=== PATIENT | female | born 1965 | race Caucasian/White ===

== ENCOUNTER 2024-09-22 06:31 | Inpatient (IN) | payer MEDICAID, SELFPAY ==
[2024-09-22] VITALS (9 sets, daily range): BP systolic 109–126; BP diastolic 69–82; PULSE 64–82; RESP 15–20; TEMP 36.6–38.2; O2SAT 92–99; BMI 33.3; BMI 40.6
--- NOTE | 2024-09-22 06:37 | PD.EDAMS ---
Altered Mental Status RME/HPI General Chief Complaint: Altered Mental Status Stated Complaint: AMS Time Seen by Provider: 09/22/24 06:35 Arrival date/time: 09/22/24 06:31 RME / HPI RME / HPI narrative: 59 year old female with history of AFib, HFpEF 65-70% 06/2024, CVA, s/p gastric bypass, hypertension, diabetes, presents to the ED [facility] from [facility] for evaluation of altered mental status today. Per medics, staff at the facility reported finding the patient altered this morning. Last known well is unknown. Evidently at baseline patient is awake, alert, oriented, and conversive. No further history obtainable from patient due to mental status. Related Data Home Medications ?Medication ?Instructions ?Recorded ?Confirmed escitalopram oxalate 20 mg tablet 10 mg PO QDAY DEPRESSION 05/21/24 08/11/24 gabapentin 300 mg capsule 300 mg PO BID NEUROPATHY 05/21/24 08/11/24 insulin glargine 100 unit/mL 25 unit subcut HS DM 05/21/24 08/11/24 subcutaneous solution insulin lispro 100 unit/mL 1 sliding scale dose subcut AC dm 05/21/24 08/11/24 subcutaneous solution (Humalog U-100 Insulin) amlodipine 10 mg tablet 10 mg PO QDAY htn 07/03/24 08/11/24 atorvastatin 40 mg tablet 40 mg PO HS HYPERLIPIDEMIA 07/03/24 08/11/24 baclofen 10 mg tablet 10 mg PO BID Muscle spasms 07/03/24 08/11/24 carvedilol 3.125 mg tablet 3.125 mg PO BID HTN 07/03/24 08/11/24 clonidine HCl 0.1 mg tablet 0.1 mg PO BID HTN 07/03/24 08/11/24 empagliflozin 25 mg tablet 25 mg PO QDAY DM 07/03/24 08/11/24 folic acid 1 mg tablet 1 mg PO QDAY SUPPLEMENT 07/03/24 08/11/24 multivitamin with minerals 1 tab PO QDAY SUPPLEMENTS 07/04/24 08/11/24 (Multiple Vitamin-Minerals tablet) pantoprazole 40 mg tablet,delayed 40 mg PO DAILY GERD 07/04/24 08/11/24 release sennosides 8.6 mg tablet (senna) 8.6 - 50 mg PO BID CONSTIPATION 07/04/24 08/11/24 amino acids-protein hydrolysate 15 1 ea PO BID 08/11/24 08/11/24 gram-100 kcal/30 mL oral liquid pkt (Pro-Stat Sugar Free) ascorbic acid (vitamin C) 500 mg 500 mg PO BID 08/11/24 08/11/24 tablet bisacodyl 10 mg rectal suppository 10 mg KS QDAY PRN Constipation 08/11/24 08/11/24 (Dulcolax (bisacodyl)) magnesium hydroxide 400 mg/5 mL 1,200 mg PO QDAY PRN Constipation 08/11/24 08/11/24 oral suspension (Milk of Magnesia) sodium phosphates 19 gram-7 118 ml KS QDAY PRN Constipation 08/11/24 08/11/24 gram/118 mL enema (Enema Disposable) Previous Rx's ?Medication ?Instructions ?Recorded linezolid 600 mg tablet 600 mg PO BID 7 days #0 tabs 08/14/24 tramadol 50 mg tablet 50 mg PO Q8H PRN Pain, Moderate 08/14/24 #20 tabs Allergies Allergy/AdvReac Type Severity Reaction Status Date / Time acetylcysteine Allergy Severe Difficulty Verified 05/24/24 17:57 Swallowing aspirin Allergy Severe Difficulty Verified 05/24/24 17:57 Swallowing cefpodoxime Allergy Severe Difficulty Verified 05/24/24 17:57 Breathing levofloxacin [From Levaquin] Allergy Severe Difficulty Verified 05/24/24 17:57 Breathing Penicillins Allergy Severe Difficulty Verified 05/24/24 17:57 Breathing Sulfa (Sulfonamide Allergy Severe Hives Verified 05/24/24 17:57 Antibiotics) sulfadiazine Allergy Severe Difficulty Verified 05/24/24 17:57 Breathing sulfamethoxazole Allergy Severe Difficulty Verified 05/24/24 17:57 [From Bactrim] Breathing capsaicin Allergy Intermediate Hives Verified 05/24/24 17:57 dulaglutide Allergy Intermediate Hives Verified 05/24/24 17:57 trimethoprim [From Bactrim] Allergy Verified 03/21/24 22:15 Review of Systems Review of Systems ROS Unobtainable: unobtainable due to mental status Past Medical History Past Medical History NEUROLOGIC: Positive Neurological Disorders and Cerebrovascular Accident CARDIAC: Positive Cardiac Disorders, Atrial Fibrillation, Congestive Heart Failure and Hypertension RESPIRATORY: Positive Asthma GASTROINTESTINAL: Positive Gastrointestinal Disorders, Gall Bladder Disease, Hiatal Hernia and Obesity MUSCULOSKELETAL: Positive Musculoskeletal Disorders, Arthritis, Carpal Tunnel Syndrome and Fibromyalgia ENDOCRINE: Positive Endocrine Disorders and Diabetes Mellitus Type 2 PSYCHO/SOCIAL: Positive Depression OTHER HISTORY: Positive Hospitalization, Chicken Pox and Measles Surgical History SURGICAL: Positive Abdominal Surgery (06/12/2024) and Section Social History SMOKING STATUS: Never smoker SUBSTANCE USE: does not use ED Exam Narrative Physical exam: GENERAL APPEARANCE: Appears altered, responds to voice with groaning, well-nourished, grimacing to painful stimuli, pale HEENT: Normocephalic, atraumatic; pupils 2-3mm and reactive to light; EOMI; mucous membranes pink, moist; oropharynx clear NECK: Supple LUNGS: CTABL; no wheezes, no rales, no rhonchi HEART: Regular rate, regular rhythm; normal S1, S2; no murmurs ABDOMEN: non distended; normal BS; soft, no tenderness, no guarding, no rebound; no masses, no organomegaly, no hernia BACK: no CVA tenderness EXTREMITIES: atraumatic; no edema NEUROLOGIC: Appears altered, responds to voice with groaning SKIN: warm, dry, pale; no rashes Course Course Course Narrative: 929: Urine still pending 1200: Urine still pending 1300: Urine resulted Quality Measures Current suspected stage: sepsis Possible source: genitourinary Blood cultures ordered: completed in ED Antibiotic ordered: Yes Pertinent labs: 09/22/24 09/22/24 07:00 07:42 Lactic Acid 1.0 mMol/L (0.4-2.0) Procalcitonin 2.26 H ng/ml (0.0-0.49) sepsis Orders Category Date Time 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 Care 09/22/24 06:39 Active EKG (ED ONLY) *Do not use* NOW Care 09/22/24 06:34 Completed Insert IV NOW Care 09/22/24 07:[address] head/brain wo con Stat Exams 09/22/24 06:40 Completed EKG (ED Only) Stat Exams 09/22/24 06:34 Ordered XR chest 1V portable Stat Exams 09/22/24 06:39 Completed B-Type Natriuretic Peptide Stat Lab 09/22/24 07:00 Completed Blood Culture (Lab) Stat Lab 09/22/24 07:00 Received CBC Stat Lab 09/22/24 07:00 Completed Comprehensive Metabolic Panel Stat Lab 09/22/24 07:00 Completed Lactate (Lactic Acid) Stat Lab 09/22/24 07:42 Completed Lipase Stat Lab 09/22/24 07:00 Completed Magnesium Stat Lab 09/22/24 07:00 Completed Partial Thromboplastin Time Stat Lab 09/22/24 07:00 Completed Procalcitonin Stat Lab 09/22/24 07:00 Completed Prothrombin Time with INR Stat Lab 09/22/24 07:00 Completed Troponin I Stat Lab 09/22/24 07:00 Completed Urinalysis Stat Lab 09/22/24 13:03 Completed Urine Culture Stat Lab 09/22/24 13:03 Received Acetaminophen Supp [Tylenol Supp] Med 09/22/24 10:50 Discontinued 650 mg KS X1 ONE Doxycycline Inj [Vibramycin Inj] 100 mg Med 09/22/24 08:01 Discontinued Sodium Chloride 0.9% 250 ml [Ns] 250 ml IV X1 Ondansetron Inj [Zofran Inj] Med 09/22/24 12:29 Discontinued 4 mg IV X1 ONE Sodium Chloride 0.9% 1000 ml [Ns] 1,000 ml Med 09/22/24 08:34 Discontinued IV 999 mls/hr fentaNYL INJ [Sublimaze Inj] Med 09/22/24 12:29 Discontinued 50 mcg IVP X1 ONE Vital Signs Vital signs: Vital Signs Pulse Rate 71 09/22/24 06:48 Pulse ox is 95% on 2L nasal cannula which is adequate. Altered Mental Status MDM Narrative MDM Narrative:: Nicole Owens am scribing for and in the presence of Dr. Valverde. Patient data External records reviewed:: [facility] previous records (I reviewed admission 08/11/2024 through 08/14/2024 for [place] due to dehydration, UTI, pneumonia), EMS form and Sn[facility] records (I reviewed txfer ppw from [facility]. I reviewed pmhx and medication list. ) Clinical information provided by:: EMS (Provided prehospital course ) Social determinants that could affect healthcare access:: housing (SNF resident ) Patient has the following chronic illnesses:: AFib, HFpEF 65-70% 06/2024, CVA, s/p gastric bypass, hypertension, diabetes How is presenting disease/condition affected by chronic disease/condition?: exacerbated by Evaluation data The following diagnostics were reviewed and interpreted by me:: lab results, radiology exam(s) and EKG tracing(s) (sinus rhythm, rate 72, occasional PAC, Q-wave in V1 through V5 and lead III, mild IVCD ) Lab and/or radiology exams considered but not ordered:: None Interpretation Summary: Ordering Physician: Zoraida Valverde MD Date of Service: 09/22/24 Procedure(s): XR chest 1V portable Accession Number(s): [id number] cc: Slava Mendes MD; Zoraida Valverde MD~ Examination: AP chest single view Technique: AP portable semiupright chest single view Exam date and time: September 22, 2024 0703 hrs. Comparison August 11, 2024 Indications: Onset chest pain today Findings: Significant opacity in the right lower lung zone Minor prominence left ventricle Mild vascular congestion Reduced inspiratory effort Impression: Pneumonia right middle lobe and right base, lateral chest view would be helpful for diagnostic assessment Dictated By: Slava Mendes MD Signed By: <Electronically signed by Slava Mendes MD in OV> 09/22/24 0711 Ordering Physician: Zoraida Valverde MD Date of Service: 09/22/24 Procedure(s): CT head/brain wo con Accession Number(s): [id number] cc: Slava Mendes MD; Zoraida Valverde MD~ Examination: CT brain head without contrast. 2-D sagittal coronal reconstructions Date and time of exam:September 22, 2024 0806 hrs. Comparison August 11, 2024 Indications: Altered mental status today CTDI: vol (mGy):59 DLP: (mGycm):1235 Technique: Multiple CT axial sections of the brain have been obtained, 5 mm slice thickness. Contrast has not been administered. 2-D sagittal, coronal reconstructions have been obtained Low dose protocols were performed. One or more of the following dose reduction techniques were used; automated exposure control, adjustment of the mA and/or KV according to patient size, use of iterative reconstruction technique. Findings: No significant ventricular enlargement. Intra-axial or extra-axial hemorrhage density is not seen. No mass effect or midline shift Basal cisterns are not remarkable. Fourth ventricle is midline. Cranial vault intact. Impression: Negative for acute hemorrhage, mass effect or midline shift If symptoms persist, consider brain MRI follow-up, stroke protocol Dictated By: Slava Mendes MD Signed By: <Electronically signed by Slava Mendes MD in OV> 09/22/24 0827 Medications / Prescriptions Medications or Prescriptions considered but not ordered:: None Medication administrations:: Medication Administration History Discontinued Medications Acetaminophen (Acetaminophen Supp 650 Mg Supp) 650 mg KS X1 ONE Stop: 09/22/24 10:51 Last Admin: 09/22/24 12:50 Dose: 650 mg Documented By: RUDY Fentanyl Citrate (Fentanyl Cit Inj 50 Mcg/Ml Amp 2ml) 50 mcg IVP X1 ONE Stop: 09/22/24 12:30 Last Admin: 09/22/24 12:41 Dose: 50 mcg Documented By: RUDY Doxycycline Hyclate 100 mg/ (Sodium Chloride) 250 mls @ 125 mls/hr IV X1 ONE Stop: 09/22/24 10:00 Last Infusion: 09/22/24 11:10 Dose: Infused Documented By: Admin: 09/22/24 09:05 Dose: 125 mls/hr Documented By: RUDY Sodium Chloride (Ns) 1,000 mls @ 999 mls/hr IV .Q1H1M ONE Stop: 09/22/24 09:34 Last Infusion: 09/22/24 10:15 Dose: Infused Documented By: Admin: 09/22/24 09:06 Dose: 999 mls/hr Documented By: RUDY Ondansetron HCl (Ondansetron Inj 2 Mg/Ml Inj 2 Ml) 4 mg IV X1 ONE Stop: 09/22/24 12:30 Last Admin: 09/22/24 12:41 Dose: 4 mg Documented By: RUDY See above Consultations Consultation(s) initiated? (list below): Yes Consultation #1 (Physician, Specialty, Details): I spoke with hospitalist Dr. Womack. Discussed patients PMHx, HPI, ED course, exam findings, labs, and radiology results. The hospitalist agree to accept the patient for admission. Time: 13:27 Diagnosis Differential diagnosis altered mental status: altered mental status, hypoglycemia, hyponatremia, subarachnoid hemorrhage, sepsis and other (UTI) Most likely diagnosis given after review of the tests above:: UTI Sepsis Pneumonia Altered mental status Admission Indicated Admission indicated?: indicated Admission Request Was there a request for admission?: Yes Admission Attestation Admission request attestation: Discussed case with [] from Hospitalist service regarding admission. Discussed patients ED course, exam findings, labs, and radiology results. The Hospitalist [agrees,declines] to accept the patient for admission. Disposition Plan Disposition Plan: Admit Critical Care Time Critical Care Time Critical Care Time: Yes Total Critical Care Time (min.): 35 Attestation: The high probability of sudden, clinically significant deterioration in the patient's condition required the highest level of my preparedness to intervene urgently. The services I provided to this patient were to treat and/or prevent clinically significant deterioration. Services included the following: chart data review, reviewing nursing notes and/or old charts, documentation time, solutions sales consultant collaboration regarding findings and treatment options, medication orders and management, direct patient care, vital sign assessments and ordering, interpreting and reviewing diagnostic studies and lab tests. Aggregate critical care time includes only time during which I was engaged in work directly related to the patient's care, as described above, whether at bedside or elsewhere in the Emergency Department. It did not include time spent performing other reported procedures or the services of residents, students, nurses or physician assistants. Discharge Plan Plan Patient Disposition: Admit Acute Care w/in Hospital Prescriptions/Referrals Prescriptions/Med Rec: No Action ascorbic acid (vitamin C) 500 mg Tablet 500 mg PO BID magnesium hydroxide [Milk of Magnesia] 400 mg/5 mL Suspension 1,200 mg PO QDAY PRN (Reason: Constipation) Rx Instructions: 1200 mg/ 15mL dose bisacodyl [Dulcolax (bisacodyl)] 10 mg Suppository 10 mg KS QDAY PRN (Reason: Constipation) Rx Instructions: insert 1 suppository rectally every 24 hours as needed for constipation if MOM is ineffective and no BM for 8 hours Enema Disposable 19-7 gram/118 mL Enema 118 ml KS QDAY PRN (Reason: Constipation) Rx Instructions: insert 1 application rectally as needed for constipation if MOM and Dulcolax Supp are ineffective and no bowel movement in 8 hours. if no results from MOM, Dulcolax supp and enema call Pro-Stat Sugar Free 15 gram- 100 kcal/30 mL Liquid In Packet 1 ea PO BID tramadol 50 mg Tablet 50 mg PO Q8H PRN (Reason: Pain, Moderate) Qty: 20 0RF Rx Instructions: MODERATED P[AIN (5-7) DO NOT EXCEED 300MG IN 24HOURS linezolid 600 mg Tablet 600 mg PO BID 7 Days Qty: 0 0RF Rx Instructions: 1 tablet by mouth every 12 hours for vancomycin resistant organism for 10 days (started 08/05/2024) gabapentin 300 mg Capsule 300 mg PO BID insulin lispro [Humalog U-100 Insulin] 100 unit/mL Solution 1 sliding scale dose SUBCUT AC Rx Instructions: 70-150= 0 UNITS 151-200 = 2 UNITS 201-250 = 4 units 251-300 = 6 units 301-350 = 8 units 351-400 = 10 units 401+ call 201-250 = 4 UNITS 251-300 = 6 UNITS 301-350 = 8 UNITS 351-400= 10 UNITS ABOVE 400 CALL escitalopram oxalate 20 mg Tablet 10 mg PO QDAY Rx Instructions: FOR 6 MONTHS M/B hopelessness r/t decline in health causing distress to resident. insulin glargine 100 unit/mL Solution 25 unit SUBCUT HS Rx Instructions: HOLD IF BS<80 atorvastatin 40 mg tablet 40 mg PO HS clonidine HCl 0.1 mg tablet 0.1 mg PO BID Rx Instructions: MONITOR BP AND PULSE, HOLD IF SBP<100 OR PULSE<60 carvedilol 3.125 mg tablet 3.125 mg PO BID Rx Instructions: MONITOR BP AND PULSE, HOLD IF SBP<100 OR PULSE<60 baclofen 10 mg tablet 10 mg PO BID amlodipine 10 mg tablet 10 mg PO QDAY Rx Instructions: MONITOR BP AND PULSE, HOLD IF SBP <100 OR PULSE <60 folic acid 1 mg tablet 1 mg PO QDAY empagliflozin 25 mg Tablet 25 mg PO QDAY sennosides [senna] 8.6 mg Tablet 8.6 - 50 mg PO BID pantoprazole 40 mg tablet,delayed release (DR/EC) 40 mg PO DAILY Multiple Vitamin-Minerals Tablet 1 tab PO QDAY Referrals: Tang Evans MD [Primary Care Provider] - In 1 week Problem List Clinical Impression: UTI (urinary tract infection), Pneumonia, Altered mental status, Sepsis Patient/Caregiver Discharge Instructions Print Language: Iranian Stand Alone Forms: Jania Award Info., Patient Portal Info Letter
--- NOTE | 2024-09-22 06:40 | XR_ITS ---
Examination: CT brain head without contrast. 2-D sagittal coronal reconstructions Date and time of exam:September 22, 2024 0806 hrs. Comparison August 11, 2024 Indications: Altered mental status today CTDI: vol (mGy):59 DLP: (mGycm):1235 Technique: Multiple CT axial sections of the brain have been obtained, 5 mm slice thickness. Contrast has not been administered. 2-D sagittal, coronal reconstructions have been obtained Low dose protocols were performed. One or more of the following dose reduction techniques were used; automated exposure control, adjustment of the mA and/or KV according to patient size, use of iterative reconstruction technique. Findings: No significant ventricular enlargement. Intra-axial or extra-axial hemorrhage density is not seen. No mass effect or midline shift Basal cisterns are not remarkable. Fourth ventricle is midline. Cranial vault intact. Impression: Negative for acute hemorrhage, mass effect or midline shift If symptoms persist, consider brain MRI follow-up, stroke protocol
--- NOTE | 2024-09-22 07:53 | PC.NURSE ---
Addendum entered by Lorena Le RN 09/22/24 17:21: RT DORSAL LOWER LEG HAS A DRSG OVER AN OPEN WOUND. DRSG TO SACRAL AREA INTACT Original Note: PATIENT IS LETHARGIC. SLOW TO RESPOND. SPEECH MUMBLED. RESP EVEN AND UNLABORED. ABD WOUND TO LLQ WITH NECROTIC TISSUE APPROX 4INX1.5IN. ANOTHER WOUND TO RLQ BED PINK, APPERS TO HAVE A TUNNELING SITE X2. APROX [id number]. COOPER CATH INPLACE. C/O PAIN WHEN MOVED.
[2024-09-22 08:16] LABS: B-Type Natriuretic Peptide < 20 pg/mL (0-100)
[2024-09-22 08:22] LABS: Alanine Aminotransferase 19 U/L (10-49); Albumin, Serum 3.3 gm/dL (3.4-4.8); Albumin/Globulin Ratio 1.1 (1.2-2.2); Alkaline Phosphatase 108 U/L (46-116); Anion Gap 8 (7-16); Aspartate Amino Transferase 18 U/L (0-34); BUN/Creatinine Ratio 38 Ratio (12-20); Bilirubin,Total 0.2 mg/dL (0.3-1.2); Blood Urea Nitrogen 61 mg/dL (9-23); Calcium 9.3 mg/dL (8.3-10.6); Calcium (Corrected) 9.9 mg/dL (8.5-10.1); Carbon Dioxide 24.2 mMol/L (20.0-31.0); Chloride 107 mMol/L (98-107); Creatinine (Component) 1.6 mg/dL (0.6-1.3); Estimated Creatinine Clearance 41.1 mL/min (>60); Globulin 2.9 gm/dL (2.3-3.5); Glucose 108 mg/dL (74-106); Lipase 17 U/L (12-53); Magnesium 2.5 mg/dL (1.6-2.6); Osmolality,Calculated 295 (275-295); Potassium 4.9 mMol/L (3.4-5.1); Procalcitonin 2.26 ng/ml (0.0-0.49); Sodium 139 mMol/L (136-145); Total Protein 6.2 gm/dL (5.7-8.2); Troponin I < 0.020 ng/mL (0.0-0.045); eGFR 36 See Note
[2024-09-22 08:38] LABS: INR 1.1 (0.9-1.3); Partial Thromboplastin Time 29.4 Seconds (22.0-36.0); Prothrombin Time 12.3 Seconds (9.0-12.2)
[2024-09-22 09:05] LABS: Basophils # (Auto) 0.1 Thou/mm3 (0.0-0.2); Basophils % (Auto) 1 % (0-2.5); Eosinophils # (Auto) 0.3 Thou/mm3 (0.0-0.5); Eosinophils % (Auto) 2 % (0-10); Hematocrit 29.7 % (36.0-46.0); Immature Granulocytes % (Auto) 1 % (0-0); Immature Granulocytes Auto 0.09 Thou/mm3 (0.00-0.00); Lymphocytes # (Auto) 2.4 Thou/mm3 (1.0-4.8); Lymphocytes % (Auto) 18 % (10-50); Mean Corpuscular HGB Conc 30.3 g/dl (31.0-37.0); Mean Corpuscular Hemoglobin 26.2 pg (25.0-35.0); Mean Corpuscular Volume 86 fL (80-100); Monocytes # (Auto) 1.5 Thou/mm3 (0.0-0.8); Monocytes % (Auto) 11 % (0-12); Neutrophils # (Auto) 9.2 Thou/mm3 (1.8-7.7); Neutrophils % (Auto) 68 % (37-80); Nucleated Red Blood Cell % 0 /100 WBC (0); Platelet Count 451 Thou/mm3 (140-440); RDW Standard Deviation 53.9 fL (36.4-46.3); Red Blood Count 3.44 Miln/mm3 (4.00-5.20); White Blood Count 13.6 Thou/mm3 (3.6-11.0)
[2024-09-22] MEDS: DOXYCYCLINE INJ 100 MG in SODIUM CHLORIDE 0.9% 250 ML 250 ML 125 MG IV (09:05)
[2024-09-22] MEDS: SODIUM CHLORIDE 0.9% 1000 ML 1,000 ML 999 ML IV ×2 (09:06→16:39)
[2024-09-22] MEDS: ONDANSETRON INJ 2 MG/ML INJ 2 ML 4 MG IV (12:41)
[2024-09-22] MEDS: fentaNYL CIT INJ 50 mCg/ML AMP 2ML IVP (12:41)
[2024-09-22] MEDS: ACETAMINOPHEN SUPP 650 MG SUPP PR (12:50)
[2024-09-22 13:09] LABS: Collection Type, Urine Clean Catch; Squamous Epithelial Cell,Urine 0 /hpf (0-5)
--- NOTE | 2024-09-22 13:09 | PC.NURSE ---
PATIENT AWAKE AND ALERT. INFORMED OF NEED TO INSERT A F/C. PATIENT IS VERY LARGE, LEGS ARE STIFF AND PATIENT DOES NOT MOVE THEM WELL. PATIENT POSITIONED FOR F/C PLACEMENT. PATIENT C/O PAIN WITH THE SLIGHTEST POSITION CHANGE. BECAME RESISTANT TO CATH PLACEMENT D/T PAIN. RT ARM REMOVED OUT OF THE WAY TO PROCEED WITH CATH PLACEMENT.
[2024-09-22 13:21] LABS: Bacteria,Urine Rare; Bilirubin,Urine Negative (Negative); Blood,Urine Trace (Negative); Clarity,Urine Turbid (Clear/Hazy); Color,Urine Yellow (Lt Yel-Yel); Glucose, Urine 3+ (Negative); Hyaline Casts,Urine < 1 /hpf (0-1); Ketones,Urine Negative (Negative); Leukocyte Esterase,Urine Positive (Negative); Nitrite,Urine Negative (Negative); Protein,Urine 1+ (Neg - Trace); RBC,Urine 5 /hpf (0-3); Specific Gravity,Urine 1.016 (1.001-1.035); Urobilinogen,Urine Negative mg/dL (0.0-1.0); WBC,Urine 749 /hpf (0-5)
--- NOTE | 2024-09-22 14:43 | PD.RESHP ---
Documentation for date of: 09/22/24 HPI History of Present Illness Chief complaint: Altered mental status History of present illness: Patient is altered hx was taken from chart review: 59 y/o F with PMHx of A-fib, HFpEF 65 to 70%, history of CVA, hypertension, diabetes presented to the ED from SNF due to altered mental status. Per nurse in the SNF patient was feeling flushed and weak and being incoherent but no other history. Patient has chronic yap catheter gets changed every other day. Patient also reports some back pain. Per nurse in the facility patient did not fall, lose conciousness, cough or have shortness of breath prior to bringing the patient to the ED. ED course: Vitals on arrival significant for low grade fever 100.7, BP 109/69, HR 71, saturating 95% on 2L NC, Labs show Leukocytosis WBCs 13.6, Hg 9, Plts 451, Chem panel significant for BUN 61, Creatinine 1.6, a1C 7.2, UA was positive for UTI showing positive leukocyte esterase, many WBCs. CXR shows right sided pneumonia. In the ED patient received 1L NS, doxycycline, acetaminophen, fentanyl PMHx:A-fib HFpEF 65 to 70%, history of CVA, hypertension, diabetes Review of Systems Review of Systems ROS Unobtainable: unobtainable due to mental status Exam Vital Signs Temp Pulse Resp BP Pulse Ox O2 Del Method O2 Flow Rate 98.2 F 64 17 124/73 97 Nasal Cannula 1 09/22/24 14:01 09/22/24 14:01 09/22/24 14:01 09/22/24 14:01 09/22/24 14:01 09/22/24 14:01 09/22/24 14:01 Narrative Exam Physical Exam GENERAL: NAD, AAOx1 person only, obese, pale HEENT: dry mucosa. Eyes open, symmetrical, & clear CARDIO: Heart RRR, no obvious murmurs PULM: No noted coughing/dyspnea CTA B/L, no R/W/R GI: Abdomen soft, nondistended, no pain on palpation, wound on right side of abdomen covered with gauze has stoma, BSx4 URO: Yap catheter SKIN/MSK/EXT: Leg ulcers, Pedal pulses present B/L NEURO: AAOx1, person only Results: Labs 09/23/24 05:25 09/23/24 05:25 Labs: Short CBC 09/22/24 Range/Units 07:00 WBC 13.6 H (3.6-11.0) Thou/mm3 Hgb 9.0 L (12.0-16.0) g/dL Hct 29.7 L (36.0-46.0) % Plt Count 451 H D (140-440) Thou/mm3 BMP 09/22/24 07:00 Sodium 139 Potassium 4.9 Chloride 107 Carbon Dioxide 24.2 BUN 61 H Creatinine 1.6 H Glucose 108 H Calcium 9.3 Cardiac Enzymes 09/22/24 Range/Units 07:00 Troponin I < 0.020 (0.0-0.045) ng/mL Liver Function 09/22/24 Range/Units 07:00 Total Bilirubin 0.2 L (0.3-1.2) mg/dL AST 18 (0-34) U/L ALT 19 (10-49) U/L Alkaline Phosphatase 108 (46-116) U/L Albumin 3.3 L (3.4-4.8) gm/dL Urine 09/22/24 Range/Units 13:03 Urine Color Yellow (Lt Yel-Yel) Urine Clarity Turbid A (Clear/Hazy) Urine pH 6.0 (5.0-7.0) Ur Specific [place] 1.016 (1.001-1.035) Urine Protein 1+ A (Neg - Trace) Urine Glucose (UA) 3+ A (Negative) Quality Measures Quality Measures sepsis Current suspected stage: sepsis Possible source: genitourinary Blood cultures ordered: completed in ED Antibiotic ordered: Yes Medications Home Medications and Allergies Home Medications ?Medication ?Instructions ?Recorded ?Confirmed ?Type escitalopram oxalate 20 mg tablet 10 mg PO QDAY DEPRESSION 05/21/24 09/23/24 History gabapentin 300 mg capsule 300 mg PO BID NEUROPATHY 05/21/24 09/23/24 History insulin glargine 100 unit/mL 25 unit subcut HS DM 05/21/24 09/23/24 History subcutaneous solution insulin lispro 100 unit/mL 1 sliding scale dose subcut AC dm 05/21/24 09/23/24 History subcutaneous solution (Humalog U-100 Insulin) amlodipine 10 mg tablet 10 mg PO QDAY htn 07/03/24 09/23/24 History atorvastatin 40 mg tablet 40 mg PO HS HYPERLIPIDEMIA 07/03/24 09/23/24 History baclofen 10 mg tablet 5 mg PO BID Muscle spasms 07/03/24 09/23/24 History carvedilol 3.125 mg tablet 3.125 mg PO BID HTN 07/03/24 09/23/24 History clonidine HCl 0.1 mg tablet 0.1 mg PO BID HTN 07/03/24 08/11/24 History empagliflozin 25 mg tablet 25 mg PO QDAY DM 07/03/24 09/23/24 History folic acid 1 mg tablet 1 mg PO QDAY SUPPLEMENT 07/03/24 09/23/24 History multivitamin with minerals 1 tab PO QDAY SUPPLEMENTS 07/04/24 09/23/24 History (Multiple Vitamin-Minerals tablet) pantoprazole 40 mg tablet,delayed 40 mg PO DAILY GERD 07/04/24 09/23/24 History release sennosides 8.6 mg tablet (senna) 8.6 - 50 mg PO BID CONSTIPATION 07/04/24 09/23/24 History amino acids-protein hydrolysate 15 1 ea PO BID 08/11/24 09/23/24 History gram-100 kcal/30 mL oral liquid pkt (Pro-Stat Sugar Free) ascorbic acid (vitamin C) 500 mg 500 mg PO BID 08/11/24 09/23/24 History tablet bisacodyl 10 mg rectal suppository 10 mg CO QDAY PRN Constipation 08/11/24 08/11/24 History (Dulcolax (bisacodyl)) magnesium hydroxide 400 mg/5 mL 1,200 mg PO QDAY PRN Constipation 08/11/24 08/11/24 History oral suspension (Milk of Magnesia) sodium phosphates 19 gram-7 118 ml CO QDAY PRN Constipation 08/11/24 08/11/24 History gram/118 mL enema (Enema Disposable) Allergies Allergy/AdvReac Type Severity Reaction Status Date / Time acetylcysteine Allergy Severe Difficulty Verified 05/24/24 17:57 Swallowing aspirin Allergy Severe Difficulty Verified 05/24/24 17:57 Swallowing cefpodoxime Allergy Severe Difficulty Verified 05/24/24 17:57 Breathing levofloxacin [From Levaquin] Allergy Severe Difficulty Verified 05/24/24 17:57 Breathing Penicillins Allergy Severe Difficulty Verified 05/24/24 17:57 Breathing Sulfa (Sulfonamide Allergy Severe Hives Verified 05/24/24 17:57 Antibiotics) sulfadiazine Allergy Severe Difficulty Verified 05/24/24 17:57 Breathing sulfamethoxazole Allergy Severe Difficulty Verified 05/24/24 17:57 [From Bactrim] Breathing capsaicin Allergy Intermediate Hives Verified 05/24/24 17:57 dulaglutide Allergy Intermediate Hives Verified 05/24/24 17:57 trimethoprim [From Bactrim] Allergy Verified 03/21/24 22:15 Visit Medications Acetaminophen (Acetaminophen 325 Mg Tablet) 650 mg PO Q6H PRN PRN Reason: Fever >100.5 Stop: 10/22/24 14:30 Acetaminophen (Acetaminophen 325 Mg Tablet) 650 mg PO Q6H PRN PRN Reason: PAIN SCALE 1-3 (mild Stop: 10/22/24 14:30 Docusate Sodium (Docusate Sod 100 Mg Capsule) 100 mg PO QDAY FREDA; Protocol Stop: 10/22/24 14:44 Heparin Sodium (Porcine) (Heparin Sod Inj 5000 Unit/Ml Vial) 5,000 unit SC Q8HR FREDA Stop: 10/06/24 14:44 Ceftriaxone Sodium/Dextrose (Rocephin/D5w 1gm Iv Premix) 50 mls @ 100 mls/hr IV QDAY FREDA Stop: 09/29/24 14:36 Doxycycline Hyclate 100 mg/ (Sodium Chloride) 100 mls @ 100 mls/hr IV BID [facility] Stop: 09/29/24 14:44 Metronidazole (Flagyl 500 Mg Iv) 500 mg in 100 mls @ 200 mls/hr IV Q8HR FREDA Stop: 09/29/24 14:38 Ondansetron HCl (Ondansetron Inj 2 Mg/Ml Inj 2 Ml) 4 mg IV Q6H PRN; Protocol PRN Reason: NAUSEA OR VOMITING Stop: 10/22/24 14:30 Discontinued Medications Acetaminophen (Acetaminophen Supp 650 Mg Supp) 650 mg CO X1 ONE Stop: 09/22/24 10:51 Last Admin: 09/22/24 12:50 Dose: 650 mg Fentanyl Citrate (Fentanyl Cit Inj 50 Mcg/Ml Amp 2ml) 50 mcg IVP X1 ONE Stop: 09/22/24 12:30 Last Admin: 09/22/24 12:41 Dose: 50 mcg Doxycycline Hyclate 100 mg/ (Sodium Chloride) 250 mls @ 125 mls/hr IV X1 ONE Stop: 09/22/24 10:00 Last Infusion: 09/22/24 11:10 Dose: Infused Sodium Chloride (Ns) 1,000 mls @ 999 mls/hr IV .Q1H1M ONE Stop: 09/22/24 09:34 Last Infusion: 09/22/24 10:15 Dose: Infused Ondansetron HCl (Ondansetron Inj 2 Mg/Ml Inj 2 Ml) 4 mg IV X1 ONE Stop: 09/22/24 12:30 Last Admin: 09/22/24 12:41 Dose: 4 mg Assessment & Plan Plan 59 y/o F with PMHx of A-fib, HFpEF 65 to 70%, history of CVA, hypertension, diabetes presented to the ED from SNF due to altered mental status. Admitted for management of Sepsis secondary to UTI and right sided pneumonia #Sepsis secondary to #UTI #?Aspiration Pneumonia On admission patient has SIRS 2/4 fever, WBCs, end organ damage [place] and altered mental status UA shows UTI with positive esterase, WBCs CXR shows right sided pneumonia possibly aspiration procalcitonin elevated In the ED patient received 1L NS bolus + 1L NS bolus Patient has extensive medication allergies and resitances to many Abx - 1L NSx1 bag - Started on Aztreonam - started on doxycycline - started on flagyl - f/u blood cultures - f/u Urine Cx #Acute metabolic encephalopathy patient on arrival is AAOx1 not able to answer any question apart from her name likely secondary to UTI vs dehydration vs Uremia Head CT showed Negative for acute hemorrhage, mass effect or midline shift - treat underlying sepsis - aspiration precautions - speech evaluation pending #[place] baseline creatinine 0.9-1.1 Current Cr 1.6 was given 1L NS in ED+ 1L NS bolus - NS 100ml x1 bag - avoid nephrotoxins - renally dose medications #Diabetes - SSI - hypoglycemia protocol in place #Hypertension #Hx of Afib currently in sinus rhythm BP soft at this time will resume anti-hypertensives as BP permits #Chronic abdominal wall wound Patient has had a chronic wound on her abdomen. -wound care #HFpEF [65-70% April 2024] #Mild aortic valve stenosis Echo 05/21/2024 - estimated 65-70%. Normal RV size / function. Mean gradient on aortic valve - 13 mm Hg -strict intake and output #Hx of HLD -resumed atorvastatin 40mg HS Case discussed with my senior Dr. Chan PGY-[address] Vu Garsia MD PGY-1 Disposition: Medtele Fluids: NS Feeding: pending speech eval Thrombo prophylaxis: Heparin Gastric Ulcer prophylaxis: Pantoprazole CODE STATUS: Full code Attending Provider Attestation/Addendum I have examined the patient, reviewed labs and imaging findings, discussed the case with the resident(s), and reviewed entered orders. I agree with the plan of care as outlined in this note, with these additional summaries/recommendations: Patient is a 59-year-old female who is well-known to the hospital service with a medical history of A-fib, HFpEF, CVA, hypertension and diabetes who presented from nursing facility with chief complaint of altered mental status. Most likely altered mental status is secondary to infectious etiology from urinary tract infection versus pneumonia. Urinalysis showed leukocyte esterase positive, WBC 749 and rare bacteria. Chest x-ray showed pneumonia right middle lobe and right base. We will continue to treat underlying infection and monitor for improvement in mentation. Yap catheter exchange. Blood and urine cultures taken and follow-up results. Patient also noted to have acute kidney injury on admission with creatinine 1.6 and BUN 61. Most likely secondary to prerenal azotemia in the setting of altered mental status and poor oral intake. We will give gentle IV fluids and repeat renal panel in AM. Avoid nephrotoxic agents and renally dose medications. Repeat hematology and chemistry panel in AM. Dr. Womack
[2024-09-22 15:04] LABS: Glucose Estimated Average 160 mg/dL (80-131); Hemoglobin A1C 7.2 % Hgb (4.8-6.0)
--- NOTE | 2024-09-22 15:47 | PC.CC ---
Addendum entered by Shar Beard II 09/22/24 15:50: From review of pts historical encounters, pt is a resident of [facility]. Pts mother Radha Holliday [phone] is surrogate DM. Pt is bed bound and is max assist in completing her ADLs. Original Note: ASW attempted to meet with pt at bedside to complete initial assessment. Pt noted to be talking to herself, is oriented to name. Pt unable to participate in completing initial assessment at this time.
--- NOTE | 2024-09-22 15:52 | XR_ITS ---
Examination: CT abdomen and pelvis without contrast. Coronal 3-D reconstructions. Sagittal 2-D reconstructions. Date and time of exam:September 22, 2024 1604 hrs. Comparison August 10, 2024 Indications: Onset generalized abdominal pain today CTDI: vol (mGy): 24.2 DLP: (mGycm): 1757 Technique: Axial images of the abdomen have been obtained, 3 mm slice thickness Intravenous contrast material has not been administered. Low dose protocols were performed. One or more of the following dose reduction techniques were used; automated exposure control, adjustment of the mA and/or KV according to patient size, use of iterative reconstruction technique. Findings: Pneumonia right base minimal bilateral pleural fluid Mild enlargement cardiac contour No focal liver lesions Absent gallbladder Spleen is not enlarged No pancreatic mass Study is without intravenous contrast which would severely limit assessment for pyelonephritis Right renal arterial calcification Moderate bilateral renal parenchymal scar formation No hydronephrosis or ureteral calculi Absent appendix No bowel obstruction Right lateral pelvic wall hernia defect, 8 cm, containing small bowel but no incarcerated bowel Large amounts of stool in the rectum with mild thickening the rectal wall Urinary bladder contracted around a Clark catheter Moderate thoracolumbar levoscoliosis Moderate to advanced bilateral hip osteoarthritis Impression: Right base pneumonia Moderate bilateral renal parenchymal scar formation No hydronephrosis or ureteral calculi Right lateral pelvic wall hernia defect 8 cm containing small bowel but no incarcerated bowel Large amounts of stool in the rectum with mild thickening of the rectal wall, differential would include proctitis
[2024-09-22] MEDS: AZTREONAM IV ×2 (16:29→23:13)
[2024-09-22] MEDS: SODIUM CHLORIDE 0.9% IV ×2 (16:29→23:13)
[2024-09-22] MEDS: PANTOPRAZOLE 40 MG TABLET PO (16:30)
[2024-09-22] MEDS: DOXYCYCLINE INJ 100 MG in SODIUM CHLORIDE 0.9% (P) 100 ML IV ×2 (16:41→23:12)
[2024-09-22] MEDS: DOCUSATE SOD 100 MG CAPSULE PO (16:47)
[2024-09-22] MEDS: HEPARIN SOD INJ 5000 UNIT/ML VIAL SC ×2 (16:48→23:13)
[2024-09-22] MEDS: metroNIDAZOLE/NS 500 MG IVPB 500 MG/100 ML BAG 200 MG IV ×2 (17:07→23:44)
[2024-09-22] MEDS: SODIUM CHLORIDE 0.9% 1000 ML 1,000 ML 100 ML IV (18:01)
[2024-09-22] MEDS: HYDROcodone/APAP 5/325 TABLET 1 TAB PO ×2 (18:02→23:44)
[2024-09-22] MEDS: INSULIN LISPRO (AdmeLOG) 1 UNIT/0.01 ML UNIT SC ×2 (18:19→21:44)
--- NOTE | 2024-09-22 22:24 | PC.NURSE ---
Report given to floor RN. Pt taken to [id number] on monitor.
[2024-09-22] MEDS: ATORVASTATIN CALCIUM 20 MG TABLET 40 MG PO (23:12)
[2024-09-23] VITALS (12 sets, daily range): BP systolic 115–164; BP diastolic 60–92; PULSE 74–87; RESP 18–20; TEMP 36.6–37.7; O2SAT 93–99
[2024-09-23] MEDS: SODIUM CHLORIDE 0.9% IV ×3 (05:27→21:27)
[2024-09-23] MEDS: HEPARIN SOD INJ 5000 UNIT/ML VIAL SC ×3 (05:27→21:27)
[2024-09-23] MEDS: AZTREONAM IV ×3 (05:27→21:27)
[2024-09-23] MEDS: metroNIDAZOLE/NS 500 MG IVPB 500 MG/100 ML BAG 200 MG IV ×3 (05:27→21:28)
[2024-09-23 05:39] LABS: Basophils # (Auto) 0.1 Thou/mm3 (0.0-0.2); Basophils % (Auto) 1 % (0-2.5); Eosinophils # (Auto) 0.3 Thou/mm3 (0.0-0.5); Eosinophils % (Auto) 2 % (0-10); Hematocrit 30.1 % (36.0-46.0); Immature Granulocytes % (Auto) 1 % (0-0); Immature Granulocytes Auto 0.11 Thou/mm3 (0.00-0.00); Lymphocytes # (Auto) 1.8 Thou/mm3 (1.0-4.8); Lymphocytes % (Auto) 13 % (10-50); Mean Corpuscular HGB Conc 29.9 g/dl (31.0-37.0); Mean Corpuscular Hemoglobin 25.9 pg (25.0-35.0); Mean Corpuscular Volume 87 fL (80-100); Monocytes # (Auto) 1.1 Thou/mm3 (0.0-0.8); Monocytes % (Auto) 8 % (0-12); Neutrophils # (Auto) 11.1 Thou/mm3 (1.8-7.7); Neutrophils % (Auto) 77 % (37-80); Nucleated Red Blood Cell % 0 /100 WBC (0); Platelet Count 504 Thou/mm3 (140-440); RDW Standard Deviation 54.7 fL (36.4-46.3); Red Blood Count 3.47 Miln/mm3 (4.00-5.20); White Blood Count 14.5 Thou/mm3 (3.6-11.0)
[2024-09-23] MEDS: HYDROcodone/APAP 5/325 TABLET 1 TAB PO ×3 (05:52→23:03)
[2024-09-23 06:54] LABS: Alanine Aminotransferase 20 U/L (10-49); Albumin, Serum 3.8 gm/dL (3.4-4.8); Alkaline Phosphatase 140 U/L (46-116); Anion Gap 13 (7-16); Aspartate Amino Transferase 15 U/L (0-34); BUN/Creatinine Ratio 34 Ratio (12-20); Bilirubin,Total 0.4 mg/dL (0.3-1.2); Blood Urea Nitrogen 48 mg/dL (9-23); Calcium 9.7 mg/dL (8.3-10.6); Calcium (Corrected) 9.9 mg/dL (8.5-10.1); Carbon Dioxide 18.6 mMol/L (20.0-31.0); Cardiac Risk Estimate 3.4 RATIO (3.7-5.6); Chloride 109 mMol/L (98-107); Cholesterol 89 mg/dL (132-200); Creatinine (Component) 1.4 mg/dL (0.6-1.3); Estimated Creatinine Clearance 52.3 mL/min (>60); Globulin 3.7 gm/dL (2.3-3.5); Glucose 125 mg/dL (74-106); HDL Cholesterol 26 mg/dL (40-60); LDL Cholesterol,Calculated 52 mg/dL (0-130); Magnesium 2.3 mg/dL (1.6-2.6); Osmolality,Calculated 294 (275-295); Phosphorous 2.9 mg/dL (2.4-5.1); Potassium 4.1 mMol/L (3.4-5.1); Sodium 141 mMol/L (136-145); Thyroid Stimulating Hormone 3.52 uIU/mL (0.55-4.78); Total Protein 7.5 gm/dL (5.7-8.2); Triglycerides 57 mg/dL (30-150); eGFR 43 See Note
[2024-09-23] MEDS: INSULIN LISPRO (AdmeLOG) 1 UNIT/0.01 ML UNIT SC ×4 (07:49→21:25)
[2024-09-23] MEDS: bisacodyL 5 MG TABEC PO (08:45)
[2024-09-23] MEDS: amLODIPine BESYLATE 5 MG TABLET 10 MG PO (08:45)
[2024-09-23] MEDS: carVEDILOL 3.125 MG TABLET PO ×2 (08:45→21:27)
[2024-09-23] MEDS: DOCUSATE SOD 100 MG CAPSULE PO (08:45)
[2024-09-23] MEDS: DOXYCYCLINE INJ 100 MG in SODIUM CHLORIDE 0.9% (P) 100 ML IV (08:46)
[2024-09-23] MEDS: PANTOPRAZOLE 40 MG TABLET PO (08:46)
--- NOTE | 2024-09-23 08:51 | ESPR_ITS ---
Documentation for date of: 09/23/24 ATTESTATION: I saw and examined the patient this morning, and I agree with current management stated by the resident. Will continue to monitor patient during their stay. Disclaimer: Despite multiple revisions, due to the dictation software being used, the document bellow may not be free of grammatical errors including phonetic/typographic errors. However, this does not deter from our commitment to providing health care in the patient's best interest in mind. Dr. Fitz Chan, PGY-3 Subjective Subjective Interval history: Patient seen today at the bedside found awake, continues to be altered. No overnight events reported. Patient was complaining of some bloating, ordered some simethicone. Vital signs stable at this time. Labs show uptrending WBCs, antibiotic coverage adjusted discontinued doxycycline and added vancomycin. Carvedilol and amlodipine resumed for her HTN and hx of atrial fibrillation. Pain regimen adjusted as patient states some pain in her back. Patient today has some non-anion gap metabolic acidosis, likely saline induced, but will continue to monitor. Exam Vital Signs Temp Pulse Resp BP Pulse Ox O2 Del Method O2 Flow Rate 98.9 F 82 18 140/86 H 95 Nasal Cannula 1 09/23/24 07:52 09/23/24 08:45 09/23/24 07:52 09/23/24 08:45 09/23/24 07:52 09/23/24 07:52 09/23/24 07:52 Narrative Exam Physical Exam GENERAL: NAD, AAOx0, obese, pale HEENT: dry mucosa. Eyes open, symmetrical, & clear CARDIO: Heart RRR, no obvious murmurs PULM: No noted coughing/dyspnea CTA B/L, no R/W/R GI: Abdomen soft, nondistended, no pain on palpation, wound on right side of abdomen covered with gauze has stoma, BSx4 URO: Yap catheter SKIN/MSK/EXT: multiple Leg ulcers, pressrure ulcer in the back, Pedal pulses present B/L NEURO: AAOx0 Objective Labs 09/23/24 05:25 09/23/24 05:25 Labs: Laboratory Results - last 24 hr 09/22/24 09/22/24 09/23/24 07:00 13:03 05:25 WBC 13.6 H 14.5 H RBC 3.44 L 3.47 L Hgb 9.0 L 9.0 L Hct 29.7 L 30.1 L MCV 86 87 MCH 26.2 25.9 MCHC 30.3 L 29.9 L RDW Std Deviation 53.9 H 54.7 H Plt Count 451 H D 504 H D Neut % (Auto) 68 77 Lymph % (Auto) 18 13 [place] % (Auto) 11 8 Eos % (Auto) 2 2 Baso % (Auto) 1 1 Neut # (Auto) 9.2 H 11.1 H Lymph # (Auto) 2.4 1.8 [place] # (Auto) 1.5 H 1.1 H Eos # (Auto) 0.3 0.3 Baso # (Auto) 0.1 0.1 Immature Gran # (Auto) 0.09 H 0.11 H Absolute Nucleated RBC 0.00 0.00 Immature Gran % 1 H 1 H Nucleated RBC % 0 0 Sodium 141 Potassium 4.1 D Chloride 109 H Carbon Dioxide 18.6 L Anion Gap 13 BUN 48 H Creatinine 1.4 H Estim Creat Clear Calc 52.3 L eGFR 43 L BUN/Creatinine Ratio 34 H Glucose [address] Glu mg/dL 160 H Hemoglobin A1c 7.2 H Calculated Osmolality 294 Calcium 9.7 Corrected Calcium 9.9 Phosphorus 2.9 Magnesium 2.3 Total Bilirubin 0.4 AST 15 ALT 20 Alkaline Phosphatase 140 H D Total Protein 7.5 Albumin 3.8 D Globulin 3.7 H Albumin/Globulin Ratio 1.0 L Triglycerides 57 Cholesterol 89 L LDL Cholesterol, Calc 52 HDL Cholesterol 26 L Cholesterol/HDL Ratio 3.4 L TSH 3.52 Ur Collection Type Clean Catch Urine Color Yellow Urine Clarity Turbid A Urine pH 6.0 Ur Specific [place] 1.016 Urine Protein 1+ A Urine Glucose (UA) 3+ A Urine Ketones Negative Urine Blood Trace Urine Nitrite Negative Urine Bilirubin Negative Urine Urobilinogen (Auto) Negative Ur Leukocyte Esterase Positive Urine RBC 5 H Urine WBC 749 H Ur Squamous Epith Cells 0 Urine Bacteria Rare Hyaline Casts < 1 Quality Measures Quality Measures sepsis Current suspected stage: sepsis Possible source: genitourinary Blood cultures ordered: completed in ED Antibiotic ordered: Yes Assessment & Plan Assessment Current Active Medications: Generic Name Dose Route Start Last Admin Trade Name Freq PRN Reason Stop Dose Admin Acetaminophen 650 mg 09/22/24 14:31 Acetaminophen 325 Mg Tablet PO 10/22/24 14:30 Q6H PRN Fever >100.5 Acetaminophen 650 mg 09/22/24 14:31 Acetaminophen 325 Mg Tablet PO 10/22/24 14:30 Q6H PRN PAIN SCALE 1-3 (mild Hydrocodone Bitart/Acetaminophen 1 tab 09/23/24 08:38 Hydrocodone/Apap 5/325 Tablet PO 09/27/24 17:25 Q4HR PRN PAIN SCALE 4-10(Mod-Sev Amlodipine Besylate 10 mg 09/23/24 09:00 09/23/24 08:45 Amlodipine Besylate 5 Mg Tablet PO 10/23/24 08:59 10 mg QDAY FREDA Administration Atorvastatin Calcium 40 mg 09/22/24 21:00 09/22/24 23:12 Atorvastatin Calcium 20 Mg Tablet PO 10/22/24 20:59 40 mg HS FREDA Administration Carvedilol 3.125 mg 09/23/24 09:00 09/23/24 08:45 Carvedilol 3.125 Mg Tablet PO 10/23/24 08:59 3.125 mg BID FREDA Administration Dextrose 25 ml 09/22/24 15:21 Dextrose 50%-Water Inj 50 Ml Syringe IV 10/22/24 15:20 Q15MIN PRN BG 50-70 responsive npo pt Dextrose 50 ml 09/22/24 15:21 Dextrose 50%-Water Inj 50 Ml Syringe IV 10/22/24 15:20 Q15MIN PRN BG <50 OR BG <70 & pt unresponsive Docusate Sodium 100 mg 09/22/24 14:45 09/23/24 08:45 Docusate Sod 100 Mg Capsule PO 10/22/24 14:44 100 mg QDAY FREDA Administration Protocol Glucagon 1 mg 09/22/24 15:21 Glucagon Inj 1 Mg Vial IM Q15MIN PRN BG <70, and no IV access Heparin Sodium (Porcine) 5,000 unit 09/22/24 14:45 09/23/24 05:27 Heparin Sod Inj 5000 Unit/Ml Vial SC 10/06/24 14:44 5,000 unit Q8HR FREDA Administration Doxycycline Hyclate 100 mg/ 100 mls @ 100 mls/hr 09/22/24 14:45 09/23/24 08:46 Sodium Chloride IV 09/29/24 14:44 100 mls/hr BID FREDA Administration Metronidazole 500 mg in 100 mls @ 200 mls/hr 09/22/24 14:39 09/23/24 05:27 Flagyl 500 Mg Iv IV 09/29/24 14:38 200 mls/hr Q8HR FREDA Administration Aztreonam 2,000 mg/ Sodium 100 mls @ 200 mls/hr 09/22/24 15:00 09/23/24 05:27 Chloride IV 09/29/24 14:59 200 mls/hr Q8HR FREDA Administration Insulin Human Lispro 0 unit 09/22/24 17:00 09/23/24 07:49 Insulin Lispro (Admelog) 1 Unit/0.01 Ml Unit SC 10/22/24 16:59 1 unit ACHS FREDA Administration Protocol Ondansetron HCl 4 mg 09/22/24 14:31 Ondansetron Inj 2 Mg/Ml Inj 2 Ml IV 10/22/24 14:30 Q6H PRN NAUSEA OR VOMITING Protocol Pantoprazole Sodium 40 mg 09/22/24 16:15 09/23/24 08:46 Pantoprazole 40 Mg Tablet PO 10/22/24 16:14 40 mg QDAY FREDA Administration Plan 59 y/o F with PMHx of A-fib, HFpEF 65 to 70%, history of CVA, hypertension, diabetes presented to the ED from SNF due to altered mental status. Admitted for management of Sepsis secondary to UTI and right sided pneumonia #Sepsis secondary to #UTI #?Aspiration Pneumonia On admission patient has SIRS 2/4 fever, WBCs, end organ damage [place] and altered mental status UA shows UTI with positive esterase, WBCs CXR shows right sided pneumonia possibly aspiration procalcitonin elevated In the ED patient received 1L NS bolus + 1L NS bolus Patient has extensive medication allergies and resitances to many Abx Urine Cx grew gram negative rods, although previous cultures show GNRs, and patient has chronic yap catheter so could be colonization - 1L NSx1 bag - on Aztreonam - on Vancomycin - on flagyl - f/u blood cultures - f/u Urine Cx #Acute metabolic encephalopathy patient on arrival is AAOx1 not able to answer any question apart from her name likely secondary to UTI vs dehydration vs Uremia Head CT showed Negative for acute hemorrhage, mass effect or midline shift Patient is AAOx0 at this time, barely verbalizing Patient is able to move all 4 extremities and face is symmetrical - treat underlying sepsis - aspiration precautions - speech evaluation pending #[place]-improving baseline creatinine 0.9-1.1 Current Cr 1.4 was given 1L NS in ED+ 2L NS bolus - avoid nephrotoxins - renally dose medications #NAGMA likely in the setting of NS infusions - will continue to monitor #Diabetes - SSI - hypoglycemia protocol in place #HFpEF [65-70% April 2024] #Mild aortic valve stenosis #Hypertension #Hx of Afib Echo 05/21/2024 - estimated 65-70%. Normal RV size / function. Mean gradient on aortic valve - 13 mm Hg currently in sinus rhythm -resumed carvedilol 3.125mg BID -resumed amlodipine 5mg qday -strict intake and output #Chronic abdominal wall wound Patient has had a chronic wound on her abdomen. -wound care #Hx of HLD -resumed atorvastatin 40mg HS Case discussed with my senior Dr. Chan PGY-[address] Vu Garsia MD PGY-1 Disposition: Medtele Fluids: NS Feeding: Clear liquid diet Thrombo prophylaxis: Heparin Gastric Ulcer prophylaxis: Pantoprazole CODE STATUS: Full code Attending Provider Attestation/Addendum I have examined the patient, reviewed labs and imaging findings, discussed the case with the resident(s), and reviewed entered orders. I agree with the plan of care as outlined in this note, with these additional summaries/recommendations: Patient is a 59-year-old female who is well-known to the hospital service with a medical history of A-fib, HFpEF, CVA, hypertension and diabetes who presented from nursing facility with chief complaint of altered mental status. Most likely altered mental status is secondary to infectious etiology from urinary tract infection versus pneumonia. Urinalysis showed leukocyte esterase positive, WBC 749 and rare bacteria. Chest x-ray showed pneumonia right middle lobe and right base. We will continue to treat underlying infection and monitor for improvement in mentation. Yap catheter exchange. Blood and urine cultures taken and follow-up results. Patient also noted to have acute kidney injury on admission with creatinine 1.6 and BUN 61. Most likely secondary to prerenal azotemia in the setting of altered mental status and poor oral intake. We will give gentle IV fluids and repeat renal panel in AM. Avoid nephrotoxic agents and renally dose medications. Repeat hematology and chemistry panel in AM. Dr. Womack
[2024-09-23] MEDS: ACETAMINOPHEN 325 MG TABLET 650 MG PO (09:07)
[2024-09-23 09:32] LABS: Amphetamine/Methamp Scrn,U Negative (Negative); Barbiturate Screen,Urine Negative (Negative); Benzodiazepines Screen,Urine Negative (Negative); Benzoylecgonine Screen, Ur Negative (Negative); Fentanyl Screen,Urine Negative (Negative); Opiate Screen,Urine Positive (Negative); THC Screen,Urine Negative (Negative)
--- NOTE | 2024-09-23 09:43 | PCS.ST ---
Swallow Evaluation completed. See report for details. No s/s of aspiration. Functional pharyngeal swallow.
--- NOTE | 2024-09-23 10:30 | PC.SS ---
FOOD PRODUCTION MACHINE OPERATOR conducted phone contact with the patient?s mother, Radha Holliday to conduct initial assessment and to discuss discharge planning on behalf of the patient. Patient is a resident of [facility]. Patient has been at the [facility] for approximately one year. Patient is bedbound. Patient currently utilizing 1L of oxygen. Patient requires assistance with the completion of ADL?s. Patient?s medical surrogate decision maker is mother, Radha Holliday. Facility PCP is Dr. Evans. Plan is for the patient to return to [facility] at the time of discharge. managed services consultant to assist with arranging transportation on behalf of the patient. No discharge needs identified. No further intervention required at this time, neonatal social worker will be available to address any further concerns. Next of Kin: Radha Holliday D/C Plan: [facility]
[2024-09-23] MEDS: SIMETHICONE 80 MG CHEW PO (10:32)
[2024-09-23] MEDS: Vancomycin Inj 1,500 MG in SODIUM CHLORIDE 0.9% 500 ML 500 ML 200 MG IV (11:12)
--- NOTE | 2024-09-23 14:28 | PD.IMCONS ---
HPI Data of Consult Requesting Physician: Racile Womack MD Primary Care Provider: Tang Evans MD Consult Narrative Reason for consult: Abnormal CT AP showing rectal wall thickening History of present illness: 59 years of female evaluated in room 364 He was admitted with altered mental status CT scan of the head was negative CT scan of the abdomen pelvis showed right lateral pelvic wall hernia 8 cm in size and in the hernia sac is a small bowel no obstruction large stool in the rectum with thickening of the rectal wall Patient does have history of chronic atrial fibrillation currently in sinus rhythm CVA gastric bypass surgery diabetes mellitus and recurrent UTI and has an indwelling Clark catheter which is changed every other day cc:: cc: Raciel Womack MD Review of Systems Review of Systems Systems Reviewed: All systems reviewed, normal except as documented Past Medical History Surgical History OTHER SURGICAL HX: As in the history of present illness Meds Home Medications and Allergies Home Medications ?Medication ?Instructions ?Recorded ?Confirmed ?Type escitalopram oxalate 20 mg tablet 10 mg PO QDAY DEPRESSION 05/21/24 09/23/24 History gabapentin 300 mg capsule 300 mg PO BID NEUROPATHY 05/21/24 09/23/24 History insulin glargine 100 unit/mL 25 unit subcut HS DM 05/21/24 09/23/24 History subcutaneous solution insulin lispro 100 unit/mL 1 sliding scale dose subcut AC dm 05/21/24 09/23/24 History subcutaneous solution (Humalog U-100 Insulin) amlodipine 10 mg tablet 10 mg PO QDAY htn 07/03/24 09/23/24 History atorvastatin 40 mg tablet 40 mg PO HS HYPERLIPIDEMIA 07/03/24 09/23/24 History baclofen 10 mg tablet 5 mg PO BID Muscle spasms 07/03/24 09/23/24 History carvedilol 3.125 mg tablet 3.125 mg PO BID HTN 07/03/24 09/23/24 History clonidine HCl 0.1 mg tablet 0.1 mg PO BID HTN 07/03/24 08/11/24 History empagliflozin 25 mg tablet 25 mg PO QDAY DM 07/03/24 09/23/24 History folic acid 1 mg tablet 1 mg PO QDAY SUPPLEMENT 07/03/24 09/23/24 History multivitamin with minerals 1 tab PO QDAY SUPPLEMENTS 07/04/24 09/23/24 History (Multiple Vitamin-Minerals tablet) pantoprazole 40 mg tablet,delayed 40 mg PO DAILY GERD 07/04/24 09/23/24 History release sennosides 8.6 mg tablet (senna) 8.6 - 50 mg PO BID CONSTIPATION 07/04/24 09/23/24 History amino acids-protein hydrolysate 15 1 ea PO BID 08/11/24 09/23/24 History gram-100 kcal/30 mL oral liquid pkt (Pro-Stat Sugar Free) ascorbic acid (vitamin C) 500 mg 500 mg PO BID 08/11/24 09/23/24 History tablet bisacodyl 10 mg rectal suppository 10 mg AK QDAY PRN Constipation 08/11/24 08/11/24 History (Dulcolax (bisacodyl)) magnesium hydroxide 400 mg/5 mL 1,200 mg PO QDAY PRN Constipation 08/11/24 08/11/24 History oral suspension (Milk of Magnesia) sodium phosphates 19 gram-7 118 ml AK QDAY PRN Constipation 08/11/24 08/11/24 History gram/118 mL enema (Enema Disposable) Allergies Allergy/AdvReac Type Severity Reaction Status Date / Time acetylcysteine Allergy Severe Difficulty Verified 05/24/24 17:57 Swallowing aspirin Allergy Severe Difficulty Verified 05/24/24 17:57 Swallowing cefpodoxime Allergy Severe Difficulty Verified 05/24/24 17:57 Breathing levofloxacin [From Levaquin] Allergy Severe Difficulty Verified 05/24/24 17:57 Breathing Penicillins Allergy Severe Difficulty Verified 05/24/24 17:57 Breathing Sulfa (Sulfonamide Allergy Severe Hives Verified 05/24/24 17:57 Antibiotics) sulfadiazine Allergy Severe Difficulty Verified 05/24/24 17:57 Breathing sulfamethoxazole Allergy Severe Difficulty Verified 05/24/24 17:57 [From Bactrim] Breathing capsaicin Allergy Intermediate Hives Verified 05/24/24 17:57 dulaglutide Allergy Intermediate Hives Verified 05/24/24 17:57 trimethoprim [From Bactrim] Allergy Verified 03/21/24 22:15 Exam Vital Signs Temp Pulse Resp BP Pulse Ox O2 Del Method O2 Flow Rate 98.4 F 84 18 115/72 93 L Nasal Cannula 1 09/23/24 12:00 09/23/24 12:00 09/23/24 12:00 09/23/24 12:00 09/23/24 12:00 09/23/24 12:00 09/23/24 12:00 Constitutional Comments: Chronically ill-appearing Routine Respiratory Exam Comments: Normal to auscultation Routine Abdominal Exam Comments: Ventral hernia reducible Open wound with a dressing on it right lower quadrant and left lower quadrant Results Labs 09/23/24 05:25 09/23/24 05:25 Labs: Short CBC 09/23/24 Range/Units 05:25 WBC 14.5 H (3.6-11.0) Thou/mm3 Hgb 9.0 L (12.0-16.0) g/dL Hct 30.1 L (36.0-46.0) % Plt Count 504 H D (140-440) Thou/mm3 BMP 09/23/24 05:25 Sodium 141 Potassium 4.1 D Chloride 109 H Carbon Dioxide 18.6 L BUN 48 H Creatinine 1.4 H Glucose 125 H Calcium 9.7 Liver Function 09/23/24 Range/Units 05:25 Total Bilirubin 0.4 (0.3-1.2) mg/dL AST 15 (0-34) U/L ALT 20 (10-49) U/L Alkaline Phosphatase 140 H D (46-116) U/L Albumin 3.8 D (3.4-4.8) gm/dL Assessment and Plan Additional Assessment & Plan Additional Plan: # Abnormal CAT scan showing thickening of the rectal wall most likely due to under distention and stool impaction Patient not a candidate for any fiberoptic colonoscopy at the moment Monitor H&H Put the patient on MiraLAX 3 times a day to flush the stool out in the left colon Along with lactulose 20 g p.o. daily No plans for a colonoscopy Thank you very much for the opportunity to participate in the care of this patient
--- NOTE | 2024-09-23 14:30 | PC.SS ---
Rounding Note: Patient in possession of UTI and PNA. Patient receiving antibiotics. Positive for gram negative rods.
[2024-09-23] MEDS: ATORVASTATIN CALCIUM 20 MG TABLET 40 MG PO (21:27)
[2024-09-24] VITALS (13 sets, daily range): BP systolic 126–164; BP diastolic 49–88; PULSE 72–90; RESP 20–24; TEMP 36.3–37.1; O2SAT 90–95
[2024-09-24] MEDS: SODIUM CHLORIDE 0.9% IV ×2 (05:25→13:25)
[2024-09-24] MEDS: HEPARIN SOD INJ 5000 UNIT/ML VIAL SC ×3 (05:25→22:52)
[2024-09-24] MEDS: HYDROcodone/APAP 5/325 TABLET 1 TAB PO ×3 (05:25→22:36)
[2024-09-24] MEDS: metroNIDAZOLE/NS 500 MG IVPB 500 MG/100 ML BAG 200 MG IV ×2 (05:25→13:26)
[2024-09-24] MEDS: AZTREONAM IV ×2 (05:25→13:25)
[2024-09-24 05:51] LABS: Basophils # (Auto) 0.1 Thou/mm3 (0.0-0.2); Basophils % (Auto) 1 % (0-2.5); Eosinophils % (Auto) 4 % (0-10); Lymphocytes # (Auto) 1.3 Thou/mm3 (1.0-4.8); Mean Corpuscular Hemoglobin 26.2 pg (25.0-35.0); Monocytes % (Auto) 7 % (0-12); Neutrophils % (Auto) 79 % (37-80); Nucleated Red Blood Cell % 0 /100 WBC (0)
[2024-09-24 05:52] LABS: Eosinophils # (Auto) 0.6 Thou/mm3 (0.0-0.5); Hematocrit 29.4 % (36.0-46.0); Immature Granulocytes % (Auto) 1 % (0-0); Immature Granulocytes Auto 0.09 Thou/mm3 (0.00-0.00); Lymphocytes % (Auto) 9 % (10-50); Mean Corpuscular HGB Conc 29.9 g/dl (31.0-37.0); Mean Corpuscular Volume 88 fL (80-100); Neutrophils # (Auto) 11.4 Thou/mm3 (1.8-7.7); Platelet Count 484 Thou/mm3 (140-440); RDW Standard Deviation 54.9 fL (36.4-46.3); Red Blood Count 3.36 Miln/mm3 (4.00-5.20); White Blood Count 14.5 Thou/mm3 (3.6-11.0)
[2024-09-24 06:01] LABS: Hemoglobin 8.8 g/dL (12.0-16.0)
[2024-09-24 06:28] LABS: Alanine Aminotransferase 14 U/L (10-49); Albumin, Serum 3.6 gm/dL (3.4-4.8); Albumin/Globulin Ratio 1.1 (1.2-2.2); Alkaline Phosphatase 133 U/L (46-116); Anion Gap 11 (7-16); Aspartate Amino Transferase < 10 U/L (0-34); BUN/Creatinine Ratio 35 Ratio (12-20); Bilirubin,Total 0.2 mg/dL (0.3-1.2); Blood Urea Nitrogen 39 mg/dL (9-23); Calcium 9.6 mg/dL (8.3-10.6); Calcium (Corrected) 9.9 mg/dL (8.5-10.1); Chloride 112 mMol/L (98-107); Creatinine (Component) 1.1 mg/dL (0.6-1.3); Estimated Creatinine Clearance 66.5 mL/min (>60); Globulin 3.4 gm/dL (2.3-3.5); Glucose 105 mg/dL (74-106); Magnesium 2.2 mg/dL (1.6-2.6); Osmolality,Calculated 294 (275-295); Phosphorous 3.1 mg/dL (2.4-5.1); Potassium 3.6 mMol/L (3.4-5.1); Sodium 143 mMol/L (136-145); eGFR 57 See Note
[2024-09-24] MEDS: amLODIPine BESYLATE 5 MG TABLET 10 MG PO (08:23)
[2024-09-24] MEDS: POTASSIUM CHLORIDE 20 mEq TABCR 40 MEQ PO (08:25)
[2024-09-24] MEDS: carVEDILOL 3.125 MG TABLET PO ×2 (08:25→20:14)
[2024-09-24] MEDS: PANTOPRAZOLE 40 MG TABLET PO (08:26)
[2024-09-24] MEDS: VANCOMYCIN/WATER 1250 MG IVPB 250 ML 120 MG IV ×2 (09:30→22:39)
[2024-09-24] MEDS: INSULIN LISPRO (AdmeLOG) 1 UNIT/0.01 ML UNIT SC ×3 (11:40→22:48)
--- NOTE | 2024-09-24 13:02 | ESPR_ITS ---
Documentation for date of: 09/24/24 Subjective Subjective Interval history: Patient seen today at the bedside found awake, alert, intermittently oriented, however improved compared to previous examinations. No overnight events reported. Vital signs stable at this time. Labs significant for uptrending WBCs. Urine culture grew klebsiella. Blood culture grew GPCs in 1 bottle out of 2, likely contaminant will re-order blood cultures at this time. Will continue current antibiotic regimen with Aztreonam, vancomycin and flagyl. Patient was having some leg cramping, added flexeril as needed. GI evaluated the patient decided not to pursue colonoscopy and recommended bowel regimen for constipation. Exam Vital Signs Temp Pulse Resp BP Pulse Ox O2 Del Method O2 Flow Rate 97.3 F 85 22 H 158/78 H 93 L Room Air 1 09/24/24 11:42 09/24/24 11:42 09/24/24 11:42 09/24/24 11:42 09/24/24 11:42 09/24/24 11:42 09/23/24 16:00 Narrative Exam Physical Exam GENERAL: NAD, AAOx2-3, obese, pale HEENT: dry mucosa. Eyes open, symmetrical, & clear CARDIO: Heart RRR, no obvious murmurs PULM: No noted coughing/dyspnea CTA B/L, no R/W/R GI: Abdomen soft, nondistended, no pain on palpation, wound on right side of abdomen covered with gauze has stoma, BSx4 URO: Yap catheter SKIN/MSK/EXT: multiple Leg ulcers, pressrure ulcer in the back, Pedal pulses present B/L NEURO: AAOx2-3 Objective Labs 09/25/24 05:25 09/25/24 05:25 Labs: Laboratory Results - last 24 hr 09/24/24 05:27 WBC 14.5 H RBC 3.36 L Hgb 8.8 L Hct 29.4 L MCV 88 MCH 26.2 MCHC 29.9 L RDW Std Deviation 54.9 H Plt Count 484 H Neut % (Auto) 79 Lymph % (Auto) 9 L [place] % (Auto) 7 Eos % (Auto) 4 Baso % (Auto) 1 Neut # (Auto) 11.4 H Lymph # (Auto) 1.3 [place] # (Auto) 1.0 H Eos # (Auto) 0.6 H Baso # (Auto) 0.1 Immature Gran # (Auto) 0.09 H Absolute Nucleated RBC 0.00 Immature Gran % 1 H Nucleated RBC % 0 Sodium 143 Potassium 3.6 D Chloride 112 H Carbon Dioxide 20.0 Anion Gap 11 BUN 39 H Creatinine 1.1 Estim Creat Clear Calc 66.5 eGFR 57 L BUN/Creatinine Ratio 35 H Glucose 105 Calculated Osmolality 294 Calcium 9.6 Corrected Calcium 9.9 Phosphorus 3.1 Magnesium 2.2 Total Bilirubin 0.2 L AST < 10 ALT 14 Alkaline Phosphatase 133 H Total Protein 7.0 Albumin 3.6 Globulin 3.4 Albumin/Globulin Ratio 1.1 L Quality Measures Quality Measures sepsis Current suspected stage: sepsis Possible source: genitourinary Blood cultures ordered: completed in ED Antibiotic ordered: Yes Assessment & Plan Assessment Current Active Medications: Generic Name Dose Route Start Last Admin Trade Name Freq PRN Reason Stop Dose Admin Acetaminophen 650 mg 09/22/24 14:31 Acetaminophen 325 Mg Tablet PO 10/22/24 14:30 Q6H PRN Fever >100.5 Acetaminophen 650 mg 09/22/24 14:31 09/23/24 09:07 Acetaminophen 325 Mg Tablet PO 10/22/24 14:30 650 mg Q6H PRN Administration PAIN SCALE 1-3 (mild Hydrocodone Bitart/Acetaminophen 1 tab 09/23/24 08:38 09/24/24 05:25 Hydrocodone/Apap 5/325 Tablet PO 09/27/24 17:25 1 tab Q4HR PRN Administration PAIN SCALE 4-10(Mod-Sev Amlodipine Besylate 10 mg 09/23/24 09:00 09/24/24 08:23 Amlodipine Besylate 5 Mg Tablet PO 10/23/24 08:59 10 mg QDAY FREDA Administration Atorvastatin Calcium 40 mg 09/22/24 21:00 09/23/24 21:27 Atorvastatin Calcium 20 Mg Tablet PO 10/22/24 20:59 40 mg HS FREDA Administration Carvedilol 3.125 mg 09/23/24 09:00 09/24/24 08:25 Carvedilol 3.125 Mg Tablet PO 10/23/24 08:59 3.125 mg BID FREDA Administration Cyclobenzaprine HCl 5 mg 09/24/24 12:54 Cyclobenzaprine 5 Mg Tablet PO 10/24/24 12:59 BID PRN cramping Dextrose 25 ml 09/22/24 15:21 Dextrose 50%-Water Inj 50 Ml Syringe IV 10/22/24 15:20 Q15MIN PRN BG 50-70 responsive npo pt Dextrose 50 ml 09/22/24 15:21 Dextrose 50%-Water Inj 50 Ml Syringe IV 10/22/24 15:20 Q15MIN PRN BG <50 OR BG <70 & pt unresponsive Docusate Sodium 100 mg 09/22/24 14:45 09/24/24 08:38 Docusate Sod 100 Mg Capsule PO 10/22/24 14:44 Not Given QDAY [facility] Protocol Glucagon 1 mg 09/22/24 15:21 Glucagon Inj 1 Mg Vial IM Q15MIN PRN BG <70, and no IV access Heparin Sodium (Porcine) 5,000 unit 09/22/24 14:45 09/24/24 05:25 Heparin Sod Inj 5000 Unit/Ml Vial SC 10/06/24 14:44 5,000 unit Q8HR FREDA Administration Metronidazole 500 mg in 100 mls @ 200 mls/hr 09/22/24 14:39 09/24/24 05:25 Flagyl 500 Mg Iv IV 09/29/24 14:38 200 mls/hr Q8HR FREDA Administration Aztreonam 2,000 mg/ Sodium 100 mls @ 200 mls/hr 09/22/24 15:00 09/24/24 05:25 Chloride IV 09/29/24 14:59 200 mls/hr Q8HR FREDA Administration Vancomycin HCl 250 mls @ 120 mls/hr 09/24/24 10:00 09/24/24 09:30 Vancomycin/Water 1250 Mg Ivpb IV 10/01/24 09:59 120 mls/hr BID@1000,2200 [facility] Administration Protocol Insulin Human Lispro 0 unit 09/22/24 17:00 09/24/24 11:40 Insulin Lispro (Admelog) 1 Unit/0.01 Ml Unit SC 10/22/24 16:59 2 unit ACHS [facility] Administration Protocol Lactulose 20 gm 09/24/24 09:00 09/24/24 08:38 Lactulose Syrup 20 Gm/30 Ml Udc PO 10/24/24 08:59 Not Given QDAY [facility] Protocol Ondansetron HCl 4 mg 09/22/24 14:31 Ondansetron Inj 2 Mg/Ml Inj 2 Ml IV 10/22/24 14:30 Q6H PRN NAUSEA OR VOMITING Protocol Pantoprazole Sodium 40 mg 09/22/24 16:15 09/24/24 08:26 Pantoprazole 40 Mg Tablet PO 10/22/24 16:14 40 mg QDAY [facility] Administration Pharmacy Consult 1 each 09/24/24 06:17 Vancomycin Pharmacy To Dose 1 Each Each IV 10/23/24 10:29 QDAY PRN PROTOCOL Polyethylene Glycol 17 gm 09/24/24 08:15 09/24/24 08:38 Polyethylene Glycol 17 Gm Packet PO 10/24/24 08:14 Not Given TID [facility] Plan 59 y/o F with PMHx of A-fib, HFpEF 65 to 70%, history of CVA, hypertension, diabetes presented to the ED from SNF due to altered mental status. Admitted for management of Sepsis secondary to UTI and right sided pneumonia #Sepsis secondary to #UTI #?Aspiration Pneumonia On admission patient has SIRS 2/4 fever, WBCs, end organ damage [place] and altered mental status UA shows UTI with positive esterase, WBCs CXR shows right sided pneumonia possibly aspiration procalcitonin elevated In the ED patient received 1L NS bolus + 1L NS bolus Patient has extensive medication allergies and resitances to many Abx Urine Cx grew gram negative rods, although previous cultures show GNRs, and patient has chronic yap catheter so could be colonization Blood culture grew GPCs in 1 bottle out of 2, likely contaminant will re-order blood cultures at this time - on Aztreonam - on Vancomycin - on flagyl - f/u blood cultures #Acute metabolic encephalopathy- improving patient on arrival is AAOx1 not able to answer any question apart from her name likely secondary to UTI vs dehydration vs Uremia Head CT showed Negative for acute hemorrhage, mass effect or midline shift Patient is AAOx2-3 today improving Patient is able to move all 4 extremities and face is symmetrical - treat underlying sepsis - aspiration precautions - speech evaluation pending #[place]-improving baseline creatinine 0.9-1.1 Current Cr 1.4 was given 1L NS in ED+ 2L NS bolus - avoid nephrotoxins - renally dose medications #NAGMA-resolved likely in the setting of NS infusions - will continue to monitor #Diabetes - SSI - hypoglycemia protocol in place #HFpEF [65-70% April 2024] #Mild aortic valve stenosis #Hypertension #Hx of Afib Echo 05/21/2024 - estimated 65-70%. Normal RV size / function. Mean gradient on aortic valve - 13 mm Hg currently in sinus rhythm -resumed carvedilol 3.125mg BID -resumed amlodipine 5mg qday -strict intake and output #Chronic abdominal wall wound Patient has had a chronic wound on her abdomen. -wound care #Hx of HLD -resumed atorvastatin 40mg HS Case discussed with my senior Dr. Chan PGY-[address] Vu Gasria MD PGY-1 Disposition: Medtele Fluids: NS Feeding: Clear liquid diet Thrombo prophylaxis: Heparin Gastric Ulcer prophylaxis: Pantoprazole CODE STATUS: Full code Attending Provider Attestation/Addendum I have examined the patient, reviewed labs and imaging findings, discussed the case with the resident(s), and reviewed entered orders. I agree with the plan of care as outlined in this note, with these additional summaries/recommendations: Patient is a 59-year-old female who is well-known to the hospital service with a medical history of A-fib, HFpEF, CVA, hypertension and diabetes who presented from nursing facility with chief complaint of acute encephalopathy. Patient seen at bedside. No acute overnight events. Patients mentation is much improved today. She is answering questions appropriately and is much more alert. Most likely Acute encephalopathy secondary to infectious etiology. Urinalysis showed leukocyte esterase positive, WBC 749 and rare bacteria. Chest x-ray showed pneumonia right middle lobe and right base. Ur cx grew klebsiella pneumoniae. 1 of 2 blood cultures showing GPC and likely containment. Repeat blood cultures ordered. Patient also noted to have acute kidney injury on admission with creatinine 1.6 and BUN 61. Most likely secondary to prerenal azotemia in the setting of altered mental status and poor oral intake. [place] now resolved with Cr 1.1 and BUN 39. Continue Avoid nephrotoxic agents and renally dose medications. Patient had significant muscle spasm at bedside and we will start muscle relaxant. Patient encouraged to stay hydrated. Repeat hematology and chemistry panel in AM. Dr. Womack
--- NOTE | 2024-09-24 15:44 | PC.NURSE ---
upon cleaning and turning pt. yap catheter accidental came out, upon speaking to [facility] nurse kateryna she never had a yap prior to aug 17. Pt. put on pure wick at 1500 and urinate the 100 cc. been made aware of this and he okayed to leave the yap and have the pt. on purewick.
[2024-09-24] MEDS: CYCLObenzaPRINE 5 MG TABLET PO (16:48)
--- NOTE | 2024-09-24 16:58 | PD.IMPROG ---
Documentation for date of: 09/24/24 Subjective Subjective Interval history: Patient on lactulose 20 g a day and MiraLAX 3 times a day Exam Vital Signs Temp Pulse Resp BP Pulse Ox O2 Del Method O2 Flow Rate 97.3 F 90 22 H 164/85 H 93 L Room Air 1 09/24/24 15:38 09/24/24 15:38 09/24/24 15:38 09/24/24 15:38 09/24/24 15:38 09/24/24 15:38 09/23/24 16:00 Routine Respiratory Exam Comments: Scattered rhonchi Routine Abdominal Exam Comments: Open wounds right lower quadrant and left lower quadrant dressed Objective Labs 09/24/24 05:27 09/24/24 05:27 Labs: Laboratory Results - last 24 hr 09/24/24 05:27 WBC 14.5 H RBC 3.36 L Hgb 8.8 L Hct 29.4 L MCV 88 MCH 26.2 MCHC 29.9 L RDW Std Deviation 54.9 H Plt Count 484 H Neut % (Auto) 79 Lymph % (Auto) 9 L [place] % (Auto) 7 Eos % (Auto) 4 Baso % (Auto) 1 Neut # (Auto) 11.4 H Lymph # (Auto) 1.3 [place] # (Auto) 1.0 H Eos # (Auto) 0.6 H Baso # (Auto) 0.1 Immature Gran # (Auto) 0.09 H Absolute Nucleated RBC 0.00 Immature Gran % 1 H Nucleated RBC % 0 Sodium 143 Potassium 3.6 D Chloride 112 H Carbon Dioxide 20.0 Anion Gap 11 BUN 39 H Creatinine 1.1 Estim Creat Clear Calc 66.5 eGFR 57 L BUN/Creatinine Ratio 35 H Glucose 105 Calculated Osmolality 294 Calcium 9.6 Corrected Calcium 9.9 Phosphorus 3.1 Magnesium 2.2 Total Bilirubin 0.2 L AST < 10 ALT 14 Alkaline Phosphatase 133 H Total Protein 7.0 Albumin 3.6 Globulin 3.4 Albumin/Globulin Ratio 1.1 L Impressions Impression: # Rectal wall thickening due to under distention of the colon # Stool impaction Continue lactulose and MiraLAX Assessment & Plan A&P Narrative # Abnormal CAT scan showing thickening of the rectal wall most likely due to under distention and stool impaction Patient not a candidate for any fiberoptic colonoscopy at the moment Monitor H&H Put the patient on MiraLAX 3 times a day to flush the stool out in the left colon Along with lactulose 20 g p.o. daily No plans for a colonoscopy Thank you very much for the opportunity to participate in the care of this patient Time Spent With Patient Time: Total time spent is greater than 50% in coordination of care (as documented) at patient's floor/unit and/or counseling patient:
[2024-09-24] MEDS: ATORVASTATIN CALCIUM 20 MG TABLET 40 MG PO (20:15)
[2024-09-25] VITALS (16 sets, daily range): BP systolic 150–177; BP diastolic 64–101; PULSE 67–92; RESP 15–97; TEMP 36.3–36.8; O2SAT 92–97; BMI 40.6
[2024-09-25] MEDS: SODIUM CHLORIDE 0.9% IV ×4 (01:06→22:02)
[2024-09-25] MEDS: AZTREONAM IV ×4 (01:06→22:02)
[2024-09-25] MEDS: metroNIDAZOLE/NS 500 MG IVPB 500 MG/100 ML BAG 200 MG IV ×4 (01:39→21:23)
[2024-09-25 05:57] LABS: Basophils # (Auto) 0.1 Thou/mm3 (0.0-0.2); Basophils % (Auto) 1 % (0-2.5); Eosinophils # (Auto) 0.5 Thou/mm3 (0.0-0.5); Eosinophils % (Auto) 3 % (0-10); Hematocrit 32.6 % (36.0-46.0); Hemoglobin 9.5 g/dL (12.0-16.0); Immature Granulocytes % (Auto) 1 % (0-0); Immature Granulocytes Auto 0.09 Thou/mm3 (0.00-0.00); Lymphocytes # (Auto) 1.6 Thou/mm3 (1.0-4.8); Lymphocytes % (Auto) 10 % (10-50); Mean Corpuscular HGB Conc 29.1 g/dl (31.0-37.0); Mean Corpuscular Hemoglobin 25.8 pg (25.0-35.0); Mean Corpuscular Volume 89 fL (80-100); Monocytes # (Auto) 1.2 Thou/mm3 (0.0-0.8); Monocytes % (Auto) 7 % (0-12); Neutrophils # (Auto) 12.4 Thou/mm3 (1.8-7.7); Neutrophils % (Auto) 78 % (37-80); Nucleated Red Blood Cell % 0 /100 WBC (0); Platelet Count 501 Thou/mm3 (140-440); RDW Standard Deviation 55.8 fL (36.4-46.3); Red Blood Count 3.68 Miln/mm3 (4.00-5.20); White Blood Count 15.9 Thou/mm3 (3.6-11.0)
[2024-09-25] MEDS: HEPARIN SOD INJ 5000 UNIT/ML VIAL SC ×3 (06:06→21:23)
[2024-09-25 06:49] LABS: Alanine Aminotransferase 11 U/L (10-49); Albumin, Serum 3.5 gm/dL (3.4-4.8); Alkaline Phosphatase 121 U/L (46-116); Anion Gap 10 (7-16); Aspartate Amino Transferase 14 U/L (0-34); BUN/Creatinine Ratio 27 Ratio (12-20); Bilirubin,Total < 0.2 mg/dL (0.3-1.2); Blood Urea Nitrogen 27 mg/dL (9-23); Calcium 9.5 mg/dL (8.3-10.6); Calcium (Corrected) 9.9 mg/dL (8.5-10.1); Carbon Dioxide 17.8 mMol/L (20.0-31.0); Chloride 112 mMol/L (98-107); Estimated Creatinine Clearance 73.2 mL/min (>60); Globulin 3.5 gm/dL (2.3-3.5); Glucose 157 mg/dL (74-106); Magnesium 1.9 mg/dL (1.6-2.6); Osmolality,Calculated 287 (275-295); Phosphorous 2.6 mg/dL (2.4-5.1); Potassium 4.2 mMol/L (3.4-5.1); Sodium 140 mMol/L (136-145); eGFR > 60 See Note
[2024-09-25] MEDS: PANTOPRAZOLE 40 MG TABLET PO (08:23)
[2024-09-25] MEDS: carVEDILOL 3.125 MG TABLET PO ×2 (08:23→20:26)
[2024-09-25] MEDS: INSULIN LISPRO (AdmeLOG) 1 UNIT/0.01 ML UNIT SC ×4 (08:24→20:26)
[2024-09-25] MEDS: amLODIPine BESYLATE 5 MG TABLET 10 MG PO (08:24)
[2024-09-25] MEDS: ONDANSETRON INJ 2 MG/ML INJ 2 ML 4 MG IV ×2 (08:37→20:25)
--- NOTE | 2024-09-25 09:00 | PC.SS ---
Follow up note: Waiting for blood cultures. Pt is on IV antibiotic. White count is trending up. Pt is from [facility] and will return at mo.
--- NOTE | 2024-09-25 09:59 | PC.NURSE ---
pt doesn't want her broth or jello, has emesis bag ready at her mouth, zofran given, unable to tolerate taking colace or lactulose
[2024-09-25 10:04] LABS: Vancomycin,Trough 28.3 mcg/mL (5.0-10.0)
[2024-09-25] MEDS: LOSARTAN POTASSIUM 25 MG TABLET PO (11:27)
[2024-09-25] MEDS: MG HYD/AL HYD/SIME (Maalox Reg) SUSP 30 ML UDC PO (15:08)
--- NOTE | 2024-09-25 15:08 | PC.SS ---
SS spoke to Vidya from [facility] who explained when pt left [facility] she was not under a skilled need but in order for pt to return under skill need she will require PT notes for insurance authorization. Dr. Womack has placed PT orders.
--- NOTE | 2024-09-25 16:15 | PC.SS ---
SS has sent updated inquiry to Jovany Weems using [employer].
--- NOTE | 2024-09-25 16:32 | ESPR_ITS ---
<Statement entered by Pavan Beasley MD - 09/25/24 22:42> Patient was seen and examined at bedside. No overnight incidents. She reported today that she has epigastric pain, increased when she lay flat. Associated with episode of vomiting and nausea. Patient was given Zofran by the nurses will give the patient Mylaxen in addition to her pantoprazole. She reported that she had multiple episodes of diarrhea for that reason we will hold on her scheduled laxatives and will keep her on senna to achieve only 1 bowel movement per day. On evaluation today at bedside patient seems to be depressed. Discussion of possible major depression disorder treatment was offered however she decided to withhold the treatment at this time. Her blood pressure today was mildly elevated however will resume her medication losartan as her [place] has resolved. At this time we are waiting for her repeat culture and sensitivity it came back negative patient can be discharged back to SNF tomorrow. - Patient's plan and care discussed with my attending, Dr. Vu Beasley MD Internal Medicine PGY-2 Documentation for date of: 09/25/24 Subjective Subjective Interval history: Patient seen today at the bedside found awake, alert, intermittently oriented, however improved compared to previous examinations. No overnight events reported. Vital signs stable at this time. Labs significant for uptrending WBCs, otherwise rest of labs adequate. At this time will keep maalox and lactulose will hold miralax as patient is having many bowel movements and would like to avoid dehydration. Will continue current antibiotic regimen for UTI and pneumonia. Will continue to monitor. Exam Vital Signs Temp Pulse Resp BP Pulse Ox O2 Del Method O2 Flow Rate 97.3 F 87 20 169/87 H 97 Nasal Cannula 1 09/25/24 16:00 09/25/24 16:00 09/25/24 16:00 09/25/24 16:00 09/25/24 16:00 09/25/24 16:00 09/25/24 16:00 Narrative Exam Physical Exam GENERAL: NAD, AAOx2-3, obese, pale HEENT: dry mucosa. Eyes open, symmetrical, & clear CARDIO: Heart RRR, no obvious murmurs PULM: No noted coughing/dyspnea CTA B/L, no R/W/R GI: Abdomen soft, nondistended, no pain on palpation, wound on right side of abdomen covered with gauze has stoma, BSx4 URO: Yap catheter SKIN/MSK/EXT: multiple Leg ulcers, pressrure ulcer in the back, Pedal pulses present B/L NEURO: AAOx2-3 Objective Labs 09/26/24 04:38 09/26/24 04:38 Labs: Laboratory Results - last 24 hr 09/22/24 09/25/24 09/25/24 07:00 05:25 09:05 WBC 15.9 H RBC 3.68 L Hgb 9.5 L Hct 32.6 L MCV 89 MCH 25.8 MCHC 29.1 L RDW Std Deviation 55.8 H Plt Count 501 H Neut % (Auto) 78 Lymph % (Auto) 10 [place] % (Auto) 7 Eos % (Auto) 3 Baso % (Auto) 1 Neut # (Auto) 12.4 H Lymph # (Auto) 1.6 [place] # (Auto) 1.2 H Eos # (Auto) 0.5 Baso # (Auto) 0.1 Immature Gran # (Auto) 0.09 H Absolute Nucleated RBC 0.00 Immature Gran % 1 H Nucleated RBC % 0 Sodium 139 140 Potassium 4.9 4.2 D Chloride 107 112 H Carbon Dioxide 24.2 17.8 L Anion Gap 8 10 BUN 61 H 27 H Creatinine 1.6 H 1.0 Estim Creat Clear Calc 41.1 L 73.2 eGFR 36 L > 60 BUN/Creatinine Ratio 38 H 27 H Glucose 108 H 157 H D Calculated Osmolality 295 287 Calcium 9.3 9.5 Corrected Calcium 9.9 9.9 Phosphorus 2.6 Magnesium 2.5 1.9 Total Bilirubin 0.2 L < 0.2 L AST 18 14 ALT 19 11 Alkaline Phosphatase 108 121 H Troponin I < 0.020 Total Protein 6.2 7.0 Albumin 3.3 L 3.5 Globulin 2.9 3.5 Albumin/Globulin Ratio 1.1 L 1.0 L Lipase 17 Procalcitonin 2.26 H Vancomycin Trough 28.3 H* Quality Measures Quality Measures sepsis Current suspected stage: sepsis Possible source: genitourinary Blood cultures ordered: completed in ED Antibiotic ordered: Yes Assessment & Plan Assessment Current Active Medications: Generic Name Dose Route Start Last Admin Trade Name Freq PRN Reason Stop Dose Admin Acetaminophen 650 mg 09/22/24 14:31 Acetaminophen 325 Mg Tablet PO 10/22/24 14:30 Q6H PRN Fever >100.5 Acetaminophen 650 mg 09/22/24 14:31 09/23/24 09:07 Acetaminophen 325 Mg Tablet PO 10/22/24 14:30 650 mg Q6H PRN Administration PAIN SCALE 1-3 (mild Hydrocodone Bitart/Acetaminophen 1 tab 09/23/24 08:38 09/24/24 22:36 Hydrocodone/Apap 5/325 Tablet PO 09/27/24 17:25 1 tab Q4HR PRN Administration PAIN SCALE 4-10(Mod-Sev Amlodipine Besylate 10 mg 09/23/24 09:00 09/25/24 08:24 Amlodipine Besylate 5 Mg Tablet PO 10/23/24 08:59 10 mg QDAY FREDA Administration Atorvastatin Calcium 40 mg 09/22/24 21:00 09/24/24 20:15 Atorvastatin Calcium 20 Mg Tablet PO 10/22/24 20:59 40 mg HS FREDA Administration Carvedilol 3.125 mg 09/23/24 09:00 09/25/24 08:23 Carvedilol 3.125 Mg Tablet PO 10/23/24 08:59 3.125 mg BID FREDA Administration Cyclobenzaprine HCl 5 mg 09/24/24 12:54 09/24/24 16:48 Cyclobenzaprine 5 Mg Tablet PO 10/24/24 12:59 5 mg BID PRN Administration cramping Protocol Dextrose 25 ml 09/22/24 15:21 Dextrose 50%-Water Inj 50 Ml Syringe IV 10/22/24 15:20 Q15MIN PRN BG 50-70 responsive npo pt Dextrose 50 ml 09/22/24 15:21 Dextrose 50%-Water Inj 50 Ml Syringe IV 10/22/24 15:20 Q15MIN PRN BG <50 OR BG <70 & pt unresponsive Docusate Sodium 100 mg 09/25/24 13:55 Docusate Sod 100 Mg Capsule PO 10/22/24 14:44 QDAY FREDA Protocol Glucagon 1 mg 09/22/24 15:21 Glucagon Inj 1 Mg Vial IM Q15MIN PRN BG <70, and no IV access Heparin Sodium (Porcine) 5,000 unit 09/22/24 14:45 09/25/24 15:08 Heparin Sod Inj 5000 Unit/Ml Vial SC 10/06/24 14:44 5,000 unit Q8HR FREDA Administration Metronidazole 500 mg in 100 mls @ 200 mls/hr 09/22/24 14:39 09/25/24 16:08 Flagyl 500 Mg Iv IV 09/29/24 14:38 200 mls/hr Q8HR FREDA Administration Aztreonam 2,000 mg/ Sodium 100 mls @ 200 mls/hr 09/22/24 15:00 09/25/24 15:08 Chloride IV 09/29/24 14:59 200 mls/hr Q8HR FREDA Administration Insulin Human Lispro 0 unit 09/22/24 17:00 09/25/24 12:49 Insulin Lispro (Admelog) 1 Unit/0.01 Ml Unit SC 10/22/24 16:59 2 unit ACHS FREDA Administration Protocol Lactulose 20 gm 09/24/24 09:00 09/25/24 09:59 Lactulose Syrup 20 Gm/30 Ml Udc PO 10/24/24 08:59 Not Given QDAY FREDA Protocol Losartan Potassium 25 mg 09/25/24 09:00 09/25/24 11:27 Losartan Potassium 25 Mg Tablet PO 10/25/24 08:59 25 mg QDAY FREDA Administration Ondansetron HCl 4 mg 09/22/24 14:31 09/25/24 08:37 Ondansetron Inj 2 Mg/Ml Inj 2 Ml IV 10/22/24 14:30 4 mg Q6H PRN Administration NAUSEA OR VOMITING Protocol Pantoprazole Sodium 40 mg 09/22/24 16:15 09/25/24 08:23 Pantoprazole 40 Mg Tablet PO 10/22/24 16:14 40 mg QDAY FREDA Administration Pharmacy Consult 1 each 09/24/24 06:17 Vancomycin Pharmacy To Dose 1 Each Each IV 10/23/24 10:29 QDAY PRN PROTOCOL Polyethylene Glycol 17 gm 09/24/24 08:15 09/25/24 05:56 Polyethylene Glycol 17 Gm Packet PO 10/24/24 08:14 Not Given TID FREDA Plan 59 y/o F with PMHx of A-fib, HFpEF 65 to 70%, history of CVA, hypertension, diabetes presented to the ED from SNF due to altered mental status. Admitted for management of Sepsis secondary to UTI and right sided pneumonia #Sepsis secondary to #UTI #?Aspiration Pneumonia On admission patient has SIRS 2/4 fever, WBCs, end organ damage [place] and altered mental status UA shows UTI with positive esterase, WBCs CXR shows right sided pneumonia possibly aspiration procalcitonin elevated In the ED patient received 1L NS bolus + 1L NS bolus Patient has extensive medication allergies and resitances to many Abx Urine Cx grew gram negative rods, although previous cultures show GNRs, and patient has chronic yap catheter so could be colonization Blood culture grew GPCs in 1 bottle out of 2, likely contaminant will re-order blood cultures at this time Repeat blood cultures negative in 24 hours - on Aztreonam - on Vancomycin - on flagyl #Acute metabolic encephalopathy- improving patient on arrival is AAOx1 not able to answer any question apart from her name likely secondary to UTI vs dehydration vs Uremia Head CT showed Negative for acute hemorrhage, mass effect or midline shift Patient is AAOx2-3 today improving Patient is able to move all 4 extremities and face is symmetrical Speech therapy evaluated patient passed swallow evaluation - treat underlying sepsis - aspiration precautions #[place]-resolved baseline creatinine 0.9-1.1 Current Cr 1.0 was given 1L NS in ED+ 2L NS bolus - avoid nephrotoxins - renally dose medications #NAGMA-resolved likely in the setting of NS infusions - will continue to monitor #Diabetes - SSI - hypoglycemia protocol in place #HFpEF [65-70% April 2024] #Mild aortic valve stenosis #Hypertension #Hx of Afib Echo 05/21/2024 - estimated 65-70%. Normal RV size / function. Mean gradient on aortic valve - 13 mm Hg currently in sinus rhythm -resumed carvedilol 3.125mg BID -resumed amlodipine 5mg qday -started losartan 25mg -strict intake and output #Chronic abdominal wall wound Patient has had a chronic wound on her abdomen. -wound care #Hx of HLD -resumed atorvastatin 40mg HS Case discussed with my senior Dr. Chan PGY-[address] Vu Garsia MD PGY-1 Disposition: [facility] Fluids: none Feeding: full liquid diet Thrombo prophylaxis: Heparin Gastric Ulcer prophylaxis: Pantoprazole CODE STATUS: Full code Attending Provider Attestation/Addendum I have examined the patient, reviewed labs and imaging findings, discussed the case with the resident(s), and reviewed entered orders. I agree with the plan of care as outlined in this note, with these additional summaries/recommendations: Patient is a 59-year-old female who is well-known to the hospital service with a medical history of A-fib, HFpEF, CVA, hypertension and diabetes who presented from nursing facility with chief complaint of acute encephalopathy. Patient seen at bedside. No acute overnight events. Patients mentation continues to improve. She is answering questions appropriately and is much more alert. Most likely Acute encephalopathy secondary to infectious etiology although suspect a component of depression as patient appears withdrawan. Patient was offered antidepressant but declined. Urinalysis showed leukocyte esterase positive, WBC 749 and rare bacteria. Chest x-ray showed pneumonia right middle lobe and right base. Ur cx grew klebsiella pneumoniae. 1 of 2 blood cultures showing GPC and likely containment. Repeat blood cultures show no growth at 24 hours. Patient also noted to have acute kidney injury on admission with creatinine 1.6 and BUN 61. Most likely secondary to prerenal azotemia in the setting of altered mental status and poor oral intake. [place] now resolved with Cr 1.1 and BUN 39. Continue Avoid nephrotoxic agents and renally dose medications. Patient had significant muscle spasm at bedside and we will start muscle relaxant. Patient encouraged to stay hydrated. Patient had not had BM in days and started on bowel regimen although we will place on hold for now given multiple BMs. Repeat hematology and chemistry panel in AM. Anticipate discharge in the next 24 to 48 hours if patient continues to improve. Dr. Womack
--- NOTE | 2024-09-25 18:17 | PD.IMPROG ---
Documentation for date of: 09/25/24 Subjective Subjective Interval history: Uptrending WBC count Good results with the current regimen of having bowel movements Abdomen is soft nontender and benign with active bowel sounds marked open wounds in the right lower quadrant of the left lower quadrant Exam Vital Signs Temp Pulse Resp BP Pulse Ox O2 Del Method O2 Flow Rate 97.3 F 86 20 169/87 H 97 Nasal Cannula 1 09/25/24 16:00 09/25/24 16:34 09/25/24 16:00 09/25/24 16:00 09/25/24 16:00 09/25/24 16:00 09/25/24 16:00 Objective Labs 09/25/24 05:25 09/25/24 05:25 Labs: Laboratory Results - last 24 hr 09/22/24 09/25/24 09/25/24 07:00 05:25 09:05 WBC 15.9 H RBC 3.68 L Hgb 9.5 L Hct 32.6 L MCV 89 MCH 25.8 MCHC 29.1 L RDW Std Deviation 55.8 H Plt Count 501 H Neut % (Auto) 78 Lymph % (Auto) 10 [place] % (Auto) 7 Eos % (Auto) 3 Baso % (Auto) 1 Neut # (Auto) 12.4 H Lymph # (Auto) 1.6 [place] # (Auto) 1.2 H Eos # (Auto) 0.5 Baso # (Auto) 0.1 Immature Gran # (Auto) 0.09 H Absolute Nucleated RBC 0.00 Immature Gran % 1 H Nucleated RBC % 0 Sodium 139 140 Potassium 4.9 4.2 D Chloride 107 112 H Carbon Dioxide 24.2 17.8 L Anion Gap 8 10 BUN 61 H 27 H Creatinine 1.6 H 1.0 Estim Creat Clear Calc 41.1 L 73.2 eGFR 36 L > 60 BUN/Creatinine Ratio 38 H 27 H Glucose 108 H 157 H D Calculated Osmolality 295 287 Calcium 9.3 9.5 Corrected Calcium 9.9 9.9 Phosphorus 2.6 Magnesium 2.5 1.9 Total Bilirubin 0.2 L < 0.2 L AST 18 14 ALT 19 11 Alkaline Phosphatase 108 121 H Troponin I < 0.020 Total Protein 6.2 7.0 Albumin 3.3 L 3.5 Globulin 2.9 3.5 Albumin/Globulin Ratio 1.1 L 1.0 L Lipase 17 Procalcitonin 2.26 H Vancomycin Trough 28.3 H* Impressions Impression: # Obstipation constipation # Stool impaction Continue current regimen Assessment & Plan A&P Narrative # Abnormal CAT scan showing thickening of the rectal wall most likely due to under distention and stool impaction Patient not a candidate for any fiberoptic colonoscopy at the moment Monitor H&H Put the patient on MiraLAX 3 times a day to flush the stool out in the left colon Along with lactulose 20 g p.o. daily No plans for a colonoscopy Thank you very much for the opportunity to participate in the care of this patient Time Spent With Patient Time: Total time spent is greater than 50% in coordination of care (as documented) at patient's floor/unit and/or counseling patient:
[2024-09-25] MEDS: ATORVASTATIN CALCIUM 20 MG TABLET 40 MG PO (20:26)
[2024-09-25] MEDS: CYCLObenzaPRINE 5 MG TABLET PO (22:01)
[2024-09-26] VITALS (14 sets, daily range): BP systolic 132–169; BP diastolic 76–93; PULSE 77–95; RESP 16–92; TEMP 36.3–37.2; O2SAT 94–96
[2024-09-26] MEDS: HEPARIN SOD INJ 5000 UNIT/ML VIAL SC ×3 (05:20→21:32)
[2024-09-26] MEDS: AZTREONAM IV ×3 (05:21→21:31)
[2024-09-26] MEDS: SODIUM CHLORIDE 0.9% IV ×3 (05:21→21:31)
[2024-09-26] MEDS: metroNIDAZOLE/NS 500 MG IVPB 500 MG/100 ML BAG 200 MG IV ×3 (05:21→21:32)
[2024-09-26 05:49] LABS: Basophils # (Auto) 0.1 Thou/mm3 (0.0-0.2); Basophils % (Auto) 1 % (0-2.5); Eosinophils % (Auto) 0 % (0-10); Hematocrit 35.7 % (36.0-46.0); Hemoglobin 10.6 g/dL (12.0-16.0); Immature Granulocytes % (Auto) 1 % (0-0); Immature Granulocytes Auto 0.19 Thou/mm3 (0.00-0.00); Lymphocytes # (Auto) 1.6 Thou/mm3 (1.0-4.8); Lymphocytes % (Auto) 9 % (10-50); Mean Corpuscular HGB Conc 29.7 g/dl (31.0-37.0); Mean Corpuscular Hemoglobin 26.1 pg (25.0-35.0); Mean Corpuscular Volume 88 fL (80-100); Monocytes # (Auto) 0.9 Thou/mm3 (0.0-0.8); Monocytes % (Auto) 5 % (0-12); Neutrophils # (Auto) 15.5 Thou/mm3 (1.8-7.7); Neutrophils % (Auto) 85 % (37-80); Nucleated Red Blood Cell % 0 /100 WBC (0); Platelet Count 583 Thou/mm3 (140-440); RDW Standard Deviation 55.2 fL (36.4-46.3); Red Blood Count 4.06 Miln/mm3 (4.00-5.20); White Blood Count 18.3 Thou/mm3 (3.6-11.0)
[2024-09-26 06:03] LABS: Alanine Aminotransferase 11 U/L (10-49); Albumin, Serum 3.8 gm/dL (3.4-4.8); Alkaline Phosphatase 134 U/L (46-116); Anion Gap 12 (7-16); Aspartate Amino Transferase < 8 U/L (0-34); BUN/Creatinine Ratio 22 Ratio (12-20); Bilirubin,Total 0.2 mg/dL (0.3-1.2); Blood Urea Nitrogen 20 mg/dL (9-23); Calcium 9.8 mg/dL (8.3-10.6); Carbon Dioxide 17.9 mMol/L (20.0-31.0); Chloride 109 mMol/L (98-107); Creatinine (Component) 0.9 mg/dL (0.6-1.3); Estimated Creatinine Clearance 79.9 mL/min (>60); Globulin 3.7 gm/dL (2.3-3.5); Glucose 151 mg/dL (74-106); Magnesium 1.8 mg/dL (1.6-2.6); Osmolality,Calculated 283 (275-295); Phosphorous 2.3 mg/dL (2.4-5.1); Potassium 3.5 mMol/L (3.4-5.1); Sodium 139 mMol/L (136-145); Total Protein 7.5 gm/dL (5.7-8.2); Vancomycin,Random 17.6 mcg/mL; eGFR > 60 See Note
[2024-09-26] MEDS: LACTULOSE SYRUP 20 GM/30 ML UDC PO (09:39)
[2024-09-26] MEDS: NAPH,KPH MBDB 1 PACKET (1.5 GM) PO (09:39)
[2024-09-26] MEDS: PANTOPRAZOLE 40 MG TABLET PO (09:39)
[2024-09-26] MEDS: POTASSIUM CHLORIDE 10% 20 MEQ/15 ML UDC 40 MEQ PO (09:39)
[2024-09-26] MEDS: LOSARTAN POTASSIUM 25 MG TABLET 50 MG PO (09:40)
[2024-09-26] MEDS: amLODIPine BESYLATE 5 MG TABLET 10 MG PO (09:40)
[2024-09-26] MEDS: INSULIN LISPRO (AdmeLOG) 1 UNIT/0.01 ML UNIT SC ×4 (09:41→20:20)
[2024-09-26] MEDS: DOCUSATE SOD 100 MG CAPSULE PO (09:41)
[2024-09-26] MEDS: carVEDILOL 3.125 MG TABLET PO ×2 (09:41→20:21)
--- NOTE | 2024-09-26 10:53 | ESPR_ITS ---
<Statement entered by Pavan Beasley MD - 09/26/24 16:58> Patient was seen and examined at bedside. Today patient still low energy and flat affect. Her oral intake yesterday was only 25% for the lunch and 0% for both breakfast and dinner. For that reason we will start the patient on Megace 4 times daily 200 mg suspension. The patient was noticed to have WBC of 18,000 increased from 40,000 yesterday. We reviewed the patient was admitted and seen to be any discharge or cellulitis around the dressing. Because of the decreased oral intake, and increased WBC we will switch the patient antibiotics to linezolid instead of vancomycin. At this time we are pending repeat culture and sensitivity. - Patient's plan and care discussed with my attending, Dr. Vu Beasley MD Internal Medicine PGY-2 Documentation for date of: 09/26/24 Subjective Subjective Interval history: Patient seen at the bedside today found awake, alert, oriented x 3. No overnight events reported. States no active complaints. Vital signs stable at this time. Labs significant for uptrending white blood cells, thrombocytosis. Vancomycin switched to linezolid p.o. Patient has had poor appetite and decreased oral intake, yesterday did not eat, today she says she has no appetite. Megestrol added as appetite stimulant. Patient has chronic ulcers throughout lower extremities and abdomen, one of them in the abdomen looks necrotic, however patient seems indifferent, states she is tired at this time to pursue management with surgery. Losartan 25 mg dose adjusted to 50 mg daily. Will continue to monitor at this time. Exam Vital Signs Temp Pulse Resp BP Pulse Ox O2 Del Method O2 Flow Rate 98.4 F 84 20 156/76 H 95 Room Air 1 09/26/24 07:36 09/26/24 09:41 09/26/24 09:00 09/26/24 09:41 09/26/24 07:36 09/26/24 07:36 09/26/24 04:00 Narrative Exam Physical Exam GENERAL: NAD, AAOx2-3, obese, pale HEENT: dry mucosa. Eyes open, symmetrical, & clear CARDIO: Heart RRR, no obvious murmurs PULM: No noted coughing/dyspnea CTA B/L, no R/W/R GI: Abdomen soft, nondistended, no pain on palpation, wound on right side of abdomen covered with gauze has stoma, chronic abdominal ulcers 1 looks necrotic from pictures, BSx4 URO: Yap catheter SKIN/MSK/EXT: multiple Leg ulcers, pressure ulcer in the back, Pedal pulses present B/L NEURO: AAOx2-3 Objective Labs 09/27/24 04:24 09/27/24 04:24 Labs: Laboratory Results - last 24 hr 09/26/24 04:38 WBC 18.3 H RBC 4.06 Hgb 10.6 L Hct 35.7 L MCV 88 MCH 26.1 MCHC 29.7 L RDW Std Deviation 55.2 H Plt Count 583 H D Neut % (Auto) 85 H Lymph % (Auto) 9 L Cross % (Auto) 5 Eos % (Auto) 0 Baso % (Auto) 1 Neut # (Auto) 15.5 H Lymph # (Auto) 1.6 Cross # (Auto) 0.9 H Eos # (Auto) 0.0 Baso # (Auto) 0.1 Immature Gran # (Auto) 0.19 H Absolute Nucleated RBC 0.00 Immature Gran % 1 H Nucleated RBC % 0 Sodium 139 Potassium 3.5 D Chloride 109 H Carbon Dioxide 17.9 L Anion Gap 12 BUN 20 Creatinine 0.9 Estim Creat Clear Calc 79.9 eGFR > 60 BUN/Creatinine Ratio 22 H Glucose 151 H Calculated Osmolality 283 Calcium 9.8 Corrected Calcium 10.0 Phosphorus 2.3 L Magnesium 1.8 Total Bilirubin 0.2 L AST < 8 ALT 11 Alkaline Phosphatase 134 H Total Protein 7.5 Albumin 3.8 Globulin 3.7 H Albumin/Globulin Ratio 1.0 L Random Vancomycin 17.6 Quality Measures Quality Measures sepsis Current suspected stage: sepsis Possible source: genitourinary Blood cultures ordered: completed in ED Antibiotic ordered: Yes Assessment & Plan Assessment Current Active Medications: Generic Name Dose Route Start Last Admin Trade Name Freq PRN Reason Stop Dose Admin Acetaminophen 650 mg 09/22/24 14:31 Acetaminophen 325 Mg Tablet PO 10/22/24 14:30 Q6H PRN Fever >100.5 Acetaminophen 650 mg 09/22/24 14:31 09/23/24 09:07 Acetaminophen 325 Mg Tablet PO 10/22/24 14:30 650 mg Q6H PRN Administration PAIN SCALE 1-3 (mild Hydrocodone Bitart/Acetaminophen 1 tab 09/23/24 08:38 09/24/24 22:36 Hydrocodone/Apap 5/325 Tablet PO 09/27/24 17:25 1 tab Q4HR PRN Administration PAIN SCALE 4-10(Mod-Sev Amlodipine Besylate 10 mg 09/23/24 09:00 09/26/24 09:40 Amlodipine Besylate 5 Mg Tablet PO 10/23/24 08:59 10 mg QDAY FREDA Administration Atorvastatin Calcium 40 mg 09/22/24 21:00 09/25/24 20:26 Atorvastatin Calcium 20 Mg Tablet PO 10/22/24 20:59 40 mg HS FREDA Administration Carvedilol 3.125 mg 09/23/24 09:00 09/26/24 09:41 Carvedilol 3.125 Mg Tablet PO 10/23/24 08:59 3.125 mg BID FREDA Administration Cyclobenzaprine HCl 5 mg 09/24/24 12:54 09/25/24 22:01 Cyclobenzaprine 5 Mg Tablet PO 10/24/24 12:59 5 mg BID PRN Administration cramping Protocol Dextrose 25 ml 09/22/24 15:21 Dextrose 50%-Water Inj 50 Ml Syringe IV 10/22/24 15:20 Q15MIN PRN BG 50-70 responsive npo pt Dextrose 50 ml 09/22/24 15:21 Dextrose 50%-Water Inj 50 Ml Syringe IV 10/22/24 15:20 Q15MIN PRN BG <50 OR BG <70 & pt unresponsive Docusate Sodium 100 mg 09/25/24 13:55 09/26/24 09:41 Docusate Sod 100 Mg Capsule PO 10/22/24 14:44 100 mg QDAY FREDA Administration Protocol Glucagon 1 mg 09/22/24 15:21 Glucagon Inj 1 Mg Vial IM Q15MIN PRN BG <70, and no IV access Heparin Sodium (Porcine) 5,000 unit 09/22/24 14:45 09/26/24 05:20 Heparin Sod Inj 5000 Unit/Ml Vial SC 10/06/24 14:44 5,000 unit Q8HR FREDA Administration Metronidazole 500 mg in 100 mls @ 200 mls/hr 09/22/24 14:39 09/26/24 05:21 Flagyl 500 Mg Iv IV 09/29/24 14:38 200 mls/hr Q8HR FREDA Administration Aztreonam 2,000 mg/ Sodium 100 mls @ 200 mls/hr 09/22/24 15:00 09/26/24 05:21 Chloride IV 09/29/24 14:59 200 mls/hr Q8HR FREDA Administration Insulin Human Lispro 0 unit 09/22/24 17:00 09/26/24 09:41 Insulin Lispro (Admelog) 1 Unit/0.01 Ml Unit SC 10/22/24 16:59 2 unit ACHS FREDA Administration Protocol Lactulose 20 gm 09/24/24 09:00 09/26/24 09:39 Lactulose Syrup 20 Gm/30 Ml Udc PO 10/24/24 08:59 20 gm QDAY FREDA Administration Protocol Linezolid 600 mg 09/26/24 10:45 Linezolid 600 Mg Tablet PO 10/03/24 10:44 BID FREDA Losartan Potassium 50 mg 09/26/24 09:00 09/26/24 09:40 Losartan Potassium 25 Mg Tablet PO 10/26/24 08:59 50 mg QDAY FREDA Administration Ondansetron HCl 4 mg 09/22/24 14:31 09/25/24 20:25 Ondansetron Inj 2 Mg/Ml Inj 2 Ml IV 10/22/24 14:30 4 mg Q6H PRN Administration NAUSEA OR VOMITING Protocol Pantoprazole Sodium 40 mg 09/22/24 16:15 09/26/24 09:39 Pantoprazole 40 Mg Tablet PO 10/22/24 16:14 40 mg QDAY FREDA Administration Polyethylene Glycol 17 gm 09/24/24 08:15 09/25/24 05:56 Polyethylene Glycol 17 Gm Packet PO 10/24/24 08:14 Not Given TID FERDA Plan 59 y/o F with PMHx of A-fib, HFpEF 65 to 70%, history of CVA, hypertension, diabetes presented to the ED from SNF due to altered mental status. Admitted for management of Sepsis secondary to UTI and right sided pneumonia #Sepsis secondary to #UTI #?Aspiration Pneumonia #Leukocytosis On admission patient has SIRS 2/4 fever, WBCs, end organ damage VRIGINIA and altered mental status UA shows UTI with positive esterase, WBCs CXR shows right sided pneumonia possibly aspiration procalcitonin elevated In the ED patient received 1L NS bolus + 1L NS bolus Patient has extensive medication allergies and resitances to many Abx Urine Cx grew gram negative rods, although previous cultures show GNRs, and patient has chronic yap catheter so could be colonization Blood culture grew GPCs in 1 bottle out of 2, likely contaminant will re-order blood cultures at this time Repeat blood cultures negative in 48 hours - on Aztreonam - on Vancomycin, switched to linezolid p.o. - on flagyl #Acute metabolic encephalopathy- improving patient on arrival is AAOx1 not able to answer any question apart from her name likely secondary to UTI vs dehydration vs Uremia Head CT showed Negative for acute hemorrhage, mass effect or midline shift Patient is AAOx2-3 today improving Patient is able to move all 4 extremities and face is symmetrical Speech therapy evaluated patient passed swallow evaluation - treat underlying sepsis - aspiration precautions #Poor p.o. intake Patient has not been eating for the past 2 days States she is not hungry, denies any trouble swallowing There is likely a component of depression however patient does not want any antidepressants at this time -Added Megestrol as appetite stimulant #V[place]-resolved baseline creatinine 0.9-1.1 Current Cr 1.0 was given 1L NS in ED+ 2L NS bolus - avoid nephrotoxins - renally dose medications #NAGMA-resolved likely in the setting of NS infusions - will continue to monitor #Diabetes - SSI - hypoglycemia protocol in place #HFpEF [65-70% April 2024] #Mild aortic valve stenosis #Hypertension #Hx of Afib Echo 05/21/2024 - estimated 65-70%. Normal RV size / function. Mean gradient on aortic valve - 13 mm Hg currently in sinus rhythm -resumed carvedilol 3.125mg BID -resumed amlodipine 5mg qday -on losartan 50 mg daily -strict intake and output #Chronic abdominal wall wounds Patient has had a chronic wound on her abdomen. So wound care pictures abdominal ulcers 1 looks necrotic, patient seems to be indifferent about receiving interventions at this time -wound care #Hx of HLD -resumed atorvastatin 40mg HS Case discussed with my senior Dr. Browne PGY-[address] Vu Garsia MD PGY-1 Disposition: Medtele Fluids: none Feeding: Dysphagia 3 Thrombo prophylaxis: Heparin Gastric Ulcer prophylaxis: Pantoprazole CODE STATUS: Full code Attending Provider Attestation/Addendum I have examined the patient, reviewed labs and imaging findings, discussed the case with the resident(s), and reviewed entered orders. I agree with the plan of care as outlined in this note, with these additional summaries/recommendations: Patient is a 59-year-old female who is well-known to the hospital service with a medical history of A-fib, HFpEF, CVA, hypertension and diabetes who presented from nursing facility with chief complaint of acute encephalopathy. Patient seen at bedside. No acute overnight events. Patient still has episodes of of confusion but overall mental status is significantly improved. Most likely Acute encephalopathy secondary to infectious etiology although suspect a component of depression. Patient was offered antidepressant but declined. Patient has also had a poor appetite and in agreement with starting Megace. Urinalysis showed leukocyte esterase positive, WBC 749 and rare bacteria. Chest x-ray showed pneumonia right middle lobe and right base. Ur cx grew klebsiella pneumoniae. 1 of 2 blood cultures grew Staphylococcus epidermidis. Repeat blood cultures show no growth at 48 hours. We will continue IV antibiotics and WBC count uptrending at this time and currently 18.3. DC IV vancomycin and switch to linezolid based off previous hospitalization cultures. Patient has significant pressure ulcers and abdominal wounds which are chronic. Patient was advised to follow-up with plastic surgery on previous admission although declines intervention. If WBC count continues to uptrend we will consider general surgery consult to see if debridement is needed. Patient also noted to have acute kidney injury on admission with creatinine 1.6 and BUN 61. Most likely secondary to prerenal azotemia in the setting of altered mental status and poor oral intake. [place] now resolved with Cr 1.1 and BUN 39. Continue Avoid nephrotoxic agents and renally dose medications. Dr. Womack
--- NOTE | 2024-09-26 10:56 | PD.IMPROG ---
Documentation for date of: 09/26/24 Subjective Subjective Interval history: Good results with the MiraLAX as patient was going too much MiraLAX had to be cut back No need for a colonoscopy Exam Vital Signs Temp Pulse Resp BP Pulse Ox O2 Del Method O2 Flow Rate 98.4 F 84 20 156/76 H 95 Room Air 1 09/26/24 07:36 09/26/24 09:41 09/26/24 09:00 09/26/24 09:41 09/26/24 07:36 09/26/24 07:36 09/26/24 04:00 Routine Respiratory Exam Comments: Scattered rhonchi Routine Abdominal Exam Comments: Soft nontender open wounds in the lower quadrants Objective Labs 09/27/24 04:24 09/27/24 04:24 Labs: Laboratory Results - last 24 hr 09/26/24 04:38 WBC 18.3 H RBC 4.06 Hgb 10.6 L Hct 35.7 L MCV 88 MCH 26.1 MCHC 29.7 L RDW Std Deviation 55.2 H Plt Count 583 H D Neut % (Auto) 85 H Lymph % (Auto) 9 L [place] % (Auto) 5 Eos % (Auto) 0 Baso % (Auto) 1 Neut # (Auto) 15.5 H Lymph # (Auto) 1.6 [place] # (Auto) 0.9 H Eos # (Auto) 0.0 Baso # (Auto) 0.1 Immature Gran # (Auto) 0.19 H Absolute Nucleated RBC 0.00 Immature Gran % 1 H Nucleated RBC % 0 Sodium 139 Potassium 3.5 D Chloride 109 H Carbon Dioxide 17.9 L Anion Gap 12 BUN 20 Creatinine 0.9 Estim Creat Clear Calc 79.9 eGFR > 60 BUN/Creatinine Ratio 22 H Glucose 151 H Calculated Osmolality 283 Calcium 9.8 Corrected Calcium 10.0 Phosphorus 2.3 L Magnesium 1.8 Total Bilirubin 0.2 L AST < 8 ALT 11 Alkaline Phosphatase 134 H Total Protein 7.5 Albumin 3.8 Globulin 3.7 H Albumin/Globulin Ratio 1.0 L Random Vancomycin 17.6 Impressions Impression: # Stool impaction with obstipation constipation # Abnormal CT scan of the abdomen pelvis with thickening of the rectal wall due to underdistention No need for a colonoscopy continue current management Assessment & Plan A&P Narrative # Abnormal CAT scan showing thickening of the rectal wall most likely due to under distention and stool impaction Patient not a candidate for any fiberoptic colonoscopy at the moment Monitor H&H Put the patient on MiraLAX 3 times a day to flush the stool out in the left colon Along with lactulose 20 g p.o. daily No plans for a colonoscopy Thank you very much for the opportunity to participate in the care of this patient Time Spent With Patient Time: Total time spent is greater than 50% in coordination of care (as documented) at patient's floor/unit and/or counseling patient:
[2024-09-26] MEDS: LINEZOLID 600 MG TABLET PO ×2 (11:47→20:21)
[2024-09-26] MEDS: MEGESTROL ACET SUSP 400 MG/10 ML UDC 200 MG PO ×3 (14:30→20:22)
[2024-09-26] MEDS: ATORVASTATIN CALCIUM 20 MG TABLET 40 MG PO (20:21)
[2024-09-26] MEDS: HYDROcodone/APAP 5/325 TABLET 1 TAB PO (20:59)
[2024-09-27] VITALS (17 sets, daily range): BP systolic 129–188; BP diastolic 75–111; PULSE 77–93; RESP 15–19; TEMP 36.2–36.8; O2SAT 95–99
[2024-09-27] MEDS: HYDROcodone/APAP 5/325 TABLET 1 TAB PO (04:36)
[2024-09-27] MEDS: hydrALAZINE INJ 20 MG/ML VIAL 10 MG IV (04:47)
[2024-09-27] MEDS: MEGESTROL ACET SUSP 400 MG/10 ML UDC 200 MG PO ×4 (05:05→20:30)
[2024-09-27] MEDS: SODIUM CHLORIDE 0.9% IV ×3 (05:05→21:07)
[2024-09-27] MEDS: AZTREONAM IV ×3 (05:05→21:07)
[2024-09-27] MEDS: metroNIDAZOLE/NS 500 MG IVPB 500 MG/100 ML BAG 200 MG IV (05:07)
[2024-09-27] MEDS: HEPARIN SOD INJ 5000 UNIT/ML VIAL SC ×3 (05:11→21:07)
[2024-09-27 05:12] LABS: Basophils # (Auto) 0.1 Thou/mm3 (0.0-0.2); Basophils % (Auto) 0 % (0-2.5); Eosinophils # (Auto) 0.1 Thou/mm3 (0.0-0.5); Eosinophils % (Auto) 1 % (0-10); Hematocrit 34.5 % (36.0-46.0); Hemoglobin 10.4 g/dL (12.0-16.0); Immature Granulocytes % (Auto) 1 % (0-0); Immature Granulocytes Auto 0.15 Thou/mm3 (0.00-0.00); Lymphocytes # (Auto) 1.9 Thou/mm3 (1.0-4.8); Lymphocytes % (Auto) 10 % (10-50); Mean Corpuscular HGB Conc 30.1 g/dl (31.0-37.0); Mean Corpuscular Hemoglobin 26.1 pg (25.0-35.0); Mean Corpuscular Volume 87 fL (80-100); Monocytes % (Auto) 6 % (0-12); Neutrophils # (Auto) 14.6 Thou/mm3 (1.8-7.7); Neutrophils % (Auto) 82 % (37-80); Nucleated Red Blood Cell % 0 /100 WBC (0); Platelet Count 544 Thou/mm3 (140-440); Red Blood Count 3.98 Miln/mm3 (4.00-5.20); White Blood Count 17.8 Thou/mm3 (3.6-11.0)
[2024-09-27 05:44] LABS: Sodium 139 mMol/L (136-145)
[2024-09-27 05:45] LABS: Alanine Aminotransferase < 7 U/L (10-49); Albumin, Serum 3.7 gm/dL (3.4-4.8); Albumin/Globulin Ratio 1.1 (1.2-2.2); Alkaline Phosphatase 121 U/L (46-116); Anion Gap 9 (7-16); Aspartate Amino Transferase < 8 U/L (0-34); BUN/Creatinine Ratio 23 Ratio (12-20); Bilirubin,Total 0.2 mg/dL (0.3-1.2); Blood Urea Nitrogen 18 mg/dL (9-23); Calcium 9.6 mg/dL (8.3-10.6); Calcium (Corrected) 9.8 mg/dL (8.5-10.1); Carbon Dioxide 22.2 mMol/L (20.0-31.0); Chloride 108 mMol/L (98-107); Creatinine (Component) 0.8 mg/dL (0.6-1.3); Estimated Creatinine Clearance 87.6 mL/min (>60); Globulin 3.5 gm/dL (2.3-3.5); Glucose 182 mg/dL (74-106); Magnesium 1.7 mg/dL (1.6-2.6); Osmolality,Calculated 284 (275-295); Potassium 3.5 mMol/L (3.4-5.1); Total Protein 7.2 gm/dL (5.7-8.2); eGFR > 60 See Note
[2024-09-27] MEDS: LACTULOSE SYRUP 20 GM/30 ML UDC PO (09:17)
[2024-09-27] MEDS: carVEDILOL 3.125 MG TABLET PO ×2 (09:17→20:30)
[2024-09-27] MEDS: DOCUSATE SOD 100 MG CAPSULE PO (09:17)
[2024-09-27] MEDS: amLODIPine BESYLATE 5 MG TABLET 10 MG PO (09:17)
[2024-09-27] MEDS: LINEZOLID 600 MG TABLET PO ×2 (09:18→20:30)
[2024-09-27] MEDS: PANTOPRAZOLE 40 MG TABLET PO (09:18)
[2024-09-27] MEDS: INSULIN LISPRO (AdmeLOG) 1 UNIT/0.01 ML UNIT SC ×4 (09:18→20:26)
[2024-09-27] MEDS: LOSARTAN POTASSIUM 25 MG TABLET 50 MG PO (09:18)
[2024-09-27] MEDS: POTASSIUM PHOS 22.5 MMOL in SODIUM CHLORIDE 0.9% 500 ML 500 ML 82.778 MMOL IV (10:47)
[2024-09-27] MEDS: ESCITALOPRAM OXALATE 10 MG TABLET 20 MG PO (12:29)
--- NOTE | 2024-09-27 15:56 | ESPR_ITS ---
<Statement entered by Pavan Beasley MD - 09/27/24 16:46> Patient was seen and examined at bedside. No overnight incident except high blood pressure which was controlled. Today her WBCs still in the high side. Even though the patient was started on broad-spectrum antibiotics such as linezolid and aztreonam. For that reason we decided to consult neurosurgery to evaluate the wound as we noticed in the imaging on file that the abdominal wound looks necrotic. We also decided to consult infectious disease specialist Dr Hernandez for further recommendations regarding antibiotics. We did med reconciliation for the patient and resumed her home medication gabapentin, tramadol, and escitalopram. She still has low oral intake yesterday she had only 25% of her dinner and 0% for both lunch and breakfast. Patient was started Megace suspension yesterday. - Patient's plan and care discussed with my attending, Dr. Vu Beasley MD Internal Medicine PGY-2 Documentation for date of: 09/27/24 Subjective Subjective Interval history: Pt examined at bedside today. No acute overnight events. Pt reports she felt a bit nauseous with dinner last night and says she woke up in her sleep last night. Says she has no SOB, CP or abd pain at this time. No other complaints at this time. Exam Vital Signs Temp Pulse Resp BP Pulse Ox O2 Del Method O2 Flow Rate 97.6 F 84 19 165/83 H 98 Nasal Cannula 1 09/27/24 15:24 09/27/24 15:24 09/27/24 15:24 09/27/24 15:24 09/27/24 15:24 09/27/24 15:24 09/27/24 15:24 Narrative Exam GENERAL: NAD, AAOx2-3, obese, pale HEENT: dry mucosa. Eyes open, symmetrical, & clear CARDIO: Heart RRR, no obvious murmurs PULM: No noted coughing/dyspnea CTA B/L, no R/W/R GI: Abdomen soft, nondistended, no pain on palpation, wound on right side of abdomen covered with gauze has stoma, chronic abdominal ulcers 1 looks necrotic from pictures, BSx4 URO: Yap catheter SKIN/MSK/EXT: multiple Leg ulcers, pressure ulcer in the back, Pedal pulses present B/L NEURO: AAOx2-3 Objective Labs 09/28/24 04:44 09/28/24 04:44 Labs: Laboratory Results - last 24 hr 09/27/24 04:24 WBC 17.8 H RBC 3.98 L Hgb 10.4 L Hct 34.5 L MCV 87 MCH 26.1 MCHC 30.1 L RDW Std Deviation 54.0 H Plt Count 544 H D Neut % (Auto) 82 H Lymph % (Auto) 10 [place] % (Auto) 6 Eos % (Auto) 1 Baso % (Auto) 0 Neut # (Auto) 14.6 H Lymph # (Auto) 1.9 [place] # (Auto) 1.0 H Eos # (Auto) 0.1 Baso # (Auto) 0.1 Immature Gran # (Auto) 0.15 H Absolute Nucleated RBC 0.00 Immature Gran % 1 H Nucleated RBC % 0 Sodium 139 Potassium 3.5 Chloride 108 H Carbon Dioxide 22.2 Anion Gap 9 BUN 18 Creatinine 0.8 Estim Creat Clear Calc 87.6 eGFR > 60 BUN/Creatinine Ratio 23 H Glucose 182 H Calculated Osmolality 284 Calcium 9.6 Corrected Calcium 9.8 Phosphorus 2.0 L Magnesium 1.7 Total Bilirubin 0.2 L AST < 8 ALT < 7 L Alkaline Phosphatase 121 H Total Protein 7.2 Albumin 3.7 Globulin 3.5 Albumin/Globulin Ratio 1.1 L Quality Measures Quality Measures sepsis Current suspected stage: sepsis Possible source: genitourinary Blood cultures ordered: completed in ED Antibiotic ordered: Yes Assessment & Plan Assessment Current Active Medications: Generic Name Dose Route Start Last Admin Trade Name Freq PRN Reason Stop Dose Admin Acetaminophen 650 mg 09/22/24 14:31 Acetaminophen 325 Mg Tablet PO 10/22/24 14:30 Q6H PRN Fever >100.5 Acetaminophen 650 mg 09/22/24 14:31 09/23/24 09:07 Acetaminophen 325 Mg Tablet PO 10/22/24 14:30 650 mg Q6H PRN Administration PAIN SCALE 1-3 (mild Hydrocodone Bitart/Acetaminophen 1 tab 09/27/24 11:31 Hydrocodone/Apap 5/325 Tablet PO 09/27/24 17:25 Q4HR PRN PAIN SCALE 7-10(Mod-Sev Amlodipine Besylate 10 mg 09/23/24 09:00 09/27/24 09:17 Amlodipine Besylate 5 Mg Tablet PO 10/23/24 08:59 10 mg QDAY FREDA Administration Atorvastatin Calcium 40 mg 09/22/24 21:00 09/26/24 20:21 Atorvastatin Calcium 20 Mg Tablet PO 10/22/24 20:59 40 mg HS FREDA Administration Baclofen 5 mg 09/27/24 21:00 Baclofen 10 Mg Tablet PO 10/27/24 20:59 BID FREDA Carvedilol 3.125 mg 09/23/24 09:00 09/27/24 09:17 Carvedilol 3.125 Mg Tablet PO 10/23/24 08:59 3.125 mg BID FREDA Administration Dextrose 25 ml 09/22/24 15:21 Dextrose 50%-Water Inj 50 Ml Syringe IV 10/22/24 15:20 Q15MIN PRN BG 50-70 responsive npo pt Dextrose 50 ml 09/22/24 15:21 Dextrose 50%-Water Inj 50 Ml Syringe IV 10/22/24 15:20 Q15MIN PRN BG <50 OR BG <70 & pt unresponsive Docusate Sodium 100 mg 09/25/24 13:55 09/27/24 09:17 Docusate Sod 100 Mg Capsule PO 10/22/24 14:44 100 mg QDAY FREDA Administration Protocol Escitalopram Oxalate 20 mg 09/27/24 11:30 09/27/24 12:29 Escitalopram Oxalate 10 Mg Tablet PO 10/27/24 11:29 20 mg QDAY FREDA Administration Gabapentin 300 mg 09/27/24 21:00 Gabapentin 300 Mg Capsule PO 10/27/24 20:59 BID FREDA Glucagon 1 mg 09/22/24 15:21 Glucagon Inj 1 Mg Vial IM Q15MIN PRN BG <70, and no IV access Heparin Sodium (Porcine) 5,000 unit 09/22/24 14:45 09/27/24 15:04 Heparin Sod Inj 5000 Unit/Ml Vial SC 10/06/24 14:44 5,000 unit Q8HR FREDA Administration Hydralazine HCl 10 mg 09/27/24 09:24 Hydralazine Inj 20 Mg/Ml Vial IV 10/27/24 09:29 Q2H PRN SBP > 180 Aztreonam 2,000 mg/ Sodium 100 mls @ 200 mls/hr 09/22/24 15:00 09/27/24 15:04 Chloride IV 09/29/24 14:59 200 mls/hr Q8HR FREDA Administration Insulin Human Lispro 0 unit 09/22/24 17:00 09/27/24 12:29 Insulin Lispro (Admelog) 1 Unit/0.01 Ml Unit SC 10/22/24 16:59 2 unit ACHS FREDA Administration Protocol Lactulose 20 gm 09/24/24 09:00 09/27/24 09:17 Lactulose Syrup 20 Gm/30 Ml Udc PO 10/24/24 08:59 20 gm QDAY FREDA Administration Protocol Linezolid 600 mg 09/26/24 10:45 09/27/24 09:18 Linezolid 600 Mg Tablet PO 10/03/24 10:44 600 mg BID FREDA Administration Losartan Potassium 50 mg 09/26/24 09:00 09/27/24 09:18 Losartan Potassium 25 Mg Tablet PO 10/26/24 08:59 50 mg QDAY FREDA Administration Megestrol Acetate 200 mg 09/26/24 13:00 09/27/24 12:29 Megestrol Acet Susp 400 Mg/10 Ml Udc PO 10/26/24 12:59 200 mg QID FREDA Administration Ondansetron HCl 4 mg 09/22/24 14:31 09/25/24 20:25 Ondansetron Inj 2 Mg/Ml Inj 2 Ml IV 10/22/24 14:30 4 mg Q6H PRN Administration NAUSEA OR VOMITING Protocol Pantoprazole Sodium 40 mg 09/22/24 16:15 09/27/24 09:18 Pantoprazole 40 Mg Tablet PO 10/22/24 16:14 40 mg QDAY FREDA Administration Polyethylene Glycol 17 gm 09/24/24 08:15 09/25/24 05:56 Polyethylene Glycol 17 Gm Packet PO 10/24/24 08:14 Not Given TID FREDA Tramadol HCl 50 mg 09/27/24 11:31 Tramadol Hcl 50 Mg Tablet PO 10/02/24 11:25 Q8HR PRN PAIN 4-6 Plan 59 y/o F with PMHx of A-fib, HFpEF 65 to 70%, history of CVA, hypertension, diabetes presented to the ED from SNF due to altered mental status. Admitted for management of Sepsis secondary to UTI and right sided pneumonia #Sepsis secondary to #UTI #?Aspiration Pneumonia #Leukocytosis On admission patient has SIRS 2/4 fever, WBCs, end organ damage [place] and altered mental status UA shows UTI with positive esterase, WBCs CXR shows right sided pneumonia possibly aspiration procalcitonin elevated In the ED patient received 1L NS bolus + 1L NS bolus Patient has extensive medication allergies and resitances to many Abx Urine Cx grew gram negative rods, although previous cultures show GNRs, and patient has chronic yap catheter so could be colonization Blood culture grew GPCs in 1 bottle out of 2, likely contaminant will re-order blood cultures at this time Repeat blood cultures negative in 48 hours Plan: - on Aztreonam and linezolid p.o. -D/C flagyl #Chronic abdominal wall wounds Patient has had a chronic wound on her abdomen. Wound care pictures abdominal ulcers 1 looks necrotic, patient seems to be indifferent about receiving interventions at this time Wounds look necrotic, may need debridement Plan: ?Wound care ?General Surgery consult #Acute metabolic encephalopathy- improving patient on arrival is AAOx1 not able to answer any question apart from her name likely secondary to UTI vs dehydration vs Uremia Head CT showed Negative for acute hemorrhage, mass effect or midline shift Patient is AAOx2-3 today improving Patient is able to move all 4 extremities and face is symmetrical Speech therapy evaluated patient passed swallow evaluation Plan: - treat underlying sepsis - aspiration precautions #Poor p.o. intake Patient has not been eating for the past 2 days States she is not hungry, denies any trouble swallowing There is likely a component of depression however patient does not want any antidepressants at this time -Megestrol as appetite stimulant ?Resumed home gabapentin #[place]-resolved baseline creatinine 0.9-1.1 Current Cr 1.0 was given 1L NS in ED+ 2L NS bolus - avoid nephrotoxins - renally dose medications #NAGMA-resolved likely in the setting of NS infusions - will continue to monitor #Diabetes - SSI - hypoglycemia protocol in place #HFpEF [65-70% April 2024] #Mild aortic valve stenosis #Hypertension #Hx of Afib Echo 05/21/2024 - estimated 65-70%. Normal RV size / function. Mean gradient on aortic valve - 13 mm Hg currently in sinus rhythm -resumed carvedilol 3.125mg BID -resumed amlodipine 5mg qday -on losartan 50 mg daily -strict intake and output #Hx of HLD -resumed atorvastatin 40mg HS #Health Maintenance Disposition: [facility] DVT prophylaxis: Heparin GI prophylaxis: Protonix Diet: Dysphagia 3 CODE STATUS: Full Patient seen and care discussed with my senior resident, Dr. Beasley , and my attending physician, Dr. Vu Wiggins, PGY-1 Attending Provider Attestation/Addendum I have examined the patient, reviewed labs and imaging findings, discussed the case with the resident(s), and reviewed entered orders. I agree with the plan of care as outlined in this note, with these additional summaries/recommendations: Patient is a 59-year-old female who is well-known to the hospital service with a medical history of A-fib, HFpEF, CVA, hypertension and diabetes who presented from nursing facility with chief complaint of acute encephalopathy. Patient seen at bedside. No acute overnight events. Patient continues to have flat affect and home antidepressant resumed. Patient reports minimal improvement in appetite after starting with megace and we will continue to monitor. Urinalysis showed leukocyte esterase positive, WBC 749 and rare bacteria. Chest x-ray showed pneumonia right middle lobe and right base. Ur cx grew klebsiella pneumoniae. 1 of 2 blood cultures grew Staphylococcus epidermidis. Repeat blood cultures show no growth at 48 hours and suspect contamination. We will continue IV antibiotics and WBC count was uptrending although minor improvement today to 17.8. DC IV vancomycin and switch to linezolid based off previous hospitalization cultures. Continue Aztreonam and consult infectious disease for further recommendations. Patient has significant pressure ulcers and abdominal wounds which are chronic although ulcer appears necrotic and we will consult general surgery to see if debridement is required. Patient was advised to follow-up with plastic surgery on previous admission although declines intervention. Patient also noted to have acute kidney injury on admission with creatinine 1.6 and BUN 61. Most likely secondary to prerenal azotemia in the setting of altered mental status and poor oral intake. [place] now resolved with Cr 1.1 and BUN 39. Continue Avoid nephrotoxic agents and renally dose medications. Continue home baclofen, gabapentin, and tramadol. Repeat hematology and chemistry panel in AM. Dr. Womack
[2024-09-27] MEDS: ATORVASTATIN CALCIUM 20 MG TABLET 40 MG PO (20:29)
[2024-09-27] MEDS: BACLOFEN 10 MG TABLET 5 MG PO (20:29)
[2024-09-27] MEDS: GABAPENTIN 300 MG CAPSULE PO (20:30)
[2024-09-28] VITALS (10 sets, daily range): BP systolic 106–169; BP diastolic 51–99; PULSE 76–93; RESP 15–19; TEMP 36.2–36.6; O2SAT 95–99
[2024-09-28] MEDS: SODIUM CHLORIDE 0.9% IV (05:11)
[2024-09-28] MEDS: AZTREONAM IV (05:11)
[2024-09-28] MEDS: MEGESTROL ACET SUSP 400 MG/10 ML UDC 200 MG PO ×4 (05:11→21:44)
[2024-09-28] MEDS: HEPARIN SOD INJ 5000 UNIT/ML VIAL SC ×3 (05:20→21:52)
[2024-09-28 06:15] LABS: Basophils # (Auto) 0.1 Thou/mm3 (0.0-0.2); Basophils % (Auto) 1 % (0-2.5); Eosinophils # (Auto) 0.2 Thou/mm3 (0.0-0.5); Eosinophils % (Auto) 2 % (0-10); Hematocrit 35.3 % (36.0-46.0); Hemoglobin 10.7 g/dL (12.0-16.0); Immature Granulocytes % (Auto) 1 % (0-0); Immature Granulocytes Auto 0.14 Thou/mm3 (0.00-0.00); Lymphocytes # (Auto) 2.5 Thou/mm3 (1.0-4.8); Lymphocytes % (Auto) 20 % (10-50); Mean Corpuscular HGB Conc 30.3 g/dl (31.0-37.0); Mean Corpuscular Volume 86 fL (80-100); Monocytes % (Auto) 8 % (0-12); Neutrophils # (Auto) 8.7 Thou/mm3 (1.8-7.7); Neutrophils % (Auto) 69 % (37-80); Nucleated Red Blood Cell % 0 /100 WBC (0); Platelet Count 483 Thou/mm3 (140-440); RDW Standard Deviation 53.6 fL (36.4-46.3); Red Blood Count 4.11 Miln/mm3 (4.00-5.20); White Blood Count 12.7 Thou/mm3 (3.6-11.0)
[2024-09-28 06:38] LABS: Alanine Aminotransferase < 7 U/L (10-49); Albumin, Serum 3.3 gm/dL (3.4-4.8); Alkaline Phosphatase 105 U/L (46-116); Anion Gap 8 (7-16); Aspartate Amino Transferase 11 U/L (0-34); BUN/Creatinine Ratio 23 Ratio (12-20); Bilirubin,Total < 0.2 mg/dL (0.3-1.2); Blood Urea Nitrogen 18 mg/dL (9-23); Calcium 9.8 mg/dL (8.3-10.6); Calcium (Corrected) 10.4 mg/dL (8.5-10.1); Carbon Dioxide 22.6 mMol/L (20.0-31.0); Chloride 110 mMol/L (98-107); Creatinine (Component) 0.8 mg/dL (0.6-1.3); Estimated Creatinine Clearance 87.6 mL/min (>60); Globulin 3.4 gm/dL (2.3-3.5); Glucose 120 mg/dL (74-106); Osmolality,Calculated 284 (275-295); Potassium 3.6 mMol/L (3.4-5.1); Sodium 141 mMol/L (136-145); Total Protein 6.7 gm/dL (5.7-8.2); eGFR > 60 See Note
[2024-09-28] MEDS: INSULIN LISPRO (AdmeLOG) 1 UNIT/0.01 ML UNIT SC ×4 (07:43→21:54)
[2024-09-28] MEDS: ESCITALOPRAM OXALATE 10 MG TABLET 20 MG PO (08:08)
[2024-09-28] MEDS: DOCUSATE SOD 100 MG CAPSULE PO (08:08)
[2024-09-28] MEDS: LOSARTAN POTASSIUM 25 MG TABLET 50 MG PO (08:08)
[2024-09-28] MEDS: BACLOFEN 10 MG TABLET 5 MG PO ×2 (08:09→21:47)
[2024-09-28] MEDS: GABAPENTIN 300 MG CAPSULE PO ×2 (08:09→21:48)
[2024-09-28] MEDS: amLODIPine BESYLATE 5 MG TABLET 10 MG PO (08:10)
[2024-09-28] MEDS: carVEDILOL 3.125 MG TABLET PO ×2 (08:10→21:47)
[2024-09-28] MEDS: PANTOPRAZOLE 40 MG TABLET PO (08:11)
[2024-09-28] MEDS: LINEZOLID 600 MG TABLET PO (08:11)
[2024-09-28] MEDS: LACTULOSE SYRUP 20 GM/30 ML UDC PO (08:11)
[2024-09-28] MEDS: ONDANSETRON INJ 2 MG/ML INJ 2 ML 4 MG IV (08:20)
--- NOTE | 2024-09-28 08:40 | PD.IDPROG ---
Subjective Subjective Interval history: remarkable number of allergies noted. bc neg. ua likely treated at this point, if she has a chronic yap, that can be a risk factor if she is post or perimenopausal, vaginal estrogen rx can be helpful [facility] abx not recommended in this setting Exam Vital Signs Temp Pulse Resp BP Pulse Ox O2 Del Method O2 Flow Rate 97.1 F 93 17 136/99 H 99 Nasal Cannula 1 09/28/24 04:00 09/28/24 08:10 09/28/24 04:00 09/28/24 08:10 09/28/24 04:00 09/28/24 04:00 09/28/24 04:00 Narrative Exam benign exam. no urinary complaints noted. was here for encephalopathy that resolved. Objective - Internal Medicine Labs 09/28/24 04:44 09/28/24 04:44 Labs: Laboratory Results - last 24 hr 09/28/24 04:44 WBC 12.7 H D RBC 4.11 Hgb 10.7 L Hct 35.3 L MCV 86 MCH 26.0 MCHC 30.3 L RDW Std Deviation 53.6 H Plt Count 483 H D Neut % (Auto) 69 Lymph % (Auto) 20 [place] % (Auto) 8 Eos % (Auto) 2 Baso % (Auto) 1 Neut # (Auto) 8.7 H Lymph # (Auto) 2.5 [place] # (Auto) 1.0 H Eos # (Auto) 0.2 Baso # (Auto) 0.1 Immature Gran # (Auto) 0.14 H Absolute Nucleated RBC 0.00 Immature Gran % 1 H Nucleated RBC % 0 Sodium 141 Potassium 3.6 Chloride 110 H Carbon Dioxide 22.6 Anion Gap 8 BUN 18 Creatinine 0.8 Estim Creat Clear Calc 87.6 eGFR > 60 BUN/Creatinine Ratio 23 H Glucose 120 H D Calculated Osmolality 284 Calcium 9.8 Corrected Calcium 10.4 H Total Bilirubin < 0.2 L AST 11 ALT < 7 L Alkaline Phosphatase 105 Total Protein 6.7 Albumin 3.3 L Globulin 3.4 Albumin/Globulin Ratio 1.0 L Assessment & Plan A&P Narrative pos urine cx pos cxr for pneumonia multiple allergies recurrent pos urine cx relative obesity, bmi 38.9 noted changed to po doxy for 2d more. will see again saturday if she remains in house. Time Spent With Patient Time: Total time spent is greater than 50% in coordination of care (as documented) at patient's floor/unit and/or counseling patient:
--- NOTE | 2024-09-28 09:44 | PC.SS ---
Follow up note: Pt is on IV antibiotic. Pending I.D consultation. Pt will return to [facility]. SS spoke to Vidya from [facility] who explained patient's bedhold possibly expires today or tomorrow. Vidya will follow up and inform SS if new insurance authorization is required.
--- NOTE | 2024-09-28 10:52 | ESCONSULT_ITS ---
RE: PARIS LEZAMA : 1965 DATE OF CONSULTATION: 09/28/2024 REFERRING PHYSICIAN: Raciel Womack MD REASON FOR CONSULTATION: Pneumonia, wound infection, and urinary tract infection. HISTORY OF PRESENT ILLNESS: The patient is a 59-year-old who had more white cells in the urine previously. She came in with confusion and was found to have pneumonia, was on oxygen as an outpatient and is less confused at the moment. She is much better. She has had antibiotics for about 5 days, may have had some cystitis as she does not recall any urinary symptoms leading up to her admission. X-ray does show pneumonia and she has had several days of abx eith empiric rx noted because of multiple allergies. Allergies: please see the list in the hospital database. The patient herself is unaware of the allergies. Her wound is already improved on linezolid and another agent and she could probably go with the oral regimen at the moment. Her oxygen requirement is back down to baseline it seems. PHYSICAL EXAMINATION: GENERAL: Her exam shows her on some nasal cannula oxygen. She is in no distress. ABDOMEN: She has benign abdomen and the wound appears to be improved, although it is never that severe looking according to records. ASSESSMENT AND RECOMMENDATIONS: Couple of more days of oral doxycycline would be reasonable. If you want to extend that, that is fine. She is 59 years of age, so if you would like to try some vaginal estrogen to prevent any future urinary tract infections, that would be acceptable. Vaginal estrogen is minimally absorbed, so should not contribute to estrogen-related disease, which are concern among women. I will check on her again on Saturday if she remains, but I cannot come on Saturday for other reasons. DT: 09:12:48 TT: 10:04:00 Ref: [id number] - TID: [id number] MTDJunior
[2024-09-28] MEDS: DOXYCYCLINE 100 MG TABLET PO ×2 (11:38→21:48)
--- NOTE | 2024-09-28 12:11 | ESPR_ITS ---
Documentation for date of: 09/28/24 Subjective Subjective Interval history: MiraLAX is on hold at the current time but it has to be given daily even if she has multiple loose bowel movements that is the goal otherwise she is going get infected again Exam Vital Signs Temp Pulse Resp BP Pulse Ox O2 Del Method O2 Flow Rate 97.8 F 93 18 136/99 H 99 Nasal Cannula 1 09/28/24 08:00 09/28/24 08:10 09/28/24 08:00 09/28/24 08:10 09/28/24 08:00 09/28/24 08:00 09/28/24 08:00 Objective Labs 09/28/24 04:44 09/28/24 04:44 Labs: Laboratory Results - last 24 hr 09/28/24 04:44 WBC 12.7 H D RBC 4.11 Hgb 10.7 L Hct 35.3 L MCV 86 MCH 26.0 MCHC 30.3 L RDW Std Deviation 53.6 H Plt Count 483 H D Neut % (Auto) 69 Lymph % (Auto) 20 [place] % (Auto) 8 Eos % (Auto) 2 Baso % (Auto) 1 Neut # (Auto) 8.7 H Lymph # (Auto) 2.5 [place] # (Auto) 1.0 H Eos # (Auto) 0.2 Baso # (Auto) 0.1 Immature Gran # (Auto) 0.14 H Absolute Nucleated RBC 0.00 Immature Gran % 1 H Nucleated RBC % 0 Sodium 141 Potassium 3.6 Chloride 110 H Carbon Dioxide 22.6 Anion Gap 8 BUN 18 Creatinine 0.8 Estim Creat Clear Calc 87.6 eGFR > 60 BUN/Creatinine Ratio 23 H Glucose 120 H D Calculated Osmolality 284 Calcium 9.8 Corrected Calcium 10.4 H Total Bilirubin < 0.2 L AST 11 ALT < 7 L Alkaline Phosphatase 105 Total Protein 6.7 Albumin 3.3 L Globulin 3.4 Albumin/Globulin Ratio 1.0 L Impressions Impression: # Obstipation constipation # Stool impaction History of giving MiraLAX 3 times a day let the patient be on MiraLAX once a day which I will put in the order Senokot once a day Assessment & Plan A&P Narrative pos urine cx pos cxr for pneumonia multiple allergies recurrent pos urine cx relative obesity, bmi 38.9 noted changed to po doxy for 2d more. will see again kavitha if she remains in house. Time Spent With Patient Time: Total time spent is greater than 50% in coordination of care (as documented) at patient's floor/unit and/or counseling patient:
--- NOTE | 2024-09-28 12:19 | PD.RESPRO ---
Documentation for date of: 09/28/24 Subjective Subjective Interval history: Patient seen and examined at bedside. Patient is alert oriented x 3. Patient was seen by infectious disease was started on oral doxycycline Patient will be seen by general surgery for chronic abdominal wounds. Pending general surgery recommendations, will continue with wound care. Will continue to monitor patient. Exam Vital Signs Temp Pulse Resp BP Pulse Ox O2 Del Method O2 Flow Rate 97.8 F 93 18 136/99 H 99 Nasal Cannula 1 09/28/24 08:00 09/28/24 08:10 09/28/24 08:00 09/28/24 08:10 09/28/24 08:00 09/28/24 08:00 09/28/24 08:00 Narrative Exam GENERAL: NAD, AAOx3, obese, pale HEENT: dry mucosa. Eyes open, symmetrical, & clear CARDIO: Heart RRR, no obvious murmurs PULM: No noted coughing/dyspnea CTA B/L, no R/W/R GI: Abdomen soft, nondistended, no pain on palpation, wound on right side of abdomen covered with gauze has stoma, chronic abdominal ulcers covered in dresiing 1 looks necrotic from pictures, BSx4 URO: Yap catheter SKIN/MSK/EXT: multiple Leg ulcers, pressure ulcer in the back, Pedal pulses present B/L NEURO: AAOx3 Objective Labs 09/28/24 04:44 09/28/24 04:44 Labs: Laboratory Results - last 24 hr 09/28/24 04:44 WBC 12.7 H D RBC 4.11 Hgb 10.7 L Hct 35.3 L MCV 86 MCH 26.0 MCHC 30.3 L RDW Std Deviation 53.6 H Plt Count 483 H D Neut % (Auto) 69 Lymph % (Auto) 20 [place] % (Auto) 8 Eos % (Auto) 2 Baso % (Auto) 1 Neut # (Auto) 8.7 H Lymph # (Auto) 2.5 [place] # (Auto) 1.0 H Eos # (Auto) 0.2 Baso # (Auto) 0.1 Immature Gran # (Auto) 0.14 H Absolute Nucleated RBC 0.00 Immature Gran % 1 H Nucleated RBC % 0 Sodium 141 Potassium 3.6 Chloride 110 H Carbon Dioxide 22.6 Anion Gap 8 BUN 18 Creatinine 0.8 Estim Creat Clear Calc 87.6 eGFR > 60 BUN/Creatinine Ratio 23 H Glucose 120 H D Calculated Osmolality 284 Calcium 9.8 Corrected Calcium 10.4 H Total Bilirubin < 0.2 L AST 11 ALT < 7 L Alkaline Phosphatase 105 Total Protein 6.7 Albumin 3.3 L Globulin 3.4 Albumin/Globulin Ratio 1.0 L Quality Measures Quality Measures sepsis Current suspected stage: ruled out Possible source: genitourinary Blood cultures ordered: completed in ED Antibiotic ordered: Yes Assessment & Plan Assessment Current Active Medications: Generic Name Dose Route Start Last Admin Trade Name Freq PRN Reason Stop Dose Admin Acetaminophen 650 mg 09/22/24 14:31 Acetaminophen 325 Mg Tablet PO 10/22/24 14:30 Q6H PRN Fever >100.5 Acetaminophen 650 mg 09/22/24 14:31 09/23/24 09:07 Acetaminophen 325 Mg Tablet PO 10/22/24 14:30 650 mg Q6H PRN Administration PAIN SCALE 1-3 (mild Amlodipine Besylate 10 mg 09/23/24 09:00 09/28/24 08:10 Amlodipine Besylate 5 Mg Tablet PO 10/23/24 08:59 10 mg QDAY FREDA Administration Atorvastatin Calcium 40 mg 09/22/24 21:00 09/27/24 20:29 Atorvastatin Calcium 20 Mg Tablet PO 10/22/24 20:59 40 mg HS FREDA Administration Baclofen 5 mg 09/27/24 21:00 09/28/24 08:09 Baclofen 10 Mg Tablet PO 10/27/24 20:59 5 mg BID FREDA Administration Carvedilol 3.125 mg 09/23/24 09:00 09/28/24 08:10 Carvedilol 3.125 Mg Tablet PO 10/23/24 08:59 3.125 mg BID FREDA Administration Dextrose 25 ml 09/22/24 15:21 Dextrose 50%-Water Inj 50 Ml Syringe IV 10/22/24 15:20 Q15MIN PRN BG 50-70 responsive npo pt Dextrose 50 ml 09/22/24 15:21 Dextrose 50%-Water Inj 50 Ml Syringe IV 10/22/24 15:20 Q15MIN PRN BG <50 OR BG <70 & pt unresponsive Docusate Sodium 100 mg 09/25/24 13:55 09/28/24 08:08 Docusate Sod 100 Mg Capsule PO 10/22/24 14:44 100 mg QDAY FREDA Administration Protocol Doxycycline Hyclate 100 mg 09/28/24 09:00 09/28/24 11:38 Doxycycline 100 Mg Tablet PO 09/30/24 12:00 100 mg BID FREDA Administration Escitalopram Oxalate 20 mg 09/27/24 11:30 09/28/24 08:08 Escitalopram Oxalate 10 Mg Tablet PO 10/27/24 11:29 20 mg QDAY FREDA Administration Gabapentin 300 mg 09/27/24 21:00 09/28/24 08:09 Gabapentin 300 Mg Capsule PO 10/27/24 20:59 300 mg BID FREDA Administration Glucagon 1 mg 09/22/24 15:21 Glucagon Inj 1 Mg Vial IM Q15MIN PRN BG <70, and no IV access Heparin Sodium (Porcine) 5,000 unit 09/22/24 14:45 09/28/24 05:20 Heparin Sod Inj 5000 Unit/Ml Vial SC 10/06/24 14:44 5,000 unit Q8HR FREDA Administration Hydralazine HCl 10 mg 09/27/24 09:24 Hydralazine Inj 20 Mg/Ml Vial IV 10/27/24 09:29 Q2H PRN SBP > 180 Insulin Human Lispro 0 unit 09/22/24 17:00 09/28/24 11:39 Insulin Lispro (Admelog) 1 Unit/0.01 Ml Unit SC 10/22/24 16:59 2 unit ACHS FREDA Administration Protocol Lactulose 20 gm 09/24/24 09:00 09/28/24 08:11 Lactulose Syrup 20 Gm/30 Ml Udc PO 10/24/24 08:59 20 gm QDAY FREDA Administration Protocol Losartan Potassium 50 mg 09/26/24 09:00 09/28/24 08:08 Losartan Potassium 25 Mg Tablet PO 10/26/24 08:59 50 mg QDAY FREDA Administration Megestrol Acetate 200 mg 09/26/24 13:00 09/28/24 11:39 Megestrol Acet Susp 400 Mg/10 Ml Udc PO 10/26/24 12:59 200 mg QID FREDA Administration Ondansetron HCl 4 mg 09/22/24 14:31 09/28/24 08:20 Ondansetron Inj 2 Mg/Ml Inj 2 Ml IV 10/22/24 14:30 4 mg Q6H PRN Administration NAUSEA OR VOMITING Protocol Pantoprazole Sodium 40 mg 09/22/24 16:15 09/28/24 08:11 Pantoprazole 40 Mg Tablet PO 10/22/24 16:14 40 mg QDAY FREDA Administration Polyethylene Glycol 17 gm 09/24/24 08:15 09/25/24 05:56 Polyethylene Glycol 17 Gm Packet PO 10/24/24 08:14 Not Given TID FREDA Tramadol HCl 50 mg 09/27/24 11:31 Tramadol Hcl 50 Mg Tablet PO 10/02/24 11:25 Q8HR PRN PAIN 4-6 Plan 59 y/o F with PMHx of A-fib, HFpEF 65 to 70%, history of CVA, hypertension, diabetes presented to the ED from SNF due to altered mental status. Admitted for management of Sepsis secondary to UTI and right sided pneumonia #Sepsis secondary to #Klebsiella UTI #?Aspiration Pneumonia #Leukocytosis On admission patient has SIRS 2/4 fever, WBCs, end organ damage [place] and altered mental status UA shows UTI with positive esterase, WBCs CXR shows right sided pneumonia possibly aspiration procalcitonin elevated In the ED patient received 1L NS bolus + 1L NS bolus Patient has extensive medication allergies and resitances to many Abx Urine Cx grew gram negative rods, although previous cultures show GNRs, and patient has chronic yap catheter so could be colonization Urine Culture positive for Klebsiella Blood culture grew GPCs in 1 bottle out of 2, likely contaminant will re-order blood cultures at this time Repeat blood cultures negative in 48 hours Plan: -PO Doxycycline -ID Consult #Chronic abdominal wall wounds Patient has had a chronic wound on her abdomen. Wound care pictures abdominal ulcers 1 looks necrotic, patient seems to be indifferent about receiving interventions at this time Wounds look necrotic, may need debridement Plan: ?Wound care ?General Surgery consult #Acute metabolic encephalopathy- improving patient on arrival is AAOx1 not able to answer any question apart from her name likely secondary to UTI vs dehydration vs Uremia Head CT showed Negative for acute hemorrhage, mass effect or midline shift Patient is AAOx2-3 today improving Patient is able to move all 4 extremities and face is symmetrical Speech therapy evaluated patient passed swallow evaluation Plan: - treat underlying sepsis - aspiration precautions #Poor p.o. intake Patient has not been eating for the past 2 days States she is not hungry, denies any trouble swallowing There is likely a component of depression however patient does not want any antidepressants at this time Plan: -Megestrol as appetite stimulant ?Resumed home gabapentin #[place]-resolved baseline creatinine 0.9-1.1 Current Cr 1.0 was given 1L NS in ED+ 2L NS bolus - avoid nephrotoxins - renally dose medications #NAGMA-resolved likely in the setting of NS infusions - will continue to monitor #Diabetes - SSI - hypoglycemia protocol in place #HFpEF [65-70% April 2024] #Mild aortic valve stenosis #Hypertension #Hx of Afib Echo 05/21/2024 - estimated 65-70%. Normal RV size / function. Mean gradient on aortic valve - 13 mm Hg currently in sinus rhythm -resumed carvedilol 3.125mg BID -resumed amlodipine 5mg qday -on losartan 50 mg daily -strict intake and output #Hx of HLD -resumed atorvastatin 40mg HS #Health Maintenance Disposition: [facility] DVT prophylaxis: Heparin GI prophylaxis: Protonix Diet: Dysphagia 3 CODE STATUS: Full Case discussed with Attending Dr. Womack. Arnold Ortiz PGY1 Attending Provider Attestation/Addendum I have examined the patient, reviewed labs and imaging findings, discussed the case with the resident(s), and reviewed entered orders. I agree with the plan of care as outlined in this note, with these additional summaries/recommendations: Patient is a 59-year-old female who is well-known to the hospital service with a medical history of A-fib, HFpEF, CVA, hypertension and diabetes who presented from nursing facility with chief complaint of acute encephalopathy. Patient seen at bedside. No acute overnight events. Today patient's mentation appears improved and she is more interactive. Appetite slowly improving after starting Megace and continue to monitor. Urinalysis showed leukocyte esterase positive, WBC 749 and rare bacteria. Chest x-ray showed pneumonia right middle lobe and right base. Ur cx grew klebsiella pneumoniae. 1 of 2 blood cultures grew Staphylococcus epidermidis. Repeat blood cultures show no growth at 48 hours and suspect contamination. Infectious disease following and Aztreonam and linezolid discontinued today . Started on oral doxycycline for additional two days. Patient has significant pressure ulcers and abdominal wounds which are chronic although abdominal ulcer appears necrotic and general surgery consulted to see if debridement is required. Patient was advised to follow-up with plastic surgery on previous admission although declined intervention at that time although appears more open to treatment now. Patient also noted to have acute kidney injury on admission with creatinine 1.6 and BUN 61. Most likely secondary to prerenal azotemia in the setting of altered mental status and poor oral intake. [place] now resolved with Cr 1.1 and BUN 39. Continue Avoid nephrotoxic agents and renally dose medications. Continue home baclofen, gabapentin, and tramadol. Patient reporting pain is uncontrolled today and increase tramadol dose. Repeat hematology and chemistry panel in AM. Dr. Womack
[2024-09-28] MEDS: traMADol HCL 50 MG TABLET PO (13:42)
--- NOTE | 2024-09-28 15:29 | PC.NURSE ---
Dr. Pate will do a bed side debridement tomorrow. Doctor wants a 15 blade and 7.5 gloves. Will continue to monitor patient.
[2024-09-28] MEDS: ATORVASTATIN CALCIUM 20 MG TABLET 40 MG PO (21:46)
[2024-09-28] MEDS: CADEXOMER IODINE GEL 40 GM TUBE TOP (23:15)
[2024-09-29] VITALS (9 sets, daily range): BP systolic 112–155; BP diastolic 69–92; PULSE 62–97; RESP 15–18; TEMP 36.3–37.1; O2SAT 96–98; BMI 40.6
[2024-09-29] MEDS: HEPARIN SOD INJ 5000 UNIT/ML VIAL SC ×2 (05:29→15:12)
[2024-09-29] MEDS: MEGESTROL ACET SUSP 400 MG/10 ML UDC 200 MG PO ×3 (05:30→16:19)
[2024-09-29 05:58] LABS: Basophils # (Auto) 0.1 Thou/mm3 (0.0-0.2); Basophils % (Auto) 1 % (0-2.5); Eosinophils # (Auto) 0.3 Thou/mm3 (0.0-0.5); Eosinophils % (Auto) 3 % (0-10); Hematocrit 29.4 % (36.0-46.0); Immature Granulocytes % (Auto) 1 % (0-0); Immature Granulocytes Auto 0.16 Thou/mm3 (0.00-0.00); Lymphocytes % (Auto) 23 % (10-50); Mean Corpuscular HGB Conc 29.9 g/dl (31.0-37.0); Mean Corpuscular Hemoglobin 25.9 pg (25.0-35.0); Mean Corpuscular Volume 87 fL (80-100); Monocytes # (Auto) 1.1 Thou/mm3 (0.0-0.8); Monocytes % (Auto) 8 % (0-12); Neutrophils # (Auto) 8.5 Thou/mm3 (1.8-7.7); Neutrophils % (Auto) 65 % (37-80); Nucleated Red Blood Cell % 0 /100 WBC (0); Platelet Count 409 Thou/mm3 (140-440); RDW Standard Deviation 54.5 fL (36.4-46.3); White Blood Count 13.2 Thou/mm3 (3.6-11.0)
[2024-09-29 05:59] LABS: Hemoglobin 8.8 g/dL (12.0-16.0)
[2024-09-29 06:45] LABS: Alanine Aminotransferase < 7 U/L (10-49); Albumin, Serum 3.2 gm/dL (3.4-4.8); Alkaline Phosphatase 90 U/L (46-116); Anion Gap 8 (7-16); Aspartate Amino Transferase < 8 U/L (0-34); BUN/Creatinine Ratio 21 Ratio (12-20); Bilirubin,Total < 0.2 mg/dL (0.3-1.2); Blood Urea Nitrogen 21 mg/dL (9-23); Calcium 8.7 mg/dL (8.3-10.6); Calcium (Corrected) 9.3 mg/dL (8.5-10.1); Carbon Dioxide 21.5 mMol/L (20.0-31.0); Chloride 108 mMol/L (98-107); Estimated Creatinine Clearance 70.1 mL/min (>60); Globulin 3.2 gm/dL (2.3-3.5); Glucose 122 mg/dL (74-106); Osmolality,Calculated 277 (275-295); Potassium 3.6 mMol/L (3.4-5.1); Sodium 137 mMol/L (136-145); Total Protein 6.4 gm/dL (5.7-8.2); eGFR > 60 See Note
[2024-09-29] MEDS: ESCITALOPRAM OXALATE 10 MG TABLET 20 MG PO (09:11)
[2024-09-29] MEDS: BACLOFEN 10 MG TABLET 5 MG PO (09:12)
[2024-09-29] MEDS: PANTOPRAZOLE 40 MG TABLET PO (09:12)
[2024-09-29] MEDS: DOCUSATE SOD 100 MG CAPSULE PO (09:12)
[2024-09-29] MEDS: amLODIPine BESYLATE 5 MG TABLET 10 MG PO (09:13)
[2024-09-29] MEDS: carVEDILOL 3.125 MG TABLET PO (09:13)
[2024-09-29] MEDS: DOXYCYCLINE 100 MG TABLET PO (09:13)
[2024-09-29] MEDS: LOSARTAN POTASSIUM 25 MG TABLET 50 MG PO (09:13)
[2024-09-29] MEDS: GABAPENTIN 300 MG CAPSULE PO (09:14)
[2024-09-29] MEDS: LACTULOSE SYRUP 20 GM/30 ML UDC PO (09:14)
--- NOTE | 2024-09-29 09:48 | PC.SS ---
SS spoke to Vidya at [facility] who states patient's bed hold expires today. Vidya is aware pt is possible d/c for today later in the evening. SS has sent updated inquiry to [facility] using [facility]. Pt is waiting for debridement at bedside by Dr. Ayala.
--- NOTE | 2024-09-29 10:17 | ESPR_ITS ---
Documentation for date of: 09/29/24 Exam Vital Signs Temp Pulse Resp BP Pulse Ox O2 Del Method O2 Flow Rate 98.7 F 97 17 155/92 H 96 Room Air 1 09/29/24 08:00 09/29/24 09:13 09/29/24 08:00 09/29/24 09:13 09/29/24 08:00 09/29/24 08:00 09/29/24 07:55 Objective Labs 09/29/24 05:35 09/29/24 05:35 Labs: Laboratory Results - last 24 hr 09/29/24 05:35 WBC 13.2 H RBC 3.40 L Hgb 8.8 L Hct 29.4 L MCV 87 MCH 25.9 MCHC 29.9 L RDW Std Deviation 54.5 H Plt Count 409 D Neut % (Auto) 65 Lymph % (Auto) 23 [place] % (Auto) 8 Eos % (Auto) 3 Baso % (Auto) 1 Neut # (Auto) 8.5 H Lymph # (Auto) 3.0 [place] # (Auto) 1.1 H Eos # (Auto) 0.3 Baso # (Auto) 0.1 Immature Gran # (Auto) 0.16 H Absolute Nucleated RBC 0.00 Immature Gran % 1 H Nucleated RBC % 0 Sodium 137 Potassium 3.6 Chloride 108 H Carbon Dioxide 21.5 Anion Gap 8 BUN 21 Creatinine 1.0 Estim Creat Clear Calc 70.1 eGFR > 60 BUN/Creatinine Ratio 21 H Glucose 122 H Calculated Osmolality 277 Calcium 8.7 Corrected Calcium 9.3 Total Bilirubin < 0.2 L AST < 8 ALT < 7 L Alkaline Phosphatase 90 Total Protein 6.4 Albumin 3.2 L Globulin 3.2 Albumin/Globulin Ratio 1.0 L Assessment & Plan A&P Narrative pos urine cx pos cxr for pneumonia multiple allergies recurrent pos urine cx relative obesity, bmi 38.9 noted changed to po doxy for 2d more. will see again saturday if she remains in house. Time Spent With Patient Time: Total time spent is greater than 50% in coordination of care (as documented) at patient's floor/unit and/or counseling patient:
--- NOTE | 2024-09-29 11:31 | PC.SS ---
SS spoke to Vidya at [facility] who states patient's bed hold expires today. Vidya is aware pt is possible d/c for today later in the evening. NESHA has sent updated inquiry to [facility] using [facility]. Pt is waiting for debridement at bedside by Dr. Gilmore.
--- NOTE | 2024-09-29 11:35 | PD.SURCONS ---
HPI Consult details Consult date: 09/28/24 Reason for consultation narrative: Patient was seen in consultation for chronic ulcer over the left abdominal wall Meds Home Medications and Allergies Home Medications ?Medication ?Instructions ?Recorded ?Confirmed ?Type escitalopram oxalate 20 mg tablet 10 mg PO QDAY DEPRESSION 05/21/24 09/23/24 History gabapentin 300 mg capsule 300 mg PO BID NEUROPATHY 05/21/24 09/23/24 History insulin glargine 100 unit/mL 25 unit subcut HS DM 05/21/24 09/23/24 History subcutaneous solution insulin lispro 100 unit/mL 1 sliding scale dose subcut AC dm 05/21/24 09/23/24 History subcutaneous solution (Humalog U-100 Insulin) amlodipine 10 mg tablet 10 mg PO QDAY htn 07/03/24 09/23/24 History atorvastatin 40 mg tablet 40 mg PO HS HYPERLIPIDEMIA 07/03/24 09/23/24 History baclofen 10 mg tablet 5 mg PO BID Muscle spasms 07/03/24 09/23/24 History carvedilol 3.125 mg tablet 3.125 mg PO BID HTN 07/03/24 09/23/24 History clonidine HCl 0.1 mg tablet 0.1 mg PO BID HTN 07/03/24 08/11/24 History empagliflozin 25 mg tablet 25 mg PO QDAY DM 07/03/24 09/23/24 History folic acid 1 mg tablet 1 mg PO QDAY SUPPLEMENT 07/03/24 09/23/24 History multivitamin with minerals 1 tab PO QDAY SUPPLEMENTS 07/04/24 09/23/24 History (Multiple Vitamin-Minerals tablet) pantoprazole 40 mg tablet,delayed 40 mg PO DAILY GERD 07/04/24 09/23/24 History release sennosides 8.6 mg tablet (senna) 8.6 - 50 mg PO BID CONSTIPATION 07/04/24 09/23/24 History amino acids-protein hydrolysate 15 1 ea PO BID 08/11/24 09/23/24 History gram-100 kcal/30 mL oral liquid pkt (Pro-Stat Sugar Free) ascorbic acid (vitamin C) 500 mg 500 mg PO BID 08/11/24 09/23/24 History tablet bisacodyl 10 mg rectal suppository 10 mg VA QDAY PRN Constipation 08/11/24 08/11/24 History (Dulcolax (bisacodyl)) magnesium hydroxide 400 mg/5 mL 1,200 mg PO QDAY PRN Constipation 08/11/24 08/11/24 History oral suspension (Milk of Magnesia) sodium phosphates 19 gram-7 118 ml VA QDAY PRN Constipation 08/11/24 08/11/24 History gram/118 mL enema (Enema Disposable) Allergies Allergy/AdvReac Type Severity Reaction Status Date / Time acetylcysteine Allergy Severe Difficulty Verified 05/24/24 17:57 Swallowing aspirin Allergy Severe Difficulty Verified 05/24/24 17:57 Swallowing cefpodoxime Allergy Severe Difficulty Verified 05/24/24 17:57 Breathing levofloxacin [From Levaquin] Allergy Severe Difficulty Verified 05/24/24 17:57 Breathing Penicillins Allergy Severe Difficulty Verified 05/24/24 17:57 Breathing Sulfa (Sulfonamide Allergy Severe Hives Verified 05/24/24 17:57 Antibiotics) sulfadiazine Allergy Severe Difficulty Verified 05/24/24 17:57 Breathing sulfamethoxazole Allergy Severe Difficulty Verified 05/24/24 17:57 [From Bactrim] Breathing capsaicin Allergy Intermediate Hives Verified 05/24/24 17:57 dulaglutide Allergy Intermediate Hives Verified 05/24/24 17:57 trimethoprim [From Bactrim] Allergy Verified 03/21/24 22:15 Exam Vital Signs Temp Pulse Resp BP Pulse Ox O2 Del Method O2 Flow Rate 98.7 F 97 17 155/92 H 96 Room Air 1 09/29/24 08:00 09/29/24 09:13 09/29/24 08:00 09/29/24 09:13 09/29/24 08:00 09/29/24 08:00 09/29/24 07:55 Assessment & Plan Additional Assessment Additional comments: Impression: Ulcer both sides of the abdominal wall with a wound on the left side showing some necrotic tissue Plan Plan: We shall debride the wound at the bedside and remove necrotic tissue and let the wound care take care of the further care
[2024-09-29] MEDS: INSULIN LISPRO (AdmeLOG) 1 UNIT/0.01 ML UNIT SC ×2 (11:43→16:23)
[2024-09-29] MEDS: traMADol HCL 50 MG TABLET 100 MG PO (11:45)
--- NOTE | 2024-09-29 12:10 | ESDS_ITS ---
<Statement entered by Augustina Joseph MD - 10/05/24 07:08> I reviewed above note and agree with findings and plans. I have also personally examined the patient with medicine team and went over assessment and plan with medical team including architecture intern and resident physician. Planned Discharge Date 09/29/24 DS: Providers Provider Date of admission: 09/22/24 14:19 Primary care physician: Tang Evans MD Admitting Provider: Michael Garsia MD Attending Provider on Admission: Raciel Womack MD Consults: 09/22/24 16:11 Referral Speech Therapy Stat Comment: 09/23/24 04:03 Referral Physical Therapy Routine Comment: Physician Instructions: 09/23/24 04:38 Referral Wound Care Routine Comment: 09/23/24 07:44 Consult to Gastroenterology Routine Comment: rectal wall thickening possible proctitis Consulting Provider: Shala Kern 09/27/24 11:23 Consult to Infectious Diseases Routine Comment: Consulting Provider: Frantz Hernandez 09/27/24 12:44 Consult to General Surgery Routine Comment: abdominal wound concern for necrosis Consulting Provider: Bernardo Pate 09/28/24 16:29 Referral Nutritional Services Routine Comment: Instructions: Wounds Attending Provider on DC: Arnold Ortiz MD Discharging Provider: Arnold Ortiz MD DS: Diagnosis Problem List Completed Was Problem List Reviewed/Reconciled?: Yes Hospital Course Hospital Course Hospital course: Hospital Course: Ms. Mcclain is a 59-year-old female with past medical history of atrial fibrillation, HFpEF (65 to 70%) CVA, hypertension, diabetes mellitus who presented to [facility] on 09/22/2024 due to altered mental status. On evaluation patient was found to have sepsis secondary to urinary tract infection and possible underlying aspiration pneumonia as evidenced on chest x-ray, patient was started on IV antibiotics, infectious disease was consulted, patient's antibiotic therapy was optimized. Urine culture showed Klebsiella, general surgery was consulted for patient's abdominal wound bedside debridement was performed by general surgeon wound care was provided. Patient condition improved remarkably with the progression of hospital course. Further plan is to discharge patient back to group home facility, continue wound care continue antibiotics and follow-up with primary care physician in 1 week. Patient is stable for discharge. Discharge Diagnosis: #Sepsis secondary to #Klebsiella UTI #Aspiration Pneumonia #Leukocytosis #Acute metabolic encephalopathy- improving #Chronic abdominal wall wounds s/p debridement #Poor p.o. intake #[place]-resolved #[place]-resolved #Diabetes #HFpEF [65-70% April 2024] #Mild aortic valve stenosis #Hypertension #Hx of Afib #Hx of HLD Case discussed with Attending Dr. Joseph. Arnold Ortiz PGY1 Status at Discharge Functional status at discharge: bed bound Overall status at discharge: patient is progressing back to baseline Time Spent with Patient Time attestation: Total time spent providing and/or coordinating discharge services: greater than 35 mins Time spent: Greater than 30 minutes Exam Vital Signs Temp Pulse Resp BP Pulse Ox O2 Del Method O2 Flow Rate 98.7 F 97 17 155/92 H 96 Room Air 1 09/29/24 08:00 09/29/24 09:13 09/29/24 08:00 09/29/24 09:13 09/29/24 08:00 09/29/24 08:00 09/29/24 07:55 Narrative Exam GENERAL: NAD, AAOx3, obese, pale HEENT: dry mucosa. Eyes open, symmetrical, & clear CARDIO: Heart RRR, no obvious murmurs PULM: No noted coughing/dyspnea CTA B/L, no R/W/R GI: Abdomen soft, nondistended, no pain on palpation, wound on right side of abdomen covered with gauze has stoma, chronic abdominal ulcers covered in dressing, BSx4 URO: Clark catheter SKIN/MSK/EXT: multiple Leg ulcers, pressure ulcer in the back, Pedal pulses present B/L NEURO: AAOx3 Discharge Plan Plan Patient Disposition: er Skilled [facility] ([facility]) Patient condition on transfer: Stable Care Plan Goals: Continue antibiotic therapy for 1 week Follow-up with PCP in 1 week Continue other medications as below Hold clonidine fo now, re-evauate need with PCP Continue wound care at group home facility Continue physical therapy Wound care: 1) Unstageable to sacrum/coccyx: cleanse with NS, pat dry, fill wound bed with iodosorb. Layer with calcium alginate. Skin prep to wound edges and secure with allyeven dressing daily. side to side repositoning with wedges except for meals. 2) Full thickness truama to right and left abdomen: cleanse with NS, pat dry, apply iodosorb onto adaptic and place over open wound. Cover with allyven or abd pad dressing daily. 3) Right lower leg truama vs venous ulcer: cleanse with NS, pat dry, apply iodosorb to wound bed. Layer with calcium algiante and secure with allyven dressing or abd pad daily 4) Left heel deep tissue injury, right heel stage 1: allyven dressing daily. negative heel pressure bilaterally at all times Prescriptions/Referrals Prescriptions/Med Rec: New doxycycline hyclate 100 mg Tablet 100 mg PO BID 7 Days Qty: 14 0RF Continued ascorbic acid (vitamin C) 500 mg Tablet 500 mg PO BID magnesium hydroxide [Milk of Magnesia] 400 mg/5 mL Suspension 1,200 mg PO QDAY PRN (Reason: Constipation) Rx Instructions: 1200 mg/ 15mL dose bisacodyl [Dulcolax (bisacodyl)] 10 mg Suppository 10 mg NM QDAY PRN (Reason: Constipation) Rx Instructions: insert 1 suppository rectally every 24 hours as needed for constipation if MOM is ineffective and no BM for 8 hours Enema Disposable 19-7 gram/118 mL Enema 118 ml NM QDAY PRN (Reason: Constipation) Rx Instructions: insert 1 application rectally as needed for constipation if MOM and Dulcolax Supp are ineffective and no bowel movement in 8 hours. if no results from MOM, Dulcolax supp and enema call Pro-Stat Sugar Free 15 gram- 100 kcal/30 mL Liquid In Packet 1 ea PO BID tramadol 50 mg Tablet 50 mg PO Q8H PRN (Reason: Pain, Moderate) Qty: 20 0RF Rx Instructions: MODERATED P[AIN (5-7) DO NOT EXCEED 300MG IN 24HOURS gabapentin 300 mg Capsule 300 mg PO BID insulin lispro [Humalog U-100 Insulin] 100 unit/mL Solution 1 sliding scale dose SUBCUT AC Rx Instructions: 70-150= 0 UNITS 151-200 = 2 UNITS 201-250 = 4 units 251-300 = 6 units 301-350 = 8 units 351-400 = 10 units 401+ call 201-250 = 4 UNITS 251-300 = 6 UNITS 301-350 = 8 UNITS 351-400= 10 UNITS ABOVE 400 CALL escitalopram oxalate 20 mg Tablet 10 mg PO QDAY Rx Instructions: FOR 6 MONTHS M/B hopelessness r/t decline in health causing distress to resident. insulin glargine 100 unit/mL Solution 25 unit SUBCUT HS Rx Instructions: HOLD IF BS<80 atorvastatin 40 mg tablet 40 mg PO HS carvedilol 3.125 mg tablet 3.125 mg PO BID Rx Instructions: MONITOR BP AND PULSE, HOLD IF SBP<100 OR PULSE<60 baclofen 10 mg tablet 5 mg PO BID amlodipine 10 mg tablet 10 mg PO QDAY Rx Instructions: MONITOR BP AND PULSE, HOLD IF SBP <100 OR PULSE <60 folic acid 1 mg tablet 1 mg PO QDAY empagliflozin 25 mg Tablet 25 mg PO QDAY sennosides [senna] 8.6 mg Tablet 8.6 - 50 mg PO BID pantoprazole 40 mg tablet,delayed release (DR/EC) 40 mg PO DAILY Multiple Vitamin-Minerals Tablet 1 tab PO QDAY Held clonidine HCl 0.1 mg tablet 0.1 mg PO BID Hold Instructions: re-evaluate with pcp Rx Instructions: MONITOR BP AND PULSE, HOLD IF SBP<100 OR PULSE<60 Discontinued linezolid 600 mg Tablet 600 mg PO BID 7 Days Qty: 0 0RF Rx Instructions: 1 tablet by mouth every 12 hours for vancomycin resistant organism for 10 days (started 08/05/2024) Referrals: Tang Evans MD [Primary Care Provider] - Patient/Caregiver Discharge Instructions Discharge Activity: as per physical therapy Other Discharge Activity Instructions:: Wound care: 1) Unstageable to sacrum/coccyx: cleanse with NS, pat dry, fill wound bed with iodosorb. Layer with calcium alginate. Skin prep to wound edges and secure with allyeven dressing daily. side to side repositoning with wedges except for meals. 2) Full thickness truama to right and left abdomen: cleanse with NS, pat dry, apply iodosorb onto adaptic and place over open wound. Cover with allyven or abd pad dressing daily. 3) Right lower leg truama vs venous ulcer: cleanse with NS, pat dry, apply iodosorb to wound bed. Layer with calcium algiante and secure with allyven dressing or abd pad daily 4) Left heel deep tissue injury, right heel stage 1: allyven dressing daily. negative heel pressure bilaterally at all times Education Materials: Urinary Tract Infections in Women, Sepsis Print Language: Serbian Stand Alone Forms: Jania Award Info., Patient Portal Info Letter Discharge Order Discharge Orders: Discharge (Routine); Ordered 09/29/24 Ordered By: Ayanna Coelho Quality Discharge Quality Measures VTE prophylaxis and sepsis
--- NOTE | 2024-09-29 15:17 | PC.SS ---
SS attempted to setup gurney transportation with [facility] but was informed due to patient's health insurance plan they would transfer call to [phone] to setup transport. SS spoke to a different [facility] labor service representative, Paige [phone] and was able to setup gurney transport for 6pm to [facility]. Ref# [id number]. SS requested [facility]. SS sent ambulance form and patient's facesheet to [facility] using [employer]. SS spoke to Jayne at [facility] who has placed pt on will call list for 6pm until they have been contacted by [facility]. Bedside nurse, Amada is aware. Vidya from [facility] is aware. Sabina JONAS is aware. Pt is aware. Patient's mom is aware and explained she will inform patient's sister.
--- NOTE | 2024-09-29 17:06 | PC.NURSE ---
@1600 engineering consultant not done pt is being d/c and is off the leads charge nurse and Rn dayo melendez
--- NOTE | 2024-09-29 19:28 | PC.NURSE ---
patient picked up by ambulance via [facility]ney at 1928 to D/C to [facility]. Patient no c/o pain, SOB.
== END 2024-09-29 19:28 | disposition skilled nursing facility (03) | DRG 720 ==
LOC: SERX 13:29 → SERHOLD 14:56 → S3NX 22:44
PROVIDERS: Student in an Organized Health Care Education/Training Program; Admitting Provider Student in an Organized Health Care Education/Training Program; Emergency Provider Emergency Medicine; PCP Hospitalist; Visit Provider Student in an Organized Health Care Education/Training Program
DX: A41.1 Sepsis due to other specified staphylococcus (principal); Z86.73 Personal history of transient ischemic attack (TIA), and cerebral infarction without residual deficits; I48.20 Chronic atrial fibrillation, unspecified; Z98.84 Bariatric surgery status; I11.0 Hypertensive heart disease with heart failure; I50.32 Chronic diastolic (congestive) heart failure; E11.9 Type 2 diabetes mellitus without complications; N39.0 Urinary tract infection, site not specified; J69.0 Pneumonitis due to inhalation of food and vomit; G93.41 Metabolic encephalopathy; N17.9 Acute kidney failure, unspecified; I35.0 Nonrheumatic aortic (valve) stenosis; E78.5 Hyperlipidemia, unspecified; L98.499 Non-pressure chronic ulcer of skin of other sites with unspecified severity; B96.1 Klebsiella pneumoniae [K. pneumoniae] as the cause of diseases classified elsewhere; J18.9 Pneumonia, unspecified organism; K56.41 Fecal impaction
CPT/HCPCS: 36415; 70450; 71045; 74176; 80053; 80061; 80202; 80307; 81001; 83036; 83605; 83690; 83735; 83880; 84100; 84145; 84443; 84484; 85025; 85610; 85730; 87040; 87077; 87081; 87086; 87186; 92610; 93225; 96365; 96367; 96368; 96372; 96375; 97161; 99291; J0360; J0457; J1643; J1815; J2405; J3010; J3370; J3372; J3490; J7030; J7040; J7050; A9270; J1644; J1836

== ENCOUNTER 2024-10-12 17:16 | Emergency (ER) | payer MEDICAID, SELFPAY ==
[2024-10-12 17:18] VITALS: BP 153/85; PULSE 82; RESP 17; TEMP 37; O2SAT 96
--- NOTE | 2024-10-12 17:21 | XR_ITS ---
Examination: AP chest single view Technique one AP semiupright chest single view Exam date and time: October 12, 2024 at 1823 hours Comparison 04/22/2024 INDICATIONS: Coughing beginning 2 days ago. FINDINGS: Significant pneumonia right base, obscuring detail right hemidiaphragm No significant cardiac enlargement Ectatic thoracic aorta Reduced inspiratory effort Moderate narrowing glenohumeral joints IMPRESSION: Significant right base pneumonia
--- NOTE | 2024-10-12 17:23 | EDNOTE_ITS ---
ED General RME/HPI General Chief complaint: Altered Mental Status Stated complaint: AMS Time Seen by Provider: 10/12/24 17:20 Arrival date/time: 10/12/24 17:16 CC: Altered mental status HPI patient was noted to be altered by family members to visit her her at [facility] at approximately 4 PM. The patient paperwork states that she is a full code patient is awake and responding to her name only EMS reports stable vital signs no tachycardia. Related Data Home Medications ?Medication ?Instructions ?Recorded ?Confirmed escitalopram oxalate 20 mg tablet 10 mg PO QDAY DEPRESSION 05/21/24 09/23/24 gabapentin 300 mg capsule 300 mg PO BID NEUROPATHY 05/21/24 09/23/24 insulin glargine 100 unit/mL 25 unit subcut HS DM 05/21/24 09/23/24 subcutaneous solution insulin lispro 100 unit/mL 1 sliding scale dose subcut AC dm 05/21/24 09/23/24 subcutaneous solution (Humalog U-100 Insulin) amlodipine 10 mg tablet 10 mg PO QDAY htn 07/03/24 09/23/24 atorvastatin 40 mg tablet 40 mg PO HS HYPERLIPIDEMIA 07/03/24 09/23/24 baclofen 10 mg tablet 5 mg PO BID Muscle spasms 07/03/24 09/23/24 carvedilol 3.125 mg tablet 3.125 mg PO BID HTN 07/03/24 09/23/24 clonidine HCl 0.1 mg tablet 0.1 mg PO BID HTN 07/03/24 08/11/24 empagliflozin 25 mg tablet 25 mg PO QDAY DM 07/03/24 09/23/24 folic acid 1 mg tablet 1 mg PO QDAY SUPPLEMENT 07/03/24 09/23/24 multivitamin with minerals 1 tab PO QDAY SUPPLEMENTS 07/04/24 09/23/24 (Multiple Vitamin-Minerals tablet) pantoprazole 40 mg tablet,delayed 40 mg PO DAILY GERD 07/04/24 09/23/24 release sennosides 8.6 mg tablet (senna) 8.6 - 50 mg PO BID CONSTIPATION 07/04/24 09/23/24 amino acids-protein hydrolysate 15 1 ea PO BID 08/11/24 09/23/24 gram-100 kcal/30 mL oral liquid pkt (Pro-Stat Sugar Free) ascorbic acid (vitamin C) 500 mg 500 mg PO BID 08/11/24 09/23/24 tablet bisacodyl 10 mg rectal suppository 10 mg NE QDAY PRN Constipation 08/11/24 08/11/24 (Dulcolax (bisacodyl)) magnesium hydroxide 400 mg/5 mL 1,200 mg PO QDAY PRN Constipation 08/11/24 08/11/24 oral suspension (Milk of Magnesia) sodium phosphates 19 gram-7 118 ml NE QDAY PRN Constipation 08/11/24 08/11/24 gram/118 mL enema (Enema Disposable) Previous Rx's ?Medication ?Instructions ?Recorded tramadol 50 mg tablet 50 mg PO Q8H PRN Pain, Moderate 08/14/24 #20 tabs doxycycline hyclate 100 mg capsule 100 mg PO BID #14 caps 10/12/24 linezolid 600 mg tablet 600 mg PO BID #10 tabs 10/12/24 Allergies Allergy/AdvReac Type Severity Reaction Status Date / Time acetylcysteine Allergy Severe Difficulty Verified 05/24/24 17:57 Swallowing aspirin Allergy Severe Difficulty Verified 05/24/24 17:57 Swallowing cefpodoxime Allergy Severe Difficulty Verified 05/24/24 17:57 Breathing levofloxacin [From Levaquin] Allergy Severe Difficulty Verified 05/24/24 17:57 Breathing Penicillins Allergy Severe Difficulty Verified 05/24/24 17:57 Breathing Sulfa (Sulfonamide Allergy Severe Hives Verified 05/24/24 17:57 Antibiotics) sulfadiazine Allergy Severe Difficulty Verified 05/24/24 17:57 Breathing sulfamethoxazole Allergy Severe Difficulty Verified 05/24/24 17:57 [From Bactrim] Breathing capsaicin Allergy Intermediate Hives Verified 05/24/24 17:57 dulaglutide Allergy Intermediate Hives Verified 05/24/24 17:57 trimethoprim [From Bactrim] Allergy Verified 03/21/24 22:15 Review of Systems Review of Systems ROS Unobtainable: unobtainable due to mental status Past Medical History Past Medical History NEUROLOGIC: Positive Neurological Disorders and Cerebrovascular Accident; Negative Seizures CARDIAC: Positive Cardiac Disorders, Atrial Fibrillation, Congestive Heart Failure and Hypertension RESPIRATORY: Positive Asthma; Negative Chronic Obstructive Pulmonary Disease (COPD) GASTROINTESTINAL: Positive Gastrointestinal Disorders, Gall Bladder Disease, Hiatal Hernia and Obesity; Negative Hepatitis GENITOURINARY: Negative Genitourinary Disorders or Renal Disease REPRODUCTIVE: Negative Pelvic Inflammatory Disease MUSCULOSKELETAL: Positive Musculoskeletal Disorders, Arthritis, Carpal Tunnel Syndrome and Fibromyalgia ENDOCRINE: Positive Endocrine Disorders and Diabetes Mellitus Type 2; Negative Diabetes Mellitus Type 1 HEMATOLOGIC: Negative Blood Disorders or Sickle Cell Disease PSYCHO/SOCIAL: Positive Depression OTHER HISTORY: Positive Hospitalization, Chicken Pox and Measles; Negative Autoimmune Disease, Down Syndrome, Developmental Delay, Shingles, Falls, Blood Transfusions, Blood Transfusion Reaction, Anesthesia Reactions, Organ Transplant, Chemotherapy, Radiation Therapy, Hyperbaric Therapy, MRSA, VRSA, Vancomycin-Resistant Enterococci, Human Immunodeficiency Virus (HIV), Mumps, Rubella ([place] Measles), Pertussis, Clostridium Difficile or Cancer Surgical History SURGICAL: Positive Abdominal Surgery and Section; Negative Organ Transplant Social History SMOKING STATUS: Never smoker SUBSTANCE USE: does not use ED Exam Narrative Physical exam: [General: Obese, appears not in any distress Head normocephalic HEENT: Eyes pupils are PERRLA tracking, mouth dry pink membranes nose: No rhinorrhea all other subsystems of HEENT are within acceptable limits Neck is supple nontender Chest equal chest rise nontender to palpation Respiratory: Clear to auscultation no wheezes crackles or rubs CV: Rate rhythm is regular no murmurs rubs or clicks Abdomen is grossly distended secondary to body habitus soft nontender no masses positive bowel sounds all 4 quadrants Back: No CVA tenderness no spinous process tenderness from cervical spine thoracic and lumbar spine Skin: Patient has 2 open ulcerations low center abdomen and right lower abdomen pannus, both had dressings changed today as indicated by the date on them. When peeled back there is no tissue granulation no surrounding erythema edema moderate amount of serous fluid oozing from the site. Otherwise skin is intact no petechiae rash induration ulceration or crepitus Extremities: Moving all extremity against resistance cap refill less than 2 seconds neurosensory intact Neuro: Awake alert oriented x1, self, Glascow coma 15 no focal deficits] Course Course Course Narrative: Review of the patient's laboratories all show that she has no leukocytosis but has an urinary tract infection and is red with a pneumonia per radiology. The concerns the patient has a very large number of antibiotic allergies. A Doxy cyclin was given for the pneumonia. Review of the medical record show last admission patient was discharged with linezolid secondary to UTI At 2021, the patient has a slightly brighter affect, is answering more simple questions with simple words. Quality Measures none Orders Category Date Time Status In and Out Catheter X1 Care 10/12/24 17:21 Completed XR chest 1V Stat Exams 10/12/24 17:21 Completed B-Type Natriuretic Peptide Stat Lab 10/12/24 17:50 Completed CBC Stat Lab 10/12/24 17:50 Completed Comprehensive Metabolic Panel Stat Lab 10/12/24 17:50 Completed Drug Screen,Urine Stat Lab 10/12/24 20:08 Completed LDH (Lactate Dehydrogenase) Stat Lab 10/12/24 17:50 Completed Magnesium Stat Lab 10/12/24 17:50 Completed Partial Thromboplastin Time Stat Lab 10/12/24 17:50 Completed Prothrombin Time with INR Stat Lab 10/12/24 17:50 Completed Troponin I Stat Lab 10/12/24 17:50 Completed Urinalysis Stat Lab 10/12/24 20:08 Completed Doxycycline Inj [Vibramycin Inj] 200 mg Med 10/12/24 19:36 Discontinued Sodium Chloride 0.9% 250 ml [Ns] 250 ml IV X1 Sodium Chloride 0.9% 1000 ml [Ns] 1,000 ml Med 10/12/24 18:33 Discontinued IV 999 mls/hr Vital Signs Vital signs: Vital Signs Temperature 98.6 F 10/12/24 17:18 Pulse Rate 82 10/12/24 17:18 Respiratory Rate 17 10/12/24 17:18 Blood Pressure 153/85 H 10/12/24 17:18 Pulse Oximetry (%) 96 10/12/24 17:18 Oxygen Delivery Method Room Air 10/12/24 17:18 [facility] Patient data External records reviewed:: [facility] previous records and EMS form Clinical information provided by:: patient and EMS Social determinants that could affect healthcare access:: none Patient has the following chronic illnesses:: Metabolic encephalopathy hypertension type 2 diabetes asthma A-fib TIA ventral hernia How is presenting disease/condition affected by chronic disease/condition?: u neffected by Evaluation data The following diagnostics were reviewed and interpreted by me:: lab results and radiology exam(s) Lab and/or radiology exams considered but not ordered:: EKG performed 1823 shows a ventricular rate of 116 NE interval 149 QRS of 94 QTc of 382 is a sinus tachycardia. CBC shows no leukocytosis and H&H of 9 and 32, no thrombocytopenia Coags within acceptable limits CMP shows a sodium 141 potassium 4.7 chloride is 110 CO2 20.3 BUN of 36 creatinine 1.38 glucose of 157. Troponin is negative BNP is negative Urine is leukocyte positive with WBCs of 408, Chest x-ray shows right base pneumonia Interpretation Summary: Patient has no fever no leukocytosis however the patient has leukocyte Estrace urine, and pneumonia. Given the patient's altered mental status at this time return the patient on antibiotics doxycycline and linezolid. Medications Medications considered but not ordered:: None Medication administrations:: Medication Administration History Discontinued Medications Sodium Chloride (Ns) 1,000 mls @ 999 mls/hr IV .Q1H1M ONE Stop: 10/12/24 19:33 Last Admin: 10/12/24 19:10 Dose: 999 mls/hr Documented By: MP Doxycycline Hyclate 200 mg/ (Sodium Chloride) 250 mls @ 125 mls/hr IV X1 ONE Stop: 10/12/24 21:35 Last Admin: 10/12/24 21:07 Dose: 125 mls/hr Documented By: EF None Consultations Consultation(s) initiated? (list below): No Diagnosis Differential Diagnosis ED Complaint MDM: UTI pneumonia sepsis Most likely diagnosis given after review of the tests above:: UTI pneumonia Admission Indicated Admission indicated?: not indicated Explain why admission is indicated or not indicated:: Stable for discharge Admission Request Was there a request for admission?: No Disposition Plan Disposition Plan: Discharge Discharge Attestation Discharge Attestation: The patient and all family members were given an opportunity to ask questions and understood the discharge instructions. Discharge instructions specifically effects, indications for sooner follow up or return to the emergency department, and the expected course of current diagnosis. Patient condition: Stable Medical Decision Making Differential Diagnosis Differential Diagnosis: UTI pneumonia sepsis Lab Data 10/12/24 17:50 10/12/24 17:50 Labs: Lab Results 10/12/24 10/12/24 Range/Units 17:50 20:08 WBC 10.5 (3.6-11.0) Thou/mm3 RBC 3.78 L (4.00-5.20) Miln/mm3 Hgb 9.7 L (12.0-16.0) g/dL Hct 32.3 L (36.0-46.0) % MCV 85 (80-100) fL MCH 25.7 (25.0-35.0) pg MCHC 30.0 L (31.0-37.0) g/dl RDW Std Deviation 57.8 H (36.4-46.3) fL Plt Count 462 H D (140-440) Thou/mm3 Neut % (Auto) 59 (37-80) % Lymph % (Auto) 23 (10-50) % [place] % (Auto) 10 (0-12) % Eos % (Auto) 6 (0-10) % Baso % (Auto) 1 (0-2.5) % Neut # (Auto) 6.3 (1.8-7.7) Thou/mm3 Lymph # (Auto) 2.5 (1.0-4.8) Thou/mm3 [place] # (Auto) 1.1 H (0.0-0.8) Thou/mm3 Eos # (Auto) 0.6 H (0.0-0.5) Thou/mm3 Baso # (Auto) 0.1 (0.0-0.2) Thou/mm3 Immature Gran # (Auto) 0.08 H (0.00-0.00) Thou/mm3 Absolute Nucleated RBC 0.00 (0.00-0.00) Thou/mm3 Immature Gran % 1 H (0-0) % Nucleated RBC % 0 (0) /100 WBC PT 12.0 (9.0-12.2) Seconds INR 1.1 (0.9-1.3) APTT 29.7 (22.0-36.0) Seconds Sodium 141 (136-145) mMol/L Potassium 4.7 (3.4-5.1) mMol/L Chloride 110 H (98-107) mMol/L Carbon Dioxide 20.3 (20.0-31.0) mMol/L Anion Gap 11 (7-16) BUN 36 H (9-23) mg/dL Creatinine 1.3 (0.6-1.3) mg/dL Estim Creat Clear Calc 45.0 L (>60) mL/min eGFR 47 L (60 - ) See Note BUN/Creatinine Ratio 28 H (12-20) Ratio Glucose 157 H (74-106) mg/dL Calculated Osmolality 292 (275-295) Calcium 10.9 H (8.3-10.6) mg/dL Corrected Calcium 10.9 H (8.5-10.1) mg/dL Magnesium 2.4 (1.6-2.6) mg/dL Total Bilirubin 0.2 L (0.3-1.2) mg/dL AST 15 (0-34) U/L ALT 15 (10-49) U/L Alkaline Phosphatase 99 (46-116) U/L Lactate Dehydrogenase 105 L (120-246) U/L Troponin I < 0.020 (0.0-0.045) ng/mL B-Natriuretic Peptide < 20 (0-100) pg/mL Total Protein 7.7 (5.7-8.2) gm/dL Albumin 4.0 (3.4-4.8) gm/dL Globulin 3.7 H (2.3-3.5) gm/dL Albumin/Globulin Ratio 1.1 L (1.2-2.2) Ur Collection Type Clean Catch Urine Color Yellow (Lt Yel-Yel) Urine Clarity Turbid A (Clear/Hazy) Urine pH 5.0 (5.0-7.0) Ur Specific [place] 1.012 (1.001-1.035) Urine Protein Trace (Neg - Trace) Urine Glucose (UA) 4+ A (Negative) Urine Ketones Negative (Negative) Urine Blood Negative (Negative) Urine Nitrite Negative (Negative) Urine Bilirubin Negative (Negative) Urine Urobilinogen (Auto) Negative (0.0-1.0) mg/dL Ur Leukocyte Esterase Positive (Negative) Urine RBC 4 H (0-3) /hpf Urine WBC 408 H (0-5) /hpf Ur Squamous Epith Cells 1 (0-5) /hpf Urine Bacteria None (None) Urine Yeast (Budding) Present A (None) Urine Opiates Screen Negative (Negative) Urine Fentanyl Screen Negative (Negative) Ur Barbiturates Screen Negative (Negative) U Amphetamin/Meth Scrn Negative (Negative) U Benzodiazepines Scrn Negative (Negative) U Cocaine Metab Screen Negative (Negative) U Marijuana (THC) Screen Negative (Negative) Discharge Plan Plan Patient Disposition: HOME (Self Care) Patient condition on transfer: Stable Prescriptions/Referrals Prescriptions/Med Rec: New doxycycline hyclate 100 mg capsule 100 mg PO BID Qty: 14 0RF linezolid 600 mg tablet 600 mg PO BID Qty: 10 0RF No Action ascorbic acid (vitamin C) 500 mg Tablet 500 mg PO BID magnesium hydroxide [Milk of Magnesia] 400 mg/5 mL Suspension 1,200 mg PO QDAY PRN (Reason: Constipation) Rx Instructions: 1200 mg/ 15mL dose bisacodyl [Dulcolax (bisacodyl)] 10 mg Suppository 10 mg NE QDAY PRN (Reason: Constipation) Rx Instructions: insert 1 suppository rectally every 24 hours as needed for constipation if MOM is ineffective and no BM for 8 hours Enema Disposable 19-7 gram/118 mL Enema 118 ml NE QDAY PRN (Reason: Constipation) Rx Instructions: insert 1 application rectally as needed for constipation if MOM and Dulcolax Supp are ineffective and no bowel movement in 8 hours. if no results from MOM, Dulcolax supp and enema call Pro-Stat Sugar Free 15 gram- 100 kcal/30 mL Liquid In Packet 1 ea PO BID tramadol 50 mg Tablet 50 mg PO Q8H PRN (Reason: Pain, Moderate) Qty: 20 0RF Rx Instructions: MODERATED P[AIN (5-7) DO NOT EXCEED 300MG IN 24HOURS gabapentin 300 mg Capsule 300 mg PO BID insulin lispro [Humalog U-100 Insulin] 100 unit/mL Solution 1 sliding scale dose SUBCUT AC Rx Instructions: 70-150= 0 UNITS 151-200 = 2 UNITS 201-250 = 4 units 251-300 = 6 units 301-350 = 8 units 351-400 = 10 units 401+ call 201-250 = 4 UNITS 251-300 = 6 UNITS 301-350 = 8 UNITS 351-400= 10 UNITS ABOVE 400 CALL escitalopram oxalate 20 mg Tablet 10 mg PO QDAY Rx Instructions: FOR 6 MONTHS M/B hopelessness r/t decline in health causing distress to resident. insulin glargine 100 unit/mL Solution 25 unit SUBCUT HS Rx Instructions: HOLD IF BS<80 atorvastatin 40 mg tablet 40 mg PO HS clonidine HCl 0.1 mg tablet 0.1 mg PO BID Hold Instructions: re-evaluate with pcp Rx Instructions: MONITOR BP AND PULSE, HOLD IF SBP<100 OR PULSE<60 carvedilol 3.125 mg tablet 3.125 mg PO BID Rx Instructions: MONITOR BP AND PULSE, HOLD IF SBP<100 OR PULSE<60 baclofen 10 mg tablet 5 mg PO BID amlodipine 10 mg tablet 10 mg PO QDAY Rx Instructions: MONITOR BP AND PULSE, HOLD IF SBP <100 OR PULSE <60 folic acid 1 mg tablet 1 mg PO QDAY empagliflozin 25 mg Tablet 25 mg PO QDAY sennosides [senna] 8.6 mg Tablet 8.6 - 50 mg PO BID pantoprazole 40 mg tablet,delayed release (DR/EC) 40 mg PO DAILY Multiple Vitamin-Minerals Tablet 1 tab PO QDAY Referrals: Tang Evans MD [Primary Care Provider] - In 1 week Problem List Clinical Impression: Pneumonia, UTI (urinary tract infection) Patient/Caregiver Discharge Instructions Education Materials: Understanding Urinary Tract ..., ED Pneumonia (Adult) Print Language: Sinhala Stand Alone Forms: Jania Award Info., Patient Portal Info Letter PA/VETERINARY [employer]IST Supervising Physician PA/VETERIN[employer]IST Supervising Physician: Fabricio Cedillo ENP
[2024-10-12 17:58] LABS: Basophils # (Auto) 0.1 Thou/mm3 (0.0-0.2); Basophils % (Auto) 1 % (0-2.5); Eosinophils # (Auto) 0.6 Thou/mm3 (0.0-0.5); Eosinophils % (Auto) 6 % (0-10); Hematocrit 32.3 % (36.0-46.0); Hemoglobin 9.7 g/dL (12.0-16.0); Immature Granulocytes % (Auto) 1 % (0-0); Immature Granulocytes Auto 0.08 Thou/mm3 (0.00-0.00); Lymphocytes # (Auto) 2.5 Thou/mm3 (1.0-4.8); Lymphocytes % (Auto) 23 % (10-50); Mean Corpuscular Hemoglobin 25.7 pg (25.0-35.0); Mean Corpuscular Volume 85 fL (80-100); Monocytes # (Auto) 1.1 Thou/mm3 (0.0-0.8); Monocytes % (Auto) 10 % (0-12); Neutrophils # (Auto) 6.3 Thou/mm3 (1.8-7.7); Neutrophils % (Auto) 59 % (37-80); Nucleated Red Blood Cell % 0 /100 WBC (0); Platelet Count 462 Thou/mm3 (140-440); RDW Standard Deviation 57.8 fL (36.4-46.3); Red Blood Count 3.78 Miln/mm3 (4.00-5.20); White Blood Count 10.5 Thou/mm3 (3.6-11.0)
[2024-10-12 18:04] VITALS: PULSE 77; O2SAT 97; BMI 32.9
[2024-10-12 18:16] LABS: B-Type Natriuretic Peptide < 20 pg/mL (0-100)
[2024-10-12 18:25] LABS: INR 1.1 (0.9-1.3); Partial Thromboplastin Time 29.7 Seconds (22.0-36.0)
[2024-10-12 18:28] LABS: Alanine Aminotransferase 15 U/L (10-49); Albumin/Globulin Ratio 1.1 (1.2-2.2); Alkaline Phosphatase 99 U/L (46-116); Anion Gap 11 (7-16); Aspartate Amino Transferase 15 U/L (0-34); BUN/Creatinine Ratio 28 Ratio (12-20); Bilirubin,Total 0.2 mg/dL (0.3-1.2); Blood Urea Nitrogen 36 mg/dL (9-23); Calcium 10.9 mg/dL (8.3-10.6); Calcium (Corrected) 10.9 mg/dL (8.5-10.1); Carbon Dioxide 20.3 mMol/L (20.0-31.0); Chloride 110 mMol/L (98-107); Creatinine (Component) 1.3 mg/dL (0.6-1.3); Globulin 3.7 gm/dL (2.3-3.5); Glucose 157 mg/dL (74-106); Magnesium 2.4 mg/dL (1.6-2.6); Osmolality,Calculated 292 (275-295); Potassium 4.7 mMol/L (3.4-5.1); Sodium 141 mMol/L (136-145); Total Protein 7.7 gm/dL (5.7-8.2); Troponin I < 0.020 ng/mL (0.0-0.045); eGFR 47 See Note
[2024-10-12 18:39] LABS: LDH (Lactate Dehydrogenase) 105 U/L (120-246)
[2024-10-12 19:02] VITALS: BP 133/90; PULSE 85; RESP 19; TEMP 38.5; O2SAT 95
[2024-10-12] MEDS: SODIUM CHLORIDE 0.9% 1000 ML 1,000 ML 999 ML IV (19:10)
[2024-10-12 20:15] LABS: Collection Type, Urine Clean Catch
[2024-10-12 20:34] LABS: Bilirubin,Urine Negative (Negative); Blood,Urine Negative (Negative); Budding Yeast,Urine Present; Clarity,Urine Turbid (Clear/Hazy); Color,Urine Yellow (Lt Yel-Yel); Glucose, Urine 4+ (Negative); Ketones,Urine Negative (Negative); Leukocyte Esterase,Urine Positive (Negative); Nitrite,Urine Negative (Negative); Protein,Urine Trace (Neg - Trace); RBC,Urine 4 /hpf (0-3); Specific Gravity,Urine 1.012 (1.001-1.035); Squamous Epithelial Cell,Urine 1 /hpf (0-5); Urobilinogen,Urine Negative mg/dL (0.0-1.0); WBC,Urine 408 /hpf (0-5)
[2024-10-12 20:44] LABS: Amphetamine/Methamp Scrn,U Negative (Negative); Barbiturate Screen,Urine Negative (Negative); Benzodiazepines Screen,Urine Negative (Negative); Benzoylecgonine Screen, Ur Negative (Negative); Fentanyl Screen,Urine Negative (Negative); Opiate Screen,Urine Negative (Negative); THC Screen,Urine Negative (Negative)
[2024-10-12] MEDS: DOXYCYCLINE INJ 200 MG in SODIUM CHLORIDE 0.9% 250 ML 250 ML 125 MG IV (21:07)
[2024-10-12 21:27] VITALS: BP 151/80; PULSE 79; RESP 18; TEMP 36.9; O2SAT 97
[2024-10-13 00:05] VITALS: BP 108/84; PULSE 99; RESP 12; O2SAT 98
--- NOTE | 2024-10-13 00:19 | PC.NURSE ---
report called to tariq li at [facility] via telephone.
[2024-10-13 00:20] VITALS: BP 159/85; PULSE 87; RESP 16; TEMP 37.3; O2SAT 95
== END 2024-10-13 00:20 | disposition home or self-care (01) ==
PROVIDERS: Registered Nurse General Practice; Emergency Provider Emergency Medicine; PCP Hospitalist
DX: N39.0 Urinary tract infection, site not specified (principal); J18.9 Pneumonia, unspecified organism
CPT/HCPCS: 51701; 36415; 71045; 80053; 80307; 81001; 83615; 83735; 83880; 84484; 85025; 85610; 85730; 96365; 96366; 99284; J3490; J7030; J7050

== ENCOUNTER 2024-11-03 13:19 | Emergency (ER) | payer MEDICAID, SELFPAY ==
[2024-11-03 13:26] VITALS: BP 127/67; PULSE 76; RESP 15; TEMP 36.9; O2SAT 95
[2024-11-03 13:53] VITALS: PULSE 80; RESP 18; O2SAT 96; BMI 30.4
--- NOTE | 2024-11-03 14:19 | PC.NURSE ---
PERINEAL CARE DONE FOR PT BY MARYJO COOPER RN AND SASHA FRANCO; PER MARYJO BURGESS RN, PT HAS WOUNDS TO COCCYX NOTED. PT GIVEN PERINEAL CARE. ALLEVYN FOAM DRESSING PLACED ON PT'S COCCYX AT THIS TIME.
[2024-11-03 14:20] LABS: Basophils # (Auto) 0.1 Thou/mm3 (0.0-0.2); Basophils % (Auto) 1 % (0-2.5); Eosinophils # (Auto) 0.8 Thou/mm3 (0.0-0.5); Eosinophils % (Auto) 5 % (0-10); Hematocrit 33.1 % (36.0-46.0); Hemoglobin 9.7 g/dL (12.0-16.0); Immature Granulocytes % (Auto) 1 % (0-0); Immature Granulocytes Auto 0.16 Thou/mm3 (0.00-0.00); Lymphocytes # (Auto) 2.6 Thou/mm3 (1.0-4.8); Lymphocytes % (Auto) 17 % (10-50); Mean Corpuscular HGB Conc 29.3 g/dl (31.0-37.0); Mean Corpuscular Hemoglobin 25.1 pg (25.0-35.0); Mean Corpuscular Volume 86 fL (80-100); Monocytes # (Auto) 1.2 Thou/mm3 (0.0-0.8); Monocytes % (Auto) 8 % (0-12); Neutrophils # (Auto) 10.2 Thou/mm3 (1.8-7.7); Neutrophils % (Auto) 68 % (37-80); Nucleated Red Blood Cell % 0 /100 WBC (0); Platelet Count 542 Thou/mm3 (140-440); RDW Standard Deviation 55.1 fL (36.4-46.3); Red Blood Count 3.87 Miln/mm3 (4.00-5.20)
--- NOTE | 2024-11-03 14:48 | PC.SS ---
Addendum entered by MERNA Orellana 11/03/24 15:07: ETA 3:30pm. Bed side nurse informed. Anyi at [facility] notified. Patient's family Radha was notified. Original Note: Patient in need of transport services to return to [facility]. Transport arranged. Pending ETA. [place] at [facility] is aware the patient will return to facility, pending transport ETA.
--- NOTE | 2024-11-03 15:01 | PD.EDVAGBL ---
ED OB Contraction Preg RMI/HPI General Chief complaint: Vaginal Bleeding Stated complaint: VAGINAL BLEEDING Time Seen by Provider: 11/03/24 13:38 Arrival date/time: 11/03/24 13:19 RME / HPI RME / HPI Narrative: 59 year old female with history of CVA, AFib, CHF, hypertension, diabetes, and currently on hospice care presented to the ED from [facility] for evaluation of vaginal bleeding today. Per medics, [place] staff reported patient had been bleeding for 4 days and are concerned she may be anemic. No further history obtainable from patient. Related Data Home Medications ?Medication ?Instructions ?Recorded ?Confirmed escitalopram oxalate 20 mg tablet 10 mg PO QDAY DEPRESSION 05/21/24 09/23/24 gabapentin 300 mg capsule 300 mg PO BID NEUROPATHY 05/21/24 09/23/24 insulin glargine 100 unit/mL 25 unit subcut HS DM 05/21/24 09/23/24 subcutaneous solution insulin lispro 100 unit/mL 1 sliding scale dose subcut AC dm 05/21/24 09/23/24 subcutaneous solution (Humalog U-100 Insulin) amlodipine 10 mg tablet 10 mg PO QDAY htn 07/03/24 09/23/24 atorvastatin 40 mg tablet 40 mg PO HS HYPERLIPIDEMIA 07/03/24 09/23/24 baclofen 10 mg tablet 5 mg PO BID Muscle spasms 07/03/24 09/23/24 carvedilol 3.125 mg tablet 3.125 mg PO BID HTN 07/03/24 09/23/24 clonidine HCl 0.1 mg tablet 0.1 mg PO BID HTN 07/03/24 08/11/24 Held on 09/29/24. Instructions: re-evaluate with pcp empagliflozin 25 mg tablet 25 mg PO QDAY DM 07/03/24 09/23/24 folic acid 1 mg tablet 1 mg PO QDAY SUPPLEMENT 07/03/24 09/23/24 multivitamin with minerals 1 tab PO QDAY SUPPLEMENTS 07/04/24 09/23/24 (Multiple Vitamin-Minerals tablet) pantoprazole 40 mg tablet,delayed 40 mg PO DAILY GERD 07/04/24 09/23/24 release sennosides 8.6 mg tablet (senna) 8.6 - 50 mg PO BID CONSTIPATION 07/04/24 09/23/24 amino acids-protein hydrolysate 15 1 ea PO BID 08/11/24 09/23/24 gram-100 kcal/30 mL oral liquid pkt (Pro-Stat Sugar Free) ascorbic acid (vitamin C) 500 mg 500 mg PO BID 08/11/24 09/23/24 tablet bisacodyl 10 mg rectal suppository 10 mg AL QDAY PRN Constipation 08/11/24 08/11/24 (Dulcolax (bisacodyl)) magnesium hydroxide 400 mg/5 mL 1,200 mg PO QDAY PRN Constipation 08/11/24 08/11/24 oral suspension (Milk of Magnesia) sodium phosphates 19 gram-7 118 ml AL QDAY PRN Constipation 08/11/24 08/11/24 gram/118 mL enema (Enema Disposable) Previous Rx's ?Medication ?Instructions ?Recorded tramadol 50 mg tablet 50 mg PO Q8H PRN Pain, Moderate 08/14/24 #20 tabs doxycycline hyclate 100 mg capsule 100 mg PO BID #14 caps 10/12/24 linezolid 600 mg tablet 600 mg PO BID #10 tabs 10/12/24 Allergies Allergy/AdvReac Type Severity Reaction Status Date / Time acetylcysteine Allergy Severe Difficulty Verified 05/24/24 17:57 Swallowing aspirin Allergy Severe Difficulty Verified 05/24/24 17:57 Swallowing cefpodoxime Allergy Severe Difficulty Verified 05/24/24 17:57 Breathing levofloxacin (From Levaquin) Allergy Severe Difficulty Verified 05/24/24 17:57 Breathing Penicillins Allergy Severe Difficulty Verified 05/24/24 17:57 Breathing Sulfa (Sulfonamide Allergy Severe Hives Verified 05/24/24 17:57 Antibiotics) sulfadiazine Allergy Severe Difficulty Verified 05/24/24 17:57 Breathing sulfamethoxazole (From Allergy Severe Difficulty Verified 05/24/24 17:57 Bactrim) Breathing capsaicin Allergy Intermediate Hives Verified 05/24/24 17:57 dulaglutide Allergy Intermediate Hives Verified 05/24/24 17:57 trimethoprim (From Bactrim) Allergy Verified 03/21/24 22:15 Review of Systems Review of Systems ROS Unobtainable: unobtainable due to mental status Past Medical History Past Medical History NEUROLOGIC: Positive Neurological Disorders, Cerebrovascular Accident and Transient Ischemic Attacks (TIA) CARDIAC: Positive Cardiac Disorders (A. FIB), Atrial Fibrillation, Congestive Heart Failure and Hypertension RESPIRATORY: Positive Asthma GASTROINTESTINAL: Positive Gastrointestinal Disorders, Gall Bladder Disease, Hiatal Hernia and Obesity MUSCULOSKELETAL: Positive Musculoskeletal Disorders, Arthritis, Carpal Tunnel Syndrome and Fibromyalgia ENDOCRINE: Positive Endocrine Disorders and Diabetes Mellitus Type 2 PSYCHO/SOCIAL: Positive Depression OTHER HISTORY: Positive Hospitalization, Chicken Pox and Measles Family History FAMILY HISTORY: Negative Family Cardiac Disorders Surgical History SURGICAL: Positive Abdominal Surgery and Section Social History SMOKING STATUS: Never smoker SUBSTANCE USE: does not use ED Exam Narrative Physical exam: GENERAL APPEARANCE: Patient is awake, does not answer questions, moans, no pallor, has pain throughout body whenever you palpate HEENT: NC, AT. MMM. EOMI, clear conjunctiva, oropharynx clear. NECK: Supple without lymphadenopathy. No stiffness or restricted ROM. HEART: Normal rate and regular rhythm, normal S1/S1, no m/r/g LUNGS: CTAB, moving air well. No crackles or wheezes are heard. ABDOMEN: Soft, nontender, nondistended with good bowel sounds heard. PELVIC: Exam performed in presence of female plant safety engineer, there is a slow amount of maroon blood oozing from the vagina. BACK: No midline C/T/L spine pain or deformity, No CVAT, no obvious deformity. EXTREMITIES: Pain to BLE when palpating. Without cyanosis, clubbing or edema. NEUROLOGICAL: Awake, does not answer questions, moans Skin: Warm and dry without any rash. Course Quality Measures none Orders Category Date Time Status CBC Stat Lab 11/03/24 14:10 Completed Reevaluation(s) Reevaluation #1: I spoke with patients sister who is the power of ip attorney. We reviewed all the results, analysis, and treatment plans. Family is amenable to discharge. Strict return precautions were outlined. Time: 15:48 Vital Signs Vital signs: Vital Signs Temperature 98.4 F 11/03/24 13:26 Pulse Rate 76 11/03/24 13:26 Respiratory Rate 15 11/03/24 13:26 Blood Pressure 127/67 11/03/24 13:26 Pulse Oximetry (%) 95 11/03/24 13:26 Oxygen Delivery Method Room Air 11/03/24 13:26 Pulse ox is 95% on room air which is adequate. Vaginal Bleeding MDM Narrative MDM Narrative: Nicole Owens am scribing for and in the presence of Dr. Chen. Patient data External records reviewed:: [facility] [place] previous records (I reviewed admission from 09/22/2024 through 09/29/2024) and EMS form Clinical information provided by:: EMS Social determinants that could affect healthcare access:: housing ([place] resident ) Patient has the following chronic illnesses:: CVA, AFib, CHF, hypertension, diabetes, and currently on hospice care How is presenting disease/condition affected by chronic disease/condition?: exacerbated by Evaluation data The following diagnostics were reviewed and interpreted by me:: lab results Lab and/or radiology exams considered but not ordered:: None Interpretation Summary: Patient hemoglobin today is 9.7 hgb and per EMR review is baseline for the patient. Medications / Prescriptions Medications or Prescriptions considered but not ordered:: None Medication administrations:: None Consultations Consultation(s) initiated? (list below): No Diagnosis Vaginal Bleeding Differential Diagnosis: dysfunctional uterine bleeding, menometrorrhagia and vaginal bleeding Most likely diagnosis given after review of the tests above:: Abnormal vaginal bleeding in postmenopausal patient Admission Indicated Admission indicated?: not indicated Admission Request Was there a request for admission?: No Disposition Plan Disposition Plan: Discharge Discharge Attestation Discharge Attestation: The patient and all family members were given an opportunity to ask questions and understood the discharge instructions. Discharge instructions specifically effects, indications for sooner follow up or return to the emergency department, and the expected course of current diagnosis. Patient condition: Stable Discharge Plan Plan Patient Disposition: HOME (Self Care) Prescriptions/Referrals Prescriptions/Med Rec: No Action ascorbic acid (vitamin C) 500 mg Tablet 500 mg PO BID magnesium hydroxide [Milk of Magnesia] 400 mg/5 mL Suspension 1,200 mg PO QDAY PRN (Reason: Constipation) Rx Instructions: 1200 mg/ 15mL dose bisacodyl [Dulcolax (bisacodyl)] 10 mg Suppository 10 mg AL QDAY PRN (Reason: Constipation) Rx Instructions: insert 1 suppository rectally every 24 hours as needed for constipation if MOM is ineffective and no BM for 8 hours Enema Disposable 19-7 gram/118 mL Enema 118 ml AL QDAY PRN (Reason: Constipation) Rx Instructions: insert 1 application rectally as needed for constipation if MOM and Dulcolax Supp are ineffective and no bowel movement in 8 hours. if no results from MOM, Dulcolax supp and enema call Pro-Stat Sugar Free 15 gram- 100 kcal/30 mL Liquid In Packet 1 ea PO BID tramadol 50 mg Tablet 50 mg PO Q8H PRN (Reason: Pain, Moderate) Qty: 20 0RF Rx Instructions: MODERATED P[AIN (5-7) DO NOT EXCEED 300MG IN 24HOURS gabapentin 300 mg Capsule 300 mg PO BID insulin lispro [Humalog U-100 Insulin] 100 unit/mL Solution 1 sliding scale dose SUBCUT AC Rx Instructions: 70-150= 0 UNITS 151-200 = 2 UNITS 201-250 = 4 units 251-300 = 6 units 301-350 = 8 units 351-400 = 10 units 401+ call MD 201-250 = 4 UNITS 251-300 = 6 UNITS 301-350 = 8 UNITS 351-400= 10 UNITS ABOVE 400 CALL escitalopram oxalate 20 mg Tablet 10 mg PO QDAY Rx Instructions: FOR 6 MONTHS M/B hopelessness r/t decline in health causing distress to resident. insulin glargine 100 unit/mL Solution 25 unit SUBCUT HS Rx Instructions: HOLD IF BS<80 atorvastatin 40 mg tablet 40 mg PO HS clonidine HCl 0.1 mg tablet 0.1 mg PO BID Rx Instructions: MONITOR BP AND PULSE, HOLD IF SBP<100 OR PULSE<60 carvedilol 3.125 mg tablet 3.125 mg PO BID Rx Instructions: MONITOR BP AND PULSE, HOLD IF SBP<100 OR PULSE<60 baclofen 10 mg tablet 5 mg PO BID amlodipine 10 mg tablet 10 mg PO QDAY Rx Instructions: MONITOR BP AND PULSE, HOLD IF SBP <100 OR PULSE <60 folic acid 1 mg tablet 1 mg PO QDAY empagliflozin 25 mg Tablet 25 mg PO QDAY sennosides [senna] 8.6 mg Tablet 8.6 - 50 mg PO BID pantoprazole 40 mg tablet,delayed release (DR/EC) 40 mg PO DAILY Multiple Vitamin-Minerals Tablet 1 tab PO QDAY doxycycline hyclate 100 mg capsule 100 mg PO BID Qty: 14 0RF linezolid 600 mg tablet 600 mg PO BID Qty: 10 0RF Problem List Clinical Impression: Abnormal vaginal bleeding in postmenopausal patient Patient/Caregiver Discharge Instructions Education Materials: Endometrial Biopsy Additional Instructions: Follow-up with your glove presser for endometrial biopsy. You can return to the emergency department sooner if symptoms worsen or for any new or concerning issues. Print Language: Syriac Stand Alone Forms: Jania Award Info., Patient Portal Info Letter
[2024-11-03 15:25] VITALS: BP 131/87; PULSE 70; RESP 19; TEMP 36.4; O2SAT 95
--- NOTE | 2024-11-03 15:27 | PC.NURSE ---
SPOKE TO PATSY LONG FROM [facility] FOR SBAR REPORT AND INFORMED THAT PT TO BE PICKED UP BY [facility] FOR TRANSPORTATION BACK TO [facility].
--- NOTE | 2024-11-03 15:55 | PC.NURSE ---
[facility] TRANSPORT TEAM AT BEDSIDE PICKING UP PT AT THIS TIME.
== END 2024-11-03 15:56 | disposition home or self-care (01) ==
LOC: SERX 15:09
PROVIDERS: Emergency Provider Emergency Medicine; PCP Family Medicine
DX: N92.4 Excessive bleeding in the premenopausal period (principal); Z86.73 Personal history of transient ischemic attack (TIA), and cerebral infarction without residual deficits; I48.91 Unspecified atrial fibrillation; E11.9 Type 2 diabetes mellitus without complications; I11.0 Hypertensive heart disease with heart failure; I50.9 Heart failure, unspecified
CPT/HCPCS: 36415; 85025; 99283

== ENCOUNTER 2024-11-16 22:15 | Emergency (ER) | payer MEDICAID, SELFPAY ==
--- NOTE | 2024-11-16 22:22 | PD.EDADULT ---
ED General RME/HPI General Chief complaint: Wound/Laceration Stated complaint: BLEEDING Time Seen by Provider: 11/16/24 22:19 Arrival date/time: 11/16/24 22:15 CC: Bleeding from open wound site HPI patient presents the ER via EMS from [facility] [place] where they were doing a dressing change that resulted in bleeding from wound on the abdomen. Review the medical record show the patient had a large abdominal wounds that were debrided on September 29, [address] Pate, she is at the [facility] [place] for care. Report from [facility] to EMS with the bleeding with cannot be stopped. EMS reports stable vital signs and route. On initial assessment vital signs showed a blood pressure of 85/50. Heart rate in the 80s. Related Data Home Medications ?Medication ?Instructions ?Recorded ?Confirmed escitalopram oxalate 20 mg tablet 10 mg PO QDAY DEPRESSION 05/21/24 11/19/24 gabapentin 300 mg capsule 300 mg PO BID NEUROPATHY 05/21/24 11/19/24 insulin glargine 100 unit/mL 25 unit subcut HS DM 05/21/24 11/19/24 subcutaneous solution insulin lispro 100 unit/mL 1 sliding scale dose subcut AC dm 05/21/24 11/19/24 subcutaneous solution (Humalog U-100 Insulin) amlodipine 10 mg tablet 10 mg PO QDAY htn 07/03/24 11/19/24 atorvastatin 40 mg tablet 40 mg PO HS HYPERLIPIDEMIA 07/03/24 11/19/24 baclofen 10 mg tablet 5 mg PO BID Muscle spasms 07/03/24 11/19/24 carvedilol 3.125 mg tablet 3.125 mg PO BID HTN 07/03/24 11/19/24 clonidine HCl 0.1 mg tablet 0.1 mg PO BID HTN 07/03/24 11/19/24 Held on 09/29/24. Instructions: re-evaluate with pcp empagliflozin 25 mg tablet 25 mg PO QDAY DM 07/03/24 11/19/24 folic acid 1 mg tablet 1 mg PO QDAY SUPPLEMENT 07/03/24 11/19/24 multivitamin with minerals 1 tab PO QDAY SUPPLEMENTS 07/04/24 11/19/24 (Multiple Vitamin-Minerals tablet) pantoprazole 40 mg tablet,delayed 40 mg PO DAILY GERD 07/04/24 11/19/24 release sennosides 8.6 mg tablet (senna) 8.6 - 50 mg PO BID CONSTIPATION 07/04/24 11/19/24 amino acids-protein hydrolysate 15 1 ea PO BID 08/11/24 11/19/24 gram-100 kcal/30 mL oral liquid pkt (Pro-Stat Sugar Free) ascorbic acid (vitamin C) 500 mg 500 mg PO BID 08/11/24 11/19/24 tablet bisacodyl 10 mg rectal suppository 10 mg MA QDAY PRN Constipation 08/11/24 11/19/24 (Dulcolax (bisacodyl)) magnesium hydroxide 400 mg/5 mL 1,200 mg PO QDAY PRN Constipation 08/11/24 11/19/24 oral suspension (Milk of Magnesia) sodium phosphates 19 gram-7 118 ml MA QDAY PRN Constipation 08/11/24 11/19/24 gram/118 mL enema (Enema Disposable) lorazepam 0.5 mg tablet 0.5 mg PO Q6H PRN anxiety m/b 11/19/24 11/19/24 terminal illness methadone 5 mg tablet 2.5 mg PO Q12H 11/19/24 11/19/24 morphine concentrate 20 mg/mL oral 5 mg PO DAILY PRN mild pain 11/19/24 11/19/24 syringe (FOR ORAL USE ONLY) 20-30mins prior to wound care morphine concentrate 20 mg/mL oral 10 mg PO .q4h PRN moderate pain or 11/19/24 11/19/24 syringe (FOR ORAL USE ONLY) SOB morphine concentrate 20 mg/mL oral 20 mg PO Q2H PRN severe pain or SOB 11/19/24 11/19/24 syringe (FOR ORAL USE ONLY) Previous Rx's ?Medication ?Instructions ?Recorded tramadol 50 mg tablet 50 mg PO Q8H PRN Pain, Moderate 08/14/24 #20 tabs doxycycline hyclate 100 mg capsule 100 mg PO BID #14 caps 10/12/24 linezolid 600 mg tablet 600 mg PO BID #10 tabs 10/12/24 Allergies Allergy/AdvReac Type Severity Reaction Status Date / Time acetylcysteine Allergy Severe Difficulty Verified 05/24/24 17:57 Swallowing aspirin Allergy Severe Difficulty Verified 05/24/24 17:57 Swallowing cefpodoxime Allergy Severe Difficulty Verified 05/24/24 17:57 Breathing levofloxacin (From Levaquin) Allergy Severe Difficulty Verified 05/24/24 17:57 Breathing Penicillins Allergy Severe Difficulty Verified 05/24/24 17:57 Breathing Sulfa (Sulfonamide Allergy Severe Hives Verified 05/24/24 17:57 Antibiotics) sulfadiazine Allergy Severe Difficulty Verified 05/24/24 17:57 Breathing sulfamethoxazole (From Allergy Severe Difficulty Verified 05/24/24 17:57 Bactrim) Breathing capsaicin Allergy Intermediate Hives Verified 05/24/24 17:57 dulaglutide Allergy Intermediate Hives Verified 05/24/24 17:57 trimethoprim (From Bactrim) Allergy Verified 03/21/24 22:15 Review of Systems Review of Systems ROS Unobtainable: unobtainable due to mental status Past Medical History Past Medical History NEUROLOGIC: Positive Neurological Disorders, Cerebrovascular Accident and Transient Ischemic Attacks (TIA); Negative Seizures CARDIAC: Positive Cardiac Disorders (A. FIB), Atrial Fibrillation, Congestive Heart Failure and Hypertension RESPIRATORY: Positive Asthma; Negative Chronic Obstructive Pulmonary Disease (COPD) GASTROINTESTINAL: Positive Gastrointestinal Disorders, Gall Bladder Disease, Hiatal Hernia and Obesity; Negative Hepatitis GENITOURINARY: Negative Genitourinary Disorders or Renal Disease REPRODUCTIVE: Negative Pelvic Inflammatory Disease MUSCULOSKELETAL: Positive Musculoskeletal Disorders, Arthritis, Carpal Tunnel Syndrome and Fibromyalgia ENDOCRINE: Positive Endocrine Disorders and Diabetes Mellitus Type 2; Negative Diabetes Mellitus Type 1 HEMATOLOGIC: Negative Blood Disorders or Sickle Cell Disease PSYCHO/SOCIAL: Positive Depression OTHER HISTORY: Positive Hospitalization, Chicken Pox and Measles; Negative Autoimmune Disease, Down Syndrome, Developmental Delay, Shingles, Falls, Blood Transfusions, Blood Transfusion Reaction, Anesthesia Reactions, Organ Transplant, Chemotherapy, Radiation Therapy, Hyperbaric Therapy, MRSA, VRSA, Vancomycin-Resistant Enterococci, Human Immunodeficiency Virus (HIV), Mumps, Rubella (Thai Measles), Pertussis, Clostridium Difficile or Cancer Family History FAMILY HISTORY: Negative Family Cardiac Disorders Surgical History SURGICAL: Positive Abdominal Surgery and Section; Negative Organ Transplant Social History SMOKING STATUS: Never smoker SUBSTANCE USE: does not use ED Exam Narrative Physical exam: [General: Morbidly obese appears not in any acute distress Head normocephalic HEENT: Within acceptable limits Neck is supple nontender Chest equal chest rise nontender to palpation Respiratory: Clear to auscultation no wheezes crackles or rubs CV: Rate rhythm is regular no murmurs rubs or clicks Abdomen is grossly distended secondary to body habitus soft nontender no masses positive bowel sounds all 4 quadrants Back: No CVA tenderness no spinous process tenderness from cervical spine thoracic and lumbar spine Skin: 2 very large open ulcerations to the pannus of the abdomen 1 on the right side approximately 30 x 20 cm, no surrounding erythema edema no exudate is clean with tissue granulation no active bleeding. The second ulceration on the left side is larger at 40 x 30 cm again no surrounding erythema or edema. No active bleeding at this time from the left-hand side as well. Otherwise skin is intact no petechiae rash induration ulceration or crepitus Extremities: Moving all extremity against resistance cap refill less than 2 seconds neurosensory intact Neuro: Awake alert oriented x1, self, Glascow coma 15 no focal deficits] Course Quality Measures VTE prophylaxis Orders Category Date Time Status CBC Stat Lab 11/16/24 22:30 Completed Sodium Chloride 0.9% 1000 ml [Ns] 1,000 ml Med 11/16/24 22:50 Discontinued IV 999 mls/hr Vital Signs Vital signs: Vital Signs Temperature 98.3 F 11/16/24 22:44 Pulse Rate 84 11/16/24 22:44 Respiratory Rate 16 11/16/24 22:44 Blood Pressure 97/78 11/16/24 22:44 Pulse Oximetry (%) 96 11/16/24 22:44 Oxygen Delivery Method Nasal Cannula 11/16/24 22:44 Oxygen Flow Rate 6 11/16/24 22:44 [facility] Patient data External records reviewed:: [facility] previous records and EMS form Clinical information provided by:: patient and EMS Social determinants that could affect healthcare access:: none Patient has the following chronic illnesses:: Hypertension How is presenting disease/condition affected by chronic disease/condition?: uneffected by Evaluation data The following diagnostics were reviewed and interpreted by me:: lab results and radiology exam(s) Lab and/or radiology exams considered but not ordered:: None Interpretation Summary: Open wound with bleeding Medications Medications considered but not ordered:: None Medication administrations:: Medication Administration History Discontinued Medications Sodium Chloride (Ns) 1,000 mls @ 999 mls/hr IV .Q1H1M ONE Stop: 11/16/24 23:50 Last Infusion: 11/17/24 01:18 Dose: Infused Documented By: Admin: 11/16/24 22:57 Dose: 999 mls/hr Documented By: EF None Consultations Consultation(s) initiated? (list below): No Diagnosis Differential Diagnosis ED Complaint MDM: Chronic abdominal ulcers, infectious process, hemorrhagic anemia Most likely diagnosis given after review of the tests above:: Chronic abdominal ulcers Admission Indicated Admission indicated?: not indicated Explain why admission is indicated or not indicated:: Stable Admission Request Was there a request for admission?: No Disposition Plan Disposition Plan: Discharge Discharge Attestation Discharge Attestation: The patient and all family members were given an opportunity to ask questions and understood the discharge instructions. Discharge instructions specifically effects, indications for sooner follow up or return to the emergency department, and the expected course of current diagnosis. Patient condition: Stable Medical Decision Making Differential Diagnosis Differential Diagnosis: Chronic abdominal ulcers, infectious process, hemorrhagic anemia Lab Data 11/16/24 22:30 Labs: Lab Results 11/16/24 Range/Units 22:30 WBC 14.1 H (3.6-11.0) Thou/mm3 RBC 3.61 L (4.00-5.20) Miln/mm3 Hgb 9.1 L (12.0-16.0) g/dL Hct 30.3 L (36.0-46.0) % MCV 84 (80-100) fL MCH 25.2 (25.0-35.0) pg MCHC 30.0 L (31.0-37.0) g/dl RDW Std Deviation 52.9 H (36.4-46.3) fL Plt Count 472 H D (140-440) Thou/mm3 Neut % (Auto) 61 (37-80) % Lymph % (Auto) 24 (10-50) % Robertson % (Auto) 7 (0-12) % Eos % (Auto) 5 (0-10) % Baso % (Auto) 1 (0-2.5) % Neut # (Auto) 8.7 H (1.8-7.7) Thou/mm3 Lymph # (Auto) 3.5 (1.0-4.8) Thou/mm3 Robertson # (Auto) 1.1 H (0.0-0.8) Thou/mm3 Eos # (Auto) 0.8 H (0.0-0.5) Thou/mm3 Baso # (Auto) 0.1 (0.0-0.2) Thou/mm3 Immature Gran # (Auto) 0.14 H (0.00-0.00) Thou/mm3 Absolute Nucleated RBC 0.00 (0.00-0.00) Thou/mm3 Immature Gran % 1 H (0-0) % Nucleated RBC % 0 (0) /100 WBC Discharge Plan Plan Patient Disposition: Xfer Skilled Nsg Fac ([facility]) Disposition Comment: Stable for discharge back to the SNF Patient condition on transfer: Stable Prescriptions/Referrals Prescriptions/Med Rec: No Action ascorbic acid (vitamin C) 500 mg Tablet 500 mg PO BID magnesium hydroxide [Milk of Magnesia] 400 mg/5 mL Suspension 1,200 mg PO QDAY PRN (Reason: Constipation) Rx Instructions: 1200 mg/ 15mL dose bisacodyl [Dulcolax (bisacodyl)] 10 mg Suppository 10 mg MA QDAY PRN (Reason: Constipation) Rx Instructions: insert 1 suppository rectally every 24 hours as needed for constipation if MOM is ineffective and no BM for 8 hours Enema Disposable 19-7 gram/118 mL Enema 118 ml MA QDAY PRN (Reason: Constipation) Rx Instructions: insert 1 application rectally as needed for constipation if MOM and Dulcolax Supp are ineffective and no bowel movement in 8 hours. if no results from MOM, Dulcolax supp and enema call Pro-Stat Sugar Free 15 gram- 100 kcal/30 mL Liquid In Packet 1 ea PO BID tramadol 50 mg Tablet 50 mg PO Q8H PRN (Reason: Pain, Moderate) Qty: 20 0RF Rx Instructions: MODERATED P[AIN (5-7) DO NOT EXCEED 300MG IN 24HOURS gabapentin 300 mg Capsule 300 mg PO BID insulin lispro [Humalog U-100 Insulin] 100 unit/mL Solution 1 sliding scale dose SUBCUT AC Rx Instructions: 70-150= 0 UNITS 151-200 = 2 UNITS 201-250 = 4 units 251-300 = 6 units 301-350 = 8 units 351-400 = 10 units 401+ call 201-250 = 4 UNITS 251-300 = 6 UNITS 301-350 = 8 UNITS 351-400= 10 UNITS ABOVE 400 CALL escitalopram oxalate 20 mg Tablet 10 mg PO QDAY Rx Instructions: FOR 6 MONTHS M/B hopelessness r/t decline in health causing distress to resident. insulin glargine 100 unit/mL Solution 25 unit SUBCUT HS Rx Instructions: HOLD IF BS<80 atorvastatin 40 mg tablet 40 mg PO HS clonidine HCl 0.1 mg tablet 0.1 mg PO BID Rx Instructions: MONITOR BP AND PULSE, HOLD IF SBP<100 OR PULSE<60 carvedilol 3.125 mg tablet 3.125 mg PO BID Rx Instructions: MONITOR BP AND PULSE, HOLD IF SBP<100 OR PULSE<60 baclofen 10 mg tablet 5 mg PO BID amlodipine 10 mg tablet 10 mg PO QDAY Rx Instructions: MONITOR BP AND PULSE, HOLD IF SBP <100 OR PULSE <60 folic acid 1 mg tablet 1 mg PO QDAY empagliflozin 25 mg Tablet 25 mg PO QDAY sennosides [senna] 8.6 mg Tablet 8.6 - 50 mg PO BID pantoprazole 40 mg tablet,delayed release (DR/EC) 40 mg PO DAILY Multiple Vitamin-Minerals Tablet 1 tab PO QDAY doxycycline hyclate 100 mg capsule 100 mg PO BID Qty: 14 0RF linezolid 600 mg tablet 600 mg PO BID Qty: 10 0RF morphine concentrate 20 mg/mL syringe 10 mg PO .q4h PRN (Reason: moderate pain or SOB) lorazepam 0.5 mg tablet 0.5 mg PO Q6H PRN (Reason: anxiety m/b terminal illness ) methadone 5 mg tablet 2.5 mg PO Q12H morphine concentrate 20 mg/mL syringe 5 mg PO DAILY PRN (Reason: mild pain 20-30mins prior to wound care) morphine concentrate 20 mg/mL syringe 20 mg PO Q2H PRN (Reason: severe pain or SOB) Problem List Clinical Impression: Encounter for wound re-check Patient/Caregiver Discharge Instructions Discharge Activity: activity as tolerated Education Materials: ED Wound Care Additional Instructions: Please return to the emergency department if you have any worsening or any further medical problems. Otherwise you should follow-up with your primary care doctor within the next several days Print Language: Vincentian Stand Alone Forms: Jania Award Info., Patient Portal Info Letter
[2024-11-16 22:28] VITALS: PULSE 88; O2SAT 99
[2024-11-16 22:44] VITALS: BP 97/78; PULSE 84; RESP 16; TEMP 36.8; O2SAT 96
[2024-11-16 22:44] LABS: Basophils # (Auto) 0.1 Thou/mm3 (0.0-0.2); Basophils % (Auto) 1 % (0-2.5); Eosinophils # (Auto) 0.8 Thou/mm3 (0.0-0.5); Eosinophils % (Auto) 5 % (0-10); Hematocrit 30.3 % (36.0-46.0); Hemoglobin 9.1 g/dL (12.0-16.0); Immature Granulocytes % (Auto) 1 % (0-0); Immature Granulocytes Auto 0.14 Thou/mm3 (0.00-0.00); Lymphocytes # (Auto) 3.5 Thou/mm3 (1.0-4.8); Lymphocytes % (Auto) 24 % (10-50); Mean Corpuscular Hemoglobin 25.2 pg (25.0-35.0); Mean Corpuscular Volume 84 fL (80-100); Monocytes # (Auto) 1.1 Thou/mm3 (0.0-0.8); Monocytes % (Auto) 7 % (0-12); Neutrophils # (Auto) 8.7 Thou/mm3 (1.8-7.7); Neutrophils % (Auto) 61 % (37-80); Nucleated Red Blood Cell % 0 /100 WBC (0); Platelet Count 472 Thou/mm3 (140-440); RDW Standard Deviation 52.9 fL (36.4-46.3); Red Blood Count 3.61 Miln/mm3 (4.00-5.20); White Blood Count 14.1 Thou/mm3 (3.6-11.0)
[2024-11-16 22:50] VITALS: BMI 61.9
[2024-11-16] MEDS: SODIUM CHLORIDE 0.9% 1000 ML 1,000 ML 999 ML IV (22:57)
--- NOTE | 2024-11-16 23:18 | PD.EDADDENDU ---
Emergency Room Addendum Addendum Narrative: 2300: Care assumed from Fabricio Cedillo NP. Past medical, surgical, social and family history reviewed. Vitals and home medications reviewed. Results and treatment plan discussed. I will assume the care of the patient at this time and will follow the patient, pending re-evaluation. Patient's CBC is stable. Repeat blood pressure is 108/78. Patient is stable to be discharged home.
[2024-11-17 01:05] VITALS: BP 160/91; PULSE 85; RESP 16; TEMP 36; O2SAT 97
--- NOTE | 2024-11-17 01:20 | PC.NURSE ---
report given via telephone to latoya li from [facility]
== END 2024-11-17 01:26 | disposition skilled nursing facility (03) ==
LOC: SERX 23:30
PROVIDERS: Registered Nurse General Practice; Emergency Provider Emergency Medicine; PCP Hospitalist
DX: L98.499 Non-pressure chronic ulcer of skin of other sites with unspecified severity (principal)
CPT/HCPCS: 36415; 85025; 96360; 99284; J7030

== ENCOUNTER 2024-11-18 12:08 | Inpatient (IN) | payer MEDICAID, SELFPAY ==
[2024-11-18] VITALS (9 sets, daily range): BP systolic 101–145; BP diastolic 68–95; PULSE 78–118; RESP 12–18; TEMP 36.4–37.9; O2SAT 93–100; BMI 30.4
--- NOTE | 2024-11-18 12:56 | PD.EDWOUND ---
ED Wound/Laceration-RME/HPI General Chief Complaint: Wound Recheck / Suture Removal Stated Complaint: ABD WOUND Time Seen by Provider: 11/18/24 12:49 Arrival date/time: 11/18/24 12:08 RME / HPI RME / HPI narrative: DR. CHEN MAIN ED EVALUATION: 59 year old female presents to the Emergency Department [facility] from [facility] care facility with complaint of left lower quadrant wound bleed. Review the medical record show the patient had a large abdominal wounds that were debrided on September 29, [address] Pate, she is at the [facility] for care. She has history of pyoderma gangrenosum. Yesterday, wound was oozing and it was packed at [facility]. Today, the packaging was saturated and when they removed it and had venous flow on the medial aspect of the left lower abdomen wound. Related Data Home Medications ?Medication ?Instructions ?Recorded ?Confirmed escitalopram oxalate 20 mg tablet 10 mg PO QDAY DEPRESSION 05/21/24 09/23/24 gabapentin 300 mg capsule 300 mg PO BID NEUROPATHY 05/21/24 09/23/24 insulin glargine 100 unit/mL 25 unit subcut HS DM 05/21/24 09/23/24 subcutaneous solution insulin lispro 100 unit/mL 1 sliding scale dose subcut AC dm 05/21/24 09/23/24 subcutaneous solution (Humalog U-100 Insulin) amlodipine 10 mg tablet 10 mg PO QDAY htn 07/03/24 09/23/24 atorvastatin 40 mg tablet 40 mg PO HS HYPERLIPIDEMIA 07/03/24 09/23/24 baclofen 10 mg tablet 5 mg PO BID Muscle spasms 07/03/24 09/23/24 carvedilol 3.125 mg tablet 3.125 mg PO BID HTN 07/03/24 09/23/24 clonidine HCl 0.1 mg tablet 0.1 mg PO BID HTN 07/03/24 08/11/24 Held on 09/29/24. Instructions: re-evaluate with pcp empagliflozin 25 mg tablet 25 mg PO QDAY DM 07/03/24 09/23/24 folic acid 1 mg tablet 1 mg PO QDAY SUPPLEMENT 07/03/24 09/23/24 multivitamin with minerals 1 tab PO QDAY SUPPLEMENTS 07/04/24 09/23/24 (Multiple Vitamin-Minerals tablet) pantoprazole 40 mg tablet,delayed 40 mg PO DAILY GERD 07/04/24 09/23/24 release sennosides 8.6 mg tablet (senna) 8.6 - 50 mg PO BID CONSTIPATION 07/04/24 09/23/24 amino acids-protein hydrolysate 15 1 ea PO BID 08/11/24 09/23/24 gram-100 kcal/30 mL oral liquid pkt (Pro-Stat Sugar Free) ascorbic acid (vitamin C) 500 mg 500 mg PO BID 08/11/24 09/23/24 tablet bisacodyl 10 mg rectal suppository 10 mg GA QDAY PRN Constipation 08/11/24 08/11/24 (Dulcolax (bisacodyl)) magnesium hydroxide 400 mg/5 mL 1,200 mg PO QDAY PRN Constipation 08/11/24 08/11/24 oral suspension (Milk of Magnesia) sodium phosphates 19 gram-7 118 ml GA QDAY PRN Constipation 08/11/24 08/11/24 gram/118 mL enema (Enema Disposable) Previous Rx's ?Medication ?Instructions ?Recorded tramadol 50 mg tablet 50 mg PO Q8H PRN Pain, Moderate 08/14/24 #20 tabs doxycycline hyclate 100 mg capsule 100 mg PO BID #14 caps 10/12/24 linezolid 600 mg tablet 600 mg PO BID #10 tabs 10/12/24 Allergies Allergy/AdvReac Type Severity Reaction Status Date / Time acetylcysteine Allergy Severe Difficulty Verified 05/24/24 17:57 Swallowing aspirin Allergy Severe Difficulty Verified 05/24/24 17:57 Swallowing cefpodoxime Allergy Severe Difficulty Verified 05/24/24 17:57 Breathing levofloxacin (From Levaquin) Allergy Severe Difficulty Verified 05/24/24 17:57 Breathing Penicillins Allergy Severe Difficulty Verified 05/24/24 17:57 Breathing Sulfa (Sulfonamide Allergy Severe Hives Verified 05/24/24 17:57 Antibiotics) sulfadiazine Allergy Severe Difficulty Verified 05/24/24 17:57 Breathing sulfamethoxazole (From Allergy Severe Difficulty Verified 05/24/24 17:57 Bactrim) Breathing capsaicin Allergy Intermediate Hives Verified 05/24/24 17:57 dulaglutide Allergy Intermediate Hives Verified 05/24/24 17:57 trimethoprim (From Bactrim) Allergy Verified 03/21/24 22:15 Review of Systems Review of Systems Systems Reviewed: All systems reviewed, normal except as documented Past Medical History Past Medical History NEUROLOGIC: Positive Neurological Disorders, Cerebrovascular Accident and Transient Ischemic Attacks (TIA) CARDIAC: Positive Cardiac Disorders, Atrial Fibrillation, Congestive Heart Failure and Hypertension RESPIRATORY: Positive Asthma GASTROINTESTINAL: Positive Gastrointestinal Disorders, Gall Bladder Disease, Hiatal Hernia and Obesity MUSCULOSKELETAL: Positive Musculoskeletal Disorders, Arthritis, Carpal Tunnel Syndrome and Fibromyalgia ENDOCRINE: Positive Endocrine Disorders and Diabetes Mellitus Type 2 PSYCHO/SOCIAL: Positive Depression OTHER HISTORY: Positive Hospitalization, Chicken Pox and Measles Surgical History SURGICAL: Positive Abdominal Surgery and Section Social History SMOKING STATUS: Unknown if ever smoked SUBSTANCE USE: does not use ALCOHOL: Never ED Exam Narrative Physical exam: GENERAL APPEARANCE: AxOx4, generally well-appearing HEENT: NC, AT. MMM. EOMI, clear conjunctiva, oropharynx clear. NECK: Supple without lymphadenopathy. No stiffness or restricted ROM. HEART: Normal rate and regular rhythm, normal S1/S1, no m/r/g LUNGS: CTAB, moving air well. No crackles or wheezes are heard. ABDOMEN: there is venous flow on the medial aspect of the left lower abdomen wound; otherwise soft, nontender, nondistended with good bowel sounds heard. BACK: No midline C/T/L spine pain or deformity, No CVAT, no obvious deformity. EXTREMITIES: Without cyanosis, clubbing or edema. MUSCULOSKELETAL: FROM of all major joints, no chest tenderness NEUROLOGICAL: Grossly nonfocal. Alert and oriented, moving all 4 extremities. CN not formally tested but appear grossly intact. Observed to ambulate with normal gait. Skin: Warm and dry without any rash. Course Quality Measures none Orders Category Date Time Status Referral Wound Care Stat Cons 11/18/24 13:16 Active Vital Signs Vital signs: Vital Signs Temperature 98.6 F 11/18/24 13:03 Pulse Rate 81 11/18/24 13:03 Respiratory Rate 16 11/18/24 13:03 Blood Pressure 115/68 11/18/24 13:03 Pulse Oximetry (%) 93 L 11/18/24 13:03 Oxygen Delivery Method Room Air 11/18/24 13:03 Procedures -ED Procedure Comment There is venous flow on the medial aspect of the left lower abdomen wound which was closed with two figure 8 stitches. Wound / Laceration MDM Narrative MDM Narrative:: I, Connie Maravilla am scribing for and in the presence of Dr. Chen. Patient data External records reviewed:: [facility] previous records (Reviewed last ED visit dated 11/16/24, discharged with the following: Encounter for wound re-check), EMS form and [facility] records Clinical information provided by:: EMS Social determinants that could affect healthcare access:: housing (assisted care facility) Patient has the following chronic illnesses:: Review the medical record show the patient had a large abdominal wounds that were debrided on September 29, [address] Pate, she is at the assisted care facility for care. How is presenting disease/condition affected by chronic disease/condition?: exacerbated by Evaluation data The following diagnostics were reviewed and interpreted by me:: other (specify) (none) Lab and/or radiology exams considered but not ordered:: none Interpretation Summary: n/a Medications / Prescriptions Medications or Prescriptions considered but not ordered:: none Medication administrations:: see above if any Consultations Consultation(s) initiated? (list below): No Diagnosis Wound Differential Diagnosis: abscess and other (pyoderma gangrenosum, wound, sepsis) Most likely diagnosis given after review of the tests above:: Hemorrhage from wound Admission Indicated Admission indicated?: not indicated Admission Request Was there a request for admission?: No Disposition Plan Disposition Plan: Discharge Discharge Attestation Discharge Attestation: The patient and all family members were given an opportunity to ask questions and understood the discharge instructions. Discharge instructions specifically effects, indications for sooner follow up or return to the emergency department, and the expected course of current diagnosis. Patient condition: Stable Discharge Plan Plan Patient Disposition: HOME (Self Care) Prescriptions/Referrals Prescriptions/Med Rec: No Action ascorbic acid (vitamin C) 500 mg Tablet 500 mg PO BID magnesium hydroxide [Milk of Magnesia] 400 mg/5 mL Suspension 1,200 mg PO QDAY PRN (Reason: Constipation) Rx Instructions: 1200 mg/ 15mL dose bisacodyl [Dulcolax (bisacodyl)] 10 mg Suppository 10 mg GA QDAY PRN (Reason: Constipation) Rx Instructions: insert 1 suppository rectally every 24 hours as needed for constipation if MOM is ineffective and no BM for 8 hours Enema Disposable 19-7 gram/118 mL Enema 118 ml GA QDAY PRN (Reason: Constipation) Rx Instructions: insert 1 application rectally as needed for constipation if MOM and Dulcolax Supp are ineffective and no bowel movement in 8 hours. if no results from MOM, Dulcolax supp and enema call Pro-Stat Sugar Free 15 gram- 100 kcal/30 mL Liquid In Packet 1 ea PO BID tramadol 50 mg Tablet 50 mg PO Q8H PRN (Reason: Pain, Moderate) Qty: 20 0RF Rx Instructions: MODERATED P[AIN (5-7) DO NOT EXCEED 300MG IN 24HOURS gabapentin 300 mg Capsule 300 mg PO BID insulin lispro [Humalog U-100 Insulin] 100 unit/mL Solution 1 sliding scale dose SUBCUT AC Rx Instructions: 70-150= 0 UNITS 151-200 = 2 UNITS 201-250 = 4 units 251-300 = 6 units 301-350 = 8 units 351-400 = 10 units 401+ call 201-250 = 4 UNITS 251-300 = 6 UNITS 301-350 = 8 UNITS 351-400= 10 UNITS ABOVE 400 CALL escitalopram oxalate 20 mg Tablet 10 mg PO QDAY Rx Instructions: FOR 6 MONTHS M/B hopelessness r/t decline in health causing distress to resident. insulin glargine 100 unit/mL Solution 25 unit SUBCUT HS Rx Instructions: HOLD IF BS<80 atorvastatin 40 mg tablet 40 mg PO HS clonidine HCl 0.1 mg tablet 0.1 mg PO BID Rx Instructions: MONITOR BP AND PULSE, HOLD IF SBP<100 OR PULSE<60 carvedilol 3.125 mg tablet 3.125 mg PO BID Rx Instructions: MONITOR BP AND PULSE, HOLD IF SBP<100 OR PULSE<60 baclofen 10 mg tablet 5 mg PO BID amlodipine 10 mg tablet 10 mg PO QDAY Rx Instructions: MONITOR BP AND PULSE, HOLD IF SBP <100 OR PULSE <60 folic acid 1 mg tablet 1 mg PO QDAY empagliflozin 25 mg Tablet 25 mg PO QDAY sennosides [senna] 8.6 mg Tablet 8.6 - 50 mg PO BID pantoprazole 40 mg tablet,delayed release (DR/EC) 40 mg PO DAILY Multiple Vitamin-Minerals Tablet 1 tab PO QDAY doxycycline hyclate 100 mg capsule 100 mg PO BID Qty: 14 0RF linezolid 600 mg tablet 600 mg PO BID Qty: 10 0RF Referrals: No Primary/Family,Physician [Primary Care Provider] - In 1 week Problem List Clinical Impression: Hemorrhage from wound Patient/Caregiver Discharge Instructions Other Activity Instructions:: 1) Wound care to left and right lower abdomen: Irrigate with normal saline, pat dry, cover wound bed with xeroform gauze and secure with foam dressings. Change daily to every other day and PRN for saturating. 2) Avoid pressure and rubbing over wound sites. Elevate pannus with rolled towel or pillow to avoid touching bed surface. 3) Follow up at [facility] as needed for non healing complications. Call [phone] for appointment. Education Materials: Changing Dressing Dc, Wound Care Dc, ED Wound Care Additional Instructions: Follow-up your primary doctor in 2-3 days for recheck. Print Language: Amharic Stand Alone Forms: Jania Award Info., Patient Portal Info Letter
--- NOTE | 2024-11-18 14:15 | PC.WOUND ---
Wound RN notes: Seen at bedside in ED bed #19. Assessment of abdominal wound x2. Left lower abdomen no active bleeding, full thickness with small amount of adherent fibrous tissue. No s/s of infection or necrosis. Right lower abdomen fully granulated with no s/s of infection or necrosis. Xeroform gauze dressings applied to both, pt tolerated well. Spoke with Teddy LONG, plan to discharge back to SNF. Will add wound care recommendations to discharge instructions. Please also see wound media services coordinator.
--- NOTE | 2024-11-18 16:23 | PC.CC ---
Yin ARREAGA was consulted by manager clinical applications Sara regarding transportation for the patient. WHITLEY made contact with [facility] who provided reservation number [phone].
[2024-11-18] MEDS: MORPHINE SULF INJ 10 MG/ML VIAL 4 MG IM (18:23)
--- NOTE | 2024-11-18 19:02 | PD.EDADDENDU ---
Emergency Room Addendum Addendum Narrative: 1836: I was requested to speak with the patient's sister at the bedside. I spoke with the patient's sisters, Elly and Pascale, jose luis, who expressed concern regarding the patient having significant right-sided abdominal pain (the opposite site of the wounds she has). On my exam, patient appears to be in significant pain and is unable to verbalize where her pain is nor is she able to describe it. CT abdomen pelvis and labs ordered. Family also expressed concerns regarding the care the patient is receiving at the SNF. WBC count is elevated at 13.9, HnH is 7.2/23.1, BUN is 34, Glucose is 218, Lipase is normal, according to my interpretation. 2144: Patient continues to appear to be in pain and is now tachycardic in the 110s. Will consult an admission to the hospitalist after additional diagnostics are completed. 2316: Discussed case with [Dr. Mueller] from Hospitalist service regarding admission. Discussed patients ED course, exam findings, labs, and radiology results. The Hospitalist [agrees] to accept the patient for admission. RADIOLOGY RESULTS: [facility] Report Signed Patient: PARIS LEZAMA. Record#: [id number] Birthdate: 1965 Age/Sex: 59 / F Location: [facility] Attending Dr: Ordering Physician: Lane Wilder MD Date of Service: 11/18/24 Procedure(s): CT chest abdomen pelvis w Accession Number(s): [id number] cc: Slava Mendes MD; NO PRIMARY/FAMILY,PHYSICIAN; Lane Wilder MD~ Examination: CT chest with intravenous contrast CT abdomen with intravenous contrast CT pelvis with intravenous contrast 2-D coronal and sagittal reconstructions Time of exam: November 18, 2024 2050 hrs. Indications: Chest and right upper abdominal pain beginning several days ago with coughing CTDI: vol (mGy) : 19.5 DLP: (mGycm): 1631 Technique: Multiple axial images of the chest, abdomen and pelvis with intravenous contrast, 3.0 mm slice thickness. Images obtained post intravenous injection Isovue 370 60 cc. 2-D sagittal and coronal reconstructions. Low dose protocols were performed. One or more of the following dose reduction techniques were used; automated exposure control, adjustment of the mA and/or KV according to patient size, use of iterative reconstruction technique. Findings: No thoracic aortic aneurysm dilatation or dissection No pulmonary artery filling defects No paratracheal tracheobronchial or bronchopulmonary adenopathy Mild calcification left anterior descending left circumflex coronary arteries Atelectasis versus mild pneumonia right base No focal liver or splenic lesions Absent gallbladder No pancreatic or adrenal mass Atrophic kidneys with moderate renal parenchymal scar formation, no hydronephrosis Abdominal aorta is not enlarged No pericecal inflammatory change No bowel obstruction Right lateral large pelvic wall hernia defect, 12 cm, containing small bowel, no incarcerated bowel or bowel obstruction Colonic diverticulosis, no diverticulitis Large amounts of stool in the rectum with thickening the rectal wall, proctitis pattern Mild thickening of the urinary bladder Atrophic uterus with 20 mm uterine fundal mass No adnexal mass Severe osteopenia Moderate to advanced narrowing hip joints Impression: Negative for pulmonary artery emboli Calcification, mild left anterior descending left circumflex coronary arteries Atelectasis versus mild pneumonia right base Atrophic kidneys with moderate bilateral renal parenchymal scar formation, no hydronephrosis No CT findings of appendicitis Cystitis pattern Large amounts of stool in the rectum with thickening of the rectal wall, differential would include proctitis Large lateral right pelvic wall hernia defect containing small bowel, no incarcerated bowel or bowel obstruction Dictated By: Slava Mendes MD Signed By: <Electronically signed by Slava Mendes MD in OV> 11/18/242126 [facility] Report Signed Patient: PARIS LEZAMA. Record#: [id number] Birthdate: 1965 Age/Sex: 59 / F Location: [facility] Attending Dr: Ordering Physician: Lane Wilder MD Date of Service: 11/18/24 Procedure(s): XR chest 1V portable Accession Number(s): [id number] cc: Slava Mendes MD; NO PRIMARY/FAMILY,PHYSICIAN; Lane Widler MD~ Examination: AP chest single view Technique: AP portable semiupright chest single view Exam date and time: November 18, 1999 2510 0 9:00 PM Comparison October 12, 2024 Indications: Coughing today. Findings: Subsegmental atelectasis right base Mild prominence left ventricle No current pneumonia or pulmonary edema The osseous structures are demineralized Impression: No current pneumonia or pulmonary edema Dictated By: Slava Mendes MD Signed By: <Electronically signed by Slava Mendes MD in OV> 11/18/24 1097
[2024-11-18] MEDS: SODIUM CHLORIDE 0.9% 1000 ML 1,000 ML 999 ML IV ×2 (20:00→22:27)
[2024-11-18] MEDS: ACETAMINOPHEN IVPB 1,000 MG/100 ML VIAL 250 MG IV (20:05)
[2024-11-18] MEDS: ONDANSETRON INJ 2 MG/ML INJ 2 ML 4 MG IV (20:06)
[2024-11-18 20:09] LABS: Alanine Aminotransferase 9 U/L (10-49); Albumin, Serum 3.5 gm/dL (3.4-4.8); Alkaline Phosphatase 84 U/L (46-116); Anion Gap 13 (7-16); Aspartate Amino Transferase 11 U/L (0-34); BUN/Creatinine Ratio 26 Ratio (12-20); Bilirubin,Total 0.2 mg/dL (0.3-1.2); Blood Urea Nitrogen 34 mg/dL (9-23); Calcium 10.3 mg/dL (8.3-10.6); Calcium (Corrected) 10.7 mg/dL (8.5-10.1); Carbon Dioxide 19.1 mMol/L (20.0-31.0); Chloride 105 mMol/L (98-107); Creatinine (Component) 1.3 mg/dL (0.6-1.3); Estimated Creatinine Clearance 53.5 mL/min (>60); Globulin 3.6 gm/dL (2.3-3.5); Glucose 218 mg/dL (74-106); Lipase 24 U/L (12-53); Osmolality,Calculated 288 (275-295); Potassium 5.2 mMol/L (3.4-5.1); Sodium 137 mMol/L (136-145); Total Protein 7.1 gm/dL (5.7-8.2); eGFR 47 See Note
[2024-11-18 20:49] LABS: Basophils # (Auto) 0.1 Thou/mm3 (0.0-0.2); Basophils % (Auto) 1 % (0-2.5); Eosinophils # (Auto) 0.1 Thou/mm3 (0.0-0.5); Eosinophils % (Auto) 1 % (0-10); Hematocrit 23.1 % (36.0-46.0); Immature Granulocytes % (Auto) 2 % (0-0); Immature Granulocytes Auto 0.21 Thou/mm3 (0.00-0.00); Lymphocytes % (Auto) 15 % (10-50); Mean Corpuscular HGB Conc 31.2 g/dl (31.0-37.0); Mean Corpuscular Hemoglobin 25.4 pg (25.0-35.0); Mean Corpuscular Volume 82 fL (80-100); Monocytes % (Auto) 7 % (0-12); Neutrophils # (Auto) 10.4 Thou/mm3 (1.8-7.7); Neutrophils % (Auto) 75 % (37-80); Nucleated Red Blood Cell % 0 /100 WBC (0); Platelet Count 500 Thou/mm3 (140-440); RDW Standard Deviation 52.3 fL (36.4-46.3); Red Blood Count 2.83 Miln/mm3 (4.00-5.20); White Blood Count 13.9 Thou/mm3 (3.6-11.0)
[2024-11-18 20:51] LABS: Hemoglobin 7.2 g/dL (12.0-16.0)
--- NOTE | 2024-11-18 21:47 | XR_ITS ---
Examination: AP chest single view Technique: AP portable semiupright chest single view Exam date and time: November 18, 1999 2510 0 9:00 PM Comparison October 12, 2024 Indications: Coughing today. Findings: Subsegmental atelectasis right base Mild prominence left ventricle No current pneumonia or pulmonary edema The osseous structures are demineralized Impression: No current pneumonia or pulmonary edema
[2024-11-18] MEDS: MORPHINE SULF INJ 10 MG/ML VIAL 2 MG IVP (22:27)
[2024-11-18] MEDS: CLINDAMYCIN/NS 600 MG IVPB 600 MG/50 ML BAG 100 MG IV (22:28)
[2024-11-18 22:53] LABS: B-Type Natriuretic Peptide 22 pg/mL (0-100)
[2024-11-18 23:23] LABS: Magnesium 2.4 mg/dL (1.6-2.6); Phosphorous 3.5 mg/dL (2.4-5.1); Troponin I < 0.020 ng/mL (0.0-0.045)
[2024-11-18] MEDS: GENTAMICIN/NS 80 MG IVPB 80 MG in PRE-MIXED 1 BAG 50 MG IV (23:33)
[2024-11-18 23:35] LABS: LDH (Lactate Dehydrogenase) 122 U/L (120-246); Procalcitonin 0.67 ng/ml (0.0-0.49)
[2024-11-18 23:45] LABS: Partial Thromboplastin Time 20.5 Seconds (22.0-36.0); Prothrombin Time 11.4 Seconds (9.0-12.2)
--- NOTE | 2024-11-18 23:46 | EVENTNT_ITS ---
Documentation for date of: 11/18/24 Event Note Event Note: A 59-year-old female presented to the ER with the chief complaint of left lower quadrant wound bleeding. The patient had a history of a large abdominal wound, which was debrided on September 29, 2024. Two days ago, she was seen here, where the wound was cleaned and packed, and she was discharged. The following morning, [facility] found her in a puddle of blood, leading to her transport to [facility]. Again, the wound was oozing and it was packed. She was discharged. She was brought back to the ER today due to continued bleeding. The patient has a past medical history of atrial fibrillation, HFpEF (65-70%), cerebrovascular accident, hypertension, and diabetes mellitus. She has a history of pyoderma gangrenosum and has been bedbound for nearly a year. She was previously ambulatory but lost mobility after a stroke. She resides in an assisted care facility, has a puree diet, and has been experiencing progressive functional decline. She is allergic to penicillin, sulfa, levofloxacin, and Bactrim. Her medications include acetaminophen, amlodipine, baclofen, Dulcolax, escitalopram, gabapentin, insulin, lorazepam, morphine, and senna. In the Emergency Department, the patient was initially evaluated with vital signs recorded as temperature 98.6?F, heart rate 81, respiratory rate 16, and blood pressure 115/68. Laboratory results showed WBC 13.9, hemoglobin 7.2 (previously 9.1 two days ago), platelets 500, sodium 137, potassium 5.2, carbon dioxide 19.1, BUN 34, creatinine 1.3, glucose 218, and procalcitonin 0.67. Imaging revealed no pulmonary embolism but showed coronary artery calcification, right base atelectasis versus mild pneumonia, atrophic kidneys with moderate bilateral renal parenchymal scarring, cystitis, and a large lateral right pelvic wall hernia defect containing small bowel without obstruction. A large amount of stool in the rectum with rectal wall thickening was noted, suggesting possible proctitis. The patient?s left lower quadrant wound had venous flow on the medial aspect, which was controlled after suture. She had a fever of 100.2?F in the ER and persistent pain. Given the ongoing pain and hemoglobin drop, she was admitted for further management. #Recurrent Wound Bleeding * Assessment: Persistent wound bleeding from a previously debrided abdominal wound, requiring multiple ED visits. The patient has a history of pyoderma gangrenosum, which may contribute to delayed wound healing. The drop in hemoglobin (from 9.1 to 7.2) suggests ongoing blood loss. Venous oozing was controlled with suturing. Given her history of MRSA and recent Klebsiella pneumoniae growth in urine, superimposed infection is a concern. * Plan: * Consult Surgery for wound re-evaluation and management. * Continue wound care with local hemostatic measures as needed. * Monitor hemoglobin closely (H/H trending); transfuse PRBCs as indicated. * Empiric antibiotics: Aztreonam (for Klebsiella coverage) + Doxycycline (for MRSA coverage). Adjust per culture results. * Pain management with appropriate analgesia. #Anemia (Likely Secondary to Blood Loss and Inflammation) * Assessment: Acute drop in hemoglobin to 7.2, likely due to ongoing wound bleeding. No overt GI bleeding noted, but possible proctitis (per imaging) warrants consideration. * Plan: * Transfuse PRBCs if symptomatic or Hgb <7. * Monitor serial CBCs to assess for ongoing loss. #Sepsis/Infection Concern * Assessment: Fever (100.2?F), elevated procalcitonin and leukocytosis (WBC 13.9) raise suspicion for infection. UA WBC 854. Source could be the wound, urinary tract (prior Klebsiella growth), or possible pneumonia (right lower lobe atelectasis vs. mild pneumonia on imaging). * Plan: * Continue Aztreonam for recent Klebsiella UTI. * Add Doxycycline to cover MRSA in the setting of chronic wounds. * Monitor for worsening sepsis: trend WBC, lactate, procalcitonin. #Diabetes Mellitus * Assessment: Chronic diabetes with glucose 218 on admission. Poor glycemic control may contribute to impaired wound healing. * Plan: * Continue home insulin regimen and ISS.
--- NOTE | 2024-11-18 23:51 | PD.RESHP ---
Documentation for date of: 11/18/24 HPI History of Present Illness Chief complaint: Bleeding from abdominal wound History of present illness: Ms. Mcclain is a 59-year-old female with past medical history of atrial fibrillation, HFpEF (65 to 70%) CVA, hypertension, diabetes mellitus and chronic abdominal wounds who [facility] to [facility] from [email or web address] on on 11/18/2024 with a chief complaint of left lower quadrant pain and wound bleeding. Patient has flat effect, slow to respond, unable to contribute much to her history, this is patient's baseline, patient reports she is not doing good. Patient's sisters at bedside provide most of the history, per family after discharge in August patient has been following closely with wound care doctor and reports that patient is not receiving adequate care outpatient for wound care, patient was recently seen at [facility] for similar complaints, wound was packed. Reports today the packing was saturated and they patient was sent to ED for further evaluation. Patient has a history of pyoderma gangrenosum per family. Patient was in significant pain in ED, was given IV morphine to alleviate pain. Currently patient resting comfortably in bed, somnolent and noted with active bleeding from wound on left abdomen. ED Course: ED Vitals: On presentation BP 115/68, P 81, RR 16, temp 98.6, O2 sat 93 on room air ED Labs: Labs in ED significant for WBC 13.9, RBC 2.83, hemoglobin 7.2, hematocrit 23.1, platelet 500, APTT 20.5, potassium 5.2, venous CO2 19.1, BUN 34, creatinine 1.3, GFR 47, glucose 218, corrected calcium 10.7, total bilirubin 0.2, ALT 9, globulin 3.6, Pro-Nirmal 0.67 ED Imaging:CT abdomen pelvis with contrast shows atelectasis versus pneumonia right base, atrophic kidneys with mild lateral renal parenchymal scar formation, cystitis, large amount of stool in rectum with thickened rectal wall, large lateral right pelvic wall hernia defect. Chest x-ray shows no current pneumonia or pulmonary edema. ED Treatment:Patient was given morphine 4 mg IM x 1, 2 L NS bolus, IV Tylenol 1000 mg, Zofran 4 mg IV x 1, morphine 2 mg IV, IV clindamycin and gentamicin in ED Review of Systems Review of Systems Narrative Review of Systems: ROS: -CONSTITUTIONAL: Denies weight loss, fever and chills. -HEENT: Denies changes in vision and hearing. -RESPIRATORY: Denies SOB and cough. -CV: Denies palpitations and Chest Pain. -GI: Positive for abdominal pain, denies nausea, vomiting,constipation and diarrhea. -: Denies dysuria and urinary frequency. -MSK: Denies myalgia and joint pain. -SKIN: Denies rash and pruritus. Positive bleeding from abdominal wound. -NEUROLOGICAL: Denies headache and syncope. -PSYCHIATRIC: Denies recent changes in mood. Denies anxiety and depression. Past Medical History Past Medical History Comments PMH COMMENT: PMH: Positive for atrial fibrillation, HFpEF (65 to 70%) CVA, hypertension, diabetes mellitus and chronic abdominal wounds PSHx: Debridement of skin subcutaneous tissue anterior abdominal wall?04/2024;06/2024;08/2024 Allergies: Acetylcysteine, aspirin, cefpodoxime, Levaquin, penicillin, sulfa antibiotics, sulfadiazine, sulfamethoxazole, capsaicin, dulaglutide, trimethoprim Social history: -Smoking: Denies -Alcohol Use: Denies -Illicit Drug Use: Denies Family History: Denies pertinent family history. Exam Vital Signs Temp Pulse Resp BP Pulse Ox O2 Del Method 98 F 84 17 138/83 H 96 Room Air 11/18/24 22:12 11/18/24 22:40 11/18/24 22:12 11/18/24 22:12 11/18/24 22:12 11/18/24 22:12 Narrative Exam Physical Exam General: Awake and in no acute distress. Conversational, slow to respond, flat affect. HEENT: Normocephalic, atraumatic, mucous membranes moist. Heart: Regular rate and rhythm, no murmurs. Lungs: Clear to auscultation with no wheezing or crackles. Abdomen: Soft, obese, nondistended, nontender, positive bowel sounds. ?No guarding or rebound tenderness. Neurologic: Alert and oriented x3, no gross neurological deficit, and patient able to move all 4 extremities, limited mobility, patient chronically bedbound. Extremities: No edema. Skin: Unstageable sacral/coccyx ulcer, full-thickness trauma to right and left abdomen, significant bleeding from left abdomen wound, right lower leg trauma versus venous ulcer, left heel wound Results: Labs 11/18/24 19:29 11/18/24 19:29 Labs: Short CBC 11/18/24 Range/Units 19:29 WBC 13.9 H (3.6-11.0) Thou/mm3 Hgb 7.2 L D (12.0-16.0) g/dL Hct 23.1 L (36.0-46.0) % Plt Count 500 H (140-440) Thou/mm3 BMP 11/18/24 19:29 Sodium 137 Potassium 5.2 H Chloride 105 Carbon Dioxide 19.1 L BUN 34 H Creatinine 1.3 Glucose 218 H Calcium 10.3 Cardiac Enzymes 11/18/24 Range/Units 22:30 Troponin I < 0.020 (0.0-0.045) ng/mL Liver Function 11/18/24 Range/Units 19:29 Total Bilirubin 0.2 L (0.3-1.2) mg/dL AST 11 (0-34) U/L ALT 9 L (10-49) U/L Alkaline Phosphatase 84 (46-116) U/L Albumin 3.5 (3.4-4.8) gm/dL Quality Measures Quality Measures none Medications Home Medications and Allergies Home Medications ?Medication ?Instructions ?Recorded ?Confirmed ?Type escitalopram oxalate 20 mg tablet 10 mg PO QDAY DEPRESSION 05/21/24 09/23/24 History gabapentin 300 mg capsule 300 mg PO BID NEUROPATHY 05/21/24 09/23/24 History insulin glargine 100 unit/mL 25 unit subcut HS DM 05/21/24 09/23/24 History subcutaneous solution insulin lispro 100 unit/mL 1 sliding scale dose subcut AC dm 05/21/24 09/23/24 History subcutaneous solution (Humalog U-100 Insulin) amlodipine 10 mg tablet 10 mg PO QDAY htn 07/03/24 09/23/24 History atorvastatin 40 mg tablet 40 mg PO HS HYPERLIPIDEMIA 07/03/24 09/23/24 History baclofen 10 mg tablet 5 mg PO BID Muscle spasms 07/03/24 09/23/24 History carvedilol 3.125 mg tablet 3.125 mg PO BID HTN 07/03/24 09/23/24 History clonidine HCl 0.1 mg tablet 0.1 mg PO BID HTN 07/03/24 08/11/24 History Held on 09/29/24. Instructions: re-evaluate with pcp empagliflozin 25 mg tablet 25 mg PO QDAY DM 07/03/24 09/23/24 History folic acid 1 mg tablet 1 mg PO QDAY SUPPLEMENT 07/03/24 09/23/24 History multivitamin with minerals 1 tab PO QDAY SUPPLEMENTS 07/04/24 09/23/24 History (Multiple Vitamin-Minerals tablet) pantoprazole 40 mg tablet,delayed 40 mg PO DAILY GERD 07/04/24 09/23/24 History release sennosides 8.6 mg tablet (senna) 8.6 - 50 mg PO BID CONSTIPATION 07/04/24 09/23/24 History amino acids-protein hydrolysate 15 1 ea PO BID 08/11/24 09/23/24 History gram-100 kcal/30 mL oral liquid pkt (Pro-Stat Sugar Free) ascorbic acid (vitamin C) 500 mg 500 mg PO BID 08/11/24 09/23/24 History tablet bisacodyl 10 mg rectal suppository 10 mg DE QDAY PRN Constipation 08/11/24 08/11/24 History (Dulcolax (bisacodyl)) magnesium hydroxide 400 mg/5 mL 1,200 mg PO QDAY PRN Constipation 08/11/24 08/11/24 History oral suspension (Milk of Magnesia) sodium phosphates 19 gram-7 118 ml DE QDAY PRN Constipation 08/11/24 08/11/24 History gram/118 mL enema (Enema Disposable) Allergies Allergy/AdvReac Type Severity Reaction Status Date / Time acetylcysteine Allergy Severe Difficulty Verified 05/24/24 17:57 Swallowing aspirin Allergy Severe Difficulty Verified 05/24/24 17:57 Swallowing cefpodoxime Allergy Severe Difficulty Verified 05/24/24 17:57 Breathing levofloxacin (From Levaquin) Allergy Severe Difficulty Verified 05/24/24 17:57 Breathing Penicillins Allergy Severe Difficulty Verified 05/24/24 17:57 Breathing Sulfa (Sulfonamide Allergy Severe Hives Verified 05/24/24 17:57 Antibiotics) sulfadiazine Allergy Severe Difficulty Verified 05/24/24 17:57 Breathing sulfamethoxazole (From Allergy Severe Difficulty Verified 05/24/24 17:57 Bactrim) Breathing capsaicin Allergy Intermediate Hives Verified 05/24/24 17:57 dulaglutide Allergy Intermediate Hives Verified 05/24/24 17:57 trimethoprim (From Bactrim) Allergy Verified 03/21/24 22:15 Visit Medications Acetaminophen (Acetaminophen 325 Mg Tablet) 650 mg PO Q6H PRN PRN Reason: Fever >101.5 Stop: 12/18/24 23:46 Dextrose (Dextrose 50%-Water Inj 50 Ml Syringe) 25 ml IV Q15MIN PRN PRN Reason: BG 50-70 responsive npo pt Stop: 12/18/24 23:36 Dextrose (Dextrose 50%-Water Inj 50 Ml Syringe) 50 ml IV Q15MIN PRN PRN Reason: BG <50 OR BG <70 & pt unresponsive Stop: 12/18/24 23:36 Escitalopram Oxalate (Escitalopram Oxalate 10 Mg Tablet) 20 mg PO QDAY [facility] Stop: 12/19/24 08:59 Gabapentin (Gabapentin 300 Mg Capsule) 300 mg PO BID FREDA Stop: 12/19/24 08:59 Glucagon (Glucagon Inj 1 Mg Vial) 1 mg IM Q15MIN PRN PRN Reason: BG <70, and no IV access Sodium Chloride (Ns) 1,000 mls @ 75 mls/hr IV .[id number] [facility] Stop: 12/18/24 23:44 Aztreonam 2,000 mg/ Sodium (Chloride) 100 mls @ 100 mls/hr IV Q8HR [facility] Stop: 11/25/24 23:49 Insulin Glargine (Insulin Glargine (Lantus) 5 Unit/0.05 Ml (Per 5 Units)) 10 unit SC QDAY [facility] Stop: 12/19/24 08:59 Morphine Sulfate (Morphine Sulf Inj 10 Mg/Ml Vial) 2 mg IVP Q30M PRN PRN Reason: PAIN Last Admin: 11/18/24 22:27 Dose: 2 mg Morphine Sulfate (Morphine Sulf Inj 10 Mg/Ml Vial) 2 mg IVP Q2H PRN PRN Reason: PAIN SCALE 7-10 (Severe Stop: 11/23/24 23:46 Oxycodone/Acetaminophen (Oxycodone/Apap 5/325 Tablet) 2 tab PO Q6H PRN PRN Reason: PAIN SCALE 4-6 (Moderate Stop: 11/23/24 23:46 Discontinued Medications Sodium Chloride (Ns) 1,000 mls @ 999 mls/hr IV .Q1H1M ONE Stop: 11/18/24 20:06 Last Infusion: 11/18/24 21:05 Dose: Infused Acetaminophen (Ofirmev Inj) 1,000 mg in 100 mls @ 250 mls/hr IV Q6HR FREDA Stop: 11/19/24 12:23 Last Admin: 11/18/24 20:08 Dose: Not Given Acetaminophen (Ofirmev Inj) 1,000 mg in 100 mls @ 250 mls/hr IV X1 ONE Stop: 11/18/24 20:22 Last Infusion: 11/18/24 21:04 Dose: Infused Sodium Chloride (Ns) 1,000 mls @ 999 mls/hr IV .Q1H1M ONE Stop: 11/18/24 22:50 Last Infusion: 11/18/24 23:39 Dose: Infused Clindamycin/Sodium Chloride (Cleocin/Ns Ivpb) 600 mg in 50 mls @ 100 mls/hr IV X1 ONE Stop: 11/18/24 22:21 Last Infusion: 11/18/24 23:06 Dose: Infused Gentamicin Sulfate/Sodium Chloride 80 mg/ IV Miscellaneous Supplies 50 mls @ 50 mls/hr IV X1 ONE Stop: 11/18/24 22:52 Last Admin: 11/18/24 23:33 Dose: 50 mls/hr Morphine Sulfate (Morphine Sulf Inj 10 Mg/Ml Vial) 4 mg IM X1 ONE Stop: 11/18/24 18:13 Last Admin: 11/18/24 18:23 Dose: 4 mg Ondansetron HCl (Ondansetron Odt 4 Mg Tabrap) 4 mg PO X1 ONE; Protocol Stop: 11/18/24 18:14 Last Admin: 11/18/24 20:07 Dose: Not Given Ondansetron HCl (Ondansetron Inj 2 Mg/Ml Inj 2 Ml) 4 mg IV X1 ONE; Protocol Stop: 11/18/24 19:59 Last Admin: 11/18/24 20:06 Dose: 4 mg Assessment & Plan Plan Assessment and plan: Summary: Ms. Mcclain is a 59-year-old female with past medical history of atrial fibrillation, HFpEF (65 to 70%) CVA, hypertension, diabetes mellitus and chronic abdominal wounds who presented to [facility] from [email or web address] on on 11/18/2024 with a chief complaint of left lower quadrant pain and wound bleeding. Patient admitted for further evaluation. #Recurrently bleeding #Chronic abdominal wounds #Normocytic normochromic anemia possibly secondary to blood loss Persistently bleeding from abdominal wound, wound was previously debrided by Dr. Pate 3 times during previous hospitalizations, does report history of pyoderma gangrenosum which contributes to delayed wound healing, patient's hemoglobin dropped from 9.1-7.2 suggesting ongoing blood loss, patient has significant venous oozing which was controlled with suturing, currently patient had a fever 100.2, elevated Pro-Nirmal leukocytosis, high suspicion of infection. Plan: ? Consulted general surgery, appreciate recommendations ? Referral to wound care ? Monitor hemoglobin closely, transfuse PRBC if hemoglobin less than 7 ? Continue aztreonam and doxycycline (11/18- ? Morphine as needed for pain ? Resumed home dose gabapentin, escitalopram ? Was given clindamycin and gentamicin in ED ? Maintenance fluids NS 75 cc/h ? Follow blood culture and urine culture #Acute kidney injury Baseline BUN 21, GFR more than 60, creatinine 1.0. On admission BUN 34, creatinine 1.3, GFR 47. Patient was given 2 L NS bolus in ED Plan: ? Continue IV maintenance fluids ? Avoid nephrotoxic agents ? Renally dose medication #Diabetes mellitus Hemoglobin A1c 09/22/2024 7.2 Plan: ? Sliding scale insulin ? Lantus 10 units at bedtime #Atrial fibrillation #HFpEF EF 65 to 70% #CVA by history #Hypertension Patient on Coreg 3.125 mg twice daily, amlodipine 10 daily, losartan 50 mg daily, atorvastatin 40 mg at bedtime Pending med reconciliation, resume in a.m. DVT prophylaxis: SCDs GI prophylaxis: Not indicated Diet: Dysphagia diet 1 pur?ed, carb consistent, cardiac Lines: Peripheral IV Code status: Full code Case discussed with Attending Dr. Mueller. Arnold Ortiz PGY1 Disclaimer: This note was dictated by speech recognition. Minor errors in kraft mill operator may be present due to voice recognition software. Attending Provider Attestation/Addendum Pt was evaluated and plan formulated together with the housestaff team. I have reviewed the residents note above and agree with most of its content. Please refer to the residents note for additional details.
[2024-11-19] VITALS (10 sets, daily range): BP systolic 109–139; BP diastolic 66–89; PULSE 65–86; RESP 13–18; TEMP 36.4–37.1; O2SAT 91–96; BMI 36.7; BMI 36.5
[2024-11-19 00:03] LABS: Collection Type, Urine Clean Catch
[2024-11-19] MEDS: SODIUM CHLORIDE 0.9% 1000 ML 1,000 ML 75 ML IV (00:18)
[2024-11-19] MEDS: SODIUM CHLORIDE 0.9% IV ×4 (00:19→21:48)
[2024-11-19] MEDS: AZTREONAM IV ×4 (00:19→21:48)
[2024-11-19] MEDS: MORPHINE SULF INJ 10 MG/ML VIAL 2 MG IVP (00:20)
[2024-11-19] MEDS: DOXYCYCLINE INJ 100 MG in SODIUM CHLORIDE 0.9% (P) 100 ML IV ×3 (00:20→20:30)
[2024-11-19 00:27] LABS: Bacteria,Urine 3+; Bilirubin,Urine Negative (Negative); Blood,Urine Trace (Negative); Color,Urine Yellow (Lt Yel-Yel); Glucose, Urine Negative (Negative); Ketones,Urine Negative (Negative); Leukocyte Esterase,Urine Positive (Negative); Nitrite,Urine Negative (Negative); Protein,Urine Trace (Neg - Trace); RBC,Urine 18 /hpf (0-3); Specific Gravity,Urine 1.048 (1.001-1.035); Squamous Epithelial Cell,Urine 2 /hpf (0-5); Urobilinogen,Urine Negative mg/dL (0.0-1.0); WBC,Urine 854 /hpf (0-5)
[2024-11-19 00:28] LABS: Clarity,Urine Turbid (Clear/Hazy)
[2024-11-19 05:31] LABS: Basophils # (Auto) 0.1 Thou/mm3 (0.0-0.2); Basophils % (Auto) 1 % (0-2.5); Eosinophils # (Auto) 0.3 Thou/mm3 (0.0-0.5); Eosinophils % (Auto) 2 % (0-10); Hematocrit 22.8 % (36.0-46.0); Immature Granulocytes % (Auto) 1 % (0-0); Immature Granulocytes Auto 0.17 Thou/mm3 (0.00-0.00); Lymphocytes % (Auto) 21 % (10-50); Mean Corpuscular HGB Conc 29.8 g/dl (31.0-37.0); Mean Corpuscular Volume 84 fL (80-100); Monocytes # (Auto) 1.5 Thou/mm3 (0.0-0.8); Monocytes % (Auto) 11 % (0-12); Neutrophils # (Auto) 8.9 Thou/mm3 (1.8-7.7); Neutrophils % (Auto) 64 % (37-80); Nucleated Red Blood Cell % 0 /100 WBC (0); Platelet Count 539 Thou/mm3 (140-440); RDW Standard Deviation 54.7 fL (36.4-46.3); Red Blood Count 2.72 Miln/mm3 (4.00-5.20)
[2024-11-19 05:43] LABS: Hemoglobin 6.8 g/dL (12.0-16.0)
[2024-11-19 06:22] LABS: Anion Gap 7 (7-16); BUN/Creatinine Ratio 25 Ratio (12-20); Blood Urea Nitrogen 35 mg/dL (9-23); Calcium 9.1 mg/dL (8.3-10.6); Carbon Dioxide 21.8 mMol/L (20.0-31.0); Chloride 110 mMol/L (98-107); Creatinine (Component) 1.4 mg/dL (0.6-1.3); Estimated Creatinine Clearance 47.7 mL/min (>60); Glucose 133 mg/dL (74-106); Osmolality,Calculated 287 (275-295); Potassium 4.9 mMol/L (3.4-5.1); Sodium 139 mMol/L (136-145); eGFR 43 See Note
[2024-11-19] MEDS: SENNA TABLET 1 TAB PO ×2 (09:31→20:32)
[2024-11-19] MEDS: POLYETHYLENE GLYCOL 17 GM PACKET PO (09:31)
[2024-11-19] MEDS: GABAPENTIN 300 MG CAPSULE PO ×2 (09:31→20:33)
[2024-11-19] MEDS: ESCITALOPRAM OXALATE 10 MG TABLET 20 MG PO (09:32)
[2024-11-19] MEDS: INSULIN GLARGINE (Lantus) 5 UNIT/0.05 ML (PER 5 UNITS) 10 UNIT SC (09:42)
--- NOTE | 2024-11-19 10:33 | PC.PT ---
Patient is pending blood transfusion. Will initiate PT evaluation, post blood transfusion. RN made aware.
[2024-11-19] MEDS: INSULIN LISPRO (AdmeLOG) 1 UNIT/0.01 ML UNIT SC ×2 (11:20→16:53)
[2024-11-19 11:33] LABS: Path Review Blood Smear Sent to Pathologist
--- NOTE | 2024-11-19 11:44 | ESPR_ITS ---
<Statement entered by Mike Gutierrez MD - 11/20/24 07:37> I discussed with and supervised the process engineering intern physician involved in the care of this patient. Patient assessment and plan was discussed with entire medicine team, including my attending. I agree with the assessment and plan as documented by process engineering intern doctor. Patient care was discussed with my attending physician Dr. Anjelica Gutierrez, PGY-2 Documentation for date of: 11/19/24 Subjective Subjective Interval history: 11/19/2024: Overnight admit for patient with acute blood loss anemia secondary to abdominal wounds and UTI requiring IV antibiotics. Patient seen and examined in hospital bed is mildly somnolent and answers questions with 1-2 word answers. On examination, wound care has placed bandages on abdomen and there is no oozing noted at this time. General surgery, denies any need for surgical intervention at this time. Will continue to treat with IV antibiotics, wound care and plan for discharge within the next 24 to 48 hours pending PT evaluation. Exam Vital Signs Temp Pulse Resp BP Pulse Ox O2 Del Method 98.1 F 65 17 122/78 91 L Room Air 11/19/24 08:00 11/19/24 08:00 11/19/24 08:00 11/19/24 08:00 11/19/24 08:00 11/19/24 08:00 Narrative Exam Physical Exam General: Awake and in no acute distress. Mildly somnolent but answers questions with 1-2 word answers HEENT: Normocephalic, atraumatic, mucous membranes moist. Heart: Regular rate and rhythm, no murmurs. Lungs: Clear to auscultation with no wheezing or crackles. Abdomen: Full-thickness trauma to right and left abdomen bandaged. Otherwise, soft, obese, nondistended, nontender. ?No guarding or rebound tenderness. H ypoactive bowel sounds Neurologic: Alert and oriented x3, no gross neurological deficit, limited mobility, patient chronically bedbound. Extremities: No peripheral edema noted, right lower leg trauma versus venous ulcer, left heel wound Skin: Unstageable sacral/coccyx ulcer Objective Labs 11/19/24 04:25 11/19/24 04:25 Labs: Laboratory Results - last 24 hr 11/18/24 11/18/24 11/18/24 19:29 20:17 22:30 WBC 13.9 H RBC 2.83 L Hgb 7.2 L D Hct 23.1 L MCV 82 MCH 25.4 MCHC 31.2 RDW Std Deviation 52.3 H Plt Count 500 H Neut % (Auto) 75 Lymph % (Auto) 15 [place] % (Auto) 7 Eos % (Auto) 1 Baso % (Auto) 1 Neut # (Auto) 10.4 H Lymph # (Auto) 2.0 [place] # (Auto) 1.0 H Eos # (Auto) 0.1 Baso # (Auto) 0.1 Immature Gran # (Auto) 0.21 H Absolute Nucleated RBC 0.00 Immature Gran % 2 H Nucleated RBC % 0 Smear Path Review PT 11.4 INR 1.0 APTT 20.5 L Sodium 137 Potassium 5.2 H Chloride 105 Carbon Dioxide 19.1 L Anion Gap 13 BUN 34 H Creatinine 1.3 Estim Creat Clear Calc 53.5 L eGFR 47 L BUN/Creatinine Ratio 26 H Glucose 218 H Calculated Osmolality 288 Lactic Acid 2.0 Calcium 10.3 Corrected Calcium 10.7 H Phosphorus 3.5 Magnesium 2.4 Total Bilirubin 0.2 L AST 11 ALT 9 L Alkaline Phosphatase 84 Lactate Dehydrogenase 122 Troponin I < 0.020 B-Natriuretic Peptide 22 Total Protein 7.1 Albumin 3.5 Globulin 3.6 H Albumin/Globulin Ratio 1.0 L Lipase 24 Procalcitonin 0.67 H Ur Collection Type Urine Color Urine Clarity Urine pH Ur Specific [place] Urine Protein Urine Glucose (UA) Urine Ketones Urine Blood Urine Nitrite Urine Bilirubin Urine Urobilinogen (Auto) Ur Leukocyte Esterase Urine RBC Urine WBC Ur Squamous Epith Cells Urine Bacteria Blood Type Antibody Screen Crossmatch Blood Bank Wristband ID 11/18/24 11/19/24 11/19/24 23:59 04:25 06:30 WBC 14.0 H RBC 2.72 L Hgb 6.8 L* Hct 22.8 L MCV 84 MCH 25.0 MCHC 29.8 L RDW Std Deviation 54.7 H Plt Count 539 H D Neut % (Auto) 64 Lymph % (Auto) 21 [place] % (Auto) 11 Eos % (Auto) 2 Baso % (Auto) 1 Neut # (Auto) 8.9 H Lymph # (Auto) 3.0 [place] # (Auto) 1.5 H Eos # (Auto) 0.3 Baso # (Auto) 0.1 Immature Gran # (Auto) 0.17 H Absolute Nucleated RBC 0.00 Immature Gran % 1 H Nucleated RBC % 0 Smear Path Review Sent to Pathologist PT INR APTT Sodium 139 Potassium 4.9 Chloride 110 H Carbon Dioxide 21.8 Anion Gap 7 BUN 35 H Creatinine 1.4 H Estim Creat Clear Calc 47.7 L eGFR 43 L BUN/Creatinine Ratio 25 H Glucose 133 H D Calculated Osmolality 287 Lactic Acid Calcium 9.1 Corrected Calcium Phosphorus Magnesium Total Bilirubin AST ALT Alkaline Phosphatase Lactate Dehydrogenase Troponin I B-Natriuretic Peptide Total Protein Albumin Globulin Albumin/Globulin Ratio Lipase Procalcitonin Ur Collection Type Clean Catch Urine Color Yellow Urine Clarity Turbid A Urine pH 5.0 Ur Specific [place] 1.048 H Urine Protein Trace Urine Glucose (UA) Negative Urine Ketones Negative Urine Blood Trace Urine Nitrite Negative Urine Bilirubin Negative Urine Urobilinogen (Auto) Negative Ur Leukocyte Esterase Positive Urine RBC 18 H Urine WBC 854 H Ur Squamous Epith Cells 2 Urine Bacteria 3+ A Blood Type O Negative Antibody Screen NEGATIVE Crossmatch See Detail Blood Bank Wristband ID Yes Quality Measures Quality Measures none Assessment & Plan Assessment Current Active Medications: Generic Name Dose Route Start Last Admin Trade Name Freq PRN Reason Stop Dose Admin Acetaminophen 650 mg 11/18/24 23:47 Acetaminophen 325 Mg Tablet PO 12/18/24 23:46 Q6H PRN Fever >101.5 Dextrose 25 ml 11/18/24 23:37 Dextrose 50%-Water Inj 50 Ml Syringe IV 12/18/24 23:36 Q15MIN PRN BG 50-70 responsive npo pt Dextrose 50 ml 11/18/24 23:37 Dextrose 50%-Water Inj 50 Ml Syringe IV 12/18/24 23:36 Q15MIN PRN BG <50 OR BG <70 & pt unresponsive Escitalopram Oxalate 20 mg 11/19/24 09:00 11/19/24 09:32 Escitalopram Oxalate 10 Mg Tablet PO 12/19/24 08:59 20 mg QDAY FREDA Administration Gabapentin 300 mg 11/19/24 09:00 11/19/24 09:31 Gabapentin 300 Mg Capsule PO 12/19/24 08:59 300 mg BID FREDA Administration Glucagon 1 mg 11/18/24 23:37 Glucagon Inj 1 Mg Vial IM Q15MIN PRN BG <70, and no IV access Doxycycline Hyclate 100 mg/ 100 mls @ 100 mls/hr 11/19/24 09:00 11/19/24 09:31 Sodium Chloride IV 11/26/24 08:59 100 mls/hr BID FREDA Administration Aztreonam 2,000 mg/ Sodium 100 mls @ 100 mls/hr 11/19/24 14:00 Chloride IV 11/26/24 13:59 Q8HR FREDA Insulin Glargine 10 unit 11/19/24 09:00 11/19/24 09:42 Insulin Glargine (Lantus) 5 Unit/0.05 Ml (Per 5 Units) SC 12/19/24 08:59 10 unit QDAY FREDA Administration Insulin Human Lispro 0 unit 11/19/24 07:30 11/19/24 11:20 Insulin Lispro (Admelog) 1 Unit/0.01 Ml Unit SC 12/19/24 07:29 1 unit AC FREDA Administration Protocol Morphine Sulfate 2 mg 11/18/24 23:47 Morphine Sulf Inj 10 Mg/Ml Vial IVP 11/23/24 23:46 Q2H PRN PAIN SCALE 7-10 (Severe Oxycodone/Acetaminophen 2 tab 11/18/24 23:47 Oxycodone/Apap 5/325 Tablet PO 11/23/24 23:46 Q6H PRN PAIN SCALE 4-6 (Moderate Polyethylene Glycol 17 gm 11/19/24 09:00 11/19/24 09:31 Polyethylene Glycol 17 Gm Packet PO 12/19/24 08:59 17 gm QDAY FREDA Administration Sennosides 1 tab 11/19/24 09:00 11/19/24 09:31 Senna Tablet PO 12/19/24 08:59 1 tab BID FREDA Administration Protocol Plan 59-year-old female with past medical history of atrial fibrillation, HFpEF (65 to 70%) CVA, hypertension, diabetes mellitus and chronic abdominal wounds who presented to [facility] from [facility] on on 11/18/2024 with a chief complaint of left lower quadrant pain and wound bleeding. Patient admitted for further evaluation. # Acute blood loss anemia secondary to #Chronic abdominal wounds Persistently bleeding from abdominal wound, wound was previously debrided by Dr. Pate 3 times during previous hospitalizations, History of pyoderma gangrenosum which contributes to delayed wound healing, Patient's hemoglobin dropped from 9.1-7.2 suggesting ongoing blood loss, patient has significant venous oozing which was controlled with suturing, Presented initially with fever 100.2, elevated Pro-Nirmal leukocytosis, high suspicion of infection Was given clindamycin, gentamicin and IV fluid resuscitation in ED General surgery was consulted, there is no emergent surgical intervention needed at this time Plan: Referral wound care, appreciate recommendations Multimodal analgesia Continue home dose gabapentin, escitalopram Monitor hemoglobin/hematocrit with morning labs #UTI #Acute kidney injury Patient does have history of Klebsiella urinary tract infection Baseline BUN 21, GFR more than 60, creatinine 1.0. On admission BUN 34, creatinine 1.3, GFR 47. Patient was given 2 L NS bolus in ED Urinalysis positive for leukocyte esterase, pyuria and 3+ bacteria CT abdomen pelvis showed cystitis pattern, atrophic kidneys with no hydronephrosis and proctitis secondary to high stool burden in rectum Plan: Continue aztreonam and doxycycline (11/18- Pending blood culture and urine culture Avoid nephrotoxic agents Renally dose medication #Diabetes mellitus Hemoglobin A1c 09/22/2024 7.2 Plan: Continue sliding scale insulin Lantus 10 units at bedtime #Atrial fibrillation #HFpEF EF 65 to 70% #CVA by history #Hypertension Patient on Coreg 3.125 mg twice daily, amlodipine 10 daily, losartan 50 mg daily, atorvastatin 40 mg at bedtime Patient did receive IV fluid resuscitation secondary to sepsis from UTI along with transfusion for low hemoglobin Plan: Pending med reconciliation Monitor volume status and oxygenation requirements as the patient could have HFpEF exacerbation Hospital Management: Lines: PIV Bowel: Senna, Fleet enema for constipation Diet: Dysphagia diet 1 pur?ed, carb consistent, cardiac GI prophylaxis: Not indicated DVT prophylaxis: SCDs Dispo: Transfusing, pending posttransfusion H&H. IV antibiotics for UTI Code status: Full code Patient seen and examined with attending Dr. Dejesus and senior resident Dr. Matt Shah, PGY-1 Attending Provider Attestation/Addendum Kusum Owens, DO, attest that I was physically present for the guardado portions of the service and evaluated the patient with the resident and I reviewed and discussed the case with the resident and agree with the resident's findings and plans of care as documented above Pastient seen and evaluated this AM. Patient is selective with answering questions. She moans in discomfort. Right lower abdomen wound appears clean with granulation tissue. Left lower abdominal wound has been oozing with mild drainage. Case discussed with surgeon, no further interventions recommended at this time. Transfusing 1 unit of pRBCs. will f/u with posttransfusion H/H. Continue with wound care. F/u with urine culture regarding UTI
--- NOTE | 2024-11-19 15:59 | PC.DIETICIAN ---
Addendum entered by Shira Eduardo, ONUR 11/21/24 15:31: Nutrition Prescription: 1) Added Prostat SF 30ml BID with lunch and dinner. 2) add Vitamin C 500mg BID daily, zinc 220mg, Multivitamin-Mineral daily to ensure adequate nutrient intake and promote wound healing. Original Note: Recommendations: 1) Flavored Brian 1 pkt BID daily; after lunch and dinner; mix with 6-8 oz water 2) add Vitamin C 500mg BID daily, zinc 220mg, Multivitamin-Mineral daily to ensure adequate nutrient intake and promote wound healing.
[2024-11-19 17:17] LABS: Hematocrit 23.8 % (36.0-46.0)
[2024-11-19 17:27] LABS: Hemoglobin 7.3 g/dL (12.0-16.0)
[2024-11-20] VITALS: BP 124/85; PULSE 82; RESP 18; TEMP 37.3; O2SAT 95
[2024-11-20 04:00] VITALS: BP 159/84; PULSE 78; RESP 18; TEMP 37.4; O2SAT 93
[2024-11-20] MEDS: SODIUM CHLORIDE 0.9% IV ×3 (05:05→21:11)
[2024-11-20] MEDS: AZTREONAM IV ×3 (05:05→21:11)
[2024-11-20 05:25] LABS: Basophils # (Auto) 0.1 Thou/mm3 (0.0-0.2); Basophils % (Auto) 1 % (0-2.5); Eosinophils # (Auto) 0.7 Thou/mm3 (0.0-0.5); Eosinophils % (Auto) 6 % (0-10); Hematocrit 24.3 % (36.0-46.0); Immature Granulocytes % (Auto) 1 % (0-0); Immature Granulocytes Auto 0.13 Thou/mm3 (0.00-0.00); Lymphocytes % (Auto) 25 % (10-50); Mean Corpuscular HGB Conc 31.7 g/dl (31.0-37.0); Mean Corpuscular Hemoglobin 26.7 pg (25.0-35.0); Mean Corpuscular Volume 84 fL (80-100); Monocytes # (Auto) 1.2 Thou/mm3 (0.0-0.8); Monocytes % (Auto) 10 % (0-12); Neutrophils # (Auto) 6.8 Thou/mm3 (1.8-7.7); Neutrophils % (Auto) 57 % (37-80); Nucleated Red Blood Cell % 0 /100 WBC (0); Platelet Count 440 Thou/mm3 (140-440); Red Blood Count 2.88 Miln/mm3 (4.00-5.20)
[2024-11-20 05:48] LABS: Hemoglobin 7.7 g/dL (12.0-16.0)
[2024-11-20 06:05] LABS: Anion Gap 9 (7-16); BUN/Creatinine Ratio 26 Ratio (12-20); Blood Urea Nitrogen 37 mg/dL (9-23); Calcium 9.2 mg/dL (8.3-10.6); Carbon Dioxide 21.8 mMol/L (20.0-31.0); Chloride 109 mMol/L (98-107); Creatinine (Component) 1.4 mg/dL (0.6-1.3); Estimated Creatinine Clearance 47.7 mL/min (>60); Glucose 97 mg/dL (74-106); Osmolality,Calculated 288 (275-295); Potassium 4.2 mMol/L (3.4-5.1); Sodium 140 mMol/L (136-145); eGFR 43 See Note
[2024-11-20 07:46] VITALS: BP 147/89; PULSE 87; RESP 15; TEMP 36.5; O2SAT 95
--- NOTE | 2024-11-20 08:14 | PC.NURSE ---
Completed assessment on pt. Pt opens eyes to voice but will not swallow water. Only responds at sometimes to nurse. Contacted Dr. Shah and informed him that pt unable to swallow PO meds at this time. put in order for speech evaluation and will come see pt.
[2024-11-20] MEDS: SENNA TABLET 1 TAB PO ×2 (09:33→20:12)
[2024-11-20] MEDS: GABAPENTIN 300 MG CAPSULE PO ×2 (09:33→20:12)
[2024-11-20] MEDS: DOXYCYCLINE INJ 100 MG in SODIUM CHLORIDE 0.9% (P) 100 ML IV ×2 (09:33→20:13)
[2024-11-20] MEDS: ESCITALOPRAM OXALATE 10 MG TABLET 20 MG PO (09:33)
[2024-11-20] MEDS: INSULIN GLARGINE (Lantus) 5 UNIT/0.05 ML (PER 5 UNITS) 10 UNIT SC (09:38)
[2024-11-20] MEDS: POLYETHYLENE GLYCOL 17 GM PACKET PO (09:38)
--- NOTE | 2024-11-20 10:35 | CHAP ---
Patient was visited by the Spiritual Care Volunteer who prayed silently in evans for them. (Volunteer was in the hospital from 9:30-10:35)
--- NOTE | 2024-11-20 10:48 | PC.SS ---
SS received phone call from patient's dtr, Savanah Storm, phone# [phone] who explained pt was under [facility] at [facility], prior to being hospitalized. Dtr is requesting for SS to seek placement closer to family around the [facility]. 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 Dtr is also aware seeking senior care placement at senior care facility is not a guaranteed and if physicians our ready for d/c pt will have to return to [facility] or home. Dtr is also aware [facility] can continue seeking senior care placement. SS provided resident physicians daughter's phone #for an update.
[2024-11-20] MEDS: INSULIN LISPRO (AdmeLOG) 1 UNIT/0.01 ML UNIT SC (11:38)
[2024-11-20 11:55] VITALS: BP 128/62; PULSE 84; RESP 16; TEMP 37.1; O2SAT 96
--- NOTE | 2024-11-20 12:32 | PC.SS ---
SS has sent inquiry for SNF around 50 mile radius from [facility] using [employer]. Dtr, Savanah Storm, phone# [phone] is aware. Patient's mom is aware. SS attempted to contact sister, Elly but was unsuccessful.
--- NOTE | 2024-11-20 12:53 | PC.SS ---
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.? Pt is confused.? Pt was admitted for Anemia.? Patient's contact information is correct on her facesheet.? SS spoke to Anyi from [facility] who explained pt is bedbound and requires assistance.? Patient's sister, Elly Loja is her medical decision maker. Pt is followed by Dr. Evans.? Anyi from [facility] is aware sister and family are requesting to seek residential placement in [facility] due to being closer to family.? Pt will return to [facility] if terminal supervisor placement is not found at another SNF when pt is medically ready for dc (family is aware). D/C plan:? Return home Next of Kin:? Elly Loja, sister, phone# [phone] PCP:? Dr. Evans Address:? Correct on facesheet
--- NOTE | 2024-11-20 13:00 | PC.PT ---
I wasn't able to wake pt after several attempts in order to evaluate. Will attempt later.
--- NOTE | 2024-11-20 13:07 | ESPR_ITS ---
<Statement entered by Mike Gutierrez MD - 11/20/24 15:53> I discussed with and supervised the merchandising internship physician involved in the care of this patient. Patient assessment and plan was discussed with entire medicine team, including my attending. I agree with the assessment and plan as documented by merchandising internship doctor. Patient care was discussed with my attending physician Dr. Anjelica Gutierrez, PGY-2 Documentation for date of: 11/20/24 Subjective Subjective Interval history: 11/20/2024: No acute overnight events to report. Patient's 1 set of blood cultures came back positive in both aerobic/anaerobic bottles for GPC; moreover, ordered repeat blood cultures. Continue to treat UTI with empiric IV antibiotic. Patient's abdominal wounds are stable and bandaged; moreover, hemoglobin is stable. Spoke with the patient's sister Savanah Storm and updated regarding the patient's current status and disposition plan. Per family member, they would not like to pursue hospice and would instead prefer a different SNF. telephone services sales representative aware and pending PT eval will communicate available options with the family. Exam Vital Signs Temp Pulse Resp BP Pulse Ox O2 Del Method 98.7 F 84 16 128/62 96 Room Air 11/20/24 11:55 11/20/24 11:55 11/20/24 11:55 11/20/24 11:55 11/20/24 11:55 11/20/24 11:55 Narrative Exam Physical Exam General: Awake and in no acute distress. Mildly somnolent but answers questions with 1-2 word answers. Appears emotional/tearful HEENT: Normocephalic, atraumatic, mucous membranes moist. Heart: Regular rate and rhythm, no murmurs. Lungs: Clear to auscultation with no wheezing or crackles. Abdomen: Full-thickness trauma to right and left abdomen bandaged. Otherwise, soft, obese, nondistended, nontender. ?No guarding or rebound tenderness. H ypoactive bowel sounds Neurologic: Alert and oriented x3, no gross neurological deficit, limited mobility, patient chronically bedbound. Extremities: No peripheral edema noted, right lower leg trauma versus venous ulcer, left heel wound Skin: Unstageable sacral/coccyx ulcer Objective Labs 11/21/24 06:26 11/21/24 06:26 Labs: Laboratory Results - last 24 hr 11/19/24 11/19/2425 06:30 17:00 04:50 WBC 12.0 H RBC 2.88 L Hgb 7.3 L 7.7 L Hct 23.8 L 24.3 L MCV 84 MCH 26.7 MCHC 31.7 RDW Std Deviation 54.0 H Plt Count 440 D Neut % (Auto) 57 Lymph % (Auto) 25 [place] % (Auto) 10 Eos % (Auto) 6 Baso % (Auto) 1 Neut # (Auto) 6.8 Lymph # (Auto) 3.0 [place] # (Auto) 1.2 H Eos # (Auto) 0.7 H Baso # (Auto) 0.1 Immature Gran # (Auto) 0.13 H Absolute Nucleated RBC 0.00 Immature Gran % 1 H Nucleated RBC % 0 Sodium 140 Potassium 4.2 D Chloride 109 H Carbon Dioxide 21.8 Anion Gap 9 BUN 37 H Creatinine 1.4 H Estim Creat Clear Calc 47.7 L eGFR 43 L BUN/Creatinine Ratio 26 H Glucose 97 Calculated Osmolality 288 Calcium 9.2 Crossmatch See Detail Quality Measures Quality Measures none Assessment & Plan Assessment Current Active Medications: Generic Name Dose Route Start Last Admin Trade Name Freq PRN Reason Stop Dose Admin Acetaminophen 650 mg 11/18/24 23:47 Acetaminophen 325 Mg Tablet PO 12/18/24 23:46 Q6H PRN Fever >101.5 Artificial Tears 0 drop 11/20/24 21:00 Artificial Tears 225 Drop/15 Ml Btl BOTH EYES 12/20/24 20:59 BID FREDA Dextrose 25 ml 11/18/24 23:37 Dextrose 50%-Water Inj 50 Ml Syringe IV 12/18/24 23:36 Q15MIN PRN BG 50-70 responsive npo pt Dextrose 50 ml 11/18/24 23:37 Dextrose 50%-Water Inj 50 Ml Syringe IV 12/18/24 23:36 Q15MIN PRN BG <50 OR BG <70 & pt unresponsive Escitalopram Oxalate 20 mg 11/19/24 09:00 11/20/24 09:33 Escitalopram Oxalate 10 Mg Tablet PO 12/19/24 08:59 20 mg QDAY FREDA Administration Gabapentin 300 mg 11/19/24 09:00 11/20/24 09:33 Gabapentin 300 Mg Capsule PO 12/19/24 08:59 300 mg BID FREDA Administration Glucagon 1 mg 11/18/24 23:37 Glucagon Inj 1 Mg Vial IM Q15MIN PRN BG <70, and no IV access Doxycycline Hyclate 100 mg/ 100 mls @ 100 mls/hr 11/19/24 09:00 11/20/24 09:33 Sodium Chloride IV 11/26/24 08:59 100 mls/hr BID FREDA Administration Aztreonam 2,000 mg/ Sodium 100 mls @ 100 mls/hr 11/19/24 14:00 11/20/24 05:05 Chloride IV 11/26/24 13:59 100 mls/hr Q8HR FREDA Administration Insulin Glargine 10 unit 11/19/24 09:00 11/20/24 09:38 Insulin Glargine (Lantus) 5 Unit/0.05 Ml (Per 5 Units) SC 12/19/24 08:59 10 unit QDAY FREDA Administration Insulin Human Lispro 0 unit 11/19/24 07:30 11/20/24 11:38 Insulin Lispro (Admelog) 1 Unit/0.01 Ml Unit SC 12/19/24 07:29 1 unit AC FREDA Administration Protocol Morphine Sulfate 2 mg 11/19/24 14:02 Morphine Sulf Inj 10 Mg/Ml Vial IVP 11/23/24 23:46 Q6H PRN PAIN SCALE 7-10 (Severe Oxycodone/Acetaminophen 2 tab 11/18/24 23:47 Oxycodone/Apap 5/325 Tablet PO 11/23/24 23:46 Q6H PRN PAIN SCALE 4-6 (Moderate Polyethylene Glycol 17 gm 11/19/24 09:00 11/20/24 09:38 Polyethylene Glycol 17 Gm Packet PO 12/19/24 08:59 17 gm QDAY FREDA Administration Sennosides 1 tab 11/19/24 09:00 11/20/24 09:33 Senna Tablet PO 12/19/24 08:59 1 tab BID FREDA Administration Protocol Plan 59-year-old female with past medical history of atrial fibrillation, HFpEF (65 to 70%) CVA, hypertension, diabetes mellitus and chronic abdominal wounds who presented to [facility] from [facility] on on 11/18/2024 with a chief complaint of left lower quadrant pain and wound bleeding. Patient admitted for further evaluation. #UTI #Acute kidney injury #GPC bacteremia #Leukocytosis Patient does have history of Klebsiella urinary tract infection Baseline BUN 21, GFR more than 60, creatinine 1.0. On admission BUN 34, creatinine 1.3, GFR 47. Patient was given 2 L NS bolus in ED Urinalysis positive for leukocyte esterase, pyuria and 3+ bacteria CT abdomen pelvis showed cystitis pattern, atrophic kidneys with no hydronephrosis and proctitis secondary to high stool burden in rectum 1 of 2 set of blood cultures was positive for gram-positive cocci Urine cultures positive for gram-negative rods, pending speciation Plan: Continue aztreonam and doxycycline (11/18- Pending repeat blood culture Avoid nephrotoxic agents Renally dose medication # Acute blood loss anemia secondary to #Chronic abdominal wounds Persistently bleeding from abdominal wound, wound was previously debrided by Dr. Pate 3 times during previous hospitalizations, History of pyoderma gangrenosum which contributes to delayed wound healing, Patient's hemoglobin dropped from 9.1-7.2 suggesting ongoing blood loss, patient has significant venous oozing which was controlled with suturing, Presented initially with fever 100.2, elevated Pro-Nirmal leukocytosis, high suspicion of infection Was given clindamycin, gentamicin and IV fluid resuscitation in ED General surgery was consulted, there is no emergent surgical intervention needed at this time Hemoglobin stable and there is no signs of active bleeding or oozing from the bandage sites Plan: Referral wound care, appreciate recommendations Multimodal analgesia Monitor hemoglobin/hematocrit with morning labs #Insulin-dependent type 2 diabetes #Diabetic neuropathy Hemoglobin A1c 09/22/2024 7.2 Plan: Continue sliding scale insulin Lantus 10 units at bedtime Continue home dose gabapentin #Atrial fibrillation #HFpEF EF 65 to 70% #CVA by history #Hypertension Patient on amlodipine 10 daily Patient did receive IV fluid resuscitation secondary to sepsis from UTI along with transfusion for low hemoglobin Plan: Restarted amlodipine home dose Monitor volume status and oxygenation requirements as the patient could have HFpEF exacerbation #Chronically bedbound state #Major depressive disorder Continue home escitalopram, baclofen Initiated artificial tears Hospital Management: Lines: PIV Bowel: Senna, Fleet enema for constipation Diet: Dysphagia diet 1 pur?ed, carb consistent, cardiac GI prophylaxis: Not indicated DVT prophylaxis: SCDs Dispo: Transfusing, pending posttransfusion H&H. IV antibiotics for UTI Code status: Full code Patient seen and examined with attending Dr. Dejesus and senior resident Dr. Matt Shah, PGY-1 Attending Provider Attestation/Addendum I, Kusum Dejesus DO, attest that I was physically present for the guardado portions of the service and evaluated the patient with the resident and I reviewed and discussed the case with the resident and agree with the resident's findings and plans of care as documented above Patient seen and evaluated this AM. No acute events overnight. Patient minimally verbal. Pending final urine cultures. Patient had previously been on hospice in the past per chart review. However, family has expressed that they would like for patient to be discharge to a SNF closer to their home. Will continue with IV abx and wound care.
[2024-11-20 16:00] VITALS: BP 122/70; PULSE 82; RESP 17; TEMP 36.9; O2SAT 97
--- NOTE | 2024-11-20 17:15 | PC.NURSE ---
pt has not had much of an appetite today. She has had little to drink. The external catheter showed very little output, however when checked, it was out of place. Cleaned patient and replaced the purwick. Completed a bladder scan on the patient. 288ml present in the bladder. Put in a dietary consultation and contacted MD. Dr. Block answered and said she would have a look at the patient's chart and possibly order maintenance fluids. Awaiting new orders.
[2024-11-20] MEDS: DEXTROSE 5%-NS 1,000 ML 70 ML IV (18:27)
[2024-11-20 20:00] VITALS: BP 167/87; PULSE 83; RESP 18; TEMP 36.4; O2SAT 97
[2024-11-20] MEDS: Artificial Tears 225 DROP/15 ML BTL BOTH EYES (20:12)
[2024-11-20] MEDS: oxyCODONE/APAP 5/325 TABLET 2 TAB PO (20:12)
[2024-11-20] MEDS: BACLOFEN 10 MG TABLET 5 MG PO (20:12)
[2024-11-21] VITALS (11 sets, daily range): BP systolic 106–152; BP diastolic 59–90; PULSE 68–83; RESP 16–20; TEMP 25.5–36.9; O2SAT 97–98
[2024-11-21] MEDS: MORPHINE SULF INJ 10 MG/ML VIAL 2 MG IVP (03:43)
[2024-11-21] MEDS: AZTREONAM IV ×3 (05:26→21:53)
[2024-11-21] MEDS: SODIUM CHLORIDE 0.9% IV ×3 (05:26→21:53)
[2024-11-21 06:59] LABS: Basophils # (Auto) 0.1 Thou/mm3 (0.0-0.2); Basophils % (Auto) 1 % (0-2.5); Eosinophils # (Auto) 0.7 Thou/mm3 (0.0-0.5); Eosinophils % (Auto) 6 % (0-10); Hematocrit 23.5 % (36.0-46.0); Immature Granulocytes % (Auto) 1 % (0-0); Lymphocytes # (Auto) 3.4 Thou/mm3 (1.0-4.8); Lymphocytes % (Auto) 30 % (10-50); Mean Corpuscular HGB Conc 30.2 g/dl (31.0-37.0); Mean Corpuscular Hemoglobin 25.7 pg (25.0-35.0); Mean Corpuscular Volume 85 fL (80-100); Monocytes # (Auto) 1.1 Thou/mm3 (0.0-0.8); Monocytes % (Auto) 9 % (0-12); Neutrophils % (Auto) 53 % (37-80); Nucleated Red Blood Cell % 0 /100 WBC (0); Platelet Count 409 Thou/mm3 (140-440); RDW Standard Deviation 56.2 fL (36.4-46.3); Red Blood Count 2.76 Miln/mm3 (4.00-5.20); White Blood Count 11.3 Thou/mm3 (3.6-11.0)
[2024-11-21 07:15] LABS: Hemoglobin 7.1 g/dL (12.0-16.0)
[2024-11-21 07:16] LABS: Anion Gap 9 (7-16); BUN/Creatinine Ratio 32 Ratio (12-20); Blood Urea Nitrogen 35 mg/dL (9-23); Calcium 8.6 mg/dL (8.3-10.6); Carbon Dioxide 21.1 mMol/L (20.0-31.0); Chloride 108 mMol/L (98-107); Creatinine (Component) 1.1 mg/dL (0.6-1.3); Estimated Creatinine Clearance 60.7 mL/min (>60); Glucose 79 mg/dL (74-106); Osmolality,Calculated 282 (275-295); Potassium 4.1 mMol/L (3.4-5.1); Sodium 138 mMol/L (136-145); eGFR 57 See Note
--- NOTE | 2024-11-21 09:39 | PC.SS ---
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 has informed sister, Savanah Abrams, (phone# [phone]) [facility] SNF have declined. [facility] has accepted. Savanah is aware pt will return to [facility] and d/c. Per, Savanah she will inform her mom, Radha. [facility] [address] [place] [address] Custodial Facility 11/20/2024 12:31 ?(1) [facility] [place], [place] [id number] Custodial Facility No 11/20/2024 12:32 11/20/2024 12:31 Unable to meet specialty/medical needs ?(1) [facility] [place] [address] Custodial Facility No 11/20/2024 12:57 11/20/2024 12:31 Unable to meet specialty/medical needs ?(1) [facility] Custodial [address] [place], [place] [id number] Custodial Facility 11/20/2024 12:31 ?(1) [facility] [address] [place] [address] Custodial Facility No 11/20/2024 13:04 11/20/2024 12:31 Unable to meet specialty/medical needs ?(2) [facility] [place], [place] [phone] Custodial Facility No 11/20/2024 13:40 11/20/2024 12:31 No bed available ?(1) [facility] [place], [place] [id number] Custodial Facility No 11/20/2024 12:34 11/20/2024 12:31 No bed available ?(2) [facility] [place], [place] [id number] Custodial Facility No 11/20/2024 14:36 11/20/2024 12:31 No bed available ?(2) [facility] [address] [place], [place] [id number] Custodial Facility No [facility] [place] [address] Custodial Facility 11/20/2024 12:31 ?(1) [facility] [address] [place] [address] Custodial Facility No 11/20/2024 13:33 11/20/2024 12:31 Unable to meet specialty/medical needs ?(1) [facility] Custodial [address] [place], [place] [phone] Custodial Facility 11/20/2024 12:31 ?(1) [facility] [place] [address] Custodial Facility No 11/20/2024 12:54 11/20/2024 12:31 No bed available ?(1) [facility] [place] [address] Custodial Facility No 11/20/2024 12:33 11/20/2024 12:31 No bed available ?(1) [facility] [place] [address] [place], [place] [phone] Custodial Facility 11/20/2024 12:31 ?(1) [facility] [place], [place] [id number] Custodial Facility No 11/20/2024 13:15 11/20/2024 12:31 Unable to meet specialty/medical needs ?(1) [facility], [place] [id number] Custodial Facility 11/20/2024 12:31 ?(1) [facility] [place], [place] [phone] Custodial Facility Yes 11/20/2024 12:43 11/20/2024 12:31 We can accept this patient. Thank you for your referral ?(1) [facility] [place], [place] [id number] Custodial Facility No [facility] [address] [place], [place] [id number] Custodial Facility 11/20/2024 12:31 ?(1) [facility] [place] [address] Custodial Facility No 11/20/2024 13:10 11/20/2024 12:31 Unable to meet specialty/medical needs ?(1) [facility] [place] [address] [place], [place] [phone] Custodial Facility No 11/20/2024 12:59 11/20/2024 12:31 Unable to meet specialty/medical needs ?(1) [facility] [address] [place], [place] [phone] Custodial Facility 11/20/2024 12:31 ?(1) [facility] [address] [place] [address] Custodial Facility 11/20/2024 12:31 ?(1) [facility] [place] [address] Custodial Facility No 11/20/2024 15:25 11/20/2024 12:31 No bed available ?(1) [facility] [place], [place] [phone] Custodial Facility No 11/20/2024 13:51 11/20/2024 12:31 Unable to meet specialty/medical needs ?(1) [facility] [place] [address] [place] [address] Custodial Facility No 11/20/2024 12:38 11/20/2024 12:31 Unable to meet specialty/medical needs ?(1) [facility] [address] [place], [place] [id number] Custodial Facility No 11/20/2024 13:00 11/20/2024 12:31 No bed available ?(1) [facility] [address] [phone] Custodial Facility No [facility] [address] [place], [place] [id number] Custodial Facility No 11/20/2024 12:50 11/20/2024 12:31 Unable to meet specialty/medical needs ?(1) [facility] [address] [place] [address] Custodial Facility No 11/20/2024 12:36 11/20/2024 12:31 No bed available ?(1) [facility] [place], [place] [phone] Custodial Facility No 11/20/2024 13:17 11/20/2024 12:31 No bed available ?(2) [facility] [place], [place] [id number] Custodial Facility No 11/20/2024 12:59 11/20/2024 12:31 Unable to meet specialty/medical needs ?(1) [facility] [address] [place], [place] [id number] Custodial Facility No 11/20/2024 12:32 11/20/2024 12:31 No bed available ?(2) [facility] [place], [place] [id number] Custodial Facility No 11/20/2024 12:42 11/20/2024 12:31 No bed available ?(2) [facility] [address] [place] [place] [address] Custodial Facility No ?(1)
[2024-11-21] MEDS: DOXYCYCLINE INJ 100 MG in SODIUM CHLORIDE 0.9% (P) 100 ML IV ×2 (09:46→20:42)
[2024-11-21] MEDS: INSULIN GLARGINE (Lantus) 5 UNIT/0.05 ML (PER 5 UNITS) 10 UNIT SC (10:02)
--- NOTE | 2024-11-21 11:18 | PC.PT ---
11/21/2024 1050 PT attempted to see but extensive wound care in process.
[2024-11-21] MEDS: GABAPENTIN 300 MG CAPSULE PO ×2 (11:42→20:43)
[2024-11-21] MEDS: SENNA TABLET 1 TAB PO ×2 (11:42→20:44)
[2024-11-21] MEDS: amLODIPine BESYLATE 5 MG TABLET 10 MG PO (11:42)
[2024-11-21] MEDS: ESCITALOPRAM OXALATE 10 MG TABLET 20 MG PO (11:43)
[2024-11-21] MEDS: BACLOFEN 10 MG TABLET 5 MG PO ×2 (11:44→20:43)
[2024-11-21] MEDS: POLYETHYLENE GLYCOL 17 GM PACKET PO (11:44)
[2024-11-21] MEDS: Artificial Tears 225 DROP/15 ML BTL BOTH EYES ×2 (11:52→20:43)
--- NOTE | 2024-11-21 12:53 | PC.PT ---
11/21/2024 1215 Patient sleeping when PT entered room and pt spoke a few words with eyes closed while PT encouraging participation w/out success.
--- NOTE | 2024-11-21 14:58 | ESPR_ITS ---
Documentation for date of: 11/21/24 Subjective Subjective Interval history: No significant overnight events. Hemoglobin downtrending from 7.7-7.1 this morning, 1 unit PRBC ordered. WBC down trended from 12-11.3. Renal function improved with downtrending of creatinine and uptrend of EGFR. Patient still pending repeat blood culture results pleural tube discharged to SNF. We will continue current regimen of antibiotics of Aztreonam and doxycycline. Exam Vital Signs Temp Pulse Resp BP Pulse Ox O2 Del Method 98.5 F 78 17 111/71 97 Room Air 11/21/24 14:42 11/21/24 14:42 11/21/24 14:42 11/21/24 14:42 11/21/24 14:42 11/21/24 11:36 Narrative Exam Physical Exam General: Awake and in no acute distress. Mildly somnolent but answers questions with 1-2 word answers. Appears emotional/tearful HEENT: Normocephalic, atraumatic, mucous membranes moist. Heart: Regular rate and rhythm, no murmurs. Lungs: Clear to auscultation with no wheezing or crackles. Abdomen: Full-thickness trauma to right and left abdomen bandaged. Otherwise, soft, obese, nondistended, nontender. ?No guarding or rebound tenderness. H ypoactive bowel sounds Neurologic: Alert and oriented x3, no gross neurological deficit, limited mobility, patient chronically bedbound. Extremities: No peripheral edema noted, right lower leg trauma versus venous ulcer, left heel wound Skin: Unstageable sacral/coccyx ulcer Objective Labs 11/22/24 10:02 11/22/24 10:02 Labs: Laboratory Results - last 24 hr 11/21/24 11/21/24 06:26 10:25 WBC 11.3 H RBC 2.76 L Hgb 7.1 L Hct 23.5 L MCV 85 MCH 25.7 MCHC 30.2 L RDW Std Deviation 56.2 H Plt Count 409 D Neut % (Auto) 53 Lymph % (Auto) 30 [place] % (Auto) 9 Eos % (Auto) 6 Baso % (Auto) 1 Neut # (Auto) 6.0 Lymph # (Auto) 3.4 [place] # (Auto) 1.1 H Eos # (Auto) 0.7 H Baso # (Auto) 0.1 Immature Gran # (Auto) 0.10 H Absolute Nucleated RBC 0.00 Immature Gran % 1 H Nucleated RBC % 0 Sodium 138 Potassium 4.1 Chloride 108 H Carbon Dioxide 21.1 Anion Gap 9 BUN 35 H Creatinine 1.1 Estim Creat Clear Calc 60.7 L eGFR 57 L BUN/Creatinine Ratio 32 H Glucose 79 Calculated Osmolality 282 Calcium 8.6 Blood Type O Negative Antibody Screen NEGATIVE Crossmatch See Detail Blood Bank Wristband ID Yes Quality Measures Quality Measures none Assessment & Plan Assessment Current Active Medications: Generic Name Dose Route Start Last Admin Trade Name Freq PRN Reason Stop Dose Admin Acetaminophen 650 mg 11/18/24 23:47 Acetaminophen 325 Mg Tablet PO 12/18/24 23:46 Q6H PRN Fever >101.5 Amlodipine Besylate 10 mg 11/21/24 09:00 11/21/24 11:42 Amlodipine Besylate 5 Mg Tablet PO 12/21/24 08:59 10 mg QDAY FREDA Administration Artificial Tears 0 drop 11/20/24 21:00 11/21/24 11:52 Artificial Tears 225 Drop/15 Ml Btl BOTH EYES 12/20/24 20:59 2 drops BID FREDA Administration Baclofen 5 mg 11/20/24 21:00 11/21/24 11:44 Baclofen 10 Mg Tablet PO 12/20/24 20:59 5 mg BID FREDA Administration Dextrose 25 ml 11/18/24 23:37 Dextrose 50%-Water Inj 50 Ml Syringe IV 12/18/24 23:36 Q15MIN PRN BG 50-70 responsive npo pt Dextrose 50 ml 11/18/24 23:37 Dextrose 50%-Water Inj 50 Ml Syringe IV 12/18/24 23:36 Q15MIN PRN BG <50 OR BG <70 & pt unresponsive Escitalopram Oxalate 20 mg 11/19/24 09:00 11/21/24 11:43 Escitalopram Oxalate 10 Mg Tablet PO 12/19/24 08:59 20 mg QDAY FREDA Administration Gabapentin 300 mg 11/19/24 09:00 11/21/24 11:42 Gabapentin 300 Mg Capsule PO 12/19/24 08:59 300 mg BID FREDA Administration Glucagon 1 mg 11/18/24 23:37 Glucagon Inj 1 Mg Vial IM Q15MIN PRN BG <70, and no IV access Doxycycline Hyclate 100 mg/ 100 mls @ 100 mls/hr 11/19/24 09:00 11/21/24 09:46 Sodium Chloride IV 11/26/24 08:59 100 mls/hr BID FREDA Administration Aztreonam 2,000 mg/ Sodium 100 mls @ 100 mls/hr 11/19/24 14:00 11/21/24 05:26 Chloride IV 11/26/24 13:59 100 mls/hr Q8HR FREDA Administration Insulin Glargine 10 unit 11/19/24 09:00 11/21/24 10:02 Insulin Glargine (Lantus) 5 Unit/0.05 Ml (Per 5 Units) SC 12/19/24 08:59 10 unit QDAY FREDA Administration Insulin Human Lispro 0 unit 11/19/24 07:30 11/21/24 11:57 Insulin Lispro (Admelog) 1 Unit/0.01 Ml Unit SC 12/19/24 07:29 Not Given AC [facility] Protocol Morphine Sulfate 2 mg 11/19/24 14:02 11/21/24 03:43 Morphine Sulf Inj 10 Mg/Ml Vial IVP 11/23/24 23:46 2 mg Q6H PRN Administration PAIN SCALE 7-10 (Severe Oxycodone/Acetaminophen 2 tab 11/18/24 23:47 11/20/24 20:12 Oxycodone/Apap 5/325 Tablet PO 11/23/24 23:46 2 tab Q6H PRN Administration PAIN SCALE 4-6 (Moderate Polyethylene Glycol 17 gm 11/19/24 09:00 11/21/24 11:44 Polyethylene Glycol 17 Gm Packet PO 12/19/24 08:59 17 gm QDAY FREDA Administration Sennosides 1 tab 11/19/24 09:00 11/21/24 11:42 Senna Tablet PO 12/19/24 08:59 1 tab BID FREDA Administration Protocol Plan 59-year-old female with past medical history of atrial fibrillation, HFpEF (65 to 70%) CVA, hypertension, diabetes mellitus and chronic abdominal wounds who presented to [facility] on on 11/18/2024 with a chief complaint of left lower quadrant pain and wound bleeding. Patient admitted for further evaluation. #UTI #Acute kidney injury #GPC bacteremia #Leukocytosis Patient does have history of Klebsiella urinary tract infection Baseline BUN 21, GFR more than 60, creatinine 1.0. On admission BUN 34, creatinine 1.3, GFR 47. Patient was given 2 L NS bolus in ED Urinalysis positive for leukocyte esterase, pyuria and 3+ bacteria CT abdomen pelvis showed cystitis pattern, atrophic kidneys with no hydronephrosis and proctitis secondary to high stool burden in rectum 1 of 2 set of blood cultures was positive for gram-positive cocci Urine cultures positive for gram-negative rods, pending speciation Plan: Continue aztreonam and doxycycline (11/18- Pending repeat blood culture Avoid nephrotoxic agents Renally dose medication # Acute blood loss anemia secondary to #Chronic abdominal wounds Persistently bleeding from abdominal wound, wound was previously debrided by Dr. Pate 3 times during previous hospitalizations, History of pyoderma gangrenosum which contributes to delayed wound healing, Patient's hemoglobin dropped from 9.1-7.2 suggesting ongoing blood loss, patient has significant venous oozing which was controlled with suturing, Presented initially with fever 100.2, elevated Pro-Nirmal leukocytosis, high suspicion of infection Was given clindamycin, gentamicin and IV fluid resuscitation in ED General surgery was consulted, there is no emergent surgical intervention needed at this time Hemoglobin stable and there is no signs of active bleeding or oozing from the bandage sites HgB 7.1 today / 11/21/24 Plan: Transfuse x1 pRBC Follow up post transfusion H&H Referral wound care, appreciate recommendations Multimodal analgesia Monitor hemoglobin/hematocrit with morning labs #Insulin-dependent type 2 diabetes #Diabetic neuropathy Hemoglobin A1c 09/22/2024 7.2 Plan: Continue sliding scale insulin Lantus 10 units at bedtime Continue home dose gabapentin #Atrial fibrillation #HFpEF EF 65 to 70% #CVA by history #Hypertension Patient on amlodipine 10 daily Patient did receive IV fluid resuscitation secondary to sepsis from UTI along with transfusion for low hemoglobin Plan: Restarted amlodipine home dose Monitor volume status and oxygenation requirements as the patient could have HFpEF exacerbation #Chronically bedbound state #Major depressive disorder Continue home escitalopram, baclofen Initiated artificial tears Hospital Management: Lines: PIV Bowel: Senna, Fleet enema for constipation Diet: Dysphagia diet 1 pur?ed, carb consistent, cardiac GI prophylaxis: Not indicated DVT prophylaxis: SCDs Dispo: Transfusing, pending posttransfusion H&H. IV antibiotics for UTI Code status: Full code This patient care was discussed with my senior resident Dr. Anjelica Gutierrez MD PGY-2 Disclaimer: Minor errors in outside cutter hand may be present since this note was dictated by speech recognition software. Attending Provider Attestation/Addendum I, Kusum Dejesus DO, attest that I was physically present for the guardado portions of the service and evaluated the patient with the resident and I reviewed and discussed the case with the resident and agree with the resident's findings and plans of care as documented above Patient seen and evaluated this AM. No acute events overnight. H/H downtrending, will transfuse one unit of pRBC. No active bleeding noted. Will continue wtih current management. Repeat Bcx NGTD x24hrs, suspect initial GPC in 1 of 2 bcx to be 2/2 contamination.
[2024-11-21 20:01] LABS: Hematocrit 25.8 % (36.0-46.0)
[2024-11-21] MEDS: oxyCODONE/APAP 5/325 TABLET 2 TAB PO (20:43)
[2024-11-22] VITALS (7 sets, daily range): BP systolic 108–158; BP diastolic 59–89; PULSE 66–89; RESP 16–20; TEMP 36.2–36.8; O2SAT 94–97
[2024-11-22] MEDS: AZTREONAM IV ×3 (05:55→22:50)
[2024-11-22] MEDS: SODIUM CHLORIDE 0.9% IV ×3 (05:55→22:50)
[2024-11-22] MEDS: GABAPENTIN 300 MG CAPSULE PO ×2 (08:56→20:38)
[2024-11-22] MEDS: SENNA TABLET 1 TAB PO ×2 (08:56→20:36)
[2024-11-22] MEDS: amLODIPine BESYLATE 5 MG TABLET 10 MG PO (08:56)
[2024-11-22] MEDS: ESCITALOPRAM OXALATE 10 MG TABLET 20 MG PO (08:56)
[2024-11-22] MEDS: Artificial Tears 225 DROP/15 ML BTL BOTH EYES ×2 (08:57→20:40)
[2024-11-22] MEDS: POLYETHYLENE GLYCOL 17 GM PACKET PO (08:57)
[2024-11-22] MEDS: DOXYCYCLINE INJ 100 MG in SODIUM CHLORIDE 0.9% (P) 100 ML IV ×2 (08:57→20:32)
[2024-11-22] MEDS: BACLOFEN 10 MG TABLET 5 MG PO ×2 (08:57→20:37)
[2024-11-22 10:24] LABS: Hematocrit 29.2 % (36.0-46.0)
[2024-11-22 10:25] LABS: Hemoglobin 8.8 g/dL (12.0-16.0)
--- NOTE | 2024-11-22 10:34 | PC.SS ---
PAINT FORMULATOR called pt's next of kin twice to inform that no other facility has accepted pt, so pt will be needing to go back to [facility].
[2024-11-22 10:42] LABS: Alanine Aminotransferase < 7 U/L (10-49); Albumin/Globulin Ratio 0.9 (1.2-2.2); Alkaline Phosphatase 72 U/L (46-116); Anion Gap 10 (7-16); Aspartate Amino Transferase < 10 U/L (0-34); BUN/Creatinine Ratio 25 Ratio (12-20); Bilirubin,Total 0.2 mg/dL (0.3-1.2); Blood Urea Nitrogen 25 mg/dL (9-23); Calcium 8.7 mg/dL (8.3-10.6); Calcium (Corrected) 9.5 mg/dL (8.5-10.1); Carbon Dioxide 18.4 mMol/L (20.0-31.0); Chloride 107 mMol/L (98-107); Estimated Creatinine Clearance 66.8 mL/min (>60); Globulin 3.2 gm/dL (2.3-3.5); Glucose 107 mg/dL (74-106); Osmolality,Calculated 274 (275-295); Potassium 3.9 mMol/L (3.4-5.1); Sodium 135 mMol/L (136-145); Total Protein 6.2 gm/dL (5.7-8.2); eGFR > 60 See Note
--- NOTE | 2024-11-22 11:01 | ESPR_ITS ---
Documentation for date of: 11/22/24 Subjective Subjective Interval history: No overnight events, patient is hemodynamically stable, on room air, saturating 94%. Morning labs are stable with slightly decreased bicarb, but [place] has improved to normal. H&H is stable above 8.0. Repeat cultures are negative for GPC, will discontinue doxycycline. Will continue ultrasound for 1 more day, and if patient is clinically and hemodynamically stable tomorrow we will discharge back to SNF. Exam Vital Signs Temp Pulse Resp BP Pulse Ox O2 Del Method 97.1 F 74 17 143/75 H 94 L Room Air 11/22/24 07:58 11/22/24 08:56 11/22/24 07:58 11/22/24 08:56 11/22/24 07:58 11/22/24 07:58 Narrative Exam Physical Exam General: Awake and in no acute distress. HEENT: Normocephalic, atraumatic, mucous membranes moist. Heart: Regular rate and rhythm, no murmurs. Lungs: Clear to auscultation with no wheezing or crackles. Abdomen: Full-thickness trauma to right and left abdomen bandaged. Otherwise, soft, obese, nondistended, nontender. ?No guarding or rebound tenderness. H ypoactive bowel sounds Neurologic: Alert and oriented x3, no gross neurological deficit, limited mobility, patient chronically bedbound. Extremities: No peripheral edema noted, right lower leg trauma versus venous ulcer, left heel wound Skin: Unstageable sacral/coccyx ulcer Objective Labs 11/22/24 10:02 11/22/24 10:02 Labs: Laboratory Results - last 24 hr 11/21/24 11/21/24 11/22/24 10:25 19:38 10:02 WBC Cancelled RBC Cancelled Hgb 8.0 L Cancelled Hct 25.8 L MCV MCH MCHC RDW Std Deviation Plt Count Neut % (Auto) Lymph % (Auto) [place] % (Auto) Eos % (Auto) Baso % (Auto) Neut # (Auto) Lymph # (Auto) [place] # (Auto) Eos # (Auto) Baso # (Auto) Immature Gran # (Auto) Absolute Nucleated RBC Immature Gran % Nucleated RBC % Sodium Potassium Chloride Carbon Dioxide Anion Gap BUN Creatinine Estim Creat Clear Calc eGFR BUN/Creatinine Ratio Glucose Calculated Osmolality Calcium Corrected Calcium Total Bilirubin AST ALT Alkaline Phosphatase Total Protein Albumin Globulin Albumin/Globulin Ratio Blood Type O Negative Antibody Screen NEGATIVE Crossmatch See Detail Blood Bank Wristband ID Yes 11/22/24 11/22/24 10:02 10:02 WBC RBC Hgb 8.8 L Hct Cancelled 29.2 L MCV Cancelled MCH Cancelled MCHC Cancelled RDW Std Deviation Cancelled Plt Count Cancelled Neut % (Auto) Cancelled Lymph % (Auto) Cancelled [place] % (Auto) Cancelled Eos % (Auto) Cancelled Baso % (Auto) Cancelled Neut # (Auto) Cancelled Lymph # (Auto) Cancelled [place] # (Auto) Cancelled Eos # (Auto) Cancelled Baso # (Auto) Cancelled Immature Gran # (Auto) Cancelled Absolute Nucleated RBC Cancelled Immature Gran % Cancelled Nucleated RBC % Cancelled Sodium 135 L Potassium 3.9 Chloride 107 Carbon Dioxide 18.4 L Anion Gap 10 BUN 25 H Creatinine 1.0 Estim Creat Clear Calc 66.8 eGFR > 60 BUN/Creatinine Ratio 25 H Glucose 107 H Calculated Osmolality 274 L Calcium 8.7 Corrected Calcium 9.5 Total Bilirubin 0.2 L AST < 10 ALT < 7 L Alkaline Phosphatase 72 Total Protein 6.2 Albumin 3.0 L Globulin 3.2 Albumin/Globulin Ratio 0.9 L Blood Type Antibody Screen Crossmatch Blood Bank Wristband ID Quality Measures Quality Measures none Assessment & Plan Assessment Current Active Medications: Generic Name Dose Route Start Last Admin Trade Name Freq PRN Reason Stop Dose Admin Acetaminophen 650 mg 11/18/24 23:47 Acetaminophen 325 Mg Tablet PO 12/18/24 23:46 Q6H PRN Fever >101.5 Amlodipine Besylate 10 mg 11/21/24 09:00 11/22/24 08:56 Amlodipine Besylate 5 Mg Tablet PO 12/21/24 08:59 10 mg QDAY FREDA Administration Artificial Tears 0 drop 11/20/24 21:00 11/22/24 08:57 Artificial Tears 225 Drop/15 Ml Btl BOTH EYES 12/20/24 20:59 2 drops BID FREDA Administration Baclofen 5 mg 11/20/24 21:00 11/22/24 08:57 Baclofen 10 Mg Tablet PO 12/20/24 20:59 5 mg BID FREDA Administration Dextrose 25 ml 11/18/24 23:37 Dextrose 50%-Water Inj 50 Ml Syringe IV 12/18/24 23:36 Q15MIN PRN BG 50-70 responsive npo pt Dextrose 50 ml 11/18/24 23:37 Dextrose 50%-Water Inj 50 Ml Syringe IV 12/18/24 23:36 Q15MIN PRN BG <50 OR BG <70 & pt unresponsive Escitalopram Oxalate 20 mg 11/19/24 09:00 11/22/24 08:56 Escitalopram Oxalate 10 Mg Tablet PO 12/19/24 08:59 20 mg QDAY FREDA Administration Gabapentin 300 mg 11/19/24 09:00 11/22/24 08:56 Gabapentin 300 Mg Capsule PO 12/19/24 08:59 300 mg BID FREDA Administration Glucagon 1 mg 11/18/24 23:37 Glucagon Inj 1 Mg Vial IM Q15MIN PRN BG <70, and no IV access Doxycycline Hyclate 100 mg/ 100 mls @ 100 mls/hr 11/19/24 09:00 11/22/24 08:57 Sodium Chloride IV 11/26/24 08:59 100 mls/hr BID FREDA Administration Aztreonam 2,000 mg/ Sodium 100 mls @ 100 mls/hr 11/19/24 14:00 11/22/24 05:55 Chloride IV 11/26/24 13:59 100 mls/hr Q8HR FREDA Administration Insulin Glargine 8 unit 11/23/24 09:00 Insulin Glargine (Lantus) 5 Unit/0.05 Ml (Per 5 Units) SC 12/23/24 08:59 QDAY [facility] Insulin Human Lispro 0 unit 11/19/24 07:30 11/22/24 07:05 Insulin Lispro (Admelog) 1 Unit/0.01 Ml Unit SC 12/19/24 07:29 Not Given AC [facility] Protocol Morphine Sulfate 2 mg 11/19/24 14:02 11/21/24 03:43 Morphine Sulf Inj 10 Mg/Ml Vial IVP 11/23/24 23:46 2 mg Q6H PRN Administration PAIN SCALE 7-10 (Severe Oxycodone/Acetaminophen 2 tab 11/18/24 23:47 11/21/24 20:43 Oxycodone/Apap 5/325 Tablet PO 11/23/24 23:46 2 tab Q6H PRN Administration PAIN SCALE 4-6 (Moderate Polyethylene Glycol 17 gm 11/19/24 09:00 11/22/24 08:57 Polyethylene Glycol 17 Gm Packet PO 12/19/24 08:59 17 gm QDAY FREDA Administration Sennosides 1 tab 11/19/24 09:00 11/22/24 08:56 Senna Tablet PO 12/19/24 08:59 1 tab BID FREDA Administration Protocol Plan 59-year-old female with past medical history of atrial fibrillation, HFpEF (65 to 70%) CVA, hypertension, diabetes mellitus and chronic abdominal wounds who presented to [facility] from [facility] on on 11/18/2024 with a chief complaint of left lower quadrant pain and wound bleeding. Patient admitted for further evaluation. #UTI #Acute kidney injury(resolved) #GPC bacteremia(resolved) #Leukocytosis Patient does have history of Klebsiella urinary tract infection Baseline BUN 21, GFR more than 60, creatinine 1.0. On admission BUN 34, creatinine 1.3, GFR 47. Patient was given 2 L NS bolus in ED Urinalysis positive for leukocyte esterase, pyuria and 3+ bacteria CT abdomen pelvis showed cystitis pattern, atrophic kidneys with no hydronephrosis and proctitis secondary to high stool burden in rectum 1 of 2 set of blood cultures was positive for gram-positive cocci Urine cultures are positive for E. coli, sensitive to all antibiotics except tetracyclines Plan: Discontinue doxycycline, continue aztreonam for 1 more day considering patient has allergy to most of the antibiotics Repeat blood cultures are negative # Acute blood loss anemia secondary to #Chronic abdominal wounds Persistently bleeding from abdominal wound, wound was previously debrided by Dr. Pate 3 times during previous hospitalizations, History of pyoderma gangrenosum which contributes to delayed wound healing, Patient's hemoglobin dropped from 9.1-7.2 suggesting ongoing blood loss, patient has significant venous oozing which was controlled with suturing, Presented initially with fever 100.2, elevated Pro-Nirmal leukocytosis, high suspicion of infection Was given clindamycin, gentamicin and IV fluid resuscitation in ED General surgery was consulted, there is no emergent surgical intervention needed at this time Hemoglobin stable and there is no signs of active bleeding or oozing from the bandage sites Recent hemoglobin from today is stable Plan: Monitor and maintain hemoglobin above 7, transfuse as needed Referral wound care, appreciate recommendations Multimodal analgesia #Insulin-dependent type 2 diabetes #Diabetic neuropathy Hemoglobin A1c 09/22/2024 7.2 Plan: Continue sliding scale insulin Lantus 10 units at bedtime Continue home dose gabapentin #Atrial fibrillation #HFpEF EF 65 to 70% #CVA by history #Hypertension Patient on amlodipine 10 daily Patient did receive IV fluid resuscitation secondary to sepsis from UTI along with transfusion for low hemoglobin Plan: Restarted amlodipine home dose Monitor volume status and oxygenation requirements as the patient could have HFpEF exacerbation #Chronically bedbound state #Major depressive disorder Continue home escitalopram, baclofen Initiated artificial tears Hospital Management: Lines: PIV Bowel: Senna, Fleet enema for constipation Diet: Dysphagia diet 1 pur?ed, carb consistent, cardiac GI prophylaxis: Not indicated DVT prophylaxis: SCDs Dispo: If patient is stable, possible discharge to SNF tomorrow Code status: Full code Zachery Owens MD PGY3 reviewed and discussed the case with attending physician Dr. Dejesus Attending Provider Attestation/Addendum Kusum Owens DO, attest that I was physically present for the guardado portions of the service and evaluated the patient with the resident and I reviewed and discussed the case with the resident and agree with the resident's findings and plans of care as documented above Patient seen and evauated this AM. Patient is much more alert today. She reports some abdominal discomfort, likely secondary to the wounds. Will decrease lantus to 8 units as BG has been tightly controlled. Will continue with IV abx at this time to complete 5days of azactam for UTI due to her multiple allergies, as patient appears improved. Anticipate DC in next 24hrs
--- NOTE | 2024-11-22 11:04 | PC.SS ---
Rounding note staying one more day for IV/Antibiotics once ready for d/c back to [facility]
--- NOTE | 2024-11-22 11:15 | PC.SS ---
MOLD MACHINE OPERATOR spoke to pt's next of kin Elly and informed about pt not having any accepting facilities and once ready for d/c pt would need to be d/c back to [facility]
[2024-11-22] MEDS: MORPHINE SULF INJ 10 MG/ML VIAL 2 MG IVP (22:22)
[2024-11-23] VITALS (10 sets, daily range): BP systolic 112–179; BP diastolic 66–96; PULSE 70–85; RESP 16–20; TEMP 36.2–37.1; O2SAT 93–98; BMI 36.5
--- NOTE | 2024-11-23 05:01 | PC.NURSE ---
Patients blood pressure running high 179/95 with a pulse of 85. RN rechecked blood pressure and it was 176/93. Dr. Ortiz notified and he said he will put an order in for meds.
[2024-11-23] MEDS: AZTREONAM IV (05:32)
[2024-11-23] MEDS: SODIUM CHLORIDE 0.9% IV (05:32)
[2024-11-23] MEDS: amLODIPine BESYLATE 5 MG TABLET 10 MG PO (05:37)
[2024-11-23 05:49] LABS: Basophils # (Auto) 0.1 Thou/mm3 (0.0-0.2); Basophils % (Auto) 1 % (0-2.5); Eosinophils # (Auto) 0.4 Thou/mm3 (0.0-0.5); Eosinophils % (Auto) 3 % (0-10); Hematocrit 31.5 % (36.0-46.0); Hemoglobin 9.8 g/dL (12.0-16.0); Immature Granulocytes % (Auto) 1 % (0-0); Immature Granulocytes Auto 0.13 Thou/mm3 (0.00-0.00); Lymphocytes # (Auto) 2.6 Thou/mm3 (1.0-4.8); Lymphocytes % (Auto) 21 % (10-50); Mean Corpuscular HGB Conc 31.1 g/dl (31.0-37.0); Mean Corpuscular Hemoglobin 26.2 pg (25.0-35.0); Mean Corpuscular Volume 84 fL (80-100); Monocytes % (Auto) 8 % (0-12); Neutrophils # (Auto) 8.1 Thou/mm3 (1.8-7.7); Neutrophils % (Auto) 66 % (37-80); Nucleated Red Blood Cell % 0 /100 WBC (0); Platelet Count 547 Thou/mm3 (140-440); RDW Standard Deviation 54.5 fL (36.4-46.3); Red Blood Count 3.74 Miln/mm3 (4.00-5.20); White Blood Count 12.3 Thou/mm3 (3.6-11.0)
[2024-11-23 06:13] LABS: Alanine Aminotransferase 7 U/L (10-49); Albumin, Serum 3.3 gm/dL (3.4-4.8); Albumin/Globulin Ratio 0.9 (1.2-2.2); Alkaline Phosphatase 77 U/L (46-116); Anion Gap 9 (7-16); Aspartate Amino Transferase 10 U/L (0-34); BUN/Creatinine Ratio 28 Ratio (12-20); Bilirubin,Total 0.3 mg/dL (0.3-1.2); Blood Urea Nitrogen 22 mg/dL (9-23); Calcium 9.2 mg/dL (8.3-10.6); Calcium (Corrected) 9.8 mg/dL (8.5-10.1); Carbon Dioxide 21.8 mMol/L (20.0-31.0); Chloride 106 mMol/L (98-107); Creatinine (Component) 0.8 mg/dL (0.6-1.3); Estimated Creatinine Clearance 83.5 mL/min (>60); Globulin 3.6 gm/dL (2.3-3.5); Glucose 78 mg/dL (74-106); Osmolality,Calculated 276 (275-295); Potassium 3.7 mMol/L (3.4-5.1); Sodium 137 mMol/L (136-145); Total Protein 6.9 gm/dL (5.7-8.2); eGFR > 60 See Note
[2024-11-23] MEDS: Artificial Tears 225 DROP/15 ML BTL BOTH EYES ×2 (08:44→20:16)
[2024-11-23] MEDS: BACLOFEN 10 MG TABLET 5 MG PO ×2 (08:44→20:17)
[2024-11-23] MEDS: GABAPENTIN 300 MG CAPSULE PO ×2 (08:44→20:17)
[2024-11-23] MEDS: SENNA TABLET 1 TAB PO ×2 (08:44→20:17)
[2024-11-23] MEDS: ESCITALOPRAM OXALATE 10 MG TABLET 20 MG PO (08:44)
[2024-11-23] MEDS: POLYETHYLENE GLYCOL 17 GM PACKET PO (08:45)
[2024-11-23] MEDS: INSULIN GLARGINE (Lantus) 5 UNIT/0.05 ML (PER 5 UNITS) 8 UNIT SC (08:45)
--- NOTE | 2024-11-23 09:17 | ESDS_ITS ---
<Statement entered by Kusum Dejesus DO - 11/23/24 15:13> I, Kusum Dejesus DO, attest that I was physically present for the guardado portions of the service and evaluated the patient with the resident and I reviewed and discussed the case with the resident and agree with the resident's findings and plans of care as documented above Planned Discharge Date 11/23/24 DS: Providers Provider Date of admission: 11/18/24 23:47 Primary care physician: Physician No Primary/Family Admitting Provider: Nguyễn Mueller MD Attending Provider on Admission: Nguyễn Mueller MD Consults: 11/18/24 13:16 Referral Wound Care Stat Comment: PLEASE ASSESS ABD WOUNDS AND REPACK 11/18/24 23:50 Consult to General Surgery Routine Comment: wound care Consulting Provider: Bernardo Pate 11/19/24 08:00 Referral Physical Therapy Routine Comment: Physician Instructions: Referral Wound Care Routine Comment: 11/19/24 14:06 Referral Nutritional Services Routine Comment: Wounds 11/20/24 17:16 Referral Registered Dietitian Routine Comment: 11/20/24 17:19 Referral Registered Dietitian Routine Comment: Attending Provider on DC: Seb Shah MD Discharging Provider: Seb Shah MD DS: Diagnosis Problem List Completed Was Problem List Reviewed/Reconciled?: Yes Hospital Course Hospital Course Hospital course: 59-year-old female with past medical history of atrial fibrillation, HFpEF (65 to 70%), CVA, hypertension, diabetes mellitus and chronic abdominal wounds presented from [facility] with left lower quadrant pain and bleeding from abdominal wound site. In the ED, patient was afebrile, vitals were stable but the patient did have elevated WBC count along with urinalysis findings suggesting bacterial infection with positive leukocyte esterase, pyuria and 3+ bacteria. CT abdomen pelvis obtained in the ED showed atelectasis versus pneumonia in the right base, atrophic kidneys with mild renal parenchymal scar formation, cystitis and a large amount of stool in the rectum. Patient was admitted for wound care along with IV antibiotics secondary to infectious etiology. General surgery was consulted secondary to the abdominal wound; however, per the recommendation there was no surgical intervention needed at this time. Patient's blood cultures, 1 set, came back positive for GPC but this was later confirmed to be contamination. Patient laboratory findings along with clinical presentation improved with IV antibiotics and she is returning back to baseline. Patient will be discharged back to SNF with the following strict instructions. Please follow-up with your PCP within 1 week of discharge. Ask to be referred to Dermatology for pyoderma gangrenosum management. Continue wound care as noted below. Continue physical therapy once a day and reassess as needed. Use artificial tears as directed to lubricate and moisturize eyes. If your symptoms worsen or if you develop new bleeding, fever/chills, chest pain or shortness of breath - please come back to the ED immediately Hospital Diagnosis: #E.coli UTI #Acute kidney injury(resolved) #GPC contaminant, less likely bacteremia (resolved) #Leukocytosis # Acute blood loss anemia secondary to #Chronic abdominal wounds #Insulin-dependent type 2 diabetes #Diabetic neuropathy #Atrial fibrillation #HFpEF EF 65 to 70% #CVA by history #Hypertension #Chronically bedbound state #Major depressive disorder Seb Shah, PGY-1 Status at Discharge Overall status at discharge: patient is progressing back to baseline Time Spent with Patient Time attestation: Total time spent providing and/or coordinating discharge services: 45 minutes Time spent: Greater than 30 minutes Exam Vital Signs Temp Pulse Resp BP Pulse Ox O2 Del Method 97.7 F 80 16 163/80 H 93 L Room Air 11/23/24 08:00 11/23/24 08:00 11/23/24 08:00 11/23/24 08:00 11/23/24 08:00 11/23/24 08:00 Narrative Exam Physical Exam General: Awake and in no acute distress. HEENT: Normocephalic, atraumatic, mucous membranes moist. Heart: Regular rate and rhythm, no murmurs. Lungs: Clear to auscultation with no wheezing or crackles. Abdomen: Full-thickness trauma to right and left abdomen bandaged. Otherwise, soft, obese, nondistended, nontender. ?No guarding or rebound tenderness. Neurologic: Alert and oriented x3, no gross neurological deficit, limited mobility, patient chronically bedbound. Extremities: No peripheral edema noted, right lower leg trauma versus venous ulcer, left heel wound Skin: Unstageable sacral/coccyx ulcer Discharge Plan Plan Patient Disposition: Xfer Skilled Nsg Fac (SNF) Patient condition on transfer: Stable Care Plan Goals: Please follow-up with your PCP within 1 week of discharge. Ask to be referred to Dermatology for pyoderma gangrenosum management. Continue wound care as noted below. Continue physical therapy once a day and reassess as needed. Use artificial tears as directed to lubricate and moisturize eyes. If your symptoms worsen or if you develop new bleeding, fever/chills, chest pain or shortness of breath - please come back to the ED immediately Prescriptions/Referrals Prescriptions/Med Rec: New artificial tear([id number]) 0.1-0.3-0.2 % Drops 1 drp Both eyes BID Qty: 15 0RF Continued magnesium hydroxide [Milk of Magnesia] 400 mg/5 mL Suspension 1,200 mg PO QDAY PRN (Reason: Constipation) Rx Instructions: 1200 mg/ 15mL dose bisacodyl [Dulcolax (bisacodyl)] 10 mg Suppository 10 mg TX QDAY PRN (Reason: Constipation) Rx Instructions: insert 1 suppository rectally every 24 hours as needed for constipation if MOM is ineffective and no BM for 8 hours Enema Disposable 19-7 gram/118 mL Enema 118 ml TX QDAY PRN (Reason: Constipation) Rx Instructions: insert 1 application rectally as needed for constipation if MOM and Dulcolax Supp are ineffective and no bowel movement in 8 hours. if no results from MOM, Dulcolax supp and enema call gabapentin 300 mg Capsule 300 mg PO BID insulin lispro [Humalog U-100 Insulin] 100 unit/mL Solution 1 sliding scale dose SUBCUT AC Rx Instructions: 70-150= 0 UNITS 151-200 = 2 UNITS 201-250 = 4 units 251-300 = 6 units 301-350 = 8 units 351-400 = 10 units 401+ call 201-250 = 4 UNITS 251-300 = 6 UNITS 301-350 = 8 UNITS 351-400= 10 UNITS ABOVE 400 CALL escitalopram oxalate 20 mg Tablet 10 mg PO QDAY Rx Instructions: FOR 6 MONTHS M/B hopelessness r/t decline in health causing distress to resident. insulin glargine 100 unit/mL Solution 25 unit SUBCUT HS Rx Instructions: HOLD IF BS<80 baclofen 10 mg tablet 5 mg PO BID amlodipine 10 mg tablet 10 mg PO QDAY Rx Instructions: MONITOR BP AND PULSE, HOLD IF SBP <100 OR PULSE <60 sennosides [senna] 8.6 mg Tablet 8.6 - 50 mg PO BID morphine concentrate 20 mg/mL syringe 10 mg PO .q4h PRN (Reason: moderate pain or SOB) lorazepam 0.5 mg tablet 0.5 mg PO Q6H PRN (Reason: anxiety m/b terminal illness ) methadone 5 mg tablet 2.5 mg PO Q12H morphine concentrate 20 mg/mL syringe 5 mg PO DAILY PRN (Reason: mild pain 20-30mins prior to wound care) morphine concentrate 20 mg/mL syringe 20 mg PO Q2H PRN (Reason: severe pain or SOB) Discontinued ascorbic acid (vitamin C) 500 mg Tablet 500 mg PO BID Pro-Stat Sugar Free 15 gram- 100 kcal/30 mL Liquid In Packet 1 ea PO BID tramadol 50 mg Tablet 50 mg PO Q8H PRN (Reason: Pain, Moderate) Qty: 20 0RF Rx Instructions: MODERATED P[AIN (5-7) DO NOT EXCEED 300MG IN 24HOURS atorvastatin 40 mg tablet 40 mg PO HS clonidine HCl 0.1 mg tablet 0.1 mg PO BID Rx Instructions: MONITOR BP AND PULSE, HOLD IF SBP<100 OR PULSE<60 carvedilol 3.125 mg tablet 3.125 mg PO BID Rx Instructions: MONITOR BP AND PULSE, HOLD IF SBP<100 OR PULSE<60 folic acid 1 mg tablet 1 mg PO QDAY empagliflozin 25 mg Tablet 25 mg PO QDAY pantoprazole 40 mg tablet,delayed release (DR/EC) 40 mg PO DAILY Multiple Vitamin-Minerals Tablet 1 tab PO QDAY doxycycline hyclate 100 mg capsule 100 mg PO BID Qty: 14 0RF linezolid 600 mg tablet 600 mg PO BID Qty: 10 0RF Referrals: Frank Roberts MD [Physician] - No Primary/Family,Physician [Primary Care Provider] - Patient/Caregiver Discharge Instructions Other Discharge Activity Instructions:: 1) Wound care to left and right lower abdomen: Irrigate with normal saline, pat dry, cover wound bed with xeroform gauze and secure with foam dressings. Change daily to every other day and PRN for saturating. If bleeding or oozing occurs, apply calcium alginate and apply pressure until oozing stops. 2) Avoid pressure and rubbing over wound sites. Elevate pannus with rolled towel or pillow to avoid touching bed surface. 3) Unstageable to sacrum: cleanse with wound cleanser, pat dry, apply hydrogel gauze to wound bed. Skin prep to wound edges and secure with allyven dressing daily side to side repositioning except for meals, head of bed lower then 30 degrees as able 4) Stage 3 to right lower leg: cleanse with wound cleanser, pat dry, apply adaptic to wound bed. Layer with abd pad and secure with kerlix roll daily Avoid pillow over wound site, elevate knee and ankle as able. 5) Deep tissue injury to right heel and unstageable to left heel: cleanse with wound cleanser, pat dry, apply skin prep and cover with allyven dressing daily. negative heel pressure bilaterally 6) Follow up at [facility] as needed for non healing complications. Call [phone] for appointment. Education Materials: Wound Care, Changing Dressing Dc Print Language: Albanian Stand Alone Forms: Jania Award Info., Patient Portal Info Letter Discharge Order Discharge Orders: Discharge (Routine); Ordered 11/23/24 Ordered By: Seb Shah Quality Discharge Quality Measures VTE prophylaxis
--- NOTE | 2024-11-23 09:17 | PD.RESPRO ---
Documentation for date of: 11/23/24 Exam Vital Signs Temp Pulse Resp BP Pulse Ox O2 Del Method 97.7 F 80 16 163/80 H 93 L Room Air 11/23/24 08:00 11/23/24 08:00 11/23/24 08:00 11/23/24 08:00 11/23/24 08:00 11/23/24 08:00 Objective Labs 11/23/24 05:09 11/23/24 05:09 Labs: Laboratory Results - last 24 hr 11/22/24 11/22/24 11/22/24 10:02 10:02 10:02 WBC Cancelled RBC Cancelled Hgb Cancelled 8.8 L Hct Cancelled 29.2 L MCV Cancelled MCH Cancelled MCHC Cancelled RDW Std Deviation Cancelled Plt Count Cancelled Neut % (Auto) Cancelled Lymph % (Auto) Cancelled [place] % (Auto) Cancelled Eos % (Auto) Cancelled Baso % (Auto) Cancelled Neut # (Auto) Cancelled Lymph # (Auto) Cancelled [place] # (Auto) Cancelled Eos # (Auto) Cancelled Baso # (Auto) Cancelled Immature Gran # (Auto) Cancelled Absolute Nucleated RBC Cancelled Immature Gran % Cancelled Nucleated RBC % Cancelled Sodium 135 L Potassium 3.9 Chloride 107 Carbon Dioxide 18.4 L Anion Gap 10 BUN 25 H Creatinine 1.0 Estim Creat Clear Calc 66.8 eGFR > 60 BUN/Creatinine Ratio 25 H Glucose 107 H Calculated Osmolality 274 L Calcium 8.7 Corrected Calcium 9.5 Total Bilirubin 0.2 L AST < 10 ALT < 7 L Alkaline Phosphatase 72 Total Protein 6.2 Albumin 3.0 L Globulin 3.2 Albumin/Globulin Ratio 0.9 L 11/23/24 05:09 WBC 12.3 H RBC 3.74 L Hgb 9.8 L Hct 31.5 L MCV 84 MCH 26.2 MCHC 31.1 RDW Std Deviation 54.5 H Plt Count 547 H D Neut % (Auto) 66 Lymph % (Auto) 21 [place] % (Auto) 8 Eos % (Auto) 3 Baso % (Auto) 1 Neut # (Auto) 8.1 H Lymph # (Auto) 2.6 [place] # (Auto) 1.0 H Eos # (Auto) 0.4 Baso # (Auto) 0.1 Immature Gran # (Auto) 0.13 H Absolute Nucleated RBC 0.00 Immature Gran % 1 H Nucleated RBC % 0 Sodium 137 Potassium 3.7 Chloride 106 Carbon Dioxide 21.8 Anion Gap 9 BUN 22 Creatinine 0.8 Estim Creat Clear Calc 83.5 eGFR > 60 BUN/Creatinine Ratio 28 H Glucose 78 Calculated Osmolality 276 Calcium 9.2 Corrected Calcium 9.8 Total Bilirubin 0.3 AST 10 ALT 7 L Alkaline Phosphatase 77 Total Protein 6.9 Albumin 3.3 L Globulin 3.6 H Albumin/Globulin Ratio 0.9 L Quality Measures Quality Measures none Assessment & Plan Assessment Current Active Medications: Generic Name Dose Route Start Last Admin Trade Name Freq PRN Reason Stop Dose Admin Acetaminophen 650 mg 11/18/24 23:47 Acetaminophen 325 Mg Tablet PO 12/18/24 23:46 Q6H PRN Fever >101.5 Amlodipine Besylate 10 mg 11/21/24 09:00 11/22/24 08:56 Amlodipine Besylate 5 Mg Tablet PO 12/21/24 08:59 10 mg QDAY FREDA Administration Artificial Tears 0 drop 11/20/24 21:00 11/23/24 08:44 Artificial Tears 225 Drop/15 Ml Btl BOTH EYES 12/20/24 20:59 2 drops BID FREDA Administration Baclofen 5 mg 11/20/24 21:00 11/23/24 08:44 Baclofen 10 Mg Tablet PO 12/20/24 20:59 5 mg BID FREDA Administration Dextrose 25 ml 11/18/24 23:37 Dextrose 50%-Water Inj 50 Ml Syringe IV 12/18/24 23:36 Q15MIN PRN BG 50-70 responsive npo pt Dextrose 50 ml 11/18/24 23:37 Dextrose 50%-Water Inj 50 Ml Syringe IV 12/18/24 23:36 Q15MIN PRN BG <50 OR BG <70 & pt unresponsive Escitalopram Oxalate 20 mg 11/19/24 09:00 11/23/24 08:44 Escitalopram Oxalate 10 Mg Tablet PO 12/19/24 08:59 20 mg QDAY FREDA Administration Gabapentin 300 mg 11/19/24 09:00 11/23/24 08:44 Gabapentin 300 Mg Capsule PO 12/19/24 08:59 300 mg BID FREDA Administration Glucagon 1 mg 11/18/24 23:37 Glucagon Inj 1 Mg Vial IM Q15MIN PRN BG <70, and no IV access Insulin Glargine 8 unit 11/23/24 09:00 11/23/24 08:45 Insulin Glargine (Lantus) 5 Unit/0.05 Ml (Per 5 Units) SC 12/23/24 08:59 8 unit QDAY FREDA Administration Insulin Human Lispro 0 unit 11/19/24 07:30 11/23/24 07:21 Insulin Lispro (Admelog) 1 Unit/0.01 Ml Unit SC 12/19/24 07:29 Not Given AC FREDA Protocol Oxycodone/Acetaminophen 2 tab 11/18/24 23:47 11/21/24 20:43 Oxycodone/Apap 5/325 Tablet PO 11/23/24 23:46 2 tab Q6H PRN Administration PAIN SCALE 4-6 (Moderate Polyethylene Glycol 17 gm 11/19/24 09:00 11/23/24 08:45 Polyethylene Glycol 17 Gm Packet PO 12/19/24 08:59 17 gm QDAY FREDA Administration Sennosides 1 tab 11/19/24 09:00 11/23/24 08:44 Senna Tablet PO 12/19/24 08:59 1 tab BID FREDA Administration Protocol
[2024-11-23] MEDS: oxyCODONE/APAP 5/325 TABLET 2 TAB PO ×2 (09:44→17:17)
--- NOTE | 2024-11-23 09:54 | PC.SS ---
Update: Plan is to d/c the patient to SNF today.
--- NOTE | 2024-11-23 11:29 | PC.SS ---
CLINICAL MANAGER HOME CARE attempted phone contact with patient's sister, Elly Loja ; to provide update that patient possesses orders for discharge and to confirm patient's re-alignment with [facility] hospice. No response. CLINICAL MANAGER HOME CARE unable to leave voicemail due to no voicemail option. CLINICAL MANAGER HOME CARE attempted phone contact with patient's mother, Radha Holliday ; no response message left requesting phone call.
--- NOTE | 2024-11-23 11:31 | PC.SS ---
DISPOSITION CLERK notified by SNF that if patient does not return to SNF with hospice, authorization for placement will be required.
--- NOTE | 2024-11-23 11:42 | PC.SS ---
Addendum entered and electronically signed by MERNA Mayberry 11/23/24 15:28: RESTORATION TECHNICIAN conducted phone contact with patient's sister, Elly Loja; to confirm plan to d/c the patient to [facility] upon authorization. Patient's sister confirmed the d/c plan. Original Note: RESTORATION TECHNICIAN obtained phone number for patient's sister, Bertha Storm ; from bedside nurse. RESTORATION TECHNICIAN contacted patient's sister informing sister of need to get in contact with sister, Elly Loja. Sister, Bertha Storm; stated that patient's sister unavailable until after 04:30 pm due to work restricting cell phone access. Patient's sister, Bertha Storm; informed RESTORATION TECHNICIAN that she was aware that patient's discharge plan was to return to [facility] due to inability to secure SNF closer to [facility]. In addition sister, Bertha Storm; informed RESTORATION TECHNICIAN that sister (Elly Loja) has agreed to not have patient re-instated with hospice services. Sister, Bertha Storm, confirmed that patient had previously been aligned with [facility] hospice. Patient's sister, Bertha Storm; requesting following medication for patient upon discharge: Morphine (every 6 hrs), methadone and stool softner for the patient. RESTORATION TECHNICIAN updated bedside nurse with medication request.
--- NOTE | 2024-11-23 11:53 | PC.SS ---
Updated clinicals submitted on [facility]. Plan is to d/c patient to [facility] without hospice services. Authorization required.
--- NOTE | 2024-11-23 12:06 | PC.SS ---
CLINICAL IMPLEMENTATION SPECIALIST notified by [facility] that [employer] platform not working for SNF site. Requested updated clinicals to be submitted via fax to [phone]. Updated submitted on [employer] Fax as requested.
[2024-11-23] MEDS: MULTIVITAMINS TABLET 1 TAB PO (17:17)
[2024-11-23] MEDS: ZINC SULFATE 220 MG CAPSULE PO (17:17)
[2024-11-23] MEDS: ASCORBIC ACID 250 MG TABLET 500 MG PO (20:17)
[2024-11-24] VITALS (7 sets, daily range): BP systolic 133–154; BP diastolic 74–104; PULSE 66–74; RESP 16–18; TEMP 36.4–36.7; O2SAT 94–100
[2024-11-24 05:40] LABS: Basophils # (Auto) 0.1 Thou/mm3 (0.0-0.2); Basophils % (Auto) 1 % (0-2.5); Eosinophils # (Auto) 0.5 Thou/mm3 (0.0-0.5); Eosinophils % (Auto) 5 % (0-10); Hematocrit 31.8 % (36.0-46.0); Hemoglobin 9.9 g/dL (12.0-16.0); Immature Granulocytes % (Auto) 1 % (0-0); Immature Granulocytes Auto 0.07 Thou/mm3 (0.00-0.00); Lymphocytes % (Auto) 26 % (10-50); Mean Corpuscular HGB Conc 31.1 g/dl (31.0-37.0); Mean Corpuscular Hemoglobin 26.1 pg (25.0-35.0); Mean Corpuscular Volume 84 fL (80-100); Monocytes # (Auto) 1.1 Thou/mm3 (0.0-0.8); Monocytes % (Auto) 9 % (0-12); Neutrophils # (Auto) 6.8 Thou/mm3 (1.8-7.7); Neutrophils % (Auto) 59 % (37-80); Nucleated Red Blood Cell % 0 /100 WBC (0); Platelet Count 489 Thou/mm3 (140-440); RDW Standard Deviation 55.4 fL (36.4-46.3); White Blood Count 11.6 Thou/mm3 (3.6-11.0)
[2024-11-24 07:18] LABS: Alanine Aminotransferase < 7 U/L (10-49); Albumin/Globulin Ratio 0.9 (1.2-2.2); Alkaline Phosphatase 67 U/L (46-116); Anion Gap 8 (7-16); Aspartate Amino Transferase < 10 U/L (0-34); BUN/Creatinine Ratio 24 Ratio (12-20); Bilirubin,Total 0.2 mg/dL (0.3-1.2); Blood Urea Nitrogen 19 mg/dL (9-23); Calcium 8.9 mg/dL (8.3-10.6); Calcium (Corrected) 9.7 mg/dL (8.5-10.1); Chloride 106 mMol/L (98-107); Creatinine (Component) 0.8 mg/dL (0.6-1.3); Estimated Creatinine Clearance 83.5 mL/min (>60); Globulin 3.3 gm/dL (2.3-3.5); Glucose 65 mg/dL (74-106); Osmolality,Calculated 270 (275-295); Potassium 3.9 mMol/L (3.4-5.1); Sodium 135 mMol/L (136-145); Total Protein 6.3 gm/dL (5.7-8.2); eGFR > 60 See Note
[2024-11-24] MEDS: ESCITALOPRAM OXALATE 10 MG TABLET 20 MG PO (08:23)
[2024-11-24] MEDS: POLYETHYLENE GLYCOL 17 GM PACKET PO (08:23)
[2024-11-24] MEDS: MULTIVITAMINS TABLET 1 TAB PO (08:23)
[2024-11-24] MEDS: amLODIPine BESYLATE 5 MG TABLET 10 MG PO (08:24)
[2024-11-24] MEDS: ZINC SULFATE 220 MG CAPSULE PO (08:25)
[2024-11-24] MEDS: ASCORBIC ACID 250 MG TABLET 500 MG PO (08:25)
[2024-11-24] MEDS: GABAPENTIN 300 MG CAPSULE PO (08:25)
[2024-11-24] MEDS: Artificial Tears 225 DROP/15 ML BTL BOTH EYES (08:26)
[2024-11-24] MEDS: BACLOFEN 10 MG TABLET 5 MG PO (08:26)
[2024-11-24] MEDS: SENNA TABLET 1 TAB PO (08:26)
[2024-11-24] MEDS: INSULIN GLARGINE (Lantus) 5 UNIT/0.05 ML (PER 5 UNITS) 8 UNIT SC (08:27)
--- NOTE | 2024-11-24 08:38 | PC.SS ---
CYLINDER DIE MACHINE OPERATOR fielded phone call from [facility] staff, [place]; stating that authorization for placement has been obtained on behalf of the patient. CYLINDER DIE MACHINE OPERATOR updated party planner.
--- NOTE | 2024-11-24 09:30 | PC.SS ---
Addendum entered by Bette Flood 11/24/24 13:01: Transport set up via [employer], released to [place]. ETA set for 1400. [place] at [facility] updated. Original Note: SS spoke to pt sister, Bertha Storm in regards to DC today to [facility], Bertha stated this is okay and she will update their other sister as she is currently at work.
--- NOTE | 2024-11-24 10:54 | CHAP ---
Patient was visited by a Spiritual Care Volunteer on 11/24/2024 between 0900 and 0948 and received comfort, encouragement, and/or prayer.
[2024-11-24] MEDS: MORPHINE SULF INJ 10 MG/ML VIAL IVP (11:45)
--- NOTE | 2024-11-24 12:39 | PC.NURSE ---
gave report to claudia at [facility]
--- NOTE | 2024-11-24 13:38 | ESPR_ITS ---
<Statement entered by Mike Gutierrez MD - 11/25/24 10:04> Patient was to be discharged on 11/23/24 but pended because of insurance authorization. For detailed discharge summary please view the dated discharge summary dated 11/23/24. I discussed with and supervised the public health internship physician involved in the care of this patient. Patient assessment and plan was discussed with entire medicine team, including my attending. I agree with the assessment and plan as documented by public health internship doctor. Patient care was discussed with my attending physician Dr. Anjelica Gutierrez, PGY-2 Documentation for date of: 11/24/24 Subjective Subjective Interval history: 11/24/2024: Patient discharged as noted in the discharge summary. Left the hospital on 11/24 instead of 11/23 due to insurance clearance. Patient's family would like the patient to continue multimodal analgesia including all medications as previously seen on medication list even though the patient is being discharged WITHOUT hospice care. Exam Vital Signs Temp Pulse Resp BP Pulse Ox O2 Del Method 98.1 F 73 18 133/82 H 99 Room Air 11/24/24 11:58 11/24/24 11:58 11/24/24 11:58 11/24/24 11:58 11/24/24 11:58 11/24/24 11:58 Narrative Exam Physical Exam General: Awake and in no acute distress. HEENT: Normocephalic, atraumatic, mucous membranes moist. Heart: Regular rate and rhythm, no murmurs. Lungs: Clear to auscultation with no wheezing or crackles. Abdomen: Full-thickness trauma to right and left abdomen bandaged. Otherwise, soft, obese, nondistended, nontender. ?No guarding or rebound tenderness. Neurologic: Alert and oriented x3, no gross neurological deficit, limited mobility, patient chronically bedbound. Extremities: No peripheral edema noted, right lower leg trauma versus venous ulcer, left heel wound Skin: Unstageable sacral/coccyx ulcer Objective Labs 11/24/24 04:25 11/24/24 04:25 Labs: Laboratory Results - last 24 hr 11/24/24 04:25 WBC 11.6 H RBC 3.80 L Hgb 9.9 L Hct 31.8 L MCV 84 MCH 26.1 MCHC 31.1 RDW Std Deviation 55.4 H Plt Count 489 H D Neut % (Auto) 59 Lymph % (Auto) 26 [place] % (Auto) 9 Eos % (Auto) 5 Baso % (Auto) 1 Neut # (Auto) 6.8 Lymph # (Auto) 3.0 Branch # (Auto) 1.1 H Eos # (Auto) 0.5 Baso # (Auto) 0.1 Immature Gran # (Auto) 0.07 H Absolute Nucleated RBC 0.00 Immature Gran % 1 H Nucleated RBC % 0 Sodium 135 L Potassium 3.9 Chloride 106 Carbon Dioxide 21.0 Anion Gap 8 BUN 19 Creatinine 0.8 Estim Creat Clear Calc 83.5 eGFR > 60 BUN/Creatinine Ratio 24 H Glucose 65 L Calculated Osmolality 270 L Calcium 8.9 Corrected Calcium 9.7 Total Bilirubin 0.2 L AST < 10 ALT < 7 L Alkaline Phosphatase 67 Total Protein 6.3 Albumin 3.0 L Globulin 3.3 Albumin/Globulin Ratio 0.9 L Quality Measures Quality Measures VTE prophylaxis Assessment & Plan Plan 59-year-old female with past medical history of atrial fibrillation, HFpEF (65 to 70%), CVA, hypertension, diabetes mellitus and chronic abdominal wounds presented from [facility] with left lower quadrant pain and bleeding from abdominal wound site. In the ED, patient was afebrile, vitals were stable but the patient did have elevated WBC count along with urinalysis findings suggesting bacterial infection with positive leukocyte esterase, pyuria and 3+ bacteria. CT abdomen pelvis obtained in the ED showed atelectasis versus pneumonia in the right base, atrophic kidneys with mild renal parenchymal scar formation, cystitis and a large amount of stool in the rectum. Patient was admitted for wound care along with IV antibiotics secondary to infectious etiology. General surgery was consulted secondary to the abdominal wound; however, per the recommendation there was no surgical intervention needed at this time. Patient's blood cultures, 1 set, came back positive for GPC but this was later confirmed to be contamination. Patient laboratory findings along with clinical presentation improved with IV antibiotics and she is returning back to baseline. Patient will be discharged back to [facility] with the following strict instructions. Please follow-up with your PCP within 1 week of discharge. Ask to be referred to Dermatology for pyoderma gangrenosum management. Continue wound care as noted below. Continue physical therapy once a day and reassess as needed. Use artificial tears as directed to lubricate and moisturize eyes. If your symptoms worsen or if you develop new bleeding, fever/chills, chest pain or shortness of breath - please come back to the ED immediately Hospital Diagnosis: #E.coli UTI #Acute kidney injury(resolved) #GPC contaminant, less likely bacteremia (resolved) #Leukocytosis # Acute blood loss anemia secondary to #Chronic abdominal wounds #Insulin-dependent type 2 diabetes #Diabetic neuropathy #Atrial fibrillation #HFpEF EF 65 to 70% #CVA by history #Hypertension #Chronically bedbound state #Major depressive disorder Seb Shah, PGY-1 Attending Provider Attestation/Addendum Kusum Owens DO, attest that I was physically present for the guardado portions of the service and evaluated the patient with the resident and I reviewed and discussed the case with the resident and agree with the resident's findings and plans of care as documented above Patient seen and evaluated this AM. No acute events overnight. Patient remains at baseline mental status. She denies any chest pain, shortness of breath, fevers or chills. She reports abdominal pain due to wounds. Pending authorization for discharge to SNF. Family has insisted on maintaining previous outpatient pain management regimen, but expressed that they do not wish to continue to with hospice care. Patient can otherwise be dsicharged to SNF once arranged.
== END 2024-11-24 13:27 | disposition skilled nursing facility (03) | DRG 384 ==
LOC: SERX 19:02 → SERHOLD 11-19 00:21 → S3NX 11-19 02:13
PROVIDERS: Internal Medicine; Admitting Provider Internal Medicine; Emergency Provider Emergency Medicine; Visit Provider Internal Medicine
DX: S31.104A Unspecified open wound of abdominal wall, left lower quadrant without penetration into peritoneal cavity, initial encounter (principal); I11.0 Hypertensive heart disease with heart failure; I48.91 Unspecified atrial fibrillation; I50.32 Chronic diastolic (congestive) heart failure; D62 Acute posthemorrhagic anemia; E11.9 Type 2 diabetes mellitus without complications; L88 Pyoderma gangrenosum; E78.5 Hyperlipidemia, unspecified; D64.9 Anemia, unspecified; G62.9 Polyneuropathy, unspecified; K21.9 Gastro-esophageal reflux disease without esophagitis; J18.9 Pneumonia, unspecified organism; N17.9 Acute kidney failure, unspecified; N30.90 Cystitis, unspecified without hematuria; K59.00 Constipation, unspecified; E11.40 Type 2 diabetes mellitus with diabetic neuropathy, unspecified; Z74.01 Bed confinement status; Z88.0 Allergy status to penicillin; Z88.2 Allergy status to sulfonamides; F32.9 Major depressive disorder, single episode, unspecified; Z79.4 Long term (current) use of insulin; Z79.899 Other long term (current) drug therapy; Z79.84 Long term (current) use of oral hypoglycemic drugs; Z88.8 Allergy status to other drugs, medicaments and biological substances; B96.1 Klebsiella pneumoniae [K. pneumoniae] as the cause of diseases classified elsewhere; Z86.73 Personal history of transient ischemic attack (TIA), and cerebral infarction without residual deficits; B96.20 Unspecified Escherichia coli [E. coli] as the cause of diseases classified elsewhere
CPT/HCPCS: 36415; 71045; 71260; 74177; 80048; 80053; 81001; 83605; 83615; 83690; 83735; 83880; 84100; 84145; 84484; 85014; 85018; 85025; 85610; 85730; 86850; 86900; 86901; 86923; 87040; 87077; 87081; 87086; 87186; 87400; 87811; 92610; 96365; 96367; 96368; 96372; 96375; 97161; 99285; A4649; J0131; J0457; J1580; J1815; J2270; J2405; J3490; J7030; J7042; P9016; Q9967; S0077; A9270; J0737

== ENCOUNTER 2024-12-23 09:34 | Inpatient (IN) | payer MEDICAID, SELFPAY ==
[2024-12-23] VITALS (12 sets, daily range): BP systolic 104–165; BP diastolic 58–89; PULSE 64–89; RESP 12–89; TEMP 36.8–38.6; O2SAT 7–97; BMI 36.3
--- NOTE | 2024-12-23 09:42 | XR_ITS ---
Examination: AP chest single view TECHNIQUE: AP semiupright portable chest single view Exam date and time: December 23, 2024 0958 hours Comparison November 18, 2024 INDICATIONS: Sepsis protocol FINDINGS: Normal heart size Ectatic thoracic aorta. No pneumonia or pulmonary edema Moderate elevation right hemidiaphragm IMPRESSION: No pneumonia identified
--- NOTE | 2024-12-23 09:42 | EKG_ITS ---
[facility] Test Date: 2024-12-23 Pat Name: PARIS LEZAMA Department: Room: - Gender: Female Tufting Creeler: : 1965 Requested By: Anshu Torres Order Number: [id number] Reading MD: Anshu Torres Measurements Intervals [place] Rate: 79 P: AR: QRS: 26 QRSD: 97 T: 84 QT: 398 QTc: 458 Interpretive Statements ATRIAL FIBRILLATION SEPTAL MYOCARDIAL INFARCTION , OF INDETERMINATE AGE [40+ ms Q WAVE IN V1/V2] Compared to ECG 08/11/2024 11:10:16 Sinus rhythm no longer present Sinus arrhythmia no longer present Myocardial infarct finding still present /store/[id number].pdf
--- NOTE | 2024-12-23 09:51 | EDNOTE_ITS ---
ED General RME/HPI General Chief complaint: Altered Mental Status Stated complaint: AMS Time Seen by Provider: 12/23/24 10:04 Arrival date/time: 12/23/24 09:34 RME / HPI RME / HPI narrative: Patient is a 59 years old female with PMH of atrial fibrillation, HFpEF (65 to 70%), CVA, hypertension, diabetes mellitus and chronic abdominal wounds presented to the ED by ambulance from SNF due to AMS. EMS reported SNF staff noticed her being altered sometime yesterday. Her condition worsened today morning and they called EMS. No trauma or falls reported. Patient is non-verbal but opens eyes spontaneously, does not follow commands. Related Data Home Medications ?Medication ?Instructions ?Recorded ?Confirmed escitalopram oxalate 20 mg tablet 10 mg PO QDAY DEPRES ERENDIRA 05/21/24 12/28/24 gabapentin 300 mg capsule 300 mg PO BID NEUROPATHY 12/28/24 insulin lispro 100 unit/mL 1 sliding scale dose subcut AC dm 05/21/24 12/28/24 subcutaneous solution (Humalog U-100 Insulin) amlodipine 10 mg tablet 10 mg PO QDAY htn 07/03/24 0 12/28/24 baclofen 10 mg tablet 5 mg PO BID Muscle spasms 12/28/24 sennosides 8.6 mg tablet (senna) 8.6 - 50 mg PO BID CO NSTIPATION 07/04/24 12/28/24 bisacodyl 10 mg rectal suppository 10 mg AR QDAY PRN C onstipation 08/11/24 12/28/24 (Dulcolax (bisacodyl)) magnesium hydroxide 400 mg/5 mL 1,200 mg PO QDAY PRN C onstipation 08/11/24 11/19/24 oral suspension (Milk of Magnesia) sodium phosphates 19 gram-7 118 ml AR QDAY PRN Constip ation 08/11/24 11/19/24 gram/118 mL enema (Enema Disposable) lorazepam 0.5 mg tablet 0.5 mg PO Q6H PRN anxiety m/ b 11/19/24 12/28/24 terminal illness methadone 5 mg tablet 2.5 mg PO Q12H 11/19/2411/30 morphine concentrate 20 mg/mL oral 5 mg PO DAILY PRN m ild pain 11/19/24 11/19/24 syringe (FOR ORAL USE ONLY) 20-30mins prior to wound care morphine concentrate 20 mg/mL oral 10 mg PO .q4h PRN m oderate pain or 11/19/24 12/28/24 syringe (FOR ORAL USE ONLY) SOB morphine concentrate 20 mg/mL oral 20 mg PO Q2H PRN se denisse pain or SOB 11/19/24 12/28/24 syringe (FOR ORAL USE ONLY) Previous Rx's ?Medication ?Instructions ?Recorded artificial 1 drp Both eyes BID #15 mL 0 11/23/24 tears(vespfyh-[id number]) 0.1 %-0.3 %-0.2 % eye drops Allergies Allergy/AdvReac Type Severity Reaction Status Date / Time acetylcysteine Allergy Severe Difficulty Verified 05/24/24 17:57 Swallowing aspirin Allergy Severe Difficulty Verified 05/24/24 17:57 Swallowing cefpodoxime Allergy Severe Difficulty Verified 05/24/24 17:57 Breathing levofloxacin (From Levaquin) Allergy Severe Difficulty Verified 05/24/24 17:57 Breathing Penicillins Allergy Severe Difficulty Verified 05/24/24 17:57 Breathing Sulfa (Sulfonamide Allergy Severe Hives Verified 05/24/24 17:57 Antibiotics) sulfadiazine Allergy Severe Difficulty Verified 05/24/24 17:57 Breathing sulfamethoxazole (From Allergy Severe Difficulty Verified 05/24/24 17:57 Bactrim) Breathing capsaicin Allergy Intermediate Hives Verified 05/24/24 17:57 dulaglutide Allergy Intermediate Hives Verified 05/24/24 17:57 trimethoprim (From Bactrim) Allergy Verified 03/21/24 22:15 Review of Systems Review of Systems ROS Unobtainable: unobtainable due to mental status ED Exam Narrative Physical exam: Gen: Well-developed elderly female in distress. HEENT: NCAT, PERRLA, MMM, anicteric conjunctivae, opens eyes spontaneously. CVS: normal S1 and S2. Irregularly irregular. No M/R/G. Resp: decreased BS B/L. No rhonchi, rales, crackles or wheezing. Abd: soft, non-tender, non-distended. BS+ in all 4 quadrants. 15x6 cm ulceration on right lower side with hyperemia and no drainage, 3x4 cm ulceration over her right lower abdomen with hyperemia and is draining purulent material. MSK: No edema. Multiple wounds across her BLE, appears non-infected with no drainage. Multiple pressure wounds in her lower back and heels ranging in stage I-III. All body is tender to palpation. Neuro: limited exam due to mental status. Does not respond or follow commands. Moves all 4 extremities spontaneously. Course Course Course Narrative: 0942: sepsis alert. Given ABx and bolus IVF. Tylenol AR for fever. Cultures taken. Quality Measures Current suspected stage: sepsis Possible source: genitourinary Blood cultures ordered: yes Antibiotic ordered: Yes Pertinent labs: 12/23/24 09:40 Lactic Acid 1.4 mMol/L (0.4-2.0) Procalcitonin 1.76 H ng/ml (0.0-0.49) sepsis Orders Category Date Time Status Patient Condition Routine Admission 12/23/24 11:58 Ordered Bedside Blood Glucose NOW Care 12/23/24 09:42 Completed Bedside COVID-19 Antigen Test NOW Care 12/23/24 11:24 Completed COVID-19 Screening Questionnaire NOW Care 12/23/24 11:18 Completed Optical Sales Associate Q4H START 00 Care 12/23/24 09:42 Completed Continuous Pulse Oximetry NOW Care 12/23/24 09:42 Completed Decision to Admit X1 Care 12/23/24 11:18 Completed Insert IV NOW Care 12/23/24 09:42 Completed Notify provider NEEDED Care 12/23/24 11:58 Completed Strict Intake and Output Routine Care 12/23/24 09:42 Ordered Urinary Catheter NOW Care 12/23/24 09:[address] head/brain wo con Stat Exams 12/23/24 11:17 Completed XR chest 1V SEPSIS PROTOCOL Stat Exams 12/23/24 09:42 Completed Blood Culture (Lab) Stat Lab 12/23/24 10:07 Completed CBC Stat Lab 12/23/24 09:40 Completed Comprehensive Metabolic Panel Stat Lab 12/23/24 09:40 Completed Lactate (Lactic Acid) Stat Lab 12/23/24 09:40 Completed Partial Thromboplastin Time Stat Lab 12/23/24 09:40 Completed Procalcitonin Stat Lab 12/23/24 09:40 Completed Prothrombin Time with INR Stat Lab 12/23/24 09:40 Completed Troponin I Stat Lab 12/23/24 09:40 Completed Urinalysis Stat Lab 12/23/24 10:05 Completed Urine Culture Stat Lab 12/23/24 10:05 Completed Vancomycin,Random Stat Lab 12/24/24 04:31 Completed Wound Culture and Gram Stain Stat Lab 12/23/24 10:05 Completed Acetaminophen Supp [Tylenol Supp] Med 12/23/24 09:59 Discontinued 650 mg AR X1 ONE Aztreonam Inj [Azactam Inj] 2,000 mg Med 12/23/24 09:48 Discontinued Sodium Chloride 0.9% (Pop) [NS 0.9% mini bag] 100 ml IV X1 Sodium Chloride 0.9% 1000 ml [Ns] 1,000 ml Med 12/23/24 09:44 Discontinued IV 999 mls/hr Vancomycin Pharmacy to Dose Med 12/23/24 10:00 Discontinued 1 each IV QDAY PRN Vancomycin/Ns 1 gm Ivpb 200 ml Med 12/23/24 10:15 Discontinued IV X1 Code Status Routine Oth 12/23/24 11:58 Completed EKG (RT) Stat RT 12/23/24 09:42 Draft Oxygen Delivery NOW RT 12/23/24 09:42 Completed Vital Signs Vital signs: Vital Signs Pulse Oximetry (%) 94 L 12/23/24 09:35 Oxygen Flow Rate 5 12/23/24 09:35 [facility] Patient data External records reviewed:: [facility] previous records and EMS form Clinical information provided by:: EMS Social determinants that could affect healthcare access:: none Patient has the following chronic illnesses:: Atrial fibrillation, HFpEF (65 to 70%), CVA, hypertension, diabetes mellitus and chronic abdominal wounds. How is presenting disease/condition affected by chronic disease/condition?: e xacerbated by Evaluation data The following diagnostics were reviewed and interpreted by me:: lab results, radiology exam(s) and EKG tracing(s) Lab and/or radiology exams considered but not ordered:: CT AP Interpretation Summary: Leukocytosis, [place], hyperglycemia, UTI. Medications Medications considered but not ordered:: na Medication administrations:: Medication Administration History Discontinued Medications Acetaminophen (Acetaminophen Supp 650 Mg Supp) 650 mg AR X1 ONE Stop: 12/23/24 10:00 Last Admin: 12/23/24 10:18 Dose: 650 mg Documented By: DO Acetaminophen (Acetaminophen Supp 650 Mg Supp) 650 mg AR Q6HR PRN; Protocol PRN Reason: PAIN OR FEVER > 100.4 Stop: 01/22/25 11:59 Amlodipine Besylate (Amlodipine Besylate 5 Mg Tablet) 10 mg PO QDAY [facility] Stop: 01/26/25 12:14 Last Admin: 12/29/24 09:03 Dose: 10 mg Documented By: Admin: 12/28/24 08:29 Dose: 10 mg Documented By: Admin: 12/27/24 12:21 Dose: 10 mg Documented By: GABRIEL Bisacodyl (Bisacodyl 5 Mg Tabec) 5 mg PO QDAY PRN; Protocol PRN Reason: CONSTIPATION Stop: 01/23/25 15:08 Dextrose (Dextrose 50%-Water Inj 50 Ml Syringe) 25 ml IV Q15MIN PRN PRN Reason: BG 50-70 responsive npo pt Stop: 01/22/25 12:09 Dextrose (Dextrose 50%-Water Inj 50 Ml Syringe) 50 ml IV Q15MIN PRN PRN Reason: BG <50 OR BG <70 & pt unresponsive Stop: 01/22/25 12:09 Escitalopram Oxalate (Escitalopram Oxalate 10 Mg Tablet) 10 mg PO QDAY [facility] Stop: 01/23/25 15:14 Last Admin: 12/29/24 09:03 Dose: 10 mg Documented By: Admin: 12/28/24 08:29 Dose: 10 mg Documented By: Admin: 12/27/24 08:28 Dose: 10 mg Documented By: Admin: 12/26/24 09:43 Dose: 10 mg Documented By: Admin: 12/25/24 10:12 Dose: 10 mg Documented By: Admin: 12/24/24 16:38 Dose: 10 mg Documented By: CANDIDA Estrogens Conjugated (Estrogens,Conj Vag Cr 30 Gm Tube) 0 gm VAGINAL QDAY [facility] Stop: 01/25/25 08:59 Last Admin: 12/29/24 09:03 Dose: 2 gm Documented By: Admin: 12/28/24 13:38 Dose: 2 gm Documented By: Admin: 12/27/24 08:30 Dose: 2 gm Documented By: Admin: 12/26/24 11:20 Dose: 30 gm Documented By: BREONNA Comments: PATIENT REFUSED THIS MORNING Gabapentin (Gabapentin 300 Mg Capsule) 300 mg PO BID [facility] Stop: 01/23/25 20:59 Glucagon (Glucagon Inj 1 Mg Vial) 1 mg IM Q15MIN PRN PRN Reason: BG <70, and no IV access Heparin Sodium (Porcine) (Heparin Sod Inj 5000 Unit/Ml Vial) 5,000 unit SC BID FREDA Stop: 01/06/25 20:59 Last Admin: 12/29/24 09:03 Dose: 5,000 unit Documented By: GABRIEL Co-signed By: TANNER Admin: 12/28/24 20:36 Dose: 5,000 unit Documented By: BILL Co-signed By: CP Admin: 12/28/24 08:35 Dose: 5,000 unit Documented By: GABRIEL Co-signed By: TANNER Admin: 12/27/24 20:30 Dose: 5,000 unit Documented By: AL Co-signed By: MARYBEL Admin: 12/27/24 08:28 Dose: 5,000 unit Documented By: GABRIEL Co-signed By: TANNER Admin: 12/26/24 20:40 Dose: 5,000 unit Documented By: JACKELYN Co-signed By: MR Admin: 12/26/24 09:44 Dose: 5,000 unit Documented By: BREONNA Co-signed By: ANA Admin: 12/25/24 20:56 Dose: 5,000 unit Documented By: Co-signed By: Admin: 12/25/24 09:51 Dose: 5,000 unit Documented By: SCHUYLER Co-signed By: NICOL Admin: 12/24/24 20:45 Dose: 5,000 unit Documented By: Co-signed By: Admin: 12/24/24 09:37 Dose: 5,000 unit Documented By: CANDIDA Co-signed By: GE Admin: 12/23/24 21:18 Dose: 5,000 unit Documented By: JOSE Co-signed By: CB Hydromorphone HCl (Hydromorphone Inj 2 Mg/Ml Vial) 0.25 mg IVP Q4HR PRN PRN Reason: PAIN SCALE 4-10(Mod-Sev Stop: 12/29/24 10:14 Last Admin: 12/26/24 15:27 Dose: 0.25 mg Documented By: Admin: 12/26/24 03:47 Dose: 0.25 mg Documented By: Admin: 12/25/24 10:37 Dose: 0.25 mg Documented By: Admin: 12/24/24 11:22 Dose: 0.25 mg Documented By: CANDIDA Sodium Chloride (Ns) 1,000 mls @ 999 mls/hr IV .Q1H1M ONE Stop: 12/23/24 10:44 Last Infusion: 12/23/24 11:25 Dose: Infused Documented By: Admin: 12/23/24 10:17 Dose: 999 mls/hr Documented By: Aztreonam 2,000 mg/ Sodium (Chloride) 100 mls @ 100 mls/hr IV X1 ONE Stop: 12/23/24 10:47 Last Infusion: 12/23/24 11:45 Dose: Infused Documented By: Admin: 12/23/24 10:18 Dose: 100 mls/hr Documented By: Vancomycin/Sodium Chloride (Vancomycin/Ns 1 Gm Ivpb) 200 mls @ 120 mls/hr IV X1 ONE Stop: 12/23/24 11:54 Last Infusion: 12/23/24 14:00 Dose: Infused Documented By: Admin: 12/23/24 12:05 Dose: 120 mls/hr Documented By: DO Lactated Ringer's (Lactated Ringers) 1,000 mls @ 75 mls/hr IV .[id number] FREDA Stop: 01/22/25 11:59 Last Infusion: 12/23/24 18:40 Dose: 0 mls/hr Documented By: Admin: 12/23/24 13:03 Dose: 75 mls/hr Documented By: Aztreonam 1,000 mg/ Sodium (Chloride) 50 mls @ 100 mls/hr IV Q12HR FREDA Stop: 12/31/24 08:59 Last Admin: 12/25/24 20:53 Dose: 100 mls/hr Documented By: Infusion: 12/25/24 10:19 Dose: Infused Documented By: Admin: 12/25/24 09:49 Dose: 100 mls/hr Documented By: Infusion: 12/24/24 21:20 Dose: Infused Documented By: Admin: 12/24/24 20:50 Dose: 100 mls/hr Documented By: Infusion: 12/24/24 11:26 Dose: Infused Documented By: Admin: 12/24/24 10:56 Dose: 100 mls/hr Documented By: CANDIDA Lactated Ringer's (Lactated Ringers) 1,000 mls @ 100 mls/hr IV .Q10H FREDA Stop: 12/24/24 17:00 Last Admin: 12/24/24 14:56 Dose: 100 mls/hr Documented By: Infusion: 12/24/24 12:59 Dose: Infused Documented By: Admin: 12/24/24 02:59 Dose: 100 mls/hr Documented By: Infusion: 12/24/24 02:59 Dose: Infused Documented By: Admin: 12/23/24 18:38 Dose: 100 mls/hr Documented By: Aztreonam 1,000 mg/ Sodium (Chloride) 50 mls @ 100 mls/hr IV Q12HR [facility] Stop: 12/23/24 23:00 Last Admin: 12/23/24 21:18 Dose: 100 mls/hr Documented By: KG Vancomycin/Sodium Chloride (Vancomycin/Ns 1 Gm Ivpb) 200 mls @ 120 mls/hr IV QDAY@1000 FREDA Stop: 12/31/24 09:59 Last Admin: 12/25/24 10:53 Dose: Not Given Documented By: SCHUYLER Non-Admin Reason: Discontinued Admin: 12/24/24 09:37 Dose: 120 mls/hr Documented By: CANDIDA Vancomycin HCl/Dextrose (Vancomycin/D5w 1,250 Mg Ivpb) 250 mls @ 120 mls/hr IV Q24H FREDA Stop: 01/01/25 09:59 Last Admin: 12/25/24 10:53 Dose: Not Given Documented By: SCHUYLER Non-Admin Reason: Discontinued Magnesium Sulfate (Magnesium Sulfate Ivpb) 2 gm in 50 mls @ 25 mls/hr IV X1 ONE Stop: 12/27/24 10:27 Last Admin: 12/27/24 08:39 Dose: 25 mls/hr Documented By: GABRIEL Potassium Phosphate 22.5 mmol/ (Sodium Chloride) 507.5 mls @ 82.778 mls/hr IV X1 ONE Stop: 12/28/24 14:45 Last Admin: 12/28/24 09:29 Dose: 82.778 mls/hr Documented By: GABRIEL Insulin Human Lispro (Insulin Lispro (Admelog) 1 Unit/0.01 Ml Unit) 0 unit SC Q6HR [facility]; Protocol Stop: 01/22/25 17:59 Last Admin: 12/27/24 01:00 Dose: Not Given Documented By: JACKELYN Non-Admin Reason: Contraindicated Admin: 12/26/24 18:00 Dose: Not Given Documented By: AL Non-Admin Reason: Other, see note Comments: not done Admin: 12/26/24 12:16 Dose: Not Given Documented By: AV Non-Admin Reason: Per Protocol Admin: 12/26/24 05:51 Dose: Not Given Documented By: ME Non-Admin Reason: Per Protocol Admin: 12/26/24 00:00 Dose: Not Given Documented By: ME Non-Admin Reason: Per Protocol Admin: 12/25/24 18:13 Dose: Not Given Documented By: AU Non-Admin Reason: Per Protocol Admin: 12/25/24 11:59 Dose: 1 unit Documented By: SCHUYLER Co-signed By: BOONE(2) Admin: 12/25/24 06:36 Dose: Not Given Documented By: MS Non-Admin Reason: Per Protocol Admin: 12/24/24 23:53 Dose: Not Given Documented By: MS Non-Admin Reason: Per Protocol Admin: 12/24/24 18:31 Dose: Not Given Documented By: CANDIDA Non-Admin Reason: Per Protocol Admin: 12/24/24 12:43 Dose: Not Given Documented By: CANDIDA Non-Admin Reason: Per Protocol Admin: 12/24/24 05:17 Dose: Not Given Documented By: GG Non-Admin Reason: Per Protocol Admin: 12/24/24 00:18 Dose: Not Given Documented By: GG Non-Admin Reason: Per Protocol Admin: 12/23/24 19:07 Dose: 1 unit Documented By: REUBEN Co-signed By: Insulin Human Lispro (Insulin Lispro (Admelog) 1 Unit/0.01 Ml Unit) 0 unit SC [facility]; Protocol Stop: 01/26/25 07:29 Last Admin: 12/29/24 13:23 Dose: Not Given Documented By: SY Non-Admin Reason: Per Protocol Admin: 12/29/24 09:01 Dose: Not Given Documented By: SY Non-Admin Reason: Per Protocol Admin: 12/28/24 17:09 Dose: Not Given Documented By: SY Non-Admin Reason: Per Protocol Admin: 12/28/24 11:58 Dose: 1 unit Documented By: GABRIEL Co-signed By: ANA Admin: 12/28/24 08:34 Dose: Not Given Documented By: SY Non-Admin Reason: Per Protocol Admin: 12/27/24 17:11 Dose: Not Given Documented By: SY Non-Admin Reason: Per Protocol Admin: 12/27/24 11:57 Dose: 1 unit Documented By: GABRIEL Co-signed By: TANNER Admin: 12/27/24 08:29 Dose: Not Given Documented By: GABRIEL Non-Admin Reason: Per Protocol Lorazepam (Lorazepam 0.5 Mg Tablet) 0.5 mg PO Q6HR PRN PRN Reason: ANXIETY Stop: 12/29/24 15:06 Last Admin: 12/28/24 09:29 Dose: 0.5 mg Documented By: GABRIEL Magnesium Hydroxide (Milk Of Magnesia Susp 30 Ml Udc) 15 ml PO QDAY PRN; Protocol PRN Reason: CONSTIPATION Stop: 01/23/25 15:08 Methadone HCl (Methadone Solution 5 Mg/5 Ml Udc) 5 mg PO BID FREDA Stop: 12/29/24 08:59 Last Admin: 12/28/24 20:00 Dose: 5 mg Documented By: Admin: 12/28/24 08:29 Dose: 5 mg Documented By: Admin: 12/27/24 20:27 Dose: 5 mg Documented By: Admin: 12/27/24 08:28 Dose: 5 mg Documented By: Admin: 12/26/24 20:38 Dose: 5 mg Documented By: Admin: 12/26/24 09:43 Dose: 5 mg Documented By: Admin: 12/25/24 20:48 Dose: 5 mg Documented By: Admin: 12/25/24 09:51 Dose: 5 mg Documented By: Admin: 12/24/24 20:44 Dose: 5 mg Documented By: Metoclopramide HCl (Metoclopramide Inj 5 Mg/Ml Vial 2 Ml) 10 mg IVP Q6H PRN; Protocol PRN Reason: NAUSEA OR VOMITING Stop: 01/22/25 11:59 Metoclopramide HCl (Metoclopramide Inj 5 Mg/Ml Vial 2 Ml) 5 mg IVP Q6H PRN; Protocol PRN Reason: NAUSEA OR VOMITING Stop: 01/23/25 11:56 Morphine Sulfate (Morphine Sulf Inj 10 Mg/Ml Vial) 0.25 mg IVP Q4HR PRN PRN Reason: PAIN SCALE 4-10(Mod-Sev) Stop: 12/28/24 12:05 Last Admin: 12/24/24 02:03 Dose: 0.25 mg Documented By: OLU Morphine Sulfate (Morphine Sulf Liqd 10 Mg/5 Ml Udc) 20 mg PO Q4H PRN PRN Reason: severe pain or SOB Stop: 01/27/25 20:52 Last Admin: 12/29/24 13:54 Dose: 20 mg Documented By: Admin: 12/29/24 09:03 Dose: 20 mg Documented By: Admin: 12/29/24 01:20 Dose: 20 mg Documented By: Admin: 12/28/24 21:07 Dose: 20 mg Documented By: BILL Nitrofurantoin Macrocrystals (Nitrofurantoin Macro 100 Mg Capsule) 100 mg PO BID FREDA Stop: 01/02/25 08:59 Last Admin: 12/28/24 08:29 Dose: 100 mg Documented By: Admin: 12/27/24 20:28 Dose: 100 mg Documented By: Admin: 12/27/24 08:28 Dose: 100 mg Documented By: Admin: 12/26/24 20:39 Dose: 100 mg Documented By: Admin: 12/26/24 09:43 Dose: 100 mg Documented By: BREONNA Nitrofurantoin Macrocrystals (Nitrofurantoin Macro 100 Mg Capsule) 100 mg PO BID FREDA Stop: 12/30/24 05:00 Last Admin: 12/29/24 09:02 Dose: 100 mg Documented By: Admin: 12/28/24 20:36 Dose: 100 mg Documented By: BILL Pantoprazole Sodium (Pantoprazole Inj 40 Mg Vial) 40 mg IVP QDAY FREDA Stop: 01/23/25 08:59 Last Admin: 12/25/24 09:51 Dose: 40 mg Documented By: Admin: 12/24/24 09:37 Dose: 40 mg Documented By: CANDIDA Pantoprazole Sodium (Pantoprazole 40 Mg Tablet) 40 mg PO QDAY [facility] Stop: 01/26/25 11:59 Last Admin: 12/29/24 09:02 Dose: 40 mg Documented By: Admin: 12/28/24 08:29 Dose: 40 mg Documented By: Admin: 12/27/24 12:21 Dose: 40 mg Documented By: GABRIEL Pharmacy Consult (Vancomycin Pharmacy To Dose 1 Each Each) 1 each IV QDAY PRN PRN Reason: CONSULT Stop: 01/22/25 09:59 Pharmacy Consult (Pharmacy Renal Dose Adjustment 1 Ea) 1 each XX PRN PRN PRN Reason: CONSULT Stop: 01/22/25 13:12 Phenazopyridine HCl (Phenazopyridine Hcl 100 Mg Tablet) 100 mg PO TIDWM FREDA Stop: 12/28/24 08:01 Last Admin: 12/28/24 08:29 Dose: 100 mg Documented By: Admin: 12/27/24 17:11 Dose: 100 mg Documented By: Admin: 12/27/24 11:57 Dose: 100 mg Documented By: Admin: 12/27/24 08:28 Dose: 100 mg Documented By: Admin: 12/26/24 20:40 Dose: 100 mg Documented By: Admin: 12/26/24 11:21 Dose: 100 mg Documented By: BREONNA Potassium Chloride (Potassium Chloride 10% 20 Meq/15 Ml Udc) 40 meq PO X1 ONE Stop: 12/27/24 08:27 Last Admin: 12/27/24 08:39 Dose: 40 meq Documented By: GABRIEL Potassium Chloride (Potassium Chloride 20 Meq Tabcr) 40 meq PO X1 ONE Stop: 12/28/24 08:37 Last Admin: 12/28/24 08:42 Dose: 40 meq Documented By: GABRIEL Sennosides (Senna/Docusate Sod 1 Tab Tablet) 2 tab PO BID FREDA; Protocol Stop: 01/23/25 08:59 Last Admin: 12/29/24 09:04 Dose: Not Given Documented By: GABRIEL Non-Admin Reason: loose stools Admin: 12/28/24 20:36 Dose: Not Given Documented By: BILL Non-Admin Reason: had 2 bms Admin: 12/28/24 08:36 Dose: Not Given Documented By: GABRIEL Non-Admin Reason: Patient Refused Admin: 12/27/24 20:28 Dose: 2 tab Documented By: Admin: 12/27/24 08:28 Dose: 2 tab Documented By: Admin: 12/26/24 20:39 Dose: 2 tab Documented By: Admin: 12/26/24 09:43 Dose: 2 tab Documented By: Admin: 12/25/24 20:48 Dose: 2 tab Documented By: Admin: 12/25/24 09:51 Dose: 2 tab Documented By: Admin: 12/24/24 20:45 Dose: 2 tab Documented By: Admin: 12/24/24 09:36 Dose: Not Given Documented By: CANDIDA Non-Admin Reason: NPO as above. Consultations Consultation(s) initiated? (list below): No Diagnosis Differential Diagnosis ED Complaint MDM: UTI, pneumonia, cellulitis, osteomyelitis Most likely diagnosis given after review of the tests above:: Sepsis 2/2 UTI Admission Indicated Admission indicated?: indicated Explain why admission is indicated or not indicated:: Patient is septic and requires admission and IV ABx. Admission Request Was there a request for admission?: Yes Admission Attestation Admission request attestation: Discussed case with [] from Hospitalist service regarding admission. Discussed patients ED course, exam findings, labs, and radiology results. The Hospitalist [agrees,declines] to accept the patient for admission. Disposition Plan Disposition Plan: Admit Medical Decision Making MDM Narrative MDM Narrative: This 59-year-old female presents with sepsis likely stemming from infected abdominal wounds and a urinary tract infection, compounded by her history of atrial fibrillation, HFpEF, CVA, hypertension, diabetes, and chronic wounds. [facility] with altered mental status, which has progressively worsened. Examination reveals purulent drainage from abdominal ulcers and pressure injuries on her lower back and heels, while labs confirm leukocytosis, acute kidney injury, hyperglycemia, and infection indicators. Initial management included IV antibiotics, fluid resuscitation, Tylenol, and cultures to identify pathogens. Admission is necessary to address her acute condition and prevent further complications. Treatment goals include infection control through targeted IV antibiotics, wound care, management of hyperglycemia and organ dysfunction, and supportive care for pressure ulcer prevention. Differential Diagnosis Differential Diagnosis: UTI, pneumonia, cellulitis, osteomyelitis Lab Data 12/29/24 04:50 12/29/24 04:50 Labs: Lab Results 12/23/24 12/23/24 Range/Units 09:40 10:05 WBC 16.3 H (3.6-11.0) Thou/mm3 RBC 3.49 L (4.00-5.20) Miln/mm3 Hgb 8.9 L (12.0-16.0) g/dL Hct 30.2 L (36.0-46.0) % MCV 87 (80-100) fL MCH 25.5 (25.0-35.0) pg MCHC 29.5 L (31.0-37.0) g/dl RDW Std Deviation 54.0 H (36.4-46.3) fL Plt Count 537 H D (140-440) Thou/mm3 Neut % (Auto) 76 (37-80) % Lymph % (Auto) 14 (10-50) % [place] % (Auto) 8 (0-12) % Eos % (Auto) 2 (0-10) % Baso % (Auto) 1 (0-2.5) % Neut # (Auto) 12.4 H (1.8-7.7) Thou/mm3 Lymph # (Auto) 2.2 (1.0-4.8) Thou/mm3 [place] # (Auto) 1.3 H (0.0-0.8) Thou/mm3 Eos # (Auto) 0.2 (0.0-0.5) Thou/mm3 Baso # (Auto) 0.1 (0.0-0.2) Thou/mm3 Immature Gran # (Auto) 0.09 H (0.00-0.00) Thou/mm3 Absolute Nucleated RBC 0.00 (0.00-0.00) Thou/mm3 Immature Gran % 1 H (0-0) % Nucleated RBC % 0 (0) /100 WBC PT 12.4 H (9.0-12.2) Seconds INR 1.1 (0.9-1.3) APTT 24.0 (22.0-36.0) Seconds Sodium 145 (136-145) mMol/L Potassium 5.1 (3.4-5.1) mMol/L Chloride 110 H (98-107) mMol/L Carbon Dioxide 23.7 (20.0-31.0) mMol/L Anion Gap 11 (7-16) BUN 50 H (9-23) mg/dL Creatinine 2.2 H (0.6-1.3) mg/dL Estim Creat Clear Calc 30.2 L (>60) mL/min eGFR 25 L (60 - ) See Note BUN/Creatinine Ratio 23 H (12-20) Ratio Glucose 146 H (74-106) mg/dL Calculated Osmolality 305 H (275-295) Lactic Acid 1.4 (0.4-2.0) mMol/L Calcium 10.7 H (8.3-10.6) mg/dL Corrected Calcium 11.0 H (8.5-10.1) mg/dL Phosphorus 4.5 (2.4-5.1) mg/dL Magnesium 2.3 (1.6-2.6) mg/dL Total Bilirubin 0.2 L (0.3-1.2) mg/dL AST 11 (0-34) U/L ALT < 7 L (10-49) U/L Alkaline Phosphatase 70 (46-116) U/L Troponin I < 0.020 (0.0-0.045) ng/mL Total Protein 7.4 (5.7-8.2) gm/dL Albumin 3.6 (3.4-4.8) gm/dL Globulin 3.8 H (2.3-3.5) gm/dL Albumin/Globulin Ratio 0.9 L (1.2-2.2) Procalcitonin 1.76 H (0.0-0.49) ng/ml Ur Collection Type Catheter Urine Color Yellow (Lt Yel-Yel) Urine Clarity Cloudy A (Clear/Hazy) Urine pH 5.5 (5.0-7.0) Ur Specific Baker 1.016 (1.001-1.035) Urine Protein 1+ A (Neg - Trace) Urine Glucose (UA) Negative (Negative) Urine Ketones Negative (Negative) Urine Blood 1+ A (Negative) Urine Nitrite Negative (Negative) Urine Bilirubin Negative (Negative) Urine Urobilinogen (Auto) Negative (0.0-1.0) mg/dL Ur Leukocyte Esterase Positive (Negative) Urine RBC 37 H (0-3) /hpf Urine WBC 1332 H (0-5) /hpf Ur Squamous Epith Cells 1 (0-5) /hpf Urine Bacteria 4+ A (None) Hyaline Casts 1 (0-1) /hpf Discharge Plan Plan Patient Disposition: Admit Acute Care w/in Hospital Disposition Comment: Patient is not on Isolation Problem List Clinical Impression: Sepsis Patient/Caregiver Discharge Instructions Other Activity Instructions:: Patient is not on Isolation or Precaution measures MD Attestation MD Attestation The patient was seen by the PGY-2. I, the supervising physician also encountered and examined the patient, remaining available for consultation as needed. With the PGY-2, I participated in the analysis and supervised the managment, treatment plan, medical decision making and documentation. I agree with the plan and documentation.
[2024-12-23 10:05] LABS: Lactate (Lactic Acid) 1.4 mMol/L (0.4-2.0)
[2024-12-23 10:17] LABS: Basophils # (Auto) 0.1 Thou/mm3 (0.0-0.2); Basophils % (Auto) 1 % (0-2.5); Eosinophils # (Auto) 0.2 Thou/mm3 (0.0-0.5); Eosinophils % (Auto) 2 % (0-10); Hematocrit 30.2 % (36.0-46.0); Hemoglobin 8.9 g/dL (12.0-16.0); Immature Granulocytes % (Auto) 1 % (0-0); Immature Granulocytes Auto 0.09 Thou/mm3 (0.00-0.00); Lymphocytes # (Auto) 2.2 Thou/mm3 (1.0-4.8); Lymphocytes % (Auto) 14 % (10-50); Mean Corpuscular HGB Conc 29.5 g/dl (31.0-37.0); Mean Corpuscular Hemoglobin 25.5 pg (25.0-35.0); Mean Corpuscular Volume 87 fL (80-100); Monocytes # (Auto) 1.3 Thou/mm3 (0.0-0.8); Monocytes % (Auto) 8 % (0-12); Neutrophils # (Auto) 12.4 Thou/mm3 (1.8-7.7); Neutrophils % (Auto) 76 % (37-80); Nucleated Red Blood Cell % 0 /100 WBC (0); Platelet Count 537 Thou/mm3 (140-440); Red Blood Count 3.49 Miln/mm3 (4.00-5.20); White Blood Count 16.3 Thou/mm3 (3.6-11.0)
[2024-12-23] MEDS: SODIUM CHLORIDE 0.9% 1000 ML 1,000 ML 999 ML IV (10:17)
[2024-12-23] MEDS: AZTREONAM INJ 2,000 MG in SODIUM CHLORIDE 0.9% (POP) 100 ML 100 MG IV (10:18)
[2024-12-23] MEDS: ACETAMINOPHEN SUPP 650 MG SUPP PR (10:18)
[2024-12-23 10:27] LABS: INR 1.1 (0.9-1.3); Prothrombin Time 12.4 Seconds (9.0-12.2)
--- NOTE | 2024-12-23 10:30 | PC.NURSE ---
PRESSURE WOUND X 2 NOTED ON COCCYX AREA, STAGE [address] ANTOINE. DRESSING APPLIED. OPEN WOUND TO LEFT/MID ABD WITH DRAINAGE AND TUNNELING NOTED. 2ND ADB WOUND NOTED TO R SIDE ABD. WET TO DRY DRESSING APPLIED TO BOTH ABD WOUNDS PER DR RINCON ORDERS. SMALL OPEN PRESSURE WOUNDS NOTED TO LEFT AND RIGHT HEALS. ALLYVN DRESSING APPLIED TO BILATERAL HEALS
[2024-12-23 10:37] LABS: Alanine Aminotransferase < 7 U/L (10-49); Albumin, Serum 3.6 gm/dL (3.4-4.8); Albumin/Globulin Ratio 0.9 (1.2-2.2); Alkaline Phosphatase 70 U/L (46-116); Anion Gap 11 (7-16); Aspartate Amino Transferase 11 U/L (0-34); BUN/Creatinine Ratio 23 Ratio (12-20); Bilirubin,Total 0.2 mg/dL (0.3-1.2); Blood Urea Nitrogen 50 mg/dL (9-23); Calcium 10.7 mg/dL (8.3-10.6); Carbon Dioxide 23.7 mMol/L (20.0-31.0); Chloride 110 mMol/L (98-107); Creatinine (Component) 2.2 mg/dL (0.6-1.3); Estimated Creatinine Clearance 30.2 mL/min (>60); Globulin 3.8 gm/dL (2.3-3.5); Glucose 146 mg/dL (74-106); Osmolality,Calculated 305 (275-295); Potassium 5.1 mMol/L (3.4-5.1); Procalcitonin 1.76 ng/ml (0.0-0.49); Sodium 145 mMol/L (136-145); Total Protein 7.4 gm/dL (5.7-8.2); Troponin I < 0.020 ng/mL (0.0-0.045); eGFR 25 See Note
[2024-12-23 10:49] LABS: Collection Type, Urine Catheter
[2024-12-23 10:59] LABS: Bacteria,Urine 4+; Bilirubin,Urine Negative (Negative); Blood,Urine 1+ (Negative); Color,Urine Yellow (Lt Yel-Yel); Glucose, Urine Negative (Negative); Hyaline Casts,Urine 1 /hpf (0-1); Ketones,Urine Negative (Negative); Leukocyte Esterase,Urine Positive (Negative); Nitrite,Urine Negative (Negative); PH,Urine 5.5 (5.0-7.0); Protein,Urine 1+ (Neg - Trace); RBC,Urine 37 /hpf (0-3); Specific Gravity,Urine 1.016 (1.001-1.035); Squamous Epithelial Cell,Urine 1 /hpf (0-5); Urobilinogen,Urine Negative mg/dL (0.0-1.0); WBC,Urine 1332 /hpf (0-5)
[2024-12-23 11:07] LABS: Clarity,Urine Cloudy (Clear/Hazy)
--- NOTE | 2024-12-23 11:17 | XR_ITS ---
Examination: CT brain head without contrast. 2-D sagittal coronal reconstructions Date and time of exam:December 23, 2024 1443 hours Comparison September 22, 2024 INDICATIONS: Altered mental status today CTDI: vol (mGy):56.6 DLP: (mGycm):1211 Technique: Multiple CT axial sections of the brain have been obtained, 5 mm slice thickness. Contrast has not been administered. 2-D sagittal, coronal reconstructions have been obtained Low dose protocols were performed. One or more of the following dose reduction techniques were used; automated exposure control, adjustment of the mA and/or KV according to patient size, use of iterative reconstruction technique. Findings: No significant ventricular enlargement. Intra-axial or extra-axial hemorrhage density is not seen. No mass effect or midline shift Basal cisterns are not remarkable. Fourth ventricle is midline. Cranial vault intact. Impression: Negative for acute hemorrhage, mass effect or midline shift Advise clinical correlation follow-up accordingly
[2024-12-23] MEDS: VANCOMYCIN/NS 1 GM IVPB 200 ML IV (12:05)
[2024-12-23] MEDS: RINGERS LACTATED 1000 ML 1,000 ML 75 ML IV (13:03)
--- NOTE | 2024-12-23 13:14 | ESHP_ITS ---
<Statement entered by Shreyas Granados MD - 12/23/24 18:34> This patient is 59-year-old female with past medical history of A-fib not on anticoagulation, CVA, hypertension, diabetes and chronic lower extremity wounds with recurrent history of UTI presented with altered mental status from rehab facility. She had pinpoint pupils and had no eye tracking. Patient was on morphine and methadone at the facility. She appeared dehydrated. Patient is bedbound and AOx3 at baseline. She was found altered and head CT was done which showed no acute changes. Patient was febrile, mildly hypotensive and saturating around 5 L on nasal cannula. Labs were significant for leukocytosis, thrombocytosis. UA was cloudy with pyuria. CHEM panel showed severe [place] with baseline 1.0 and current creatinine around 2.2. Patient is admitted for management of acute encephalopathy and sepsis likely due to UTI. We started the patient on aspirin and as patient is allergic to multiple antibiotics. Aspiration precautions. Will follow-up with blood cultures/urine cultures and MRSA screen. Morphine and methadone were held given patient's current encephalopathic state. Nurse swallow screen and speech eval added. Wound care was added for chronic wounds. Fluid resuscitation was given for V[place]. Will likely evaluate tomorrow morning. All labs and orders were reviewed. I saw and examined the patient, and I agree with current management stated by Dr Ana Maria MD,PGY1. Plan of care was discussed with the attending physician and resident physician. Disclaimer: Despite multiple revisions, due to the dictation software being used, the document bellow may not be free of grammatical errors including phonetic/typographic errors. However, this does not deter from our commitment to providing health care in the patient's best interest in mind. Dr. Roberta MD, PGY 2 Documentation for date of: 12/23/24 HPI History of Present Illness History of present illness: Marjorie Mcclain is a 59-year-old female with a PMHx of A-fib (not on AC), CVA, hypertension, IDDM, chronic abdominal and lower extremity wounds, and recurrent UTIs who comes from [facility] after being found encephalopathic this morning. Patient alert but not following commands or answering questions, thus history obtained from phone call with [facility] personnel and chart review. Staff from [facility] states that patient is ANO x 3 at baseline, bedbound, and on 2 L NC at facility, without mention of chronic Clark. This morning, nursing staff found patient encephalopathic and called EMS. In ED, temp 101 ?F, BP 104/58, on 5 L NC saturating 94%. Labs significant for leukocytosis 16.3, chronic normocytic anemia, thrombocytosis of 537, and UA with cloudy urine, 1300 WBC, 4+ bacteria, LE positive. CHEM panel showed [place] with Cr of 2.2 (baseline 1.0), BUN 50, Pro-Nirmal 1.7, Ca 11. CXR without active cardiopulmonary disease, EKG showing A-fib with heart rate of 79, QTc 458. Blood, urine, abdominal wound cultures sent. Given 1 L NS, aztreonam x 1, vancomycin x 1. Admitted for sepsis and encephalopathy secondary to UTI. PMHx: A-fib, CVA, hypertension, IDDM, chronic abdominal and lower extremity wounds, recurrent UTIs Medications: PRN albuterol, amlodipine, baclofen, Dulcolax, escitalopram, gabapentin, lispro and glargine, lorazepam, methadone, magnesium hydroxide, morphine, senna, vitamin C tablets PSHx: Debridement of skin subcutaneous tissue anterior abdominal wall on 04/2024, 06/2024, and 08/2024 Allergies: Acetylcysteine, aspirin, cefpodoxime, Levaquin, penicillin, sulfa antibiotics, sulfadiazine, sulfamethoxazole, capsaicin, dulaglutide, trimethoprim Review of Systems Review of Systems ROS Unobtainable: unobtainable due to mental status Exam Vital Signs Temp Pulse Resp BP Pulse Ox O2 Del Method O2 Flow Rate 98.8 F 79 15 141/71 H 94 L Nasal Cannula 3 12/23/24 12:07 12/23/24 12:07 12/23/24 12:07 12/23/24 12:07 12/23/24 12:07 12/23/24 12:07 12/23/24 12:07 Narrative Exam General: alert, not answering questions or following commands, responds to pain HEENT: NC/AT, mucous membranes moist, bilateral sclera anicteric Cardiovascular: irregular rhythm, S1/S2 present, no murmurs appreciated Pulmonary: clear to auscultation bilaterally, no rales/rhonchi/wheezes Abdominal: soft, non-tender, non-distended, no rebound/guarding, normal bowel sounds present Musculoskeletal: chronic wounds noted in lower abdomen and bilateral lower extremities, ? contracture in LLE Skin: scaly skin, warm and dry, intact, no rashes Neuro: unable to assess Results: Labs 12/24/24 04:31 12/24/24 04:31 Labs: Short CBC 12/23/24 Range/Units 09:40 WBC 16.3 H (3.6-11.0) Thou/mm3 Hgb 8.9 L (12.0-16.0) g/dL Hct 30.2 L (36.0-46.0) % Plt Count 537 H D (140-440) Thou/mm3 BMP 12/23/24 09:40 Sodium 145 Potassium 5.1 Chloride 110 H Carbon Dioxide 23.7 BUN 50 H Creatinine 2.2 H Glucose 146 H Calcium 10.7 H Cardiac Enzymes 12/23/24 Range/Units 09:40 Troponin I < 0.020 (0.0-0.045) ng/mL Liver Function 12/23/24 Range/Units 09:40 Total Bilirubin 0.2 L (0.3-1.2) mg/dL AST 11 (0-34) U/L ALT < 7 L (10-49) U/L Alkaline Phosphatase 70 (46-116) U/L Albumin 3.6 (3.4-4.8) gm/dL Urine 12/23/24 Range/Units 10:05 Urine Color Yellow (Lt Yel-Yel) Urine Clarity Cloudy A (Clear/Hazy) Urine pH 5.5 (5.0-7.0) Ur Specific Mead 1.016 (1.001-1.035) Urine Protein 1+ A (Neg - Trace) Urine Glucose (UA) Negative (Negative) Quality Measures Quality Measures sepsis Current suspected stage: sepsis Possible source: genitourinary Blood cultures ordered: yes Antibiotic ordered: Yes Medications Home Medications and Allergies Home Medications ?Medication ?Instructions ?Recorded ?Confirmed ?Type escitalopram oxalate 20 mg tablet 10 mg PO QDAY DEPRES ERENDIRA 05/21/24 11/19/24 History gabapentin 300 mg capsule 300 mg PO BID NEUROPATHY 11/19/24 History insulin lispro 100 unit/mL 1 sliding scale dose subcut AC dm 05/21/24 11/19/24 History subcutaneous solution (Humalog U-100 Insulin) amlodipine 10 mg tablet 10 mg PO QDAY htn 07/03/24 0 11/19/24 History baclofen 10 mg tablet 5 mg PO BID Muscle spasms 11/19/24 History sennosides 8.6 mg tablet (senna) 8.6 - 50 mg PO BID CO NSTIPATION 07/04/24 11/19/24 History bisacodyl 10 mg rectal suppository 10 mg CO QDAY PRN C onstipation 08/11/24 11/19/24 History (Dulcolax (bisacodyl)) magnesium hydroxide 400 mg/5 mL 1,200 mg PO QDAY PRN C onstipation 08/11/24 11/19/24 History oral suspension (Milk of Magnesia) sodium phosphates 19 gram-7 118 ml CO QDAY PRN Constip ation 08/11/24 11/19/24 History gram/118 mL enema (Enema Disposable) lorazepam 0.5 mg tablet 0.5 mg PO Q6H PRN anxiety m/ b 11/19/24 11/19/24 History terminal illness methadone 5 mg tablet 2.5 mg PO Q12H 11/19/2411/01 History morphine concentrate 20 mg/mL oral 5 mg PO DAILY PRN m ild pain 11/19/24 11/19/24 History syringe (FOR ORAL USE ONLY) 20-30mins prior to wound care morphine concentrate 20 mg/mL oral 10 mg PO .q4h PRN m oderate pain or 11/19/24 11/19/24 History syringe (FOR ORAL USE ONLY) SOB morphine concentrate 20 mg/mL oral 20 mg PO Q2H PRN se denisse pain or SOB 11/19/24 11/19/24 History syringe (FOR ORAL USE ONLY) Allergies Allergy/AdvReac Type Severity Reaction Status Date / Time acetylcysteine Allergy Severe Difficulty Verified 05/24/24 17:57 Swallowing aspirin Allergy Severe Difficulty Verified 05/24/24 17:57 Swallowing cefpodoxime Allergy Severe Difficulty Verified 05/24/24 17:57 Breathing levofloxacin (From Levaquin) Allergy Severe Difficulty Verified 05/24/24 17:57 Breathing Penicillins Allergy Severe Difficulty Verified 05/24/24 17:57 Breathing Sulfa (Sulfonamide Allergy Severe Hives Verified 05/24/24 17:57 Antibiotics) sulfadiazine Allergy Severe Difficulty Verified 05/24/24 17:57 Breathing sulfamethoxazole (From Allergy Severe Difficulty Verified 05/24/24 17:57 Bactrim) Breathing capsaicin Allergy Intermediate Hives Verified 05/24/24 17:57 dulaglutide Allergy Intermediate Hives Verified 05/24/24 17:57 trimethoprim (From Bactrim) Allergy Verified 03/21/24 22:15 Visit Medications Acetaminophen (Acetaminophen Supp 650 Mg Supp) 650 mg CO Q6HR PRN PRN Reason: PAIN OR FEVER > 100.4 Stop: 01/22/25 11:59 Dextrose (Dextrose 50%-Water Inj 50 Ml Syringe) 25 ml IV Q15MIN PRN PRN Reason: BG 50-70 responsive npo pt Stop: 01/22/25 12:09 Dextrose (Dextrose 50%-Water Inj 50 Ml Syringe) 50 ml IV Q15MIN PRN PRN Reason: BG <50 OR BG <70 & pt unresponsive Stop: 01/22/25 12:09 Glucagon (Glucagon Inj 1 Mg Vial) 1 mg IM Q15MIN PRN PRN Reason: BG <70, and no IV access Heparin Sodium (Porcine) (Heparin Sod Inj 5000 Unit/Ml Vial) 5,000 unit SC BID FREDA Stop: 01/06/25 20:59 Lactated Ringer's (Lactated Ringers) 1,000 mls @ 75 mls/hr IV .[id number] [facility] Stop: 01/22/25 11:59 Last Admin: 12/23/24 13:03 Dose: 75 mls/hr Insulin Human Lispro (Insulin Lispro (Admelog) 1 Unit/0.01 Ml Unit) 0 unit SC Q6HR FREDA; Protocol Stop: 01/22/25 17:59 Metoclopramide HCl (Metoclopramide Inj 5 Mg/Ml Vial 2 Ml) 10 mg IVP Q6H PRN; Protocol PRN Reason: NAUSEA OR VOMITING Stop: 01/22/25 11:59 Morphine Sulfate (Morphine Sulf Inj 10 Mg/Ml Vial) 0.25 mg IVP Q4HR PRN PRN Reason: PAIN SCALE 4-10(Mod-Sev) Stop: 12/28/24 12:05 Pantoprazole Sodium (Pantoprazole Inj 40 Mg Vial) 40 mg IVP QDAY FREDA Stop: 01/23/25 08:59 Pharmacy Consult (Vancomycin Pharmacy To Dose 1 Each Each) 1 each IV QDAY PRN PRN Reason: CONSULT Stop: 01/22/25 09:59 Discontinued Medications Acetaminophen (Acetaminophen Supp 650 Mg Supp) 650 mg CO X1 ONE Stop: 12/23/24 10:00 Last Admin: 12/23/24 10:18 Dose: 650 mg Sodium Chloride (Ns) 1,000 mls @ 999 mls/hr IV .Q1H1M ONE Stop: 12/23/24 10:44 Last Infusion: 12/23/24 11:25 Dose: Infused Aztreonam 2,000 mg/ Sodium (Chloride) 100 mls @ 100 mls/hr IV X1 ONE Stop: 12/23/24 10:47 Last Infusion: 12/23/24 11:45 Dose: Infused Vancomycin/Sodium Chloride (Vancomycin/Ns 1 Gm Ivpb) 200 mls @ 120 mls/hr IV X1 ONE Stop: 12/23/24 11:54 Last Admin: 12/23/24 12:05 Dose: 120 mls/hr Assessment & Plan Plan Marjorie Mcclain is a 59-year-old female with a PMHx of A-fib (not on AC), CVA, hypertension, IDDM, chronic abdominal and lower extremity wounds, and recurrent UTIs who comes from [facility] after being found encephalopathic this morning. Patient alert but not following commands or answering questions, thus history obtained from phone call with [facility] personnel and chart review. Staff from SNF states that patient is ANO x 3 at baseline, bedbound, and on 2 L NC at facility, without mention of chronic Clark. In morning, nursing staff found patient encephalopathic and called EMS. Admitted for sepsis and encephalopathy secondary to UTI. #Sepsis secondary to UTI versus chronic abdominal wounds #Acute infectious encephalopathy #History of recurrent UTIs Febrile with temperature of 101.5 ?F, WBC 16.3, Pro-Nirmal 1.7, PLT 537, endorgan damage ([place], encephalopathy), UA with 4+ bacteria, 1300 WBC, LE positive. Urine culture 10/2024: Pansensitive E. coli treated with aztreonam. CT head: Negative for acute hemorrhage, mass effect or midline shift Presentation likely due to infectious encephalopathy but polypharmacy in setting of methadone and morphine cannot be excluded. ? Infectious disease consulted, appreciate recommendations ? Aztreonam (12/23-) ? Vancomycin (12/23-) ? Urine culture 12/23: Pending ? Blood cultures 12/23: Pending ? Wound culture 12/23: Pending ? N.p.o., nurse bedside swallow screen, ST swallow evaluation #Acute kidney injury secondary to sepsis vs decreased PO intake Admitted with creatinine of 2.2, baseline 1.0. Possibly due to sepsis or decreased p.o. intake given encephalopathy. ? LR at 100 cc/h ? Avoid nephrotoxic agents, renally dose medications #Atrial fibrillation (not on AC) #History of CVA No blood thinners noted on medication list from SNF and noted to have not been started on Eliquis on previous admission. ? Currently rate controlled, continue to monitor #History of hypertension Home amlodipine 10 mg daily ? Will hold given soft BP #IDDM Home regimen of 10 units glargine HS and SSI ? SSI ? Accu-Cheks q6hr given NPO ? Follow-up A1c #Anxiety #Depression ? Lorazepam 0.5 mg every 6 hours as needed ? Escitalopram 10 mg daily #Chronic pain ? Morphine 0.25 every 4 hours as needed ? Methadone 5 mg twice daily ? Gabapentin 300 mg twice daily #Chronic wounds ? Wound care #Constipation, likely secondary to opioids ? Senna-docusate 2 tablets BID ? Dulcolax daily PRN ? Sodium phosphate enema PRN ? Magnesium hydoxide 15 mL p.o. daily PRN Hospital management: Disposition: management of sepsis secondary to UTI vs chronic wounds, IV abx, pending cultures Fluids: LR at 75 cc/hr Diet: NPO Lines: PIV DVT prophylaxis: heparin SC BID GI prophylaxis: pantoprazole 40 mg IV daily Clark: placed CODE STATUS: full code ----- Plan discussed with attending physician Dr. Hu and senior resident physician Dr. Roberta Rodgers MD PGY-1 Internal Medicine Attending Provider Attestation/Addendum I reviewed labs, imaging, EKG, home medications and prior available records. Face to face evaluation was performed by me. I have personally examined the patient and discussed assessment and plan with the IM team. I reviewed the resident note and agree with the plan with exceptions as below. Sepsis: Possibly urosepsis Acute UTI Acute febrile illness Leukocytosis [place] Abdominal wall wounds Insulin-dependent diabetes mellitus HFpEF Debility Started the patient on vancomycin/aztreonam given the multiple drug allergies. Consulted ID for antibiotic guidance Follow-up blood and urine cultures Continue IV fluids Monitor kidney function Continue wound care Continue insulin therapy and monitor fingersticks
[2024-12-23 13:58] LABS: Magnesium 2.3 mg/dL (1.6-2.6); Phosphorous 4.5 mg/dL (2.4-5.1)
--- NOTE | 2024-12-23 14:00 | PC.NURSE ---
PT MORE ALERT BUT STILL ONLY STATING OUCH WHEN TOUCHED. REPOSITIONED PT IN BED.
[2024-12-23] MEDS: RINGERS LACTATED 1000 ML 1,000 ML 100 ML IV (18:38)
--- NOTE | 2024-12-23 18:40 | PC.NURSE ---
SPOKE WITH DAUGHTER RIOS. UPDATED ON PTS CARE STATUS
[2024-12-23] MEDS: INSULIN LISPRO (AdmeLOG) 1 UNIT/0.01 ML UNIT SC (19:07)
[2024-12-23] MEDS: HEPARIN SOD INJ 5000 UNIT/ML VIAL SC (21:18)
[2024-12-23] MEDS: AZTREONAM IV (21:18)
[2024-12-23] MEDS: SODIUM CHLORIDE 0.9% IV (21:18)
[2024-12-24] VITALS (10 sets, daily range): BP systolic 95–174; BP diastolic 61–105; PULSE 54–85; RESP 12–17; TEMP 36.3–37.3; O2SAT 89–100
[2024-12-24] MEDS: MORPHINE SULF INJ 10 MG/ML VIAL IVP (02:03)
[2024-12-24] MEDS: RINGERS LACTATED 1000 ML 1,000 ML 100 ML IV ×2 (02:59→14:56)
[2024-12-24 06:00] LABS: Basophils # (Auto) 0.1 Thou/mm3 (0.0-0.2); Basophils % (Auto) 1 % (0-2.5); Eosinophils # (Auto) 0.4 Thou/mm3 (0.0-0.5); Eosinophils % (Auto) 3 % (0-10); Hematocrit 26.9 % (36.0-46.0); Immature Granulocytes % (Auto) 1 % (0-0); Immature Granulocytes Auto 0.09 Thou/mm3 (0.00-0.00); Lymphocytes # (Auto) 1.6 Thou/mm3 (1.0-4.8); Lymphocytes % (Auto) 11 % (10-50); Mean Corpuscular HGB Conc 29.7 g/dl (31.0-37.0); Mean Corpuscular Hemoglobin 26.1 pg (25.0-35.0); Mean Corpuscular Volume 88 fL (80-100); Monocytes # (Auto) 1.4 Thou/mm3 (0.0-0.8); Monocytes % (Auto) 10 % (0-12); Neutrophils # (Auto) 10.2 Thou/mm3 (1.8-7.7); Neutrophils % (Auto) 74 % (37-80); Nucleated Red Blood Cell % 0 /100 WBC (0); Platelet Count 450 Thou/mm3 (140-440); RDW Standard Deviation 55.8 fL (36.4-46.3); Red Blood Count 3.06 Miln/mm3 (4.00-5.20); White Blood Count 13.8 Thou/mm3 (3.6-11.0)
[2024-12-24 07:05] LABS: Alanine Aminotransferase < 7 U/L (10-49); Albumin, Serum 3.3 gm/dL (3.4-4.8); Alkaline Phosphatase 72 U/L (46-116); Anion Gap 11 (7-16); Aspartate Amino Transferase < 8 U/L (0-34); BUN/Creatinine Ratio 23 Ratio (12-20); Bilirubin,Total < 0.2 mg/dL (0.3-1.2); Blood Urea Nitrogen 50 mg/dL (9-23); Calcium 9.9 mg/dL (8.3-10.6); Calcium (Corrected) 10.5 mg/dL (8.5-10.1); Carbon Dioxide 24.4 mMol/L (20.0-31.0); Cardiac Risk Estimate 4.3 RATIO (3.7-5.6); Chloride 112 mMol/L (98-107); Cholesterol 115 mg/dL (132-200); Creatinine (Component) 2.2 mg/dL (0.6-1.3); Estimated Creatinine Clearance 29.3 mL/min (>60); Globulin 3.4 gm/dL (2.3-3.5); Glucose 136 mg/dL (74-106); HDL Cholesterol 27 mg/dL (40-60); LDL Cholesterol,Calculated 73 mg/dL (0-130); Magnesium 2.2 mg/dL (1.6-2.6); Osmolality,Calculated 307 (275-295); Phosphorous 3.8 mg/dL (2.4-5.1); Potassium 4.3 mMol/L (3.4-5.1); Sodium 147 mMol/L (136-145); Total Protein 6.7 gm/dL (5.7-8.2); Triglycerides 74 mg/dL (30-150); Vancomycin,Random 11.7 mcg/mL; eGFR 25 See Note
[2024-12-24 07:38] LABS: Glucose Estimated Average 123 mg/dL (80-131); Hemoglobin A1C 5.9 % Hgb (4.8-6.0)
--- NOTE | 2024-12-24 08:55 | XR_ITS ---
Examination: Retroperitoneal ultrasound, complete Technique: Multiple high resolution grayscale images of the retroperitoneum obtained, including kidneys and bladder. Exam date and time:December 24, 2024 1320 hours INDICATIONS: Chronic renal insufficiency diagnosis, chronic kidney disease FINDINGS: Right kidney 9.0 cm cortex 1.7 cm Left kidney 9.8 cm renal cortex 1.9 cm Moderate bilateral renal parenchymal scar formation Minimal left hydronephrosis Bladder is not amenable to ultrasound assessment IMPRESSION: Small kidneys Bilateral renal cortical thinning Moderate bilateral renal parenchymal scar formation Minimal left hydronephrosis
[2024-12-24] MEDS: VANCOMYCIN/NS 1 GM IVPB 200 ML IV (09:37)
[2024-12-24] MEDS: HEPARIN SOD INJ 5000 UNIT/ML VIAL SC ×2 (09:37→20:45)
[2024-12-24] MEDS: PANTOPRAZOLE INJ 40 MG VIAL IVP (09:37)
[2024-12-24] MEDS: AZTREONAM IV ×2 (10:56→20:50)
[2024-12-24] MEDS: SODIUM CHLORIDE 0.9% IV ×2 (10:56→20:50)
[2024-12-24] MEDS: HYDROmorphone INJ 2 MG/ML VIAL 0.25 MG IVP (11:22)
--- NOTE | 2024-12-24 11:25 | ESPR_ITS ---
<Statement entered by Shreyas Granados MD - 12/24/24 15:31> Patient was seen and examined at the bedside. No acute overnight events were reported. Patient's blood culture are still pending. Urine culture and wound cultures are growing GNR. Continue IV fluids. Patient passed swallow screen and was started on pur?ed diet. Due to worsening kidney functions we ordered renal ultrasound and urine electrolytes. Will continue with aztreonam and vancomycin for 1 more day as cultures are still pending. Sodium was 147. Creatinine 2.2. Hemoglobin around 8 and WBC count 13.8. Blood pressure was soft therefore we will continue with IV fluids. Follow-up culture results. Dilaudid was given a call in to morphine oral which patient was taking at the nursing facility due to pain withdrawal. All labs and orders were reviewed. I saw and examined the patient, and I agree with current management stated by Dr Ana Maria MD,PGY1. Plan of care was discussed with the attending physician and resident physician. Disclaimer: Despite multiple revisions, due to the dictation software being used, the document bellow may not be free of grammatical errors including phonetic/typographic errors. However, this does not deter from our commitment to providing health care in the patient's best interest in mind. Dr. Roberta MD, PGY 2 Documentation for date of: 12/24/24 Subjective Subjective Interval history: Marjorie Mcclain is a 59-year-old female with a PMHx of A-fib (not on AC), CVA, hypertension, IDDM, chronic abdominal and lower extremity wounds, and recurrent UTIs who comes from [facility] after being found encephalopathic this morning. Patient alert but not following commands or answering questions, thus history obtained from phone call with [facility] personnel and chart review. Staff from [facility] states that patient is ANO x 3 at baseline, bedbound, and on 2 L NC at facility, without mention of chronic Clark. In morning, nursing staff found patient encephalopathic and called EMS. Admitted for sepsis and encephalopathy secondary to UTI. 12/24: No acute overnight events reported. Seen and examined at bedside. Remains alert and slightly more responsive compared to day of admission. However, she still does not follow commands and only responds to some questions. However, she does endorse significant and diffuse pain as she is noted to be on methadone and morphine regimen at her SNF. During previous admission, patient's family would like to continue multimodal analgesia including all medications as previously seen on medication list even though patient is being discharged WITHOUT hospice care. Exam Vital Signs Temp Pulse Resp BP Pulse Ox O2 Del Method O2 Flow Rate 97.5 F 58 L 16 95/61 100 Room Air 4 12/24/24 04:00 12/24/24 04:00 12/24/24 04:00 12/24/24 04:00 12/24/24 04:00 12/24/24 04:00 12/23/24 18:06 Narrative Exam General: alert, not following commands, answers some questions, responds to pain HEENT: NC/AT, mucous membranes moist, bilateral sclera anicteric Cardiovascular: irregular rhythm, S1/S2 present, no murmurs appreciated Pulmonary: clear to auscultation bilaterally, no rales/rhonchi/wheezes Abdominal: soft, non-tender, non-distended, no rebound/guarding, normal bowel sounds present Musculoskeletal: chronic wounds noted in lower abdomen and bilateral lower extremities, ? contracture in LLE Skin: scaly skin, decreased skin turgor, chronic wounds as noted in MSK Neuro: unable to assess Objective Labs 12/25/24 07:26 12/24/24 04:31 Labs: Laboratory Results - last 24 hr 12/23/24 12/23/24 12/24/24 09:40 13:56 04:31 WBC 13.8 H RBC 3.06 L Hgb 8.0 L Hct 26.9 L MCV 88 MCH 26.1 MCHC 29.7 L RDW Std Deviation 55.8 H Plt Count 450 H D Neut % (Auto) 74 Lymph % (Auto) 11 [place] % (Auto) 10 Eos % (Auto) 3 Baso % (Auto) 1 Neut # (Auto) 10.2 H Lymph # (Auto) 1.6 [place] # (Auto) 1.4 H Eos # (Auto) 0.4 Baso # (Auto) 0.1 Immature Gran # (Auto) 0.09 H Absolute Nucleated RBC 0.00 Immature Gran % 1 H Nucleated RBC % 0 Sodium 147 H Potassium 4.3 D Chloride 112 H Carbon Dioxide 24.4 Anion Gap 11 BUN 50 H Creatinine 2.2 H Estim Creat Clear Calc 29.3 L eGFR 25 L BUN/Creatinine Ratio 23 H Glucose [address] Glu mg/dL 123 Hemoglobin A1c 5.9 Calculated Osmolality 307 H Calcium 9.9 Corrected Calcium 10.5 H Phosphorus 4.5 3.8 Magnesium 2.3 2.2 Total Bilirubin < 0.2 L AST < 8 ALT < 7 L Alkaline Phosphatase 72 Total Protein 6.7 Albumin 3.3 L Globulin 3.4 Albumin/Globulin Ratio 1.0 L Triglycerides 74 Cholesterol 115 L LDL Cholesterol, Calc 73 HDL Cholesterol 27 L Cholesterol/HDL Ratio 4.3 TSH 1.10 Random Vancomycin 11.7 Blood Type O Negative Antibody Screen NEGATIVE Blood Bank Wristband ID Yes Quality Measures Quality Measures sepsis Current suspected stage: ruled out Possible source: genitourinary Blood cultures ordered: yes Antibiotic ordered: Yes Assessment & Plan Assessment Current Active Medications: Generic Name Dose Route Start Last Admin Trade Name Freq PRN Reason Stop Dose Admin Acetaminophen 650 mg 12/23/24 12:00 Acetaminophen Supp 650 Mg Supp MN 01/22/25 11:59 Q6HR PRN PAIN OR FEVER > 100.4 Dextrose 25 ml 12/23/24 12:10 Dextrose 50%-Water Inj 50 Ml Syringe IV 01/22/25 12:09 Q15MIN PRN BG 50-70 responsive npo pt Dextrose 50 ml 12/23/24 12:10 Dextrose 50%-Water Inj 50 Ml Syringe IV 01/22/25 12:09 Q15MIN PRN BG <50 OR BG <70 & pt unresponsive Glucagon 1 mg 12/23/24 12:10 Glucagon Inj 1 Mg Vial IM Q15MIN PRN BG <70, and no IV access Heparin Sodium (Porcine) 5,000 unit 12/23/24 21:00 12/24/24 09:37 Heparin Sod Inj 5000 Unit/Ml Vial SC 01/06/25 20:59 5,000 unit BID FREDA Administration Hydromorphone HCl 0.25 mg 12/24/24 10:15 12/24/24 11:22 Hydromorphone Inj 2 Mg/Ml Vial IVP 12/29/24 10:14 0.25 mg Q4HR PRN Administration PAIN SCALE 4-10(Mod-Sev Aztreonam 1,000 mg/ Sodium 50 mls @ 100 mls/hr 12/24/24 09:00 12/24/24 10:56 Chloride IV 12/31/24 08:59 100 mls/hr Q12HR FREDA Administration Lactated Ringer's 1,000 mls @ 100 mls/hr 12/23/24 16:18 12/24/24 02:59 Lactated Ringers IV 12/24/24 17:00 100 mls/hr .Q10H FREDA Administration Vancomycin/Sodium Chloride 200 mls @ 120 mls/hr 12/24/24 10:00 12/24/24 09:37 Vancomycin/Ns 1 Gm Ivpb IV 12/31/24 09:59 120 mls/hr QDAY@1000 FREDA Administration Insulin Human Lispro 0 unit 12/23/24 18:00 12/24/24 05:17 Insulin Lispro (Admelog) 1 Unit/0.01 Ml Unit SC 01/22/25 17:59 Not Given Q6HR FREDA Protocol Methadone HCl 5 mg 12/24/24 09:00 Methadone Solution 5 Mg/5 Ml Udc PO 12/29/24 08:59 BID FREDA Metoclopramide HCl 10 mg 12/23/24 12:00 Metoclopramide Inj 5 Mg/Ml Vial 2 Ml IVP 01/22/25 11:59 Q6H PRN NAUSEA OR VOMITING Protocol Pantoprazole Sodium 40 mg 12/24/24 09:00 12/24/24 09:37 Pantoprazole Inj 40 Mg Vial IVP 01/23/25 08:59 40 mg QDAY FREDA Administration Pharmacy Consult 1 each 12/23/24 10:00 Vancomycin Pharmacy To Dose 1 Each Each IV 01/22/25 09:59 QDAY PRN CONSULT Pharmacy Consult 1 each 12/23/24 13:13 Pharmacy Renal Dose Adjustment 1 Ea XX 01/22/25 13:12 PRN PRN CONSULT Sennosides 2 tab 12/24/24 09:00 12/24/24 09:36 Senna/Docusate Sod 1 Tab Tablet PO 01/23/25 08:59 Not Given BID FREDA Protocol Plan Marjorie Mcclain is a 59-year-old female with a PMHx of A-fib (not on AC), CVA, hypertension, IDDM, chronic abdominal and lower extremity wounds, and recurrent UTIs who comes from [facility] after being found encephalopathic this morning. Patient alert but not following commands or answering questions, thus history obtained from phone call with [facility] personnel and chart review. Staff from [facility] states that patient is ANO x 3 at baseline, bedbound, and on 2 L NC at facility, without mention of chronic Clark. In morning, nursing staff found patient encephalopathic and called EMS. Admitted for sepsis and encephalopathy secondary to UTI. #Sepsis secondary to UTI versus chronic abdominal wounds #Acute infectious encephalopathy #History of recurrent UTIs Febrile with temperature of 101.5 ?F, WBC 16.3, Pro-Nirmal 1.7, PLT 537, endorgan damage ([place], encephalopathy), UA with 4+ bacteria, 1300 WBC, LE positive. Urine culture 10/2024: Pansensitive E. coli treated with aztreonam. CT head: Negative for acute hemorrhage, mass effect or midline shift Presentation likely due to infectious encephalopathy but polypharmacy in setting of methadone and morphine cannot be excluded. ? Infectious disease consulted, appreciate recommendations ? Aztreonam (12/23-) ? Vancomycin (12/23-) ? Urine culture 12/23: GNR ? Wound culture 12/23: GNR ? Blood cultures 12/23: NGTD #Acute kidney injury secondary to sepsis vs decreased PO intake #Hypotonic hyponatremia Admitted with creatinine of 2.2, baseline 1.0. Possibly due to sepsis or decreased p.o. intake given encephalopathy. ? LR at 100 cc/h ? Avoid nephrotoxic agents, renally dose medications #Atrial fibrillation (not on AC) #History of CVA No blood thinners noted on medication list from SNF and noted to have not been started on Eliquis on previous admission. ? Currently rate controlled, continue to monitor #History of hypertension Home amlodipine 10 mg daily ? Will hold given soft BP #IDDM Home regimen of 10 units glargine HS and SSI A1c 5.9%. ? SSI ? Accu-Cheks q6hr given NPO #Anxiety #Depression ? Lorazepam 0.5 mg every 6 hours as needed ? Escitalopram 10 mg daily #Chronic pain Given decreased kidney function, will change to dilaudid vs morphine. ? Dilaudid 0.25 mg q4hr as needed ? Methadone 5 mg twice daily ? Gabapentin 300 mg twice daily deferred for now given [place] #Chronic wounds ? Wound care #Constipation, likely secondary to opioids ? Senna-docusate 2 tablets BID ? Dulcolax daily PRN ? Magnesium hydoxide 15 mL p.o. daily PRN Hospital management: Disposition: management of sepsis secondary to UTI vs chronic wounds, IV abx, pending culture speciation Fluids: LR at 100 cc/hr Diet: dysphagia 1 diet Lines: PIV DVT prophylaxis: heparin SC BID GI prophylaxis: pantoprazole 40 mg IV daily Clark: placed CODE STATUS: full code ----- Plan discussed with attending physician Dr. Hu and senior resident physician Dr. Roberta Rodgers MD PGY-1 Internal Medicine Attending Provider Attestation/Addendum I reviewed labs, imaging, EKG, home medications and prior available records. Face to face evaluation was performed by me. I have personally examined the patient and discussed assessment and plan with the IM team. I reviewed the resident note and agree with the plan with exceptions as below. Acute encephalopathy, improved Possible opiate withdrawal Sepsis: Possibly urosepsis Acute UTI Acute febrile illness Chronic hypoxic respiratory failure Leukocytosis [place] Abdominal wall wounds Insulin-dependent diabetes mellitus HFpEF Debility Started IV Dilaudid for possible opiate withdrawal Resume home methadone once able to tolerate p.o. Started the patient on vancomycin/aztreonam given the multiple drug allergies. Consulted ID for antibiotic guidance Follow-up blood and urine cultures: Wound culture grew gram-negative rods. Urine culture grew gram-negative rods Follow-up MRSA Continue IV fluids Monitor kidney function: Creatinine did not improve. Ordered renal ultrasound. Ordered urine lites Continue wound care Continue insulin therapy and monitor fingersticks
--- NOTE | 2024-12-24 16:17 | PC.SS ---
PUBLICITY PERSON conducted phone contact with patient?s sister, Elly Loja ; to conduct initial assessment and to discuss discharge planning.? 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 Patient has been placed at facility for approximately 1 year.? Patient is bed bound.? Patient utilizes oxygen.? Patient requires assistance with completion of ADL?s.? Patient?s surrogate medical decision maker is sister, Elly Loja.? Facility PCP is Dr. Beckwith.? Patient?s sister is patient?s medical POA.? Patient possesses history of anxiety and depression.? Patient receiving methadone at [facility].? Request to transition patient to SNF closer to [facility] to include [facility].? PUBLICITY PERSON discussed difficulties with SNF?s accepting process machine operator placements.? SNF referral request for assisted placement to be submitted. ?Patient?s sister acknowledged that if not accepting process machine operator placements, plan will be for the patient to return to [facility].? Patient will require transportation upon discharge.? No further intervention required at this time, social secretary will be available to address any further concerns.? Next of Kin: Elly Loja D/C Plan: [facility]
[2024-12-24] MEDS: ESCITALOPRAM OXALATE 10 MG TABLET PO (16:38)
[2024-12-24 16:46] LABS: Potassium,Urine Random 16 mMol/L (12-62)
--- NOTE | 2024-12-24 17:21 | PC.SS ---
Contact information for patient's sister, Bertha Storm .
[2024-12-24] MEDS: METHADONE SOLUTION 5 MG/5 ML UDC PO (20:44)
[2024-12-24] MEDS: SENNA/DOCUSATE SOD 1 TAB TABLET 2 TAB PO (20:45)
[2024-12-25] VITALS (7 sets, daily range): BP systolic 139–171; BP diastolic 69–94; PULSE 67–91; RESP 11–96; TEMP 36.2–37.1; O2SAT 94–98; BMI 35.8
[2024-12-25 07:39] LABS: Basophils # (Auto) 0.1 Thou/mm3 (0.0-0.2); Basophils % (Auto) 1 % (0-2.5); Eosinophils # (Auto) 0.4 Thou/mm3 (0.0-0.5); Eosinophils % (Auto) 3 % (0-10); Hematocrit 30.3 % (36.0-46.0); Hemoglobin 9.1 g/dL (12.0-16.0); Immature Granulocytes % (Auto) 1 % (0-0); Immature Granulocytes Auto 0.09 Thou/mm3 (0.00-0.00); Lymphocytes # (Auto) 1.3 Thou/mm3 (1.0-4.8); Lymphocytes % (Auto) 11 % (10-50); Mean Corpuscular Hemoglobin 25.5 pg (25.0-35.0); Mean Corpuscular Volume 85 fL (80-100); Monocytes # (Auto) 0.7 Thou/mm3 (0.0-0.8); Monocytes % (Auto) 6 % (0-12); Neutrophils # (Auto) 9.3 Thou/mm3 (1.8-7.7); Neutrophils % (Auto) 78 % (37-80); Nucleated Red Blood Cell % 0 /100 WBC (0); Platelet Count 532 Thou/mm3 (140-440); RDW Standard Deviation 52.9 fL (36.4-46.3); Red Blood Count 3.57 Miln/mm3 (4.00-5.20); White Blood Count 11.8 Thou/mm3 (3.6-11.0)
[2024-12-25 08:09] LABS: Alanine Aminotransferase < 7 U/L (10-49); Albumin, Serum 3.6 gm/dL (3.4-4.8); Anion Gap 10 (7-16); Aspartate Amino Transferase 10 U/L (0-34); BUN/Creatinine Ratio 23 Ratio (12-20); Bilirubin,Total < 0.2 mg/dL (0.3-1.2); Blood Urea Nitrogen 35 mg/dL (9-23); Calcium 9.8 mg/dL (8.3-10.6); Calcium (Corrected) 10.1 mg/dL (8.5-10.1); Carbon Dioxide 23.7 mMol/L (20.0-31.0); Chloride 111 mMol/L (98-107); Creatinine (Component) 1.5 mg/dL (0.6-1.3); Estimated Creatinine Clearance 43.9 mL/min (>60); Globulin 3.7 gm/dL (2.3-3.5); Glucose 147 mg/dL (74-106); Osmolality,Calculated 299 (275-295); Potassium 4.2 mMol/L (3.4-5.1); Sodium 145 mMol/L (136-145); Total Protein 7.3 gm/dL (5.7-8.2); eGFR 39 See Note
[2024-12-25 08:10] LABS: Alkaline Phosphatase 72 U/L (46-116)
--- NOTE | 2024-12-25 08:38 | PC.SS ---
Addendum entered by Iris Bhardwaj 12/25/24 09:50: SS follow up note; SS contacted Elly patient's Surrogate Decision maker and informed her that SS submitted through [facility] and all facilities declined patient. Elly verbalized understanding and reported patient will need to discharge back to [facility]. Original Note: SS follow up note; SS submitted inquiry for [facility] care through [employer].
[2024-12-25] MEDS: AZTREONAM IV ×2 (09:49→20:53)
[2024-12-25] MEDS: SODIUM CHLORIDE 0.9% IV ×2 (09:49→20:53)
--- NOTE | 2024-12-25 09:50 | PD.IDPROG ---
Subjective Subjective Interval history: no vaginal estrogen on release noted by pt ant not on home med list. Exam Vital Signs Temp Pulse Resp BP Pulse Ox O2 Del Method O2 Flow Rate 97.8 F 80 18 171/80 H 97 Room Air 1 12/25/24 08:00 12/25/24 08:20 12/25/24 08:20 12/25/24 08:00 12/25/24 08:00 12/25/24 04:00 12/24/24 16:00 Narrative Exam not that verbal. looks uncomfortable. cx pending. wants 7 up Objective - Internal Medicine Labs 12/25/24 07:26 12/25/24 07:26 Labs: Laboratory Results - last 24 hr 12/24/24 12/25/24 15:08 07:26 WBC 11.8 H RBC 3.57 L Hgb 9.1 L Hct 30.3 L MCV 85 MCH 25.5 MCHC 30.0 L RDW Std Deviation 52.9 H Plt Count 532 H D Neut % (Auto) 78 Lymph % (Auto) 11 [place] % (Auto) 6 Eos % (Auto) 3 Baso % (Auto) 1 Neut # (Auto) 9.3 H Lymph # (Auto) 1.3 [place] # (Auto) 0.7 Eos # (Auto) 0.4 Baso # (Auto) 0.1 Immature Gran # (Auto) 0.09 H Absolute Nucleated RBC 0.00 Immature Gran % 1 H Nucleated RBC % 0 Sodium 145 Potassium 4.2 Chloride 111 H Carbon Dioxide 23.7 Anion Gap 10 BUN 35 H Creatinine 1.5 H D Estim Creat Clear Calc 43.9 L eGFR 39 L BUN/Creatinine Ratio 23 H Glucose 147 H Calculated Osmolality 299 H Calcium 9.8 Corrected Calcium 10.1 Phosphorus 3.0 Magnesium 2.0 Total Bilirubin < 0.2 L AST 10 ALT < 7 L Alkaline Phosphatase 72 Total Protein 7.3 Albumin 3.6 Globulin 3.7 H Albumin/Globulin Ratio 1.0 L Ur Random Sodium 158.0 H Ur Random Potassium 16 Ur Random Chloride 126.0 H Assessment & Plan A&P Narrative uti recurrent uti ok to use aztreonam with allergies listed. she is not a great historian so we have to use the data available vaginal estrogen is the next approach. I suggested it last time. she has no hx of female CAncers it can be given 2x/wk as an outpt. I will see again saturday. ok for dailyfor now, po options limited though. Time Spent With Patient Time: Total time spent is greater than 50% in coordination of care (as documented) at patient's floor/unit and/or counseling patient:
[2024-12-25] MEDS: PANTOPRAZOLE INJ 40 MG VIAL IVP (09:51)
[2024-12-25] MEDS: HEPARIN SOD INJ 5000 UNIT/ML VIAL SC ×2 (09:51→20:56)
[2024-12-25] MEDS: SENNA/DOCUSATE SOD 1 TAB TABLET 2 TAB PO ×2 (09:51→20:48)
[2024-12-25] MEDS: METHADONE SOLUTION 5 MG/5 ML UDC PO ×2 (09:51→20:48)
[2024-12-25] MEDS: ESCITALOPRAM OXALATE 10 MG TABLET PO (10:12)
--- NOTE | 2024-12-25 10:31 | ESPR_ITS ---
Subjective Subjective Interval history: may be able to use macrobid for her as bc appear to be neg, but iv rx ok for now. if ready to leave sat or sun, then try to finish rx with macrobid 100 bid for remainder of 7d Exam Vital Signs Temp Pulse Resp BP Pulse Ox O2 Del Method O2 Flow Rate 97.8 F 80 18 171/80 H 97 Room Air 1 12/25/24 08:00 12/25/24 08:20 12/25/24 08:20 12/25/24 08:00 12/25/24 08:00 12/25/24 04:00 12/24/24 16:00 Narrative Exam seen earlier. chart review noted. Objective - Internal Medicine Labs 12/25/24 07:26 12/25/24 07:26 Labs: Laboratory Results - last 24 hr 12/24/24 12/25/24 15:08 07:26 WBC 11.8 H RBC 3.57 L Hgb 9.1 L Hct 30.3 L MCV 85 MCH 25.5 MCHC 30.0 L RDW Std Deviation 52.9 H Plt Count 532 H D Neut % (Auto) 78 Lymph % (Auto) 11 [place] % (Auto) 6 Eos % (Auto) 3 Baso % (Auto) 1 Neut # (Auto) 9.3 H Lymph # (Auto) 1.3 [place] # (Auto) 0.7 Eos # (Auto) 0.4 Baso # (Auto) 0.1 Immature Gran # (Auto) 0.09 H Absolute Nucleated RBC 0.00 Immature Gran % 1 H Nucleated RBC % 0 Sodium 145 Potassium 4.2 Chloride 111 H Carbon Dioxide 23.7 Anion Gap 10 BUN 35 H Creatinine 1.5 H D Estim Creat Clear Calc 43.9 L eGFR 39 L BUN/Creatinine Ratio 23 H Glucose 147 H Calculated Osmolality 299 H Calcium 9.8 Corrected Calcium 10.1 Phosphorus 3.0 Magnesium 2.0 Total Bilirubin < 0.2 L AST 10 ALT < 7 L Alkaline Phosphatase 72 Total Protein 7.3 Albumin 3.6 Globulin 3.7 H Albumin/Globulin Ratio 1.0 L Ur Random Sodium 158.0 H Ur Random Potassium 16 Ur Random Chloride 126.0 H Assessment & Plan A&P Narrative uti recurrent uti ok to use aztreonam with allergies listed. she is not a great historian so we have to use the data available vaginal estrogen is the next approach. I suggested it last time. she has no hx of female CAncers it can be given 2x/wk as an outpt. I will see again saturday. ok for dailyfor now, po options limited though. ok to transition to macrobid for remainder of 1 week if bc remain neg from admit by tomorrow Time Spent With Patient Time: Total time spent is greater than 50% in coordination of care (as documented) at patient's floor/unit and/or counseling patient:
--- NOTE | 2024-12-25 10:34 | ESPR_ITS ---
Subjective Subjective Interval history: she di d not complain of any abd issues. so am not sure what was cultured on admit from '[facility]' Exam Vital Signs Temp Pulse Resp BP Pulse Ox O2 Del Method O2 Flow Rate 97.8 F 80 18 171/80 H 97 Room Air 1 12/25/24 08:00 12/25/24 08:20 12/25/24 08:20 12/25/24 08:00 12/25/24 08:00 12/25/24 04:00 12/24/24 16:00 Objective - Internal Medicine Labs 12/25/24 07:26 12/25/24 07:26 Labs: Laboratory Results - last 24 hr 12/24/24 12/25/24 15:08 07:26 WBC 11.8 H RBC 3.57 L Hgb 9.1 L Hct 30.3 L MCV 85 MCH 25.5 MCHC 30.0 L RDW Std Deviation 52.9 H Plt Count 532 H D Neut % (Auto) 78 Lymph % (Auto) 11 [place] % (Auto) 6 Eos % (Auto) 3 Baso % (Auto) 1 Neut # (Auto) 9.3 H Lymph # (Auto) 1.3 [place] # (Auto) 0.7 Eos # (Auto) 0.4 Baso # (Auto) 0.1 Immature Gran # (Auto) 0.09 H Absolute Nucleated RBC 0.00 Immature Gran % 1 H Nucleated RBC % 0 Sodium 145 Potassium 4.2 Chloride 111 H Carbon Dioxide 23.7 Anion Gap 10 BUN 35 H Creatinine 1.5 H D Estim Creat Clear Calc 43.9 L eGFR 39 L BUN/Creatinine Ratio 23 H Glucose 147 H Calculated Osmolality 299 H Calcium 9.8 Corrected Calcium 10.1 Phosphorus 3.0 Magnesium 2.0 Total Bilirubin < 0.2 L AST 10 ALT < 7 L Alkaline Phosphatase 72 Total Protein 7.3 Albumin 3.6 Globulin 3.7 H Albumin/Globulin Ratio 1.0 L Ur Random Sodium 158.0 H Ur Random Potassium 16 Ur Random Chloride 126.0 H Assessment & Plan A&P Narrative uti recurrent uti ok to use aztreonam with allergies listed. she is not a great historian so we have to use the data available vaginal estrogen is the next approach. I suggested it last time. she has no hx of female CAncers it can be given 2x/wk as an outpt. I will see again saturday. ok for dailyfor now, po options limited though. ok to transition to macrobid for remainder of 1 week if bc remain neg from admit by tomorrow Time Spent With Patient Time: Total time spent is greater than 50% in coordination of care (as documented) at patient's floor/unit and/or counseling patient:
[2024-12-25] MEDS: HYDROmorphone INJ 2 MG/ML VIAL 0.25 MG IVP (10:37)
--- NOTE | 2024-12-25 10:38 | PD.ADDPROG ---
Addendum Progress Note Addendum Date of report being addended: 12/25/24 Narrative: May need renal adjustment if you change to macrobid for urine. if you are more concerned for the abd process, please mention that in the notes
--- NOTE | 2024-12-25 11:37 | PD.RESPRO ---
Documentation for date of: 12/25/24 Subjective Subjective Interval history: Marjorie Mcclain is a 59-year-old female with a PMHx of A-fib (not on AC), CVA, hypertension, IDDM, chronic abdominal and lower extremity wounds, and recurrent UTIs who comes from [facility] after being found encephalopathic this morning. Patient alert but not following commands or answering questions, thus history obtained from phone call with [facility] personnel and chart review. Staff from SNF states that patient is ANO x 3 at baseline, bedbound, and on 2 L NC at facility, without mention of chronic Clark. In morning, nursing staff found patient encephalopathic and called EMS. Admitted for sepsis and encephalopathy secondary to UTI. 12/24: No acute overnight events reported. Seen and examined at bedside. Remains alert and slightly more responsive compared to day of admission. However, she still does not follow commands and only responds to some questions. However, she does endorse significant and diffuse pain as she is noted to be on methadone and morphine regimen at her SNF. During previous admission, patient's family would like to continue multimodal analgesia including all medications as previously seen on medication list even though patient is being discharged WITHOUT hospice care. 12/25: Patient seen and examined at bedside this morning. No acute overnight events. Patient's mentation is slowly improving however she continues to have difficulty speaking. She is AO x 1 (self), and complaining of having the hiccups. Vitals stable, labs reviewed. Leukocytosis downtrending, creatinine 1.5 (was 2.2). Blood cultures negative at 24 hours. Wound/urine cultures have grown ESBL E. coli that is resistant to aztreonam. ID recs appreciated. Will wait for negative blood cultures at 48 hours and transition patient to Macrobid, per sensitivities/ID recs. She is having bowel movements, but has not eaten yet. Will continue IV fluids and consider dietary consult. Exam Vital Signs Temp Pulse Resp BP Pulse Ox O2 Del Method O2 Flow Rate 97.8 F 80 18 171/80 H 97 Room Air 1 12/25/24 08:00 12/25/24 08:20 12/25/24 08:20 12/25/24 08:00 12/25/24 08:00 12/25/24 04:00 12/24/24 16:00 Narrative Exam General: AAOx1, follows simple commands, answers some questions, responds to pain HEENT: NC/AT, mucous membranes dry, bilateral sclera anicteric, no LAD appreciated Cardiovascular: irregular rhythm, S1/S2 present, no murmurs appreciated Pulmonary: clear to auscultation bilaterally, no rales/rhonchi/wheezes Abdominal: soft, non-tender, non-distended, no rebound/guarding, normal bowel sounds present Musculoskeletal: chronic wounds noted in lower abdomen and bilateral lower extremities, ?contracture in LLE Skin: scaly skin, decreased skin turgor, chronic wounds as noted in MSK Neuro: difficult to assess as patient does not follow all commands or respond Objective Labs 12/26/24 05:05 12/26/24 05:05 Labs: Laboratory Results - last 24 hr 12/24/24 12/25/24 15:08 07:26 WBC 11.8 H RBC 3.57 L Hgb 9.1 L Hct 30.3 L MCV 85 MCH 25.5 MCHC 30.0 L RDW Std Deviation 52.9 H Plt Count 532 H D Neut % (Auto) 78 Lymph % (Auto) 11 [place] % (Auto) 6 Eos % (Auto) 3 Baso % (Auto) 1 Neut # (Auto) 9.3 H Lymph # (Auto) 1.3 [place] # (Auto) 0.7 Eos # (Auto) 0.4 Baso # (Auto) 0.1 Immature Gran # (Auto) 0.09 H Absolute Nucleated RBC 0.00 Immature Gran % 1 H Nucleated RBC % 0 Sodium 145 Potassium 4.2 Chloride 111 H Carbon Dioxide 23.7 Anion Gap 10 BUN 35 H Creatinine 1.5 H D Estim Creat Clear Calc 43.9 L eGFR 39 L BUN/Creatinine Ratio 23 H Glucose 147 H Calculated Osmolality 299 H Calcium 9.8 Corrected Calcium 10.1 Phosphorus 3.0 Magnesium 2.0 Total Bilirubin < 0.2 L AST 10 ALT < 7 L Alkaline Phosphatase 72 Total Protein 7.3 Albumin 3.6 Globulin 3.7 H Albumin/Globulin Ratio 1.0 L Ur Random Sodium 158.0 H Ur Random Potassium 16 Ur Random Chloride 126.0 H Quality Measures Quality Measures sepsis Current suspected stage: sepsis Possible source: genitourinary Blood cultures ordered: yes Antibiotic ordered: Yes Assessment & Plan Assessment Current Active Medications: Generic Name Dose Route Start Last Admin Trade Name Freq PRN Reason Stop Dose Admin Acetaminophen 650 mg 12/23/24 12:00 Acetaminophen Supp 650 Mg Supp HI 01/22/25 11:59 Q6HR PRN PAIN OR FEVER > 100.4 Protocol Bisacodyl 5 mg 12/24/24 15:09 Bisacodyl 5 Mg Tabec PO 01/23/25 15:08 QDAY PRN CONSTIPATION Protocol Dextrose 25 ml 12/23/24 12:10 Dextrose 50%-Water Inj 50 Ml Syringe IV 01/22/25 12:09 Q15MIN PRN BG 50-70 responsive npo pt Dextrose 50 ml 12/23/24 12:10 Dextrose 50%-Water Inj 50 Ml Syringe IV 01/22/25 12:09 Q15MIN PRN BG <50 OR BG <70 & pt unresponsive Escitalopram Oxalate 10 mg 12/24/24 15:15 12/25/24 10:12 Escitalopram Oxalate 10 Mg Tablet PO 01/23/25 15:14 10 mg QDAY FREDA Administration Estrogens Conjugated 0 gm 12/26/24 09:00 Estrogens,Conj Vag Cr 30 Gm Tube VAGINAL 01/25/25 08:59 QDAY FREDA Glucagon 1 mg 12/23/24 12:10 Glucagon Inj 1 Mg Vial IM Q15MIN PRN BG <70, and no IV access Heparin Sodium (Porcine) 5,000 unit 12/23/24 21:00 12/25/24 09:51 Heparin Sod Inj 5000 Unit/Ml Vial SC 01/06/25 20:59 5,000 unit BID FREDA Administration Hydromorphone HCl 0.25 mg 12/24/24 10:15 12/25/24 10:37 Hydromorphone Inj 2 Mg/Ml Vial IVP 12/29/24 10:14 0.25 mg Q4HR PRN Administration PAIN SCALE 4-10(Mod-Sev Aztreonam 1,000 mg/ Sodium 50 mls @ 100 mls/hr 12/24/24 09:00 12/25/24 09:49 Chloride IV 12/31/24 08:59 100 mls/hr Q12HR FREDA Administration Insulin Human Lispro 0 unit 12/23/24 18:00 12/25/24 06:36 Insulin Lispro (Admelog) 1 Unit/0.01 Ml Unit SC 01/22/25 17:59 Not Given Q6HR [facility] Protocol Lorazepam 0.5 mg 12/24/24 15:07 Lorazepam 0.5 Mg Tablet PO 12/29/24 15:06 Q6HR PRN ANXIETY Magnesium Hydroxide 15 ml 12/24/24 15:09 Milk Of Magnesia Susp 30 Ml Udc PO 01/23/25 15:08 QDAY PRN CONSTIPATION Protocol Methadone HCl 5 mg 12/24/24 09:00 12/25/24 09:51 Methadone Solution 5 Mg/5 Ml Udc PO 12/29/24 08:59 5 mg BID FREDA Administration Metoclopramide HCl 5 mg 12/24/24 11:57 Metoclopramide Inj 5 Mg/Ml Vial 2 Ml IVP 01/23/25 11:56 Q6H PRN NAUSEA OR VOMITING Protocol Pharmacy Consult 1 each 12/23/24 13:13 Pharmacy Renal Dose Adjustment 1 Ea XX 01/22/25 13:12 PRN PRN CONSULT Sennosides 2 tab 12/24/24 09:00 12/25/24 09:51 Senna/Docusate Sod 1 Tab Tablet PO 01/23/25 08:59 2 tab BID FREDA Administration Protocol Plan Marjorie Mcclain is a 59-year-old female with a PMHx of A-fib (not on AC), CVA, hypertension, IDDM, chronic abdominal and lower extremity wounds, and recurrent UTIs who comes from [facility] after being found encephalopathic this morning. Patient alert but not following commands or answering questions, thus history obtained from phone call with [facility] personnel and chart review. Staff from SNF states that patient is ANO x 3 at baseline, bedbound, and on 2 L NC at facility, without mention of chronic Clark. In morning, nursing staff found patient encephalopathic and called EMS. Admitted for sepsis and encephalopathy secondary to UTI. #Sepsis secondary to UTI versus chronic abdominal wounds #Acute infectious encephalopathy #History of recurrent UTIs Febrile with temperature of 101.5 ?F, WBC 16.3, Pro-Nirmal 1.7, PLT 537, endorgan damage ([place], encephalopathy), UA with 4+ bacteria, 1300 WBC, LE positive. Urine culture 10/2024: Pansensitive E. coli treated with aztreonam. CT head: Negative for acute hemorrhage, mass effect or midline shift Presentation likely due to infectious encephalopathy but polypharmacy in setting of methadone and morphine cannot be excluded. ? Infectious disease consulted, appreciate recommendations: Wait for blood cultures to be negative at 48 hours, can transition to p.o. Macrobid ? Aztreonam (12/23-) ? Vancomycin (12/23-) ? Urine culture 12/23: ESBL E. coli ? Wound culture 12/23: ESBL E. coli ? Blood cultures 12/23: Negative at 24 hours 12/25: Urine & wound speciation noted as above; will transition to p.o. Macrobid on 12/26. Leukocytosis improving #Acute kidney injury secondary to sepsis vs decreased PO intake Admitted with creatinine of 2.2, baseline 1.0. Possibly due to sepsis or decreased p.o. intake given encephalopathy; possible component of morphine metabolite toxicity ? LR at 100 cc/h ? Avoid nephrotoxic agents, renally dose medications ? Creatinine improving - Holding morphine; patient on dilaudid/home methadone as below #Chronic normocytic anemia Chronic on chart review; no overt bleed noted Possibly in the setting of underlying kidney disease versus ISABELLE from poor nutrition Will obtain iron panel and consider starting ferrous sulfate every other day #Atrial fibrillation (not on AC) #History of CVA No blood thinners noted on medication list from SNF and noted to have not been started on Eliquis on previous admission. ? Currently rate controlled, continue to monitor #History of hypertension Home amlodipine 10 mg daily ? Will hold given soft BP #IDDM Home regimen of 10 units glargine HS and SSI A1c 5.9%. ? SSI ? Accu-Cheks q6hr given NPO #Anxiety #Depression ? Lorazepam 0.5 mg every 6 hours as needed ? Escitalopram 10 mg daily #Chronic pain Given decreased kidney function, will change to dilaudid vs morphine. ? Dilaudid 0.25 mg q4hr as needed ? Methadone 5 mg twice daily ? Gabapentin 300 mg twice daily deferred for now given [place] #Chronic wounds ? Wound care #Constipation, likely secondary to opioids ? Senna-docusate 2 tablets BID ? Dulcolax daily PRN ? Magnesium hydoxide 15 mL p.o. daily PRN Hospital management: Disposition: management of sepsis secondary to UTI vs chronic wounds, IV abx, pending negative blood cultures at 48 hours Fluids: LR at 100 cc/hr Diet: dysphagia 1 diet Lines: PIV DVT prophylaxis: heparin SC BID GI prophylaxis: pantoprazole 40 mg IV daily Clark: placed CODE STATUS: full code Patient seen and care discussed with my attending Dr. uH. Hang Tabares MD PGY-3 Attending Provider Attestation/Addendum I reviewed labs, imaging, EKG, home medications and prior available records. Face to face evaluation was performed by me. I have personally examined the patient and discussed assessment and plan with the IM team. I reviewed the resident note and agree with the plan with exceptions as below. Acute encephalopathy, improved Possible opiate withdrawal Sepsis: Likely urosepsis Acute UTI, E. coli Acute febrile illness Chronic hypoxic respiratory failure Leukocytosis [place] Abdominal wall wounds Insulin-dependent diabetes mellitus HFpEF Debility Started IV Dilaudid for possible opiate withdrawal Resume home methadone Consulted ID: Recommended Macrobid in case blood cultures are negative Follow-up blood and urine cultures: Wound culture grew gram-negative rods, identified as E. coli. Urine culture grew gram-negative rods, identified as E. coli Follow-up MRSA Trend WBC: Downtrending Monitor kidney function: Creatinine improved Continue wound care Continue insulin therapy and monitor fingersticks
[2024-12-25] MEDS: INSULIN LISPRO (AdmeLOG) 1 UNIT/0.01 ML UNIT SC (11:59)
--- NOTE | 2024-12-25 15:51 | PC.SS ---
SS follow up note; Rec's pending as well as blood cultures.
--- NOTE | 2024-12-25 20:01 | PD.RESCONSUL ---
HPI Data of Consult Requesting Physician: Demond Hu MD Admitting Provider: Demond Hu MD Attending Provider: Demond Hu MD Primary Care Provider: Tang Evans MD Consult Narrative History of present illness: 59-year-old female with past medical history of atrial fibrillation, HFpEF (65 to 70%) CVA, hypertension, diabetes mellitus and chronic abdominal wounds who presented to [facility] from [facility] due to AMS. On arrival patient met sepsis criteria and was admitted for management of sepsis from UTI source. Patient has recurrent admissions for recurring UTIs, the abdominal woudns have been evaluated in the past and debrided by surgery. cc:: cc: Demond Hu MD Exam Vital Signs Temp Pulse Resp BP Pulse Ox O2 Del Method O2 Flow Rate 97.2 F 77 15 129/74 96 Room Air 1 12/27/24 16:00 12/27/24 16:00 12/27/24 16:00 12/27/24 16:00 12/27/24 16:00 12/27/24 16:00 12/26/24 12:00 Results Labs 12/27/24 04:40 12/27/24 04:40 Labs: Short CBC 12/27/24 Range/Units 04:40 WBC 12.3 H (3.6-11.0) Thou/mm3 Hgb 9.3 L (12.0-16.0) g/dL Hct 30.4 L (36.0-46.0) % Plt Count 500 H D (140-440) Thou/mm3 BMP 12/27/24 04:40 Sodium 138 Potassium 3.4 Chloride 106 Carbon Dioxide 21.9 BUN 18 Creatinine 1.1 Glucose 114 H Calcium 9.3 Liver Function 12/27/24 Range/Units 04:40 Total Bilirubin 0.2 L (0.3-1.2) mg/dL AST 11 (0-34) U/L ALT < 7 L (10-49) U/L Alkaline Phosphatase 69 (46-116) U/L Albumin 3.5 (3.4-4.8) gm/dL Quality Measures Quality Measures sepsis Current suspected stage: sepsis Possible source: genitourinary Blood cultures ordered: yes Antibiotic ordered: Yes Medications Home Medications and Allergies Home Medications ?Medication ?Instructions ?Recorded ?Confirmed ?Type escitalopram oxalate 20 mg tablet 10 mg PO QDAY DEPRESSION 08/22/24 02/20/25 History gabapentin 300 mg capsule 300 mg PO BID NEUROPATHY 05/21/24 11/19/24 History insulin lispro 100 unit/mL 1 sliding scale dose subcut AC dm 05/21/24 11/19/24 History subcutaneous solution (Humalog U-100 Insulin) amlodipine 10 mg tablet 10 mg PO QDAY htn 07/03/24 11/19/24 History baclofen 10 mg tablet 5 mg PO BID Muscle spasms 07/03/24 11/19/24 History sennosides 8.6 mg tablet (senna) 8.6 - 50 mg PO BID CONSTIPATION 07/04/24 11/19/24 History bisacodyl 10 mg rectal suppository 10 mg CA QDAY PRN Constipation 08/11/24 11/19/24 History (Dulcolax (bisacodyl)) magnesium hydroxide 400 mg/5 mL 1,200 mg PO QDAY PRN Constipation 08/11/24 11/19/24 History oral suspension (Milk of Magnesia) sodium phosphates 19 gram-7 118 ml CA QDAY PRN Constipation 08/11/24 11/19/24 History gram/118 mL enema (Enema Disposable) lorazepam 0.5 mg tablet 0.5 mg PO Q6H PRN anxiety m/b 11/19/24 11/19/24 History terminal illness methadone 5 mg tablet 2.5 mg PO Q12H 11/19/24 11/19/24 History morphine concentrate 20 mg/mL oral 5 mg PO DAILY PRN mild pain 11/19/24 11/19/24 History syringe (FOR ORAL USE ONLY) 20-30mins prior to wound care morphine concentrate 20 mg/mL oral 10 mg PO .q4h PRN moderate pain or 11/19/24 11/19/24 History syringe (FOR ORAL USE ONLY) SOB morphine concentrate 20 mg/mL oral 20 mg PO Q2H PRN severe pain or SOB 11/19/24 11/19/24 History syringe (FOR ORAL USE ONLY) Allergies Allergy/AdvReac Type Severity Reaction Status Date / Time acetylcysteine Allergy Severe Difficulty Verified 05/24/24 17:57 Swallowing aspirin Allergy Severe Difficulty Verified 05/24/24 17:57 Swallowing cefpodoxime Allergy Severe Difficulty Verified 05/24/24 17:57 Breathing levofloxacin (From Levaquin) Allergy Severe Difficulty Verified 05/24/24 17:57 Breathing Penicillins Allergy Severe Difficulty Verified 05/24/24 17:57 Breathing Sulfa (Sulfonamide Allergy Severe Hives Verified 05/24/24 17:57 Antibiotics) sulfadiazine Allergy Severe Difficulty Verified 05/24/24 17:57 Breathing sulfamethoxazole (From Allergy Severe Difficulty Verified 05/24/24 17:57 Bactrim) Breathing capsaicin Allergy Intermediate Hives Verified 05/24/24 17:57 dulaglutide Allergy Intermediate Hives Verified 05/24/24 17:57 trimethoprim (From Bactrim) Allergy Verified 03/21/24 22:15 Visit Medications Acetaminophen (Acetaminophen Supp 650 Mg Supp) 650 mg CA Q6HR PRN; Protocol PRN Reason: PAIN OR FEVER > 100.4 Stop: 01/22/25 11:59 Amlodipine Besylate (Amlodipine Besylate 5 Mg Tablet) 10 mg PO QDAY FREDA Stop: 01/26/25 12:14 Last Admin: 12/27/24 12:21 Dose: 10 mg Bisacodyl (Bisacodyl 5 Mg Tabec) 5 mg PO QDAY PRN; Protocol PRN Reason: CONSTIPATION Stop: 01/23/25 15:08 Dextrose (Dextrose 50%-Water Inj 50 Ml Syringe) 25 ml IV Q15MIN PRN PRN Reason: BG 50-70 responsive npo pt Stop: 01/22/25 12:09 Dextrose (Dextrose 50%-Water Inj 50 Ml Syringe) 50 ml IV Q15MIN PRN PRN Reason: BG <50 OR BG <70 & pt unresponsive Stop: 01/22/25 12:09 Escitalopram Oxalate (Escitalopram Oxalate 10 Mg Tablet) 10 mg PO QDAY FREDA Stop: 01/23/25 15:14 Last Admin: 12/27/24 08:28 Dose: 10 mg Estrogens Conjugated (Estrogens,Conj Vag Cr 30 Gm Tube) 0 gm VAGINAL QDAY FREDA Stop: 01/25/25 08:59 Last Admin: 12/27/24 08:30 Dose: 2 gm Glucagon (Glucagon Inj 1 Mg Vial) 1 mg IM Q15MIN PRN PRN Reason: BG <70, and no IV access Heparin Sodium (Porcine) (Heparin Sod Inj 5000 Unit/Ml Vial) 5,000 unit SC BID FREDA Stop: 01/06/25 20:59 Last Admin: 12/27/24 08:28 Dose: 5,000 unit Insulin Human Lispro (Insulin Lispro (Admelog) 1 Unit/0.01 Ml Unit) 0 unit SC AC COUNTS INCLUDE 234 BEDS AT THE [facility]; Protocol Stop: 01/26/25 07:29 Last Admin: 12/27/24 17:11 Dose: Not Given Lorazepam (Lorazepam 0.5 Mg Tablet) 0.5 mg PO Q6HR PRN PRN Reason: ANXIETY Stop: 12/29/24 15:06 Magnesium Hydroxide (Milk Of Magnesia Susp 30 Ml Udc) 15 ml PO QDAY PRN; Protocol PRN Reason: CONSTIPATION Stop: 01/23/25 15:08 Methadone HCl (Methadone Solution 5 Mg/5 Ml Udc) 5 mg PO BID COUNTS INCLUDE 234 BEDS AT THE [facility] Stop: 12/29/24 08:59 Last Admin: 12/27/24 08:28 Dose: 5 mg Metoclopramide HCl (Metoclopramide Inj 5 Mg/Ml Vial 2 Ml) 5 mg IVP Q6H PRN; Protocol PRN Reason: NAUSEA OR VOMITING Stop: 01/23/25 11:56 Nitrofurantoin Macrocrystals (Nitrofurantoin Macro 100 Mg Capsule) 100 mg PO BID COUNTS INCLUDE 234 BEDS AT THE [facility] Stop: 01/02/25 08:59 Last Admin: 12/27/24 08:28 Dose: 100 mg Pantoprazole Sodium (Pantoprazole 40 Mg Tablet) 40 mg PO QDAY COUNTS INCLUDE 234 BEDS AT THE [facility] Stop: 01/26/25 11:59 Last Admin: 12/27/24 12:21 Dose: 40 mg Pharmacy Consult (Pharmacy Renal Dose Adjustment 1 Ea) 1 each XX PRN PRN PRN Reason: CONSULT Stop: 01/22/25 13:12 Phenazopyridine HCl (Phenazopyridine Hcl 100 Mg Tablet) 100 mg PO TIDWM COUNTS INCLUDE 234 BEDS AT THE [facility] Stop: 12/28/24 08:01 Last Admin: 12/27/24 17:11 Dose: 100 mg Sennosides (Senna/Docusate Sod 1 Tab Tablet) 2 tab PO BID COUNTS INCLUDE 234 BEDS AT THE [facility]; Protocol Stop: 01/23/25 08:59 Last Admin: 12/27/24 08:28 Dose: 2 tab Discontinued Medications Acetaminophen (Acetaminophen Supp 650 Mg Supp) 650 mg CA X1 ONE Stop: 12/23/24 10:00 Last Admin: 12/23/24 10:18 Dose: 650 mg Gabapentin (Gabapentin 300 Mg Capsule) 300 mg PO BID COUNTS INCLUDE 234 BEDS AT THE [facility] Stop: 01/23/25 20:59 Hydromorphone HCl (Hydromorphone Inj 2 Mg/Ml Vial) 0.25 mg IVP Q4HR PRN PRN Reason: PAIN SCALE 4-10(Mod-Sev Stop: 12/29/24 10:14 Last Admin: 12/26/24 15:27 Dose: 0.25 mg Sodium Chloride (Ns) 1,000 mls @ 999 mls/hr IV .Q1H1M ONE Stop: 12/23/24 10:44 Last Infusion: 12/23/24 11:25 Dose: Infused Aztreonam 2,000 mg/ Sodium (Chloride) 100 mls @ 100 mls/hr IV X1 ONE Stop: 12/23/24 10:47 Last Infusion: 12/23/24 11:45 Dose: Infused Vancomycin/Sodium Chloride (Vancomycin/Ns 1 Gm Ivpb) 200 mls @ 120 mls/hr IV X1 ONE Stop: 12/23/24 11:54 Last Infusion: 12/23/24 14:00 Dose: Infused Lactated Ringer's (Lactated Ringers) 1,000 mls @ 75 mls/hr IV .[id number] COUNTS INCLUDE 234 BEDS AT THE [facility] Stop: 01/22/25 11:59 Last Infusion: 12/23/24 18:40 Dose: 0 mls/hr Aztreonam 1,000 mg/ Sodium (Chloride) 50 mls @ 100 mls/hr IV Q12HR COUNTS INCLUDE 234 BEDS AT THE [facility] Stop: 12/31/24 08:59 Last Admin: 12/25/24 20:53 Dose: 100 mls/hr Lactated Ringer's (Lactated Ringers) 1,000 mls @ 100 mls/hr IV .Q10H COUNTS INCLUDE 234 BEDS AT THE [facility] Stop: 12/24/24 17:00 Last Admin: 12/24/24 14:56 Dose: 100 mls/hr Aztreonam 1,000 mg/ Sodium (Chloride) 50 mls @ 100 mls/hr IV Q12HR COUNTS INCLUDE 234 BEDS AT THE [facility] Stop: 12/23/24 23:00 Last Admin: 12/23/24 21:18 Dose: 100 mls/hr Vancomycin/Sodium Chloride (Vancomycin/Ns 1 Gm Ivpb) 200 mls @ 120 mls/hr IV QDAY@1000 COUNTS INCLUDE 234 BEDS AT THE [facility] Stop: 12/31/24 09:59 Last Admin: 12/25/24 10:53 Dose: Not Given Vancomycin HCl/Dextrose (Vancomycin/D5w 1,250 Mg Ivpb) 250 mls @ 120 mls/hr IV Q24H FREDA Stop: 01/01/25 09:59 Last Admin: 12/25/24 10:53 Dose: Not Given Magnesium Sulfate (Magnesium Sulfate Ivpb) 2 gm in 50 mls @ 25 mls/hr IV X1 ONE Stop: 12/27/24 10:27 Last Admin: 12/27/24 08:39 Dose: 25 mls/hr Insulin Human Lispro (Insulin Lispro (Admelog) 1 Unit/0.01 Ml Unit) 0 unit SC Q6HR FREDA; Protocol Stop: 01/22/25 17:59 Last Admin: 12/27/24 01:00 Dose: Not Given Metoclopramide HCl (Metoclopramide Inj 5 Mg/Ml Vial 2 Ml) 10 mg IVP Q6H PRN; Protocol PRN Reason: NAUSEA OR VOMITING Stop: 01/22/25 11:59 Morphine Sulfate (Morphine Sulf Inj 10 Mg/Ml Vial) 0.25 mg IVP Q4HR PRN PRN Reason: PAIN SCALE 4-10(Mod-Sev) Stop: 12/28/24 12:05 Last Admin: 12/24/24 02:03 Dose: 0.25 mg Pantoprazole Sodium (Pantoprazole Inj 40 Mg Vial) 40 mg IVP QDAY FREDA Stop: 01/23/25 08:59 Last Admin: 12/25/24 09:51 Dose: 40 mg Pharmacy Consult (Vancomycin Pharmacy To Dose 1 Each Each) 1 each IV QDAY PRN PRN Reason: CONSULT Stop: 01/22/25 09:59 Potassium Chloride (Potassium Chloride 10% 20 Meq/15 Ml Udc) 40 meq PO X1 ONE Stop: 12/27/24 08:27 Last Admin: 12/27/24 08:39 Dose: 40 meq Assessment & Plan Plan 59-year-old female with past medical history of atrial fibrillation, HFpEF (65 to 70%) CVA, hypertension, diabetes mellitus and chronic abdominal wounds who presented to [facility] from [facility] due to AMS. On arrival patient met sepsis criteria and was admitted for management of sepsis from UTI source. Patient has recurrent admissions for recurring UTIs, the abdominal woudns have been evaluated in the past and debrided by surgery. #Recurrent UTIs -Patient admitted on multiple occasions due to sepsis from UTI -Organism last time was e coli -Currently on aztreonam as patient has multiple allergies. -Vaginal estrogen added 2x week, continue upn dc -Might transition to po macrobid upon dc Patient's care discussed with attending physician, Dr David Coelho MD PGY3
[2024-12-26] VITALS (11 sets, daily range): BP systolic 127–187; BP diastolic 71–100; PULSE 71–88; RESP 14–96; TEMP 36.1–37.2; O2SAT 94–97; BMI 34.1
[2024-12-26] MEDS: HYDROmorphone INJ 2 MG/ML VIAL 0.25 MG IVP ×2 (03:47→15:27)
[2024-12-26 06:00] LABS: Basophils # (Auto) 0.1 Thou/mm3 (0.0-0.2); Basophils % (Auto) 1 % (0-2.5); Eosinophils # (Auto) 0.2 Thou/mm3 (0.0-0.5); Eosinophils % (Auto) 2 % (0-10); Hematocrit 31.7 % (36.0-46.0); Hemoglobin 9.4 g/dL (12.0-16.0); Immature Granulocytes % (Auto) 1 % (0-0); Immature Granulocytes Auto 0.09 Thou/mm3 (0.00-0.00); Lymphocytes # (Auto) 1.9 Thou/mm3 (1.0-4.8); Lymphocytes % (Auto) 16 % (10-50); Mean Corpuscular HGB Conc 29.7 g/dl (31.0-37.0); Mean Corpuscular Hemoglobin 25.8 pg (25.0-35.0); Mean Corpuscular Volume 87 fL (80-100); Monocytes # (Auto) 0.8 Thou/mm3 (0.0-0.8); Monocytes % (Auto) 7 % (0-12); Neutrophils # (Auto) 8.8 Thou/mm3 (1.8-7.7); Neutrophils % (Auto) 74 % (37-80); Nucleated Red Blood Cell % 0 /100 WBC (0); Platelet Count 432 Thou/mm3 (140-440); RDW Standard Deviation 53.4 fL (36.4-46.3); Red Blood Count 3.65 Miln/mm3 (4.00-5.20); White Blood Count 11.9 Thou/mm3 (3.6-11.0)
[2024-12-26 06:49] LABS: Alanine Aminotransferase < 7 U/L (10-49); Albumin, Serum 3.5 gm/dL (3.4-4.8); Albumin/Globulin Ratio 0.9 (1.2-2.2); Alkaline Phosphatase 71 U/L (46-116); Anion Gap 10 (7-16); Aspartate Amino Transferase < 10 U/L (0-34); BUN/Creatinine Ratio 20 Ratio (12-20); Bilirubin,Total 0.2 mg/dL (0.3-1.2); Blood Urea Nitrogen 26 mg/dL (9-23); Calcium 9.7 mg/dL (8.3-10.6); Calcium (Corrected) 10.1 mg/dL (8.5-10.1); Carbon Dioxide 22.8 mMol/L (20.0-31.0); Chloride 110 mMol/L (98-107); Creatinine (Component) 1.3 mg/dL (0.6-1.3); Estimated Creatinine Clearance 50.4 mL/min (>60); Globulin 3.7 gm/dL (2.3-3.5); Glucose 114 mg/dL (74-106); Magnesium 1.9 mg/dL (1.6-2.6); Osmolality,Calculated 290 (275-295); Phosphorous 2.5 mg/dL (2.4-5.1); Potassium 3.7 mMol/L (3.4-5.1); Sodium 143 mMol/L (136-145); Total Protein 7.2 gm/dL (5.7-8.2); eGFR 47 See Note
--- NOTE | 2024-12-26 08:44 | PD.RESPRO ---
Documentation for date of: 12/26/24 Exam Vital Signs Temp Pulse Resp BP Pulse Ox O2 Del Method O2 Flow Rate 98.5 F 73 16 148/90 H 97 Room Air 1 12/26/24 08:00 12/26/24 08:24 12/26/24 08:24 12/26/24 08:00 12/26/24 08:00 12/26/24 08:00 12/24/24 16:00 Objective Labs 12/26/24 05:05 12/26/24 05:05 Labs: Laboratory Results - last 24 hr 12/26/24 05:05 WBC 11.9 H RBC 3.65 L Hgb 9.4 L Hct 31.7 L MCV 87 MCH 25.8 MCHC 29.7 L RDW Std Deviation 53.4 H Plt Count 432 D Neut % (Auto) 74 Lymph % (Auto) 16 [place] % (Auto) 7 Eos % (Auto) 2 Baso % (Auto) 1 Neut # (Auto) 8.8 H Lymph # (Auto) 1.9 [place] # (Auto) 0.8 Eos # (Auto) 0.2 Baso # (Auto) 0.1 Immature Gran # (Auto) 0.09 H Absolute Nucleated RBC 0.00 Immature Gran % 1 H Nucleated RBC % 0 Sodium 143 Potassium 3.7 D Chloride 110 H Carbon Dioxide 22.8 Anion Gap 10 BUN 26 H Creatinine 1.3 Estim Creat Clear Calc 50.4 L eGFR 47 L BUN/Creatinine Ratio 20 Glucose 114 H Calculated Osmolality 290 Calcium 9.7 Corrected Calcium 10.1 Phosphorus 2.5 Magnesium 1.9 Total Bilirubin 0.2 L AST < 10 ALT < 7 L Alkaline Phosphatase 71 Total Protein 7.2 Albumin 3.5 Globulin 3.7 H Albumin/Globulin Ratio 0.9 L Quality Measures Quality Measures sepsis Possible source: genitourinary Blood cultures ordered: yes Assessment & Plan Assessment Current Active Medications: Generic Name Dose Route Start Last Admin Trade Name Freq PRN Reason Stop Dose Admin Acetaminophen 650 mg 12/23/24 12:00 Acetaminophen Supp 650 Mg Supp HI 01/22/25 11:59 Q6HR PRN PAIN OR FEVER > 100.4 Protocol Bisacodyl 5 mg 12/24/24 15:09 Bisacodyl 5 Mg Tabec PO 01/23/25 15:08 QDAY PRN CONSTIPATION Protocol Dextrose 25 ml 12/23/24 12:10 Dextrose 50%-Water Inj 50 Ml Syringe IV 01/22/25 12:09 Q15MIN PRN BG 50-70 responsive npo pt Dextrose 50 ml 12/23/24 12:10 Dextrose 50%-Water Inj 50 Ml Syringe IV 01/22/25 12:09 Q15MIN PRN BG <50 OR BG <70 & pt unresponsive Escitalopram Oxalate 10 mg 12/24/24 15:15 12/25/24 10:12 Escitalopram Oxalate 10 Mg Tablet PO 01/23/25 15:14 10 mg QDAY FREDA Administration Estrogens Conjugated 0 gm 12/26/24 09:00 Estrogens,Conj Vag Cr 30 Gm Tube VAGINAL 01/25/25 08:59 QDAY FREDA Glucagon 1 mg 12/23/24 12:10 Glucagon Inj 1 Mg Vial IM Q15MIN PRN BG <70, and no IV access Heparin Sodium (Porcine) 5,000 unit 12/23/24 21:00 12/25/24 20:56 Heparin Sod Inj 5000 Unit/Ml Vial SC 01/06/25 20:59 5,000 unit BID FREDA Administration Hydromorphone HCl 0.25 mg 12/24/24 10:15 12/26/24 03:47 Hydromorphone Inj 2 Mg/Ml Vial IVP 12/29/24 10:14 0.25 mg Q4HR PRN Administration PAIN SCALE 4-10(Mod-Sev Insulin Human Lispro 0 unit 12/23/24 18:00 12/26/24 05:51 Insulin Lispro (Admelog) 1 Unit/0.01 Ml Unit SC 01/22/25 17:59 Not Given Q6HR [facility] Protocol Lorazepam 0.5 mg 12/24/24 15:07 Lorazepam 0.5 Mg Tablet PO 12/29/24 15:06 Q6HR PRN ANXIETY Magnesium Hydroxide 15 ml 12/24/24 15:09 Milk Of Magnesia Susp 30 Ml Udc PO 01/23/25 15:08 QDAY PRN CONSTIPATION Protocol Methadone HCl 5 mg 12/24/24 09:00 12/25/24 20:48 Methadone Solution 5 Mg/5 Ml Udc PO 12/29/24 08:59 5 mg BID FREDA Administration Metoclopramide HCl 5 mg 12/24/24 11:57 Metoclopramide Inj 5 Mg/Ml Vial 2 Ml IVP 01/23/25 11:56 Q6H PRN NAUSEA OR VOMITING Protocol Nitrofurantoin Macrocrystals 100 mg 12/26/24 09:00 Nitrofurantoin Macro 100 Mg Capsule PO 01/02/25 08:59 BID [facility] Pharmacy Consult 1 each 12/23/24 13:13 Pharmacy Renal Dose Adjustment 1 Ea XX 01/22/25 13:12 PRN PRN CONSULT Sennosides 2 tab 12/24/24 09:00 12/25/24 20:48 Senna/Docusate Sod 1 Tab Tablet PO 01/23/25 08:59 2 tab BID [facility] Administration Protocol
[2024-12-26] MEDS: NITROFURANTOIN MACRO 100 MG CAPSULE PO ×2 (09:43→20:39)
[2024-12-26] MEDS: METHADONE SOLUTION 5 MG/5 ML UDC PO ×2 (09:43→20:38)
[2024-12-26] MEDS: SENNA/DOCUSATE SOD 1 TAB TABLET 2 TAB PO ×2 (09:43→20:39)
[2024-12-26] MEDS: ESCITALOPRAM OXALATE 10 MG TABLET PO (09:43)
[2024-12-26] MEDS: HEPARIN SOD INJ 5000 UNIT/ML VIAL SC ×2 (09:44→20:40)
--- NOTE | 2024-12-26 09:44 | PC.DIETICIAN ---
1. Recommend Prostat SF BID 2. Recommend adding Vitamin C 500mg BID, Zinc 220mg x14 days and multivitamin-mineral daily 3. Consider appetite stimulant 4. Consider ONS glucerna BID
--- NOTE | 2024-12-26 10:54 | PD.RESDS ---
Planned Discharge Date 12/26/24 DS: Providers Provider Date of admission: 12/23/24 12:00 Primary care physician: Tang Evans MD Admitting Provider: Demond Hu MD Attending Provider on Admission: Demond Hu MD Consults: 12/23/24 13:12 Referral Speech Therapy Routine Comment: 12/23/24 13:18 Consult to Infectious Diseases Routine Comment: Consulting Provider: Frantz Hernandez 12/24/24 01:56 Referral Wound Care Routine Comment: Chronic wounds on abd, bilat lower ext, and coccyx 12/25/24 15:49 Referral Nutritional Services Routine Comment: Wounds Attending Provider on DC: Hang Tabares MD Discharging Provider: Hang Tabares MD Hospital Course Hospital Course Hospital course: Marjorie Mcclain is a 59-year-old female with a PMHx of A-fib (not on AC), CVA, hypertension, IDDM, chronic abdominal and lower extremity wounds, and recurrent UTIs who comes from [facility] after being found encephalopathic this morning. Patient alert but not following commands or answering questions, thus history obtained from phone call with [facility] personnel and chart review. Staff from SNF states that patient is ANO x 3 at baseline, bedbound, and on 2 L NC at facility, without mention of chronic Clark. In morning, nursing staff found patient encephalopathic and called EMS. Admitted for sepsis and encephalopathy secondary to UTI. 12/24: No acute overnight events reported. Seen and examined at bedside. Remains alert and slightly more responsive compared to day of admission. However, she still does not follow commands and only responds to some questions. However, she does endorse significant and diffuse pain as she is noted to be on methadone and morphine regimen at her SNF. During previous admission, patient's family would like to continue multimodal analgesia including all medications as previously seen on medication list even though patient is being discharged WITHOUT hospice care. 12/25: Patient seen and examined at bedside this morning. No acute overnight events. Patient's mentation is slowly improving however she continues to have difficulty speaking. She is AO x 1 (self), and complaining of having the hiccups. Vitals stable, labs reviewed. Leukocytosis downtrending, creatinine 1.5 (was 2.2). Blood cultures negative at 24 hours. Wound/urine cultures have grown ESBL E. coli that is resistant to aztreonam. ID recs appreciated. Will wait for negative blood cultures at 48 hours and transition patient to Macrobid, per sensitivities/ID recs. She is having bowel movements, but has not eaten yet. Will continue IV fluids and consider dietary consult. Time Spent with Patient Time attestation: Total time spent providing and/or coordinating discharge services: Exam Vital Signs Temp Pulse Resp BP Pulse Ox O2 Del Method O2 Flow Rate 98.5 F 73 16 148/90 H 97 Room Air 1 12/26/24 08:00 12/26/24 08:24 12/26/24 08:24 12/26/24 08:00 12/26/24 08:00 12/26/24 08:00 12/24/24 16:00 Discharge Plan Prescriptions/Referrals Prescriptions/Med Rec: No Action magnesium hydroxide [Milk of Magnesia] 400 mg/5 mL Suspension 1,200 mg PO QDAY PRN (Reason: Constipation) Rx Instructions: 1200 mg/ 15mL dose bisacodyl [Dulcolax (bisacodyl)] 10 mg Suppository 10 mg MI QDAY PRN (Reason: Constipation) Rx Instructions: insert 1 suppository rectally every 24 hours as needed for constipation if MOM is ineffective and no BM for 8 hours Enema Disposable 19-7 gram/118 mL Enema 118 ml MI QDAY PRN (Reason: Constipation) Rx Instructions: insert 1 application rectally as needed for constipation if MOM and Dulcolax Supp are ineffective and no bowel movement in 8 hours. if no results from MOM, Dulcolax supp and enema call gabapentin 300 mg Capsule 300 mg PO BID insulin lispro [Humalog U-100 Insulin] 100 unit/mL Solution 1 sliding scale dose SUBCUT AC Rx Instructions: 70-150= 0 UNITS 151-200 = 2 UNITS 201-250 = 4 units 251-300 = 6 units 301-350 = 8 units 351-400 = 10 units 401+ call 201-250 = 4 UNITS 251-300 = 6 UNITS 301-350 = 8 UNITS 351-400= 10 UNITS ABOVE 400 CALL escitalopram oxalate 20 mg Tablet 10 mg PO QDAY Rx Instructions: FOR 6 MONTHS M/B hopelessness r/t decline in health causing distress to resident. baclofen 10 mg tablet 5 mg PO BID amlodipine 10 mg tablet 10 mg PO QDAY Rx Instructions: MONITOR BP AND PULSE, HOLD IF SBP <100 OR PULSE <60 sennosides [senna] 8.6 mg Tablet 8.6 - 50 mg PO BID morphine concentrate 20 mg/mL syringe 10 mg PO .q4h PRN (Reason: moderate pain or SOB) lorazepam 0.5 mg tablet 0.5 mg PO Q6H PRN (Reason: anxiety m/b terminal illness ) methadone 5 mg tablet 2.5 mg PO Q12H morphine concentrate 20 mg/mL syringe 5 mg PO DAILY PRN (Reason: mild pain 20-30mins prior to wound care) morphine concentrate 20 mg/mL syringe 20 mg PO Q2H PRN (Reason: severe pain or SOB) artificial tear([id number]-[id number]) 0.1-0.3-0.2 % Drops 1 drp Both eyes BID Qty: 15 0RF ascorbic acid (vitamin C) 500 mg capsule 500 mg PO BID 30 Days Qty: 60 0RF insulin glargine [Lantus U-100 Insulin] 100 unit/mL Solution 10 unit SCi QDAY 30 Days Qty: 10 0RF zinc sulfate 50 mg zinc (220 mg) Capsule 50 mg PO QDAY 30 Days Qty: 30 0RF Referrals: Tang Evans MD [Primary Care Provider] - Patient/Caregiver Discharge Instructions Print Language: Nepali Discharge Order Discharge Orders: Discharge (Routine); Ordered 12/26/24 Ordered By: Hang Tabares
[2024-12-26] MEDS: ESTROGENS,CONJ VAG CR 30 GM TUBE VAGINAL (11:20)
[2024-12-26] MEDS: PHENAZOPYRIDINE HCL 100 MG TABLET PO ×2 (11:21→20:40)
--- NOTE | 2024-12-26 17:26 | PD.RESPRO ---
Documentation for date of: 12/26/24 Subjective Subjective Interval history: Marjorie Mcclain is a 59-year-old female with a PMHx of A-fib (not on AC), CVA, hypertension, IDDM, chronic abdominal and lower extremity wounds, and recurrent UTIs who comes from [facility] after being found encephalopathic this morning. Patient alert but not following commands or answering questions, thus history obtained from phone call with [facility] personnel and chart review. Staff from SNF states that patient is ANO x 3 at baseline, bedbound, and on 2 L NC at facility, without mention of chronic Clark. In morning, nursing staff found patient encephalopathic and called EMS. Admitted for sepsis and encephalopathy secondary to UTI. 12/24: No acute overnight events reported. Seen and examined at bedside. Remains alert and slightly more responsive compared to day of admission. However, she still does not follow commands and only responds to some questions. However, she does endorse significant and diffuse pain as she is noted to be on methadone and morphine regimen at her SNF. During previous admission, patient's family would like to continue multimodal analgesia including all medications as previously seen on medication list even though patient is being discharged WITHOUT hospice care. 12/25: Patient seen and examined at bedside this morning. No acute overnight events. Patient's mentation is slowly improving however she continues to have difficulty speaking. She is AO x 1 (self), and complaining of having the hiccups. Vitals stable, labs reviewed. Leukocytosis downtrending, creatinine 1.5 (was 2.2). Blood cultures negative at 24 hours. Wound/urine cultures have grown ESBL E. coli that is resistant to aztreonam. ID recs appreciated. Will wait for negative blood cultures at 48 hours and transition patient to Macrobid, per sensitivities/ID recs. She is having bowel movements, but has not eaten yet. Will continue IV fluids and consider dietary consult. 12/26: Patient seen and examined at bedside this morning. No acute overnight events. Patient appears much less lethargic however is grimacing and complaining of severe back pain. She is not answering all questions. 2.6 L urine output noted. Vitals stable. Labs significant for stable WBC and improved creatinine, 1.3. Blood cultures are negative at 48 hours. Antibiotics changed to Macrobid per ID recs. Exam Vital Signs Temp Pulse Resp BP Pulse Ox O2 Del Method O2 Flow Rate 99.0 F 80 15 166/90 H 95 Room Air 1 12/26/24 16:49 12/26/24 16:49 12/26/24 16:49 12/26/24 16:49 12/26/24 16:49 12/26/24 16:00 12/26/24 12:00 Narrative Exam General: Not following simple commands or answering questions, significant distress to pain HEENT: NC/AT, mucous membranes moist, bilateral sclera anicteric, no LAD appreciated Cardiovascular: irregular rhythm, S1/S2 present, no murmurs appreciated Pulmonary: clear to auscultation bilaterally, no rales/rhonchi/wheezes Abdominal: soft, non-tender, non-distended, no rebound/guarding, normal bowel sounds present Musculoskeletal: chronic wounds noted in lower abdomen and bilateral lower extremities, ?contracture in LLE Skin: scaly skin, decreased skin turgor, chronic wounds as noted in MSK Neuro: difficult to assess as patient does not follow all commands or respond Objective Labs 12/27/24 04:40 12/27/24 04:40 Labs: Laboratory Results - last 24 hr 12/26/24 05:05 WBC 11.9 H RBC 3.65 L Hgb 9.4 L Hct 31.7 L MCV 87 MCH 25.8 MCHC 29.7 L RDW Std Deviation 53.4 H Plt Count 432 D Neut % (Auto) 74 Lymph % (Auto) 16 [place] % (Auto) 7 Eos % (Auto) 2 Baso % (Auto) 1 Neut # (Auto) 8.8 H Lymph # (Auto) 1.9 [place] # (Auto) 0.8 Eos # (Auto) 0.2 Baso # (Auto) 0.1 Immature Gran # (Auto) 0.09 H Absolute Nucleated RBC 0.00 Immature Gran % 1 H Nucleated RBC % 0 Sodium 143 Potassium 3.7 D Chloride 110 H Carbon Dioxide 22.8 Anion Gap 10 BUN 26 H Creatinine 1.3 Estim Creat Clear Calc 50.4 L eGFR 47 L BUN/Creatinine Ratio 20 Glucose 114 H Calculated Osmolality 290 Calcium 9.7 Corrected Calcium 10.1 Phosphorus 2.5 Magnesium 1.9 Total Bilirubin 0.2 L AST < 10 ALT < 7 L Alkaline Phosphatase 71 Total Protein 7.2 Albumin 3.5 Globulin 3.7 H Albumin/Globulin Ratio 0.9 L Quality Measures Quality Measures sepsis Current suspected stage: ruled out Possible source: genitourinary Blood cultures ordered: yes Antibiotic ordered: Yes Assessment & Plan Assessment Current Active Medications: Generic Name Dose Route Start Last Admin Trade Name Freq PRN Reason Stop Dose Admin Acetaminophen 650 mg 12/23/24 12:00 Acetaminophen Supp 650 Mg Supp NM 01/22/25 11:59 Q6HR PRN PAIN OR FEVER > 100.4 Protocol Bisacodyl 5 mg 12/24/24 15:09 Bisacodyl 5 Mg Tabec PO 01/23/25 15:08 QDAY PRN CONSTIPATION Protocol Dextrose 25 ml 12/23/24 12:10 Dextrose 50%-Water Inj 50 Ml Syringe IV 01/22/25 12:09 Q15MIN PRN BG 50-70 responsive npo pt Dextrose 50 ml 12/23/24 12:10 Dextrose 50%-Water Inj 50 Ml Syringe IV 01/22/25 12:09 Q15MIN PRN BG <50 OR BG <70 & pt unresponsive Escitalopram Oxalate 10 mg 12/24/24 15:15 12/26/24 09:43 Escitalopram Oxalate 10 Mg Tablet PO 01/23/25 15:14 10 mg QDAY FREDA Administration Estrogens Conjugated 0 gm 12/26/24 09:00 12/26/24 11:20 Estrogens,Conj Vag Cr 30 Gm Tube VAGINAL 01/25/25 08:59 30 gm QDAY FREDA Administration Glucagon 1 mg 12/23/24 12:10 Glucagon Inj 1 Mg Vial IM Q15MIN PRN BG <70, and no IV access Heparin Sodium (Porcine) 5,000 unit 12/23/24 21:00 12/26/24 09:44 Heparin Sod Inj 5000 Unit/Ml Vial SC 01/06/25 20:59 5,000 unit BID FREDA Administration Hydromorphone HCl 0.25 mg 12/24/24 10:15 12/26/24 15:27 Hydromorphone Inj 2 Mg/Ml Vial IVP 12/29/24 10:14 0.25 mg Q4HR PRN Administration PAIN SCALE 4-10(Mod-Sev Insulin Human Lispro 0 unit 12/23/24 18:00 12/26/24 12:16 Insulin Lispro (Admelog) 1 Unit/0.01 Ml Unit SC 01/22/25 17:59 Not Given Q6HR FREDA Protocol Lorazepam 0.5 mg 12/24/24 15:07 Lorazepam 0.5 Mg Tablet PO 12/29/24 15:06 Q6HR PRN ANXIETY Magnesium Hydroxide 15 ml 12/24/24 15:09 Milk Of Magnesia Susp 30 Ml Udc PO 01/23/25 15:08 QDAY PRN CONSTIPATION Protocol Methadone HCl 5 mg 12/24/24 09:00 12/26/24 09:43 Methadone Solution 5 Mg/5 Ml Udc PO 12/29/24 08:59 5 mg BID FREDA Administration Metoclopramide HCl 5 mg 12/24/24 11:57 Metoclopramide Inj 5 Mg/Ml Vial 2 Ml IVP 01/23/25 11:56 Q6H PRN NAUSEA OR VOMITING Protocol Nitrofurantoin Macrocrystals 100 mg 12/26/24 09:00 12/26/24 09:43 Nitrofurantoin Macro 100 Mg Capsule PO 01/02/25 08:59 100 mg BID FREDA Administration Pharmacy Consult 1 each 12/23/24 13:13 Pharmacy Renal Dose Adjustment 1 Ea XX 01/22/25 13:12 PRN PRN CONSULT Phenazopyridine HCl 100 mg 12/26/24 12:00 12/26/24 11:21 Phenazopyridine Hcl 100 Mg Tablet PO 12/28/24 08:01 100 mg TIDWM FREDA Administration Sennosides 2 tab 12/24/24 09:00 12/26/24 09:43 Senna/Docusate Sod 1 Tab Tablet PO 01/23/25 08:59 2 tab BID FREDA Administration Protocol Plan Marjorie Mcclain is a 59-year-old female with a PMHx of A-fib (not on AC), CVA, hypertension, IDDM, chronic abdominal and lower extremity wounds, and recurrent UTIs who comes from [facility] after being found encephalopathic this morning. Patient alert but not following commands or answering questions, thus history obtained from phone call with [facility] personnel and chart review. Staff from SNF states that patient is ANO x 3 at baseline, bedbound, and on 2 L NC at facility, without mention of chronic Clark. In morning, nursing staff found patient encephalopathic and called EMS. Admitted for sepsis and encephalopathy secondary to UTI. #Sepsis secondary to UTI versus chronic abdominal wounds #Acute infectious encephalopathy #History of recurrent UTIs Febrile with temperature of 101.5 ?F, WBC 16.3, Pro-Nirmal 1.7, PLT 537, endorgan damage ([place], encephalopathy), UA with 4+ bacteria, 1300 WBC, LE positive. Urine culture 10/2024: Pansensitive E. coli treated with aztreonam. CT head: Negative for acute hemorrhage, mass effect or midline shift Presentation likely due to infectious encephalopathy but polypharmacy in setting of methadone and morphine cannot be excluded. ? Infectious disease consulted, appreciate recommendations: Wait for blood cultures to be negative at 48 hours, can transition to p.o. Macrobid ? Aztreonam (12/23-) ? Vancomycin (12/23-) ? Urine culture 12/23: ESBL E. coli ? Wound culture 12/23: ESBL E. coli ? Blood cultures 12/23: Negative at 48 hours : Transition to p.o. Macrobid. Leukocytosis stable #Acute kidney injury secondary to sepsis vs decreased PO intake Admitted with creatinine of 2.2, baseline 1.0. Possibly due to sepsis or decreased p.o. intake given encephalopathy; possible component of morphine metabolite toxicity ? LR at 100 cc/h ? Avoid nephrotoxic agents, renally dose medications ? Creatinine improving - Holding morphine; patient on dilaudid/home methadone as below #Chronic normocytic anemia Chronic on chart review; no overt bleed noted Possibly in the setting of underlying kidney disease versus ISABELLE from poor nutrition Will obtain iron panel and consider starting ferrous sulfate every other day #Atrial fibrillation (not on AC) #History of CVA No blood thinners noted on medication list from SNF and noted to have not been started on Eliquis on previous admission. ? Currently rate controlled, continue to monitor #History of hypertension Home amlodipine 10 mg daily ? Will hold given soft BP #IDDM Home regimen of 10 units glargine HS and SSI A1c 5.9%. ? SSI ? Accu-Cheks q6hr given NPO #Anxiety #Depression ? Lorazepam 0.5 mg every 6 hours as needed ? Escitalopram 10 mg daily #Chronic pain Given decreased kidney function, will change to dilaudid vs morphine. ? Dilaudid 0.25 mg q4hr as needed ? Methadone 5 mg twice daily ? Gabapentin 300 mg twice daily deferred for now given [place] #Chronic wounds ? Wound care #Constipation, likely secondary to opioids ? Senna-docusate 2 tablets BID ? Dulcolax daily PRN ? Magnesium hydoxide 15 mL p.o. daily PRN Hospital management: Disposition: management of sepsis secondary to UTI vs chronic wounds, de-escalate antibiotics Fluids: LR at 100 cc/hr Diet: dysphagia 1 diet Lines: PIV DVT prophylaxis: heparin SC BID GI prophylaxis: pantoprazole 40 mg IV daily Clark: placed CODE STATUS: full code Patient seen and care discussed with my attending Dr. Hu. Hang Tabares MD PGY-3 Attending Provider Attestation/Addendum I reviewed labs, imaging, EKG, home medications and prior available records. Face to face evaluation was performed by me. I have personally examined the patient and discussed assessment and plan with the IM team. I reviewed the resident note and agree with the plan with exceptions as below. Acute encephalopathy, improved Possible opiate withdrawal Sepsis: Likely urosepsis Acute UTI, E. coli Acute febrile illness Chronic hypoxic respiratory failure Leukocytosis [place] Abdominal wall wounds Insulin-dependent diabetes mellitus HFpEF Debility Resumed home methadone Consulted ID: Recommended Macrobid for 7 days as the blood cultures are negative Follow-up blood and urine cultures: Wound culture grew gram-negative rods, identified as E. coli. Urine culture grew gram-negative rods, identified as E. coli Follow-up MRSA: Positive however likely in the setting of senior care resident status and unlikely to be contributing to the UTI Trend WBC: Downtrending Monitor kidney function: Creatinine improved Continue wound care Continue insulin therapy and monitor fingersticks Pending authorization to go back to SNF
--- NOTE | 2024-12-26 19:12 | PC.NURSE ---
Notified of blood pressure 160/71.
[2024-12-27] VITALS (9 sets, daily range): BP systolic 117–174; BP diastolic 62–97; PULSE 65–79; RESP 13–95; TEMP 36.1–36.8; O2SAT 94–96
[2024-12-27 06:00] LABS: Basophils # (Auto) 0.1 Thou/mm3 (0.0-0.2); Basophils % (Auto) 1 % (0-2.5); Eosinophils # (Auto) 0.4 Thou/mm3 (0.0-0.5); Eosinophils % (Auto) 3 % (0-10); Hematocrit 30.4 % (36.0-46.0); Hemoglobin 9.3 g/dL (12.0-16.0); Immature Granulocytes % (Auto) 1 % (0-0); Immature Granulocytes Auto 0.15 Thou/mm3 (0.00-0.00); Lymphocytes # (Auto) 2.2 Thou/mm3 (1.0-4.8); Lymphocytes % (Auto) 18 % (10-50); Mean Corpuscular HGB Conc 30.6 g/dl (31.0-37.0); Mean Corpuscular Hemoglobin 26.2 pg (25.0-35.0); Mean Corpuscular Volume 86 fL (80-100); Monocytes # (Auto) 0.9 Thou/mm3 (0.0-0.8); Monocytes % (Auto) 7 % (0-12); Neutrophils # (Auto) 8.6 Thou/mm3 (1.8-7.7); Neutrophils % (Auto) 70 % (37-80); Nucleated Red Blood Cell % 0 /100 WBC (0); Platelet Count 500 Thou/mm3 (140-440); RDW Standard Deviation 51.4 fL (36.4-46.3); Red Blood Count 3.55 Miln/mm3 (4.00-5.20); White Blood Count 12.3 Thou/mm3 (3.6-11.0)
[2024-12-27 06:47] LABS: Alanine Aminotransferase < 7 U/L (10-49); Albumin, Serum 3.5 gm/dL (3.4-4.8); Alkaline Phosphatase 69 U/L (46-116); Anion Gap 10 (7-16); Aspartate Amino Transferase 11 U/L (0-34); BUN/Creatinine Ratio 16 Ratio (12-20); Bilirubin,Total 0.2 mg/dL (0.3-1.2); Blood Urea Nitrogen 18 mg/dL (9-23); Calcium 9.3 mg/dL (8.3-10.6); Calcium (Corrected) 9.7 mg/dL (8.5-10.1); Carbon Dioxide 21.9 mMol/L (20.0-31.0); Chloride 106 mMol/L (98-107); Creatinine (Component) 1.1 mg/dL (0.6-1.3); Estimated Creatinine Clearance 59.6 mL/min (>60); Globulin 3.6 gm/dL (2.3-3.5); Glucose 114 mg/dL (74-106); Magnesium 1.7 mg/dL (1.6-2.6); Osmolality,Calculated 278 (275-295); Phosphorous 2.6 mg/dL (2.4-5.1); Potassium 3.4 mMol/L (3.4-5.1); Sodium 138 mMol/L (136-145); Total Protein 7.1 gm/dL (5.7-8.2); eGFR 57 See Note
[2024-12-27] MEDS: SENNA/DOCUSATE SOD 1 TAB TABLET 2 TAB PO ×2 (08:28→20:28)
[2024-12-27] MEDS: PHENAZOPYRIDINE HCL 100 MG TABLET PO ×3 (08:28→17:11)
[2024-12-27] MEDS: ESCITALOPRAM OXALATE 10 MG TABLET PO (08:28)
[2024-12-27] MEDS: HEPARIN SOD INJ 5000 UNIT/ML VIAL SC ×2 (08:28→20:30)
[2024-12-27] MEDS: METHADONE SOLUTION 5 MG/5 ML UDC PO ×2 (08:28→20:27)
[2024-12-27] MEDS: NITROFURANTOIN MACRO 100 MG CAPSULE PO ×2 (08:28→20:28)
[2024-12-27] MEDS: ESTROGENS,CONJ VAG CR 30 GM TUBE VAGINAL (08:30)
[2024-12-27] MEDS: POTASSIUM CHLORIDE 10% 20 MEQ/15 ML UDC 40 MEQ PO (08:39)
[2024-12-27] MEDS: Magnesium Sulfate 2 GM Ivpb 2 GM/50 ML BAG IV (08:39)
--- NOTE | 2024-12-27 11:16 | PD.RESPRO ---
Documentation for date of: 12/27/24 Subjective Subjective Interval history: Marjorie Mcclain is a 59-year-old female with a PMHx of A-fib (not on AC), CVA, hypertension, IDDM, chronic abdominal and lower extremity wounds, and recurrent UTIs who comes from [facility] after being found encephalopathic this morning. Patient alert but not following commands or answering questions, thus history obtained from phone call with [facility] personnel and chart review. Staff from SNF states that patient is ANO x 3 at baseline, bedbound, and on 2 L NC at facility, without mention of chronic Clark. In morning, nursing staff found patient encephalopathic and called EMS. Admitted for sepsis and encephalopathy secondary to UTI. 12/24: No acute overnight events reported. Seen and examined at bedside. Remains alert and slightly more responsive compared to day of admission. However, she still does not follow commands and only responds to some questions. However, she does endorse significant and diffuse pain as she is noted to be on methadone and morphine regimen at her SNF. During previous admission, patient's family would like to continue multimodal analgesia including all medications as previously seen on medication list even though patient is being discharged WITHOUT hospice care. 12/25: Patient seen and examined at bedside this morning. No acute overnight events. Patient's mentation is slowly improving however she continues to have difficulty speaking. She is AO x 1 (self), and complaining of having the hiccups. Vitals stable, labs reviewed. Leukocytosis downtrending, creatinine 1.5 (was 2.2). Blood cultures negative at 24 hours. Wound/urine cultures have grown ESBL E. coli that is resistant to aztreonam. ID recs appreciated. Will wait for negative blood cultures at 48 hours and transition patient to Macrobid, per sensitivities/ID recs. She is having bowel movements, but has not eaten yet. Will continue IV fluids and consider dietary consult. 12/26: Patient seen and examined at bedside this morning. No acute overnight events. Patient appears much less lethargic however is grimacing and complaining of severe back pain. She is not answering all questions. 2.6 L urine output noted. Vitals stable. Labs significant for stable WBC and improved creatinine, 1.3. Blood cultures are negative at 48 hours. Antibiotics changed to Macrobid per ID recs. 12/27: No acute overnight events noted. Seen and examined at bedside and patient states that she does not have any complaints at this time, including any pain. She is much more alert and oriented compared to prior, answering questions and following commands. Patient is currently pending PT evaluation for authorization to go back to facility. Exam Vital Signs Temp Pulse Resp BP Pulse Ox O2 Del Method O2 Flow Rate 98.3 F 72 13 159/77 H 95 Room Air 1 12/27/24 07:41 12/27/24 08:10 12/27/24 08:10 12/27/24 07:41 12/27/24 07:41 12/27/24 07:41 12/26/24 12:00 Narrative Exam General: Alert, following commands, answering questions, laying comfortably in bed HEENT: NC/AT, mucous membranes moist, bilateral sclera anicteric, no LAD appreciated Cardiovascular: irregular rhythm, S1/S2 present, no murmurs appreciated Pulmonary: clear to auscultation bilaterally, no rales/rhonchi/wheezes Abdominal: soft, non-tender, non-distended, no rebound/guarding, normal bowel sounds present Musculoskeletal: chronic wounds noted in lower abdomen and bilateral lower extremities, ? contracture in LLE Skin: scaly skin, decreased skin turgor, chronic wounds as noted in MSK Objective Labs 12/28/24 05:01 12/28/24 05:01 Labs: Laboratory Results - last 24 hr 12/27/24 04:40 WBC 12.3 H RBC 3.55 L Hgb 9.3 L Hct 30.4 L MCV 86 MCH 26.2 MCHC 30.6 L RDW Std Deviation 51.4 H Plt Count 500 H D Neut % (Auto) 70 Lymph % (Auto) 18 [place] % (Auto) 7 Eos % (Auto) 3 Baso % (Auto) 1 Neut # (Auto) 8.6 H Lymph # (Auto) 2.2 [place] # (Auto) 0.9 H Eos # (Auto) 0.4 Baso # (Auto) 0.1 Immature Gran # (Auto) 0.15 H Absolute Nucleated RBC 0.00 Immature Gran % 1 H Nucleated RBC % 0 Sodium 138 Potassium 3.4 Chloride 106 Carbon Dioxide 21.9 Anion Gap 10 BUN 18 Creatinine 1.1 Estim Creat Clear Calc 59.6 L eGFR 57 L BUN/Creatinine Ratio 16 Glucose 114 H Calculated Osmolality 278 Calcium 9.3 Corrected Calcium 9.7 Phosphorus 2.6 Magnesium 1.7 Total Bilirubin 0.2 L AST 11 ALT < 7 L Alkaline Phosphatase 69 Total Protein 7.1 Albumin 3.5 Globulin 3.6 H Albumin/Globulin Ratio 1.0 L Quality Measures Quality Measures sepsis Current suspected stage: ruled out Possible source: genitourinary Blood cultures ordered: yes Antibiotic ordered: Yes Assessment & Plan Assessment Current Active Medications: Generic Name Dose Route Start Last Admin Trade Name Abbe PRN Reason Stop Dose Admin Acetaminophen 650 mg 12/23/24 12:00 Acetaminophen Supp 650 Mg Supp MS 01/22/25 11:59 Q6HR PRN PAIN OR FEVER > 100.4 Protocol Bisacodyl 5 mg 12/24/24 15:09 Bisacodyl 5 Mg Tabec PO 01/23/25 15:08 QDAY PRN CONSTIPATION Protocol Dextrose 25 ml 12/23/24 12:10 Dextrose 50%-Water Inj 50 Ml Syringe IV 01/22/25 12:09 Q15MIN PRN BG 50-70 responsive npo pt Dextrose 50 ml 12/23/24 12:10 Dextrose 50%-Water Inj 50 Ml Syringe IV 01/22/25 12:09 Q15MIN PRN BG <50 OR BG <70 & pt unresponsive Escitalopram Oxalate 10 mg 12/24/24 15:15 12/27/24 08:28 Escitalopram Oxalate 10 Mg Tablet PO 01/23/25 15:14 10 mg QDAY FREDA Administration Estrogens Conjugated 0 gm 12/26/24 09:00 12/27/24 08:30 Estrogens,Conj Vag Cr 30 Gm Tube VAGINAL 01/25/25 08:59 2 gm QDAY FREDA Administration Glucagon 1 mg 12/23/24 12:10 Glucagon Inj 1 Mg Vial IM Q15MIN PRN BG <70, and no IV access Heparin Sodium (Porcine) 5,000 unit 12/23/24 21:00 12/27/24 08:28 Heparin Sod Inj 5000 Unit/Ml Vial SC 01/06/25 20:59 5,000 unit BID FREDA Administration Insulin Human Lispro 0 unit 12/27/24 07:30 12/27/24 08:29 Insulin Lispro (Admelog) 1 Unit/0.01 Ml Unit SC 01/26/25 07:29 Not Given AC FREDA Protocol Lorazepam 0.5 mg 12/24/24 15:07 Lorazepam 0.5 Mg Tablet PO 12/29/24 15:06 Q6HR PRN ANXIETY Magnesium Hydroxide 15 ml 12/24/24 15:09 Milk Of Magnesia Susp 30 Ml Udc PO 01/23/25 15:08 QDAY PRN CONSTIPATION Protocol Methadone HCl 5 mg 12/24/24 09:00 12/27/24 08:28 Methadone Solution 5 Mg/5 Ml Udc PO 12/29/24 08:59 5 mg BID FREDA Administration Metoclopramide HCl 5 mg 12/24/24 11:57 Metoclopramide Inj 5 Mg/Ml Vial 2 Ml IVP 01/23/25 11:56 Q6H PRN NAUSEA OR VOMITING Protocol Nitrofurantoin Macrocrystals 100 mg 12/26/24 09:00 12/27/24 08:28 Nitrofurantoin Macro 100 Mg Capsule PO 01/02/25 08:59 100 mg BID FREDA Administration Pharmacy Consult 1 each 12/23/24 13:13 Pharmacy Renal Dose Adjustment 1 Ea XX 01/22/25 13:12 PRN PRN CONSULT Phenazopyridine HCl 100 mg 12/26/24 12:00 12/27/24 08:28 Phenazopyridine Hcl 100 Mg Tablet PO 12/28/24 08:01 100 mg TIDWM FREDA Administration Sennosides 2 tab 12/24/24 09:00 12/27/24 08:28 Senna/Docusate Sod 1 Tab Tablet PO 01/23/25 08:59 2 tab BID FREDA Administration Protocol Plan Marjorie Mcclain is a 59-year-old female with a PMHx of A-fib (not on AC), CVA, hypertension, IDDM, chronic abdominal and lower extremity wounds, and recurrent UTIs who comes from [facility] after being found encephalopathic this morning. Patient alert but not following commands or answering questions, thus history obtained from phone call with [facility] personnel and chart review. Staff from [facility] states that patient is ANO x 3 at baseline, bedbound, and on 2 L NC at facility, without mention of chronic Clark. In morning, nursing staff found patient encephalopathic and called EMS. Admitted for sepsis and encephalopathy secondary to UTI. #Sepsis secondary to UTI versus chronic abdominal wounds #Acute infectious encephalopathy #History of recurrent UTIs Temp 101.5 ?F, WBC 16.3, Pro-Nirmal 1.7, PLT 537, endorgan damage ([place], encephalopathy) UA with 4+ bacteria, 1300 WBC, LE positive. CT head: Negative for acute hemorrhage, mass effect or midline shift Aztreonam (12/23-12/25), vancomycin (12/23-12/24) ? Infectious disease consulted, appreciate recommendations ? Urine culture 12/23: ESBL E. coli ? Wound culture 12/23: ESBL E. coli ? Blood cultures 12/23: Negative at 48 hours ? Macrobid 100 mg PO BID (12/26-) #Acute kidney injury secondary to sepsis vs decreased PO intake, improving Admitted with creatinine of 2.2, baseline 1.0. Possibly due to sepsis or decreased p.o. intake given encephalopathy; possible component of morphine metabolite toxicity ? Avoid nephrotoxic agents, renally dose medications ? Creatinine improving #Chronic normocytic anemia Chronic on chart review; no overt bleed noted Possibly in the setting of underlying kidney disease versus ISABELLE from poor nutrition Will obtain iron panel and consider starting ferrous sulfate every other day #Atrial fibrillation (not on AC) #History of CVA No blood thinners noted on medication list from SNF and noted to have not been started on Eliquis on previous admission. ? Currently rate controlled, continue to monitor #History of hypertension ? Home amlodipine 10 mg daily #IDDM Home regimen of 10 units glargine HS and SSI A1c 5.9%. ? SSI ? Accu-Cheks q6hr given NPO #Anxiety #Depression ? Lorazepam 0.5 mg every 6 hours as needed ? Escitalopram 10 mg daily #Chronic pain Given decreased kidney function, will change to dilaudid vs morphine. Dilaudid discontinued 12/27. ? Methadone 5 mg twice daily ? Gabapentin 300 mg twice daily deferred for now given [place] #Chronic wounds ? Wound care #Constipation, likely secondary to opioids ? Senna-docusate 2 tablets BID ? Dulcolax daily PRN ? Magnesium hydoxide 15 mL p.o. daily PRN Hospital management: Disposition: management of sepsis secondary to UTI vs chronic wounds, de-escalate antibiotics Fluids: none indicated Diet: dysphagia 1 diet Lines: PIV DVT prophylaxis: heparin SC BID GI prophylaxis: pantoprazole 40 mg IV daily Clark: placed CODE STATUS: full code ----- Plan discussed with attending physician Dr. Fritz Rodgers MD PGY-1 Internal Medicine Attending Provider Attestation/Addendum I reviewed labs, imaging, EKG, home medications and prior available records. Face to face evaluation was performed by me. I have personally examined the patient and discussed assessment and plan with the IM team. I reviewed the resident note and agree with the plan with exceptions as below. Acute encephalopathy, improved Possible opiate withdrawal Sepsis: Likely urosepsis Acute UTI, E. coli Acute febrile illness Chronic hypoxic respiratory failure Leukocytosis [place] Abdominal wall wounds Insulin-dependent diabetes mellitus HFpEF Debility Resumed home methadone Consulted ID: Recommended Macrobid for 7 days as the blood cultures are negative Follow-up blood and urine cultures: Wound culture grew gram-negative rods, identified as E. coli. Urine culture grew gram-negative rods, identified as E. coli Follow-up MRSA: Positive however likely in the setting of detention resident status and unlikely to be contributing to the UTI Trend WBC: Downtrending Monitor kidney function: Creatinine improved Continue wound care Continue insulin therapy and monitor fingersticks Pending authorization to go back to SNF Ordered PT
[2024-12-27] MEDS: INSULIN LISPRO (AdmeLOG) 1 UNIT/0.01 ML UNIT SC (11:57)
--- NOTE | 2024-12-27 11:59 | PC.SS ---
SS follow up note; Patient is pending PT evaluation for authorization. SS sent updated clinicals through [employer].
[2024-12-27] MEDS: amLODIPine BESYLATE 5 MG TABLET 10 MG PO (12:21)
[2024-12-27] MEDS: PANTOPRAZOLE 40 MG TABLET PO (12:21)
[2024-12-28] VITALS (9 sets, daily range): BP systolic 111–158; BP diastolic 65–94; PULSE 68–89; RESP 16–95; TEMP 36.1–37.1; O2SAT 96–97
[2024-12-28 05:38] LABS: Basophils # (Auto) 0.1 Thou/mm3 (0.0-0.2); Basophils % (Auto) 1 % (0-2.5); Eosinophils # (Auto) 0.7 Thou/mm3 (0.0-0.5); Eosinophils % (Auto) 5 % (0-10); Hematocrit 30.1 % (36.0-46.0); Hemoglobin 9.3 g/dL (12.0-16.0); Immature Granulocytes % (Auto) 2 % (0-0); Lymphocytes # (Auto) 2.5 Thou/mm3 (1.0-4.8); Lymphocytes % (Auto) 19 % (10-50); Mean Corpuscular HGB Conc 30.9 g/dl (31.0-37.0); Mean Corpuscular Hemoglobin 25.5 pg (25.0-35.0); Mean Corpuscular Volume 83 fL (80-100); Monocytes # (Auto) 0.9 Thou/mm3 (0.0-0.8); Monocytes % (Auto) 7 % (0-12); Neutrophils # (Auto) 8.6 Thou/mm3 (1.8-7.7); Neutrophils % (Auto) 67 % (37-80); Nucleated Red Blood Cell % 0 /100 WBC (0); Platelet Count 553 Thou/mm3 (140-440); RDW Standard Deviation 49.2 fL (36.4-46.3); Red Blood Count 3.64 Miln/mm3 (4.00-5.20)
[2024-12-28 06:13] LABS: Alanine Aminotransferase < 7 U/L (10-49); Albumin, Serum 3.5 gm/dL (3.4-4.8); Albumin/Globulin Ratio 0.9 (1.2-2.2); Alkaline Phosphatase 64 U/L (46-116); Anion Gap 10 (7-16); Aspartate Amino Transferase 10 U/L (0-34); BUN/Creatinine Ratio 18 Ratio (12-20); Bilirubin,Total 0.2 mg/dL (0.3-1.2); Blood Urea Nitrogen 18 mg/dL (9-23); Calcium 9.7 mg/dL (8.3-10.6); Calcium (Corrected) 10.1 mg/dL (8.5-10.1); Carbon Dioxide 23.3 mMol/L (20.0-31.0); Chloride 102 mMol/L (98-107); Estimated Creatinine Clearance 65.8 mL/min (>60); Globulin 3.8 gm/dL (2.3-3.5); Glucose 116 mg/dL (74-106); Osmolality,Calculated 273 (275-295); Phosphorous 2.2 mg/dL (2.4-5.1); Potassium 3.5 mMol/L (3.4-5.1); Sodium 135 mMol/L (136-145); Total Protein 7.3 gm/dL (5.7-8.2); eGFR > 60 See Note
[2024-12-28] MEDS: amLODIPine BESYLATE 5 MG TABLET 10 MG PO (08:29)
[2024-12-28] MEDS: ESCITALOPRAM OXALATE 10 MG TABLET PO (08:29)
[2024-12-28] MEDS: METHADONE SOLUTION 5 MG/5 ML UDC PO ×2 (08:29→20:00)
[2024-12-28] MEDS: NITROFURANTOIN MACRO 100 MG CAPSULE PO ×2 (08:29→20:36)
[2024-12-28] MEDS: PHENAZOPYRIDINE HCL 100 MG TABLET PO (08:29)
[2024-12-28] MEDS: PANTOPRAZOLE 40 MG TABLET PO (08:29)
[2024-12-28] MEDS: HEPARIN SOD INJ 5000 UNIT/ML VIAL SC ×2 (08:35→20:36)
[2024-12-28] MEDS: POTASSIUM CHLORIDE 20 mEq TABCR 40 MEQ PO (08:42)
--- NOTE | 2024-12-28 09:25 | ESPR_ITS ---
Subjective Subjective Interval history: gram stain of abd wound very different than culture. odd. nasal mrsa pos noted. Exam Vital Signs Temp Pulse Resp BP Pulse Ox O2 Del Method O2 Flow Rate 96.9 F 72 18 111/65 97 Room Air 1 12/28/24 08:00 12/28/24 08:29 12/28/24 08:12 12/28/24 08:29 12/28/24 08:00 12/28/24 08:00 12/26/24 12:00 Narrative Exam afebrile Objective - Internal Medicine Labs 12/28/24 05:01 12/28/24 05:01 Labs: Laboratory Results - last 24 hr 12/28/24 05:01 WBC 13.0 H RBC 3.64 L Hgb 9.3 L Hct 30.1 L MCV 83 MCH 25.5 MCHC 30.9 L RDW Std Deviation 49.2 H Plt Count 553 H D Neut % (Auto) 67 Lymph % (Auto) 19 [place] % (Auto) 7 Eos % (Auto) 5 Baso % (Auto) 1 Neut # (Auto) 8.6 H Lymph # (Auto) 2.5 [place] # (Auto) 0.9 H Eos # (Auto) 0.7 H Baso # (Auto) 0.1 Immature Gran # (Auto) 0.20 H Absolute Nucleated RBC 0.00 Immature Gran % 2 H Nucleated RBC % 0 Sodium 135 L Potassium 3.5 Chloride 102 Carbon Dioxide 23.3 Anion Gap 10 BUN 18 Creatinine 1.0 Estim Creat Clear Calc 65.8 eGFR > 60 BUN/Creatinine Ratio 18 Glucose 116 H Calculated Osmolality 273 L Calcium 9.7 Corrected Calcium 10.1 Phosphorus 2.2 L Magnesium 2.0 Total Bilirubin 0.2 L AST 10 ALT < 7 L Alkaline Phosphatase 64 Total Protein 7.3 Albumin 3.5 Globulin 3.8 H Albumin/Globulin Ratio 0.9 L Assessment & Plan A&P Narrative uti recurrent uti abd wound issue. gram stain with gpc leucocytosis vaginal estrogen is the next preventive approach. I suggested it last time. she has no hx of female Cancers it can be given 2x/wk as an outpt. ok to transition to macrobid for remainder of 1 week if bc remain neg from admit by tomorrow she has had linezolid for abd issue in past and did ok. note difference between cx and gram stain. will see again prn Time Spent With Patient Time: Total time spent is greater than 50% in coordination of care (as documented) at patient's floor/unit and/or counseling patient:
[2024-12-28] MEDS: POTASSIUM PHOS 22.5 MMOL in SODIUM CHLORIDE 0.9% 500 ML 500 ML 82.778 MMOL IV (09:29)
[2024-12-28] MEDS: LORazepam 0.5 MG TABLET PO (09:29)
--- NOTE | 2024-12-28 11:30 | PD.RESPRO ---
Documentation for date of: 12/28/24 Subjective Subjective Interval history: Marjorie Mcclain is a 59-year-old female with a PMHx of A-fib (not on AC), CVA, hypertension, IDDM, chronic abdominal and lower extremity wounds, and recurrent UTIs who comes from [facility] after being found encephalopathic this morning. Patient alert but not following commands or answering questions, thus history obtained from phone call with [facility] personnel and chart review. Staff from SNF states that patient is ANO x 3 at baseline, bedbound, and on 2 L NC at facility, without mention of chronic Clark. In morning, nursing staff found patient encephalopathic and called EMS. Admitted for sepsis and encephalopathy secondary to UTI. 12/24: No acute overnight events reported. Seen and examined at bedside. Remains alert and slightly more responsive compared to day of admission. However, she still does not follow commands and only responds to some questions. However, she does endorse significant and diffuse pain as she is noted to be on methadone and morphine regimen at her SNF. During previous admission, patient's family would like to continue multimodal analgesia including all medications as previously seen on medication list even though patient is being discharged WITHOUT hospice care. 12/25: Patient seen and examined at bedside this morning. No acute overnight events. Patient's mentation is slowly improving however she continues to have difficulty speaking. She is AO x 1 (self), and complaining of having the hiccups. Vitals stable, labs reviewed. Leukocytosis downtrending, creatinine 1.5 (was 2.2). Blood cultures negative at 24 hours. Wound/urine cultures have grown ESBL E. coli that is resistant to aztreonam. ID recs appreciated. Will wait for negative blood cultures at 48 hours and transition patient to Macrobid, per sensitivities/ID recs. She is having bowel movements, but has not eaten yet. Will continue IV fluids and consider dietary consult. 12/26: Patient seen and examined at bedside this morning. No acute overnight events. Patient appears much less lethargic however is grimacing and complaining of severe back pain. She is not answering all questions. 2.6 L urine output noted. Vitals stable. Labs significant for stable WBC and improved creatinine, 1.3. Blood cultures are negative at 48 hours. Antibiotics changed to Macrobid per ID recs. 12/27: No acute overnight events noted. Seen and examined at bedside and patient states that she does not have any complaints at this time, including any pain. She is much more alert and oriented compared to prior, answering questions and following commands. Patient is currently pending PT evaluation for authorization to go back to facility. 12/28: No acute overnight events noted. Seen and examined at bedside. Does not have any complaints at this time and is laying comfortably in bed. Continues to be more alert and orientated compared to presentation as she is answering questions and following commands. Per PT evaluation, skilled PT in acute care setting is not indicated at this time and will return to SNF. Exam Vital Signs Temp Pulse Resp BP Pulse Ox O2 Del Method O2 Flow Rate 96.9 F 72 18 111/65 97 Room Air 1 12/28/24 08:00 12/28/24 08:29 12/28/24 08:12 12/28/24 08:29 12/28/24 08:00 12/28/24 08:00 12/26/24 12:00 Narrative Exam General: Alert, following commands, answering questions, laying comfortably in bed HEENT: NC/AT, mucous membranes moist, bilateral sclera anicteric, no LAD appreciated Cardiovascular: irregular rhythm, S1/S2 present, no murmurs appreciated Pulmonary: clear to auscultation bilaterally, no rales/rhonchi/wheezes Abdominal: soft, non-tender, non-distended, no rebound/guarding, normal bowel sounds present Musculoskeletal: chronic wounds noted in lower abdomen and bilateral lower extremities, ? contracture in LLE Skin: scaly skin, decreased skin turgor, chronic wounds as noted in MSK Objective Labs 12/29/24 04:50 12/29/24 04:50 Labs: Laboratory Results - last 24 hr 12/28/24 05:01 WBC 13.0 H RBC 3.64 L Hgb 9.3 L Hct 30.1 L MCV 83 MCH 25.5 MCHC 30.9 L RDW Std Deviation 49.2 H Plt Count 553 H D Neut % (Auto) 67 Lymph % (Auto) 19 [place] % (Auto) 7 Eos % (Auto) 5 Baso % (Auto) 1 Neut # (Auto) 8.6 H Lymph # (Auto) 2.5 [place] # (Auto) 0.9 H Eos # (Auto) 0.7 H Baso # (Auto) 0.1 Immature Gran # (Auto) 0.20 H Absolute Nucleated RBC 0.00 Immature Gran % 2 H Nucleated RBC % 0 Sodium 135 L Potassium 3.5 Chloride 102 Carbon Dioxide 23.3 Anion Gap 10 BUN 18 Creatinine 1.0 Estim Creat Clear Calc 65.8 eGFR > 60 BUN/Creatinine Ratio 18 Glucose 116 H Calculated Osmolality 273 L Calcium 9.7 Corrected Calcium 10.1 Phosphorus 2.2 L Magnesium 2.0 Total Bilirubin 0.2 L AST 10 ALT < 7 L Alkaline Phosphatase 64 Total Protein 7.3 Albumin 3.5 Globulin 3.8 H Albumin/Globulin Ratio 0.9 L Quality Measures Quality Measures sepsis Current suspected stage: ruled out Possible source: genitourinary Blood cultures ordered: yes Antibiotic ordered: Yes Assessment & Plan Assessment Current Active Medications: Generic Name Dose Route Start Last Admin Trade Name Freq PRN Reason Stop Dose Admin Acetaminophen 650 mg 12/23/24 12:00 Acetaminophen Supp 650 Mg Supp IL 01/22/25 11:59 Q6HR PRN PAIN OR FEVER > 100.4 Protocol Amlodipine Besylate 10 mg 12/27/24 12:15 12/28/24 08:29 Amlodipine Besylate 5 Mg Tablet PO 01/26/25 12:14 10 mg QDAY FREDA Administration Bisacodyl 5 mg 12/24/24 15:09 Bisacodyl 5 Mg Tabec PO 01/23/25 15:08 QDAY PRN CONSTIPATION Protocol Dextrose 25 ml 12/23/24 12:10 Dextrose 50%-Water Inj 50 Ml Syringe IV 01/22/25 12:09 Q15MIN PRN BG 50-70 responsive npo pt Dextrose 50 ml 12/23/24 12:10 Dextrose 50%-Water Inj 50 Ml Syringe IV 01/22/25 12:09 Q15MIN PRN BG <50 OR BG <70 & pt unresponsive Escitalopram Oxalate 10 mg 12/24/24 15:15 12/28/24 08:29 Escitalopram Oxalate 10 Mg Tablet PO 01/23/25 15:14 10 mg QDAY FREDA Administration Estrogens Conjugated 0 gm 12/26/24 09:00 12/27/24 08:30 Estrogens,Conj Vag Cr 30 Gm Tube VAGINAL 01/25/25 08:59 2 gm QDAY FREDA Administration Glucagon 1 mg 12/23/24 12:10 Glucagon Inj 1 Mg Vial IM Q15MIN PRN BG <70, and no IV access Heparin Sodium (Porcine) 5,000 unit 12/23/24 21:00 12/28/24 08:35 Heparin Sod Inj 5000 Unit/Ml Vial SC 01/06/25 20:59 5,000 unit BID FREDA Administration Potassium Phosphate 22.5 mmol/ 507.5 mls @ 82.778 mls/hr 12/28/24 08:38 12/28/24 09:29 Sodium Chloride IV 12/28/24 14:45 82.778 mls/hr X1 ONE Administration Insulin Human Lispro 0 unit 12/27/24 07:30 12/28/24 08:34 Insulin Lispro (Admelog) 1 Unit/0.01 Ml Unit SC 01/26/25 07:29 Not Given AC [facility] Protocol Lorazepam 0.5 mg 12/24/24 15:07 12/28/24 09:29 Lorazepam 0.5 Mg Tablet PO 12/29/24 15:06 0.5 mg Q6HR PRN Administration ANXIETY Magnesium Hydroxide 15 ml 12/24/24 15:09 Milk Of Magnesia Susp 30 Ml Udc PO 01/23/25 15:08 QDAY PRN CONSTIPATION Protocol Methadone HCl 5 mg 12/24/24 09:00 12/28/24 08:29 Methadone Solution 5 Mg/5 Ml Udc PO 12/29/24 08:59 5 mg BID FREDA Administration Metoclopramide HCl 5 mg 12/24/24 11:57 Metoclopramide Inj 5 Mg/Ml Vial 2 Ml IVP 01/23/25 11:56 Q6H PRN NAUSEA OR VOMITING Protocol Nitrofurantoin Macrocrystals 100 mg 12/28/24 21:00 Nitrofurantoin Macro 100 Mg Capsule PO 12/30/24 05:00 BID FREDA Pantoprazole Sodium 40 mg 12/27/24 12:00 12/28/24 08:29 Pantoprazole 40 Mg Tablet PO 01/26/25 11:59 40 mg QDAY FREDA Administration Pharmacy Consult 1 each 12/23/24 13:13 Pharmacy Renal Dose Adjustment 1 Ea XX 01/22/25 13:12 PRN PRN CONSULT Sennosides 2 tab 12/24/24 09:00 12/28/24 08:36 Senna/Docusate Sod 1 Tab Tablet PO 01/23/25 08:59 Not Given BID [facility] Protocol Plan Marjorie Mcclain is a 59-year-old female with a PMHx of A-fib (not on AC), CVA, hypertension, IDDM, chronic abdominal and lower extremity wounds, and recurrent UTIs who comes from [facility] after being found encephalopathic this morning. Patient alert but not following commands or answering questions, thus history obtained from phone call with [facility] personnel and chart review. Staff from [facility] states that patient is ANO x 3 at baseline, bedbound, and on 2 L NC at facility, without mention of chronic Clark. In morning, nursing staff found patient encephalopathic and called EMS. Admitted for sepsis and encephalopathy secondary to UTI. #Sepsis secondary to UTI versus chronic abdominal wounds #Acute infectious encephalopathy #History of recurrent UTIs Temp 101.5 ?F, WBC 16.3, Pro-Nirmal 1.7, PLT 537, endorgan damage ([place], encephalopathy) UA with 4+ bacteria, 1300 WBC, LE positive. CT head: Negative for acute hemorrhage, mass effect or midline shift Aztreonam (12/23-12/25), vancomycin (12/23-12/24) ? Infectious disease consulted, appreciate recommendations ? Urine culture 12/23: ESBL E. coli ? Wound culture 12/23: ESBL E. coli ? Blood cultures 12/23: Negative at 48 hours ? Macrobid 100 mg PO BID (12/26-) #Acute kidney injury secondary to sepsis vs decreased PO intake, improving Admitted with creatinine of 2.2, baseline 1.0. Possibly due to sepsis or decreased p.o. intake given encephalopathy; possible component of morphine metabolite toxicity ? Avoid nephrotoxic agents, renally dose medications ? Creatinine improving #Chronic normocytic anemia Chronic on chart review; no overt bleed noted Possibly in the setting of underlying kidney disease versus ISABELLE from poor nutrition Will obtain iron panel and consider starting ferrous sulfate every other day #Atrial fibrillation (not on AC) #History of CVA No blood thinners noted on medication list from [facility] and noted to have not been started on Eliquis on previous admission. ? Currently rate controlled, continue to monitor #History of hypertension ? Home amlodipine 10 mg daily #IDDM Home regimen of 10 units glargine HS and SSI A1c 5.9%. ? SSI ? Accu-Cheks ACHS #Anxiety #Depression ? Lorazepam 0.5 mg every 6 hours as needed ? Escitalopram 10 mg daily #Chronic pain Given decreased kidney function, will change to dilaudid vs morphine. Dilaudid discontinued 12/27. ? Methadone 5 mg twice daily ? Gabapentin 300 mg twice daily deferred for now given [place] #Chronic wounds ? Wound care #Constipation, likely secondary to opioids ? Senna-docusate 2 tablets BID ? Dulcolax daily PRN ? Magnesium hydoxide 15 mL p.o. daily PRN Hospital management: Disposition: management of sepsis secondary to UTI vs chronic wounds, pending insurance auth back to SNF Fluids: none indicated Diet: dysphagia 2 diet Lines: PIV DVT prophylaxis: heparin SC BID GI prophylaxis: pantoprazole 40 mg IV daily Clark: placed CODE STATUS: full code ----- Plan discussed with attending physician Dr. Fritz Rodgers MD PGY-1 Internal Medicine Attending Provider Attestation/Addendum I reviewed labs, imaging, EKG, home medications and prior available records. Face to face evaluation was performed by me. I have personally examined the patient and discussed assessment and plan with the IM team. I reviewed the resident note and agree with the plan with exceptions as below. Acute encephalopathy, improved Possible opiate withdrawal Sepsis: Likely urosepsis Acute UTI, E. coli Acute febrile illness Chronic hypoxic respiratory failure Leukocytosis [place] Abdominal wall wounds Insulin-dependent diabetes mellitus HFpEF Debility Resumed home methadone Consulted ID: Recommended Macrobid for 7 days as the blood cultures are negative Follow-up blood and urine cultures: Wound culture grew gram-negative rods, identified as E. coli. Urine culture grew gram-negative rods, identified as E. coli Follow-up MRSA: Positive however likely in the setting of assisted resident status and unlikely to be contributing to the UTI Trend WBC: Downtrending Monitor kidney function: Creatinine improved Continue wound care Continue insulin therapy and monitor fingersticks Pending authorization to go back to SNF Ordered PT
[2024-12-28] MEDS: INSULIN LISPRO (AdmeLOG) 1 UNIT/0.01 ML UNIT SC (11:58)
--- NOTE | 2024-12-28 12:15 | PC.SS ---
SS follow up note; SS sent over PT notes to Javier from [facility] to start authorization.
[2024-12-28] MEDS: ESTROGENS,CONJ VAG CR 30 GM TUBE VAGINAL (13:38)
[2024-12-28] MEDS: MORPHINE SULF LIQD 10 MG/5 ML UDC 20 MG PO (21:07)
[2024-12-29] VITALS (8 sets, daily range): BP systolic 104–129; BP diastolic 73–78; PULSE 65–82; RESP 15–19; TEMP 36–36.8; O2SAT 91–97; BMI 34.7; BMI 34.1
[2024-12-29] MEDS: MORPHINE SULF LIQD 10 MG/5 ML UDC 20 MG PO ×3 (01:20→13:54)
[2024-12-29 06:20] LABS: Basophils # (Auto) 0.1 Thou/mm3 (0.0-0.2); Basophils % (Auto) 1 % (0-2.5); Eosinophils # (Auto) 0.9 Thou/mm3 (0.0-0.5); Eosinophils % (Auto) 6 % (0-10); Hematocrit 28.3 % (36.0-46.0); Immature Granulocytes % (Auto) 1 % (0-0); Lymphocytes # (Auto) 3.2 Thou/mm3 (1.0-4.8); Lymphocytes % (Auto) 23 % (10-50); Mean Corpuscular HGB Conc 30.4 g/dl (31.0-37.0); Mean Corpuscular Hemoglobin 25.7 pg (25.0-35.0); Mean Corpuscular Volume 85 fL (80-100); Monocytes # (Auto) 1.1 Thou/mm3 (0.0-0.8); Monocytes % (Auto) 8 % (0-12); Neutrophils # (Auto) 8.4 Thou/mm3 (1.8-7.7); Neutrophils % (Auto) 61 % (37-80); Nucleated Red Blood Cell # 0.02 Thou/mm3 (0.00-0.00); Nucleated Red Blood Cell % 0 /100 WBC (0); Platelet Count 499 Thou/mm3 (140-440); RDW Standard Deviation 51.1 fL (36.4-46.3); Red Blood Count 3.35 Miln/mm3 (4.00-5.20); White Blood Count 13.9 Thou/mm3 (3.6-11.0)
[2024-12-29 06:32] LABS: Hemoglobin 8.6 g/dL (12.0-16.0)
[2024-12-29 07:04] LABS: Albumin, Serum 3.3 gm/dL (3.4-4.8); Alkaline Phosphatase 64 U/L (46-116); Anion Gap 7 (7-16); Aspartate Amino Transferase < 8 U/L (0-34); BUN/Creatinine Ratio 16 Ratio (12-20); Bilirubin,Total 0.2 mg/dL (0.3-1.2); Blood Urea Nitrogen 19 mg/dL (9-23); Calcium (Corrected) 9.6 mg/dL (8.5-10.1); Carbon Dioxide 20.7 mMol/L (20.0-31.0); Chloride 105 mMol/L (98-107); Creatinine (Component) 1.2 mg/dL (0.6-1.3); Estimated Creatinine Clearance 54.2 mL/min (>60); Globulin 3.3 gm/dL (2.3-3.5); Glucose 77 mg/dL (74-106); Osmolality,Calculated 267 (275-295); Phosphorous 3.8 mg/dL (2.4-5.1); Potassium 4.3 mMol/L (3.4-5.1); Sodium 133 mMol/L (136-145); Total Protein 6.6 gm/dL (5.7-8.2); eGFR 52 See Note
[2024-12-29 07:12] LABS: Alanine Aminotransferase < 7 U/L (10-49)
[2024-12-29] MEDS: NITROFURANTOIN MACRO 100 MG CAPSULE PO (09:02)
[2024-12-29] MEDS: PANTOPRAZOLE 40 MG TABLET PO (09:02)
[2024-12-29] MEDS: amLODIPine BESYLATE 5 MG TABLET 10 MG PO (09:03)
[2024-12-29] MEDS: ESCITALOPRAM OXALATE 10 MG TABLET PO (09:03)
[2024-12-29] MEDS: ESTROGENS,CONJ VAG CR 30 GM TUBE VAGINAL (09:03)
[2024-12-29] MEDS: HEPARIN SOD INJ 5000 UNIT/ML VIAL SC (09:03)
--- NOTE | 2024-12-29 10:44 | PC.SS ---
Addendum entered by Iris Bhardwaj 12/29/24 11:44: SS follow up note; SS was contacted by Cynthia from [facility] ETA will be for 2:30PM. SS contacted patient's sister, Elly, she verbalized understanding, SS also updated Javier from [facility]. Original Note: SS follow up note; SS set up transportation for patient through [facility], Reference # [id number].
--- NOTE | 2024-12-29 11:28 | PD.RESDS ---
Planned Discharge Date 12/29/24 DS: Providers Provider Date of admission: 12/23/24 12:00 Primary care physician: Tang Evans MD Admitting Provider: Demond Hu MD Attending Provider on Admission: Demond Hu MD Consults: 12/23/24 13:12 Referral Speech Therapy Routine Comment: 12/23/24 13:18 Consult to Infectious Diseases Routine Comment: Consulting Provider: Frantz Hernandez 12/24/24 01:56 Referral Wound Care Routine Comment: Chronic wounds on abd, bilat lower ext, and coccyx 12/25/24 15:49 Referral Nutritional Services Routine Comment: Wounds 12/27/24 11:09 Referral Physical Therapy Routine Comment: snf placement Physician Instructions: Attending Provider on DC: Sergo Rodgers MD Discharging Provider: Sergo Rodgers MD DS: Diagnosis Problem List Completed Was Problem List Reviewed/Reconciled?: Yes Hospital Course Hospital Course Hospital course: Marjorie Mcclain is a 59-year-old female with a PMHx of A-fib (not on AC), CVA, hypertension, IDDM, chronic abdominal and lower extremity wounds, and recurrent UTIs who comes from [facility] after being found encephalopathic. Patient alert but not following commands or answering questions, thus history obtained from phone call with [facility] personnel and chart review. Staff from SNF states that patient is A&O x 3 at baseline, bedbound, and on 2 L NC at facility, without mention of chronic Clark. In morning, nursing staff found patient encephalopathic and called EMS. Upon arrival, patient had fever of 101.5 F, WBC 16, and UA with 1300 WBC, 37 RBC, and 4+ bacteria. Admitted for sepsis and encephalopathy secondary to UTI. Throughout hospitalization, no acute events occurred. Given allergies to levofloxacin, penicillins, sulfa-drugs, and TMP-SMX she was initially started on aztreonam and vancomycin to cover for UTI pathogens and those that may cause infection from chronic wounds and infectious disease consulted. Noted to have been treated with aztreonam in the past. Urine and wound cultures came back positive for ESBL E. coli and per ID recommendations, patient started on macrobid. Given that patient did not present septic and that both wound and urine cultures were positive for same pathogens that she is likely colonized and no isolation precautions needed. Though still slow to respond, mentation eventually improved compared to presentation as she was answering questions and following commands. Patient also noted to have previously been discharged with multimodal analgesia without being discharged with hospice care. She was restarted on her methadone but morphine changed to dilaudid PRN, that was noted to only be given sparingly. Patient remained afebrile, and although leukocytosis remained, neutrophil count continued to improve and will be discharged with another week of macrobid and restarted on previous pain regimen. Diagnoses during admission: #Sepsis secondary to UTI versus chronic abdominal wounds #Acute infectious encephalopathy #History of recurrent UTIs #Acute kidney injury secondary to sepsis vs decreased PO intake, improving #Chronic normocytic anemia #Atrial fibrillation (not on AC) #History of CVA #History of hypertension #IDDM #Anxiety #Depression #Chronic pain #Chronic wounds #Constipation, likely secondary to opioids Discharge instructions: Follow-up with your primary care provider within 1 week Complete antibiotic course as prescribed Can use phenazopyridine for dysuria. It will make your urine turn orange, do not be concerned Drink lots of water to prevent kidney injury Return to your nearest ED if your symptoms return Patient does not require to be on Isolatio Time Spent with Patient Time attestation: Total time spent providing and/or coordinating discharge services: Exam Vital Signs Temp Pulse Resp BP Pulse Ox O2 Del Method O2 Flow Rate 97.7 F 71 15 104/78 94 L Room Air 1 12/29/24 08:00 12/29/24 09:03 12/29/24 08:00 12/29/24 09:03 12/29/24 08:00 12/29/24 08:00 12/29/24 08:00 Narrative Exam General: Alert, following commands, answering questions, laying comfortably in bed HEENT: NC/AT, mucous membranes moist, bilateral sclera anicteric, no LAD appreciated Cardiovascular: irregular rhythm, S1/S2 present, no murmurs appreciated Pulmonary: clear to auscultation bilaterally, no rales/rhonchi/wheezes Abdominal: soft, non-tender, non-distended, no rebound/guarding, normal bowel sounds present Musculoskeletal: chronic wounds noted in lower abdomen and bilateral lower extremities, ? contracture in LLE Skin: scaly skin, decreased skin turgor, chronic wounds as noted in MSK Discharge Plan Plan Patient Disposition: Xfer Skilled Nsg Fac (SNF) Disposition Comment: Patient is not on Isolation Care Plan Goals: Follow-up with your primary care provider within 1 week Complete antibiotic course as prescribed Can use phenazopyridine for dysuria. It will make your urine turn orange, do not be concerned Drink lots of water to prevent kidney injury Return to your nearest ED if your symptoms return Patient does not require to be on Isolation Prescriptions/Referrals Prescriptions/Med Rec: New phenazopyridine 100 mg Tablet 100 mg PO TIDWM 7 Days Qty: 21 0RF nitrofurantoin monohyd/m-cryst 100 mg Capsule 100 mg PO BID 7 Days Qty: 14 0RF Continued magnesium hydroxide [Milk of Magnesia] 400 mg/5 mL Suspension 1,200 mg PO QDAY PRN (Reason: Constipation) Rx Instructions: 1200 mg/ 15mL dose bisacodyl [Dulcolax (bisacodyl)] 10 mg Suppository 10 mg MI QDAY PRN (Reason: Constipation) Rx Instructions: insert 1 suppository rectally every 24 hours as needed for constipation if MOM is ineffective and no BM for 8 hours Enema Disposable 19-7 gram/118 mL Enema 118 ml MI QDAY PRN (Reason: Constipation) Rx Instructions: insert 1 application rectally as needed for constipation if MOM and Dulcolax Supp are ineffective and no bowel movement in 8 hours. if no results from MOM, Dulcolax supp and enema call gabapentin 300 mg Capsule 300 mg PO BID insulin lispro [Humalog U-100 Insulin] 100 unit/mL Solution 1 sliding scale dose SUBCUT AC Rx Instructions: 70-150= 0 UNITS 151-200 = 2 UNITS 201-250 = 4 units 251-300 = 6 units 301-350 = 8 units 351-400 = 10 units 401+ call 201-250 = 4 UNITS 251-300 = 6 UNITS 301-350 = 8 UNITS 351-400= 10 UNITS ABOVE 400 CALL escitalopram oxalate 20 mg Tablet 10 mg PO QDAY Rx Instructions: FOR 6 MONTHS M/B hopelessness r/t decline in health causing distress to resident. baclofen 10 mg tablet 5 mg PO BID amlodipine 10 mg tablet 10 mg PO QDAY Rx Instructions: MONITOR BP AND PULSE, HOLD IF SBP <100 OR PULSE <60 sennosides [senna] 8.6 mg Tablet 8.6 - 50 mg PO BID morphine concentrate 20 mg/mL syringe 10 mg PO .q4h PRN (Reason: moderate pain or SOB) lorazepam 0.5 mg tablet 0.5 mg PO Q6H PRN (Reason: anxiety m/b terminal illness ) methadone 5 mg tablet 2.5 mg PO Q12H morphine concentrate 20 mg/mL syringe 5 mg PO DAILY PRN (Reason: mild pain 20-30mins prior to wound care) morphine concentrate 20 mg/mL syringe 20 mg PO Q2H PRN (Reason: severe pain or SOB) artificial tear([id number]) 0.1-0.3-0.2 % Drops 1 drp Both eyes BID Qty: 15 0RF Referrals: Tang Evans MD [Primary Care Provider] - Patient/Caregiver Discharge Instructions Other Discharge Activity Instructions:: Patient is not on Isolation or Precaution measures Print Language: Persian Stand Alone Forms: Jania Award Info., Patient Portal Info Letter Discharge Order Discharge Orders: Discharge (Routine); Ordered 12/29/24 Ordered By: Anshu Torres Quality Discharge Quality Measures VTE prophylaxis Attestestation MD Attestation I reviewed labs, imaging, EKG, home medications and prior available records. Face to face evaluation was performed by me. I have personally examined the patient and discussed assessment and plan with the IM team. I reviewed the resident note and agree with the plan with exceptions as below. Acute encephalopathy, improved Possible opiate withdrawal Sepsis: Likely urosepsis Acute UTI, E. coli Acute febrile illness Chronic hypoxic respiratory failure Leukocytosis [place] Abdominal wall wounds Insulin-dependent diabetes mellitus HFpEF Debility Resumed home methadone. Decreased the home morphine dose as needed given the concern of side effect on higher doses Consulted ID: Recommended Macrobid for 7 days as the blood cultures are negative Follow-up blood and urine cultures: Wound culture grew gram-negative rods, identified as E. coli. Likely contamination. No need for isolation. Wounds do not look infected. Urine culture grew gram-negative rods, identified as E. coli, likely the source of sepsis. Follow-up MRSA: Positive however likely in the setting of care home resident status and unlikely to be contributing to the UTI Trend WBC: Downtrending Monitor kidney function: Creatinine improved Continue wound care Continue insulin therapy and monitor fingersticks Ordered PT in order to go back to SNF and she got authorization Time spent is 40 minutes. More than 50% of the time was spent on patient education and coordination of care.
--- NOTE | 2024-12-29 12:09 | PC.NURSE ---
Per SS patient pickup time for discharge approximately 1430.
--- NOTE | 2024-12-29 12:38 | PC.NURSE ---
Report given to [facility].
[2024-12-31 07:20] LABS: IgG, Serum* 1880 mg/dL (600-1540)
== END 2024-12-29 15:27 | disposition skilled nursing facility (03) | DRG 720 ==
LOC: SERX 11:57 → SERHOLD 12:47 → S2SX 12-24 06:45 → S3SX 12-25 08:27 → S3NX 12-28 20:39
PROVIDERS: Internal Medicine Infectious Disease; Student in an Organized Health Care Education/Training Program; Admitting Provider Student in an Organized Health Care Education/Training Program; Emergency Provider Emergency Medicine; PCP Hospitalist; Visit Provider Student in an Organized Health Care Education/Training Program
DX: A41.51 Sepsis due to Escherichia coli [E. coli] (principal); I48.91 Unspecified atrial fibrillation; G93.41 Metabolic encephalopathy; I11.0 Hypertensive heart disease with heart failure; I50.32 Chronic diastolic (congestive) heart failure; D75.839 Thrombocytosis, unspecified; N17.9 Acute kidney failure, unspecified; R65.20 Severe sepsis without septic shock; F41.9 Anxiety disorder, unspecified; F32.A Depression, unspecified; G89.29 Other chronic pain; J96.11 Chronic respiratory failure with hypoxia; E87.1 Hypo-osmolality and hyponatremia; D64.9 Anemia, unspecified; K59.03 Drug induced constipation; E11.65 Type 2 diabetes mellitus with hyperglycemia; N39.0 Urinary tract infection, site not specified; Z86.73 Personal history of transient ischemic attack (TIA), and cerebral infarction without residual deficits; T40.2X5A Adverse effect of other opioids, initial encounter; L98.499 Non-pressure chronic ulcer of skin of other sites with unspecified severity; Z74.01 Bed confinement status; Z79.4 Long term (current) use of insulin; Z87.440 Personal history of urinary (tract) infections; Z79.899 Other long term (current) drug therapy; Z88.9 Allergy status to unspecified drugs, medicaments and biological substances; Z16.12 Extended spectrum beta lactamase (ESBL) resistance; Z88.0 Allergy status to penicillin; Z88.2 Allergy status to sulfonamides; Z88.8 Allergy status to other drugs, medicaments and biological substances
CPT/HCPCS: 36415; 70450; 71045; 76770; 80053; 80061; 80202; 81001; 82436; 82784; 83036; 83605; 83735; 84100; 84133; 84145; 84300; 84443; 84484; 85025; 85610; 85730; 86850; 86900; 86901; 87040; 87070; 87077; 87081; 87086; 87186; 87205; 87811; 92526; 92610; 93005; 93225; 96361; 96365; 96366; 96367; 97162; 99285; J0457; J1643; J1815; J2270; J2470; J3370; J3475; J3490; J7030; J7040; J7050; J7120; A9270